=== PATIENT | male | born 1975 | race Caucasian/White ===

== ENCOUNTER 2019-11-14 22:44 | Inpatient (IN) | payer SELFPAY ==
[~2019-11-14] VITALS: Ht 175 cm; Wt 126.6 kg
[2019-11-14] MEDS ORDERED: TICAGRELOR 90 MG TABLET (BRILINTA) PO ONE (22:50)
--- NOTE | 2019-11-14 22:57 | ED Chest Pain ---
General Chief Complaint: Chest Pain Stated Complaint: ARM TINGLING,CHEST/SHOULDER/BACK PAIN Source: patient History of Present Illness Date Seen by Provider: Nov 14, 2019 Time Seen by Provider: 22:44 Initial Comments 44-year-old male presenting with complaints of substernal chest pain going into his left arm. He states that he was just laying down in bed and this came on for him. It started about an hour prior to arrival in the ED and has been constant. He tried some ibuprofen at home but has not taken aspirin or any other medicine. He has been having a cough but no fever or chills. Allergies and Home Medications Allergies Coded Allergies: No Known Drug Allergies (Unverified , 11/14/19) Patient Home Medication List Home Medication List Reviewed: Yes Review of Systems Review of Systems Constitutional: No chills, No fever EENTM: No Symptoms Reported Respiratory: Cough Cardiovascular: See HPI, Chest Pain Gastrointestinal: Nausea; Denies Vomiting Genitourinary: No Symptoms Reported Musculoskeletal: no symptoms reported Skin: no symptoms reported Psychiatric/Neurological: No Symptoms Reported Endocrine: No Symptoms Reported Hematologic/Lymphatic: No Symptoms Reported Past Ojbrgdt-Iykyqo-Todfti Hx Past Med/Social Hx: Reviewed Nursing Past Med/Soc Hx Patient Social History Recent Foreign Travel: No Contact w/Someone Who Travel: No Past Medical History Respiratory: No Cardiac: Yes High Cholesterol, Hypertension Gastrointestinal: Yes Gastroesophageal Reflux Endocrine: Yes Diabetes, Insulin dep Physical Exam Vital Signs Vital Signs - First Documented 11/14/19 22:46 Pulse Ox 94 O2 Delivery Nasal Cannula O2 Flow Rate 2.00 Capillary Refill : Less Than 3 Seconds Height, Weight, BMI Height: '" Weight: lbs. oz. kg; BMI Method: General Appearance: WD/WN, Anxious, Mild Distress, Obese HEENT: PERRL/EOMI, Pharynx Normal Neck: Full Range of Motion, Normal Inspection, Non Tender, Supple Respiratory: Chest Non Tender, Lungs Clear, Normal Breath Sounds Cardiovascular: Regular Rate, Rhythm, Normal Peripheral Pulses Gastrointestinal: Normal Bowel Sounds, No Pulsatile Mass, Non Tender, Soft Extremity: Normal Capillary Refill, Normal Inspection, Normal Range of Motion, Non Tender, No Calf Tenderness, No Pedal Edema Neurologic/Psychiatric: Alert, Oriented x3, No Motor/Sensory Deficits Skin: Normal Color, Warm/Dry Progress/Results/Core Measures Results/Orders Lab Results Laboratory Tests Test 11/14/19 22:55 11/14/19 22:59 11/14/19 23:00 Range/Units White Blood Count 11.7 H 4.3-11.0 10^3/uL Red Blood Count 5.43 4.35-5.85 10^6/uL Hemoglobin 16.5 13.3-17.7 G/DL Hematocrit 49 40-54 % Mean Corpuscular Volume 90 80-99 FL Mean Corpuscular Hemoglobin 30 25-34 PG Mean Corpuscular Hemoglobin Concent 34 32-36 G/DL Red Cell Distribution Width 13.8 10.0-14.5 % Platelet Count 238 130-400 10^3/uL Mean Platelet Volume 9.9 7.4-10.4 FL Neutrophils (%) (Auto) 44 42-75 % Lymphocytes (%) (Auto) 44 12-44 % Monocytes (%) (Auto) 9 0-12 % Eosinophils (%) (Auto) 2 0-10 % Basophils (%) (Auto) 1 0-10 % Neutrophils # (Auto) 5.2 1.8-7.8 X 10^3 Lymphocytes # (Auto) 5.1 H 1.0-4.0 X 10^3 Monocytes # (Auto) 1.1 H 0.0-1.0 X 10^3 Eosinophils # (Auto) 0.2 0.0-0.3 10^3/uL Basophils # (Auto) 0.1 0.0-0.1 10^3/uL Prothrombin Time 12.1 L 12.2-14.7 SEC INR Comment 0.9 0.8-1.4 Activated Partial Thromboplast Time 24 24-35 SEC Sodium Level 141 135-145 MMOL/L Potassium Level 3.9 3.6-5.0 MMOL/L Chloride Level 101 98-107 MMOL/L Carbon Dioxide Level 23 21-32 MMOL/L Anion Gap 17 H 5-14 MMOL/L Blood Urea Nitrogen 14 7-18 MG/DL Creatinine 1.08 0.60-1.30 MG/DL Estimat Glomerular Filtration Rate > 60 BUN/Creatinine Ratio 13 Glucose Level 240 H 70-105 MG/DL Calcium Level 9.4 8.5-10.1 MG/DL Corrected Calcium 9.2 8.5-10.1 MG/DL Magnesium Level 2.0 1.6-2.4 MG/DL Total Bilirubin 0.2 0.1-1.0 MG/DL Aspartate Amino Transf (AST/SGOT) 19 5-34 U/L Alanine Aminotransferase (ALT/SGPT) 23 0-55 U/L Alkaline Phosphatase 91 40-136 U/L Troponin I < 0.30 <0.30 NG/ML Pro-B-Type Natriuretic Peptide 47.8 <75.0 PG/ML Total Protein 7.6 6.4-8.2 GM/DL Albumin 4.2 3.2-4.5 GM/DL Glucometer 234 H 70-110 MG/DL My Orders Orders - GIL SHETH MD Cbc With Automated Diff (11/14/19 22:50) Magnesium (11/14/19 22:50) Chest 1 View Ap/Pa Only (11/14/19 22:50) Ekg Tracing (11/14/19 22:50) Comprehensive Metabolic Panel (11/14/19 22:50) Protime With Inr (11/14/19 22:50) Partial Thromboplastin Time (11/14/19 22:50) O2 (11/14/19 22:50) Monitor-Rhythm Ecg Trace Only (11/14/19 22:50) Aspirin Chewable Tablet (Baby Aspirin Ch (11/14/19 23:00) Ed Iv/Invasive Line Start (11/14/19 22:50) Ticagrelor Tablet (Brilinta Tablet) (11/14/19 22:50) Heparin Injection (Heparin Injection) (11/14/19 23:00) Troponin I Fs (11/14/19 22:50) Probnp Fs (11/14/19 22:50) Morphine Injection (Morphine Injection (11/14/19 23:00) Coronavirus Sars-Cov-2 So 2018 (11/14/19 22:50) Medications Given in ED Current Medications Medications Dose Ordered Sig/Sarmad Route Start Time Stop Time Status Last Admin Dose Admin Aspirin 324 mg ONCE ONCE PO 11/14/19 23:00 11/14/19 23:01 DC 11/14/19 22:57 324 MG Heparin Sodium (Porcine) 5,000 units ONCE ONCE IV 11/14/19 23:00 11/14/19 23:01 DC 11/14/19 22:57 5,000 UNITS Morphine Sulfate 2 mg ONCE ONCE IVP 11/14/19 23:00 11/14/19 23:01 DC 11/14/19 22:57 2 MG Ticagrelor 180 mg 2250 ONCE PO 11/14/19 22:50 11/14/19 22:52 DC 11/14/19 22:57 180 MG Vital Signs/I&O 11/14/19 11/14/19 11/14/19 11/14/19 22:46 22:48 22:48 23:16 Pulse 53 57 Resp 18 14 B/P (MAP) 144/91 (108) 127/71 Pulse Ox 94 95 97 O2 Delivery Nasal Cannula Room Air Room Air Room Air O2 Flow Rate 2.00 Progress Progress Note #1: Progress Note Advised patient that he would be given several medicines and aspirin as well as a blood thinner and getting him transferred to the Director Of Occupational Therapy at [facility]. Covid- 19 swab ordered as well since have had cough. [address] Chávez and will have pt come to [facility] for crime lab analyst. Notified hothouse worker at 2253 for activating the crime lab analyst. 2255 updated [facility] ED about the patient coming for the crime lab analyst. Giving 324 mg of aspirin here with Heparin 5000 units, Brillinta 180 mg, Morphine. Held off on nitroglycerin since he was showing inferior SD changes on his ECG. Progress Note #2: Progress Note On my review of his 1 view cxr he has no definite infiltrate or effusion. Labs show mild elevation of WBC count to 11.7. Chemistry has elevated glucose but initial troponin and bnp are not elevated. Initial ECG Impression Date: Nov 14, 2019 Initial ECG Impression Time: 22:46 Initial ECG Rate: 48 Initial ECG Rhythm: S.Sky Initial ECG Comparisson: No Previous ECG Available Comment Sinus bradycardia with heart rate of 48 beats for minute. Acute inferior infarct with ST elevation in leads 2, 3, aVF with depression in aVL. QT interval 420 ms with a QTc interval 376 ms. MD interval of 165 ms. There is no prior tracing available for comparison. Diagnostic Imaging Diagonstic Imaging: Xray Plain Films/CT/US/NM/MRI: chest Comments On my review of his 1 view CXR he has no definite infiltrate or effusion Reviewed: Reviewed by Me Departure Communication (Admissions) Time/Spoke to Admitting Phy: 22:52 Dr. Chávez updated and will have pt go to the ED and crime lab analyst 2253 Spoke with structural mill supervisor to activate crime lab analyst Impression Primary Impression: ST elevation myocardial infarction (STEMI) of inferior wall, initial episode of care Disposition: 02 XFER SHT-TRM HOSP Condition: Critical Admissions Decision to Admit Reason: Admit from ER (General) (to energy systems laboratory director then inpatient) Decision to Admit/Date: Nov 14, 2019 Time/Decision to Admit Time: 22:52 GIL SHETH MD Nov 14, 2019 22:57
[2019-11-14 23:00] LABS: BASOPHILS % (AUTO) 1 % (0-10); EOSINOPHILS % (AUTO) 2 % (0-10); HEMATOCRIT 49 % (40-54); HEMOGLOBIN 16.5 G/DL (13.3-17.7); LYMPHOCYTES % (AUTO) 44 % (12-44); MEAN CORPUSCULAR HEMOGLOBIN 30 PG (25-34); MEAN CORPUSCULAR HGB CONC 34 G/DL (32-36); MEAN CORPUSCULAR VOLUME 90 FL (80-99); MEAN PLATELET VOLUME 9.9 FL (7.4-10.4); MONOCYTES % (AUTO) 9 % (0-12); NEUTROPHILS % (AUTO) 44 % (42-75); PLATELET COUNT 238 10^3/uL (130-400); RED CELL DISTRIBUTION WIDTH 13.8 % (10.0-14.5); WHITE BLOOD COUNT 11.7 10^3/uL (4.3-11.0)
[2019-11-14] MEDS ORDERED: ASPIRIN 81 MG CHEW (CHILDREN'S ASA) PO ONE (23:00)
[2019-11-14] MEDS ORDERED: morphine INJ 10 MG/ML 1ML (SYR OR VIAL) IVP ONE (23:00)
--- NOTE | 2019-11-14 23:00 | NUR ---
Patient swabbed for COVID. Denies fever, SOA
[2019-11-14 23:01] LABS: BASOPHILS # (AUTO) 0.1 10^3/uL (0.0-0.1); EOSINOPHILS # (AUTO) 0.2 10^3/uL (0.0-0.3); LYMPHOCYTES # (AUTO) 5.1 X 10^3 (1.0-4.0); MONOCYTES # (AUTO) 1.1 X 10^3 (0.0-1.0); NEUTROPHILS # (AUTO) 5.2 X 10^3 (1.8-7.8)
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
--- OUTSIDE RECORDS SUMMARY | 2019-11-14 23:09 | XMS REPORT ---
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 Name Role Phone MIKA JOSE Unavailable PROBLEMS Type Condition ICD9-CM Code [id number] Code Onset Dates Condition S tatus SNOMED Code Problem Diabetes type 2, controlled E11.9 Ac tive 90095209 Problem Neuropathy, diabetic E11.40 Active 031269339 Problem Type 2 diabetes mellitus with diabetic neuropathy, uns pecified E11.40 Active 73738005 Problem Erectile dysfunction, unspecified erectile dysfunction typ e N52.9 Active 047697330 Problem Mood disorder F39 Active 425359 05 Problem Rhinosinusitis J32.9 Active 37357 000 Problem intermediate designer 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.4 Active 651377388 Problem Daytime somnolence R40.0 Active 1 13982394740 Problem Type 2 diabetes mellitus without complications E11 .9 Active 264810482 Problem ASIYA (obstructive sleep apnea) G47.33 Active 23381040 Problem Arthritis M19.90 Active 7015812 Problem Essential hypertension I10 Active 68095150 Problem Uncontrolled type 2 diabetes mellitus with hyperglycemia E11.65 Active 382884736 ALLERGIES No Information ENCOUNTERS Encounter Location Date Diagnosis [facility] [address] [id number] [address] [place] [id number] September, [id number] [address] Aug, Neuropathy, diabetic E11.40 [facility] [address] [id number] [address] [place] [phone] Aug, [facility] [address] [id number] [address] [place] [phone] Jul, [address] [id number] [address] Jul, H. pylori infection A04.8 an d Diabetes type 2, controlled E11.9 [facility] [address] [id number] [address] [place] [phone] Jul, [address] 340 [id number] [address] Jul, Neuropathy, diabetic E11.40 [place] [address] [id number] [address] [place] [id number] Jul, Type 2 diabetes mellitus wit hout complications E11.[address] [id number] [address] Jul, Type 2 diabetes mellitus wit hout complications E11.9 ; Neuropathy, diabetic E11.40 ; intermediate designer 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.4 ; Chronic back pain M54.9 and Daytime somnolence R40.[address] [id number] [address] Jul, BMI 40.0-44.9, adult Z68.41 [place] [address] [id number] [address] [place] [id number] 04 Jul, 2019 Type 2 diabetes mellitus wit hout complications E11.[address] [id number] [address] May, BMI 40.0-44.9, adult Z68.41 [facility] [address] [id number] [address] [place] [phone] May, [facility] [address] [facility] [id number] [address] [place] [id number] May, Dental examination Z01.20 an d Caries K02.9 [facility] [address] [id number] [address] [place] [phone] Apr, [address] 340 [id number] [address] Apr, Type 2 diabetes mellitus wit hout complications E11.9 ; Neuropathy, diabetic E11.40 ; halfway 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.4 ; Essential hypertension I10 ; Tobacco abuse Z72.0 ; Verruca B07.9 ; Folliculitis L73.9 and intermediate designer use of drug Z79.899 [facility] [address] [id number] [address] [place] [id number] 13 Apr, 2019 BMI 40.0-44.9, adult Z68.41 [facility] [address] [id number] [address] [place] [phone] Apr, [facility] [address] [id number] [address] [place] [address] Mar, Type 2 diabetes mellitus wit hout complications E11.9 [place] [address] [id number] [address] [place] [phone] Mar, [facility] [address] [id number] [address] [place] [id number] Mar, BMI 40.0-44.9, adult Z68.41 [facility] [address] [id number] [address] Mar, Rhinosinusitis J32.9 [facility] [address] [id number] [address] [place] [phone] Feb, Type 2 diabetes mellitus wit hout complications E11.9 [facility] [address] [id number] [address] [place] [phone] Feb, [facility] [address] [id number] [address] [place] [id number] Feb, Type 2 diabetes mellitus wit hout complications E11.9 [facility] [address] [id number] [address] [place] [address] Feb, BMI 40.0-44.9, adult Z68.41 [facility] [address] [id number] [address] [place] [phone] Feb, [place] [address] [address] Jan, Type 2 diabetes mellitus wit hout complications E11.9 [place] [address] [address] Jan, [place] [address] [address] Jan, Uncontrolled type 2 diabetes mellitus with hyperglycemia E11.65 [place] [address] [address] Jan, BMI 40.0-44.9, adult Z68.41 [place] [address] [address] Dec, [place] [address] [address] Dec, BMI 40.0-44.9, adult Z68.41 [place] [address] [address] Nov, BMI 40.0-44.9, adult Z68.41 [place] [address] [address] Nov, [place] [address] [address] Nov, BMI 40.0-44.9, adult Z68.41 [place] [address] [address] Oct, Type 2 diabetes mellitus wit hout complications E11.9 ; intermediate designer 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.4 and Foot pain, right M79.671 [place] [address] [place] [id number] [address] [place] [address] Oct, BMI 40.0-44.9, adult Z68.41 [place] [address] [address] September, BMI 40.0-44.9, adult Z68.41 [facility] [address] [place] [id number] [address] [place] [id number] Aug, Type 2 diabetes mellitus wit hout complications E11.9 and Morbid obesity E66.01 [facility] [address] [place] [id number] [address] [place] [id number] Aug, BMI 40.0-44.9, adult Z68.41 [facility] [address] [place] [id number] [address] [place] [address] Jul, [facility] [address] [place] [id number] [place] [address] Jul, [facility] [address] [place] [id number] [place] [address] Jul, BMI 40.0-44.9, adult Z68.41 [place] [address] [address] Jul, BMI 40.0-44.9, adult Z68.41 [facility] [address] [place] [id number] [address] [place] [address] May, [facility] [address] [place] [id number] [place] [address] May, [facility] [address] [place] [id number] [address] [place] [address] Apr, BMI 40.0-44.9, adult Z68.41 ; Type 2 diabetes mellitus without complications E11.9 and Arthritis M19.90 [facility] [address] [place] [id number] [address] [place] [address] Mar, [facility] [address] [place] [id number] [address] [place] [id number] Mar, [facility] [address] [place] [id number] [address] [place] [phone] Mar, Type 2 diabetes mellitus wit hout complications E11.9 [facility] [address] [id number] [address] [place] [id number] Feb, BMI 40.0-44.9, adult Z68.41 and Diabetes type 2, controlled E11.9 [facility] [address] [id number] [address] [place] [address] Feb, [facility] [address] [id number] [address] [place] [id number] Feb, [facility] [address] [id number] [address] [place] [id number] Feb, Diabetes type 2, controlled E11.9 [facility] [address] [id number] [address] [place] [phone] 24 Jan, 2018 [facility] [address] [id number] [address] [place] [address] Jan, [facility] [address] [id number] [address] [place] [id number] 17 Jan, 2018 Allergic reaction to drug, i nitial encounter T78.40XA ; Uncontrolled type 2 diabetes mellitus with hyperglycemia E11.65 and Essential hypertension I10 [facility] [address] [id number] [address] [place] [id number] 07 Jan, 2018 Type 2 diabetes mellitus wit hout complications E11.9 ; Diabetes type 2, controlled E11.9 and Arthritis M19.90 [facility] [address] [id number] [address] [place] [phone] Dec, Diabetes type 2, controlled E11.9 [facility] [address] [id number] [address] [place] [id number] Dec, [facility] [address] [id number] [address] [place] [id number] Dec, Diabetes type 2, controlled E11.9 [facility] [address] [id number] [address] [place] [phone] Oct, Diabetes type 2, controlled E11.9 [facility] [address] [id number] [address] [place] [id number] 14 Oct, 2017 Dental caries K02.9 and Leisenring al examination Z01.20 [facility] [address] [id number] [address] [place] [id number] 16 Sep, 2017 [facility] [address] [id number] [address] [place] [phone] 05 Aug, 2017 Diabetes type 2, controlled E11.9 ; Mood disorder F39 ; Arthritis M19.90 and Family history of rheumatoid arthritis Z82.61 [facility] [address] [id number] [address] [place] [id number] 15 Jul, 2017 Infection of both inner ears H83.03 and Dizziness R42 [facility] [address] [id number] [address] [place] [phone] 14 Jul, 2017 [facility] [address] [id number] [address] [place] [id number] 24 Jul, 2017 Diabetes type 2, controlled E11.9 [facility] [address] [id number] [address] [place] [id number] 09 Jul, 2017 Dental examination Z01.20 [facility] [address] [id number] [address] [place] [phone] May, Diabetes type 2, controlled E11.9 [facility] [address] [id number] [address] [place] [id number] May, [facility] [address] [id number] [address] [place] [id number] May, Dental examination Z01.20 [facility] [address] [id number] [address] [place] [phone] May, [facility] [address] [id number] [address] [place] [phone] May, [facility] [address] [id number] [address] [place] [id number] May, Diabetes type 2, controlled E11.9 [facility] [address] [id number] [address] [place] [phone] Apr, [facility] [address] [id number] [address] [place] [phone] Apr, Mood disorder F39 [facility] [address] [id number] [address] [place] [phone] Mar, [facility] [address] [id number] [address] [place] [phone] Mar, Diabetes type 2, controlled E11.9 and Encounter for immunization Z23 [facility] [address] [id number] [address] [place] [phone] Jan, Mood disorder F39 [facility] [address] [id number] [address] [place] [phone] Jan, Type 2 diabetes mellitus wit hout complications E11.9 [facility] [address] [id number] [address] [place] [phone] Nov, [facility] [address] [id number] [address] [place] [id number] Nov, Type 2 diabetes mellitus wit hout complications E11.9 ; Mood disorder F39 and ASIYA (obstructive sleep apnea) G47.33 [facility] [address] [id number] [address] [place] [phone] September, Diabetes type 2, controlled E11.9 [facility] [address] [id number] [address] [place] [phone] September, [facility] [address] [id number] [address] [place] [phone] Aug, Diabetes type 2, controlled E11.9 [facility] [address] [id number] [address] [place] [phone] Jul, [facility] [address] [id number] [address] [place] [phone] Jul, Type 2 diabetes mellitus wit hout complications E11.9 and intermediate designer 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.4 [facility] [address] [id number] [address] [place] [phone] Jul, Diabetes type 2, controlled E11.9 [facility] [address] [id number] [address] [place] [phone] Jul, [facility] [address] [id number] [address] [place] [phone] May, [facility] [address] [id number] [address] [place] [id number] Apr, Diabetes type 2, controlled E11.9 [place] [address] [id number] [address] [place] [phone] Feb, Erectile dysfunction, unspec ified erectile dysfunction type N52.9 ; Type 2 diabetes mellitus with diabetic neuropathy, unspecified E11.40 and halfway 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.4 [place] [address] [id number] [address] [place] [id number] 08 Jan, 2016 Impacted cerumen of both ear s H61.23 [place] [address] [id number] [address] [place] [phone] Oct, Type 2 diabetes mellitus wit hout complications E11.9 [place] [address] [id number] [address] [place] [id number] Oct, [place] [address] [id number] [address] [place] [phone] September, Type 2 diabetes mellitus wit hout complications E11.9 [facility] [address] [id number] [address] [place] [phone] Jul, Type 2 diabetes mellitus wit hout complications E11.9 ; Lumbar pain M54.5 and Tobacco abuse Z72.0 [facility] [address] [id number] [address] [place] [phone] May, [place] [address] [id number] [address] [place] [phone] May, [facility] [address] [id number] [address] [place] [phone] Apr, [facility] [address] [id number] [address] [place] [phone] Mar, [facility] [address] [id number] [address] [place] [phone] Mar, Type 2 diabetes mellitus wit hout complications E11.9 [facility] [address] [id number] [address] [place] [phone] Mar, [facility] [address] [id number] [place] [phone] Feb, Type 2 diabetes mellitus wit hout complications E11.9 ; Neuropathy, diabetic E11.40 and Sleep apnea G47.30 [facility] [address] [id number] [address] [place] [id number] Feb, [facility] [address] [id number] [address] [place] [id number] Jan, Skin infection, bacterial 68 6.9 [facility] [address] [id number] [address] [place] [phone] Jan, [facility] [address] [id number] [address] [place] [id number] Dec, Diabetes mellitus type 2, un complicated 250.00 [facility] [address] [id number] [address] [place] [id number] Dec, [facility] [address] [id number] [address] [place] [id number] Nov, [facility] [address] [place] [id number] [address] [place] [id number] Nov, Diabetes mellitus type 2, un complicated 250.00 and Obesity 278.00 [facility] [address] [id number] [address] [place] [phone] Oct, [facility] [address] [id number] [address] [place] [address], [place] [address] Oct, [facility] [address] [id number] [address] [place] [address], [place] [address] Aug, [facility] [address] [id number] [address] [place] [address], [place] [address] Aug, [facility] [address] [id number] [address] [place] [address], [place] [address] Jul, [facility] [address] [id number] [address] [place] [address], [place] [address] Jul, [facility] [address] [id number] [address] [place] [address], [place] [address] Jul, [facility] [address] [id number] [address] [place] [address], [place] [address] Jul, [facility] [address] [id number] [address] [place] [address], [place] [address] Jul, [facility] [address] [id number] [address] [place] [address], [place] [address] Jul, [facility] [address] [id number] [address] [place] [address], [place] [address] Feb, [facility] [address] [id number] [address] [place] [address], [place] [address] Feb, [facility] [address] [id number] [address] [place] [address], [place] [address] Dec, [facility] [address] [id number] [address] [place] [address], [place] [address] Nov, [facility] [address] [id number] [address] [place] [address], [place] [address] Nov, [facility] [address] [id number] [address] [place] [address], [place] [address] Nov, [facility] [address] [id number] [address] [place] [address], [place] [address] Nov, [facility] [address] [id number] [address] [place] [address], [place] [address] Nov, [facility] [address] [id number] [address] [place] [address], [place] [address] September, [facility] [address] [id number] [address] [place] [address], [place] [address] September, [facility] [address] [id number] [address] [place] [address], [place] [address] Aug, [facility] [address] [id number] [address] [place] [address], [place] [address] Aug, [facility] [address] [id number] [address] [place] [address], [place] [address] Aug, [facility] [address] [id number] [address] [place] [address], [place] [address] Aug, [facility] [address] [id number] [address] [place] [address], [place] [address] Jul, [facility] [address] [id number] [address] [place] [address], [place] [address] Jul, [facility] [address] [id number] [address] [place] [address], [place] [address] Apr, [facility] [address] [id number] [address] [place] [address], [place] [id number] Apr, [facility] [address] [id number] [address] [place] [address], [place] [id number] Mar, [facility] [address] [id number] [address] [place] [address], [place] [id number] Mar, [facility] [address] [id number] [address] [place] [address], [place] [address] Jan, [facility] [address] [id number] [address] [place] [address], [place] [address] Jan, [facility] [address] [id number] [address] [place] [address], [place] [address] Dec, [facility] [address] [id number] [address] [place] [address], [place] [id number] Nov, [facility] [address] [id number] [address] [place] [address], [place] [address] Nov, [facility] [address] [id number] [address] [place] [address], [place] [address] Nov, [facility] [address] [id number] [address] [place] [address], [place] [address] Oct, [facility] [address] [id number] [address] [place] [address], [place] [address] Oct, [facility] [address] [id number] [address] [place] [address], [place] [address] Oct, [facility] [address] [id number] [address] [place] [address], [place] [address] September, [facility] [address] [id number] [address] [place] [address], [place] [address] September, [facility] [address] [id number] [address] [place] [address], [place] [address] Aug, [facility] [address] [id number] [address] [place] [address], [place] [id number] Aug, [facility] [address] [id number] [address] [place] [address], [place] [address] Aug, [facility] [address] [id number] [address] [place] [address], [place] [address] Aug, [facility] [address] [id number] [address] [place] [address], [place] [address] Jul, [facility] [address] [id number] [address] [place] [address], [place] [address] Jul, [facility] [address] [id number] [address] [place] [address], [place] [id number] Jul, [facility] [address] [id number] [address] [place] [address], [place] [address] Jul, [facility] [address] [id number] [address] [place] [address], [place] [id number] May, [facility] [address] [id number] [address] [place] [address], [place] [address] May, [facility] [address] [id number] [address] [place] [address], [place] [id number] May, [facility] [address] [id number] [address] [place] [address], [place] [address] May, [facility] [address] [id number] [address] [place] [address], [place] [address] May, [facility] [address] [id number] [address] [place] [address], [place] [address] May, [facility] [address] [id number] [address] [place] [address], [place] [address] May, [facility] [address] [id number] [address] [place] [address], [place] [address] May, [facility] [address] [id number] [address] [place] [address], [place] [address] May, [facility] [address] [id number] [address] [place] [address], [place] [address] May, [facility] [address] [id number] [address] [place] [address], [place] [id number] Apr, [facility] [address] [id number] [address] [place] [address], [place] [id number] Apr, [facility] [address] [id number] [address] [place] [address], [place] [address] Apr, [facility] [address] [id number] [address] [place] [address], [place] [address] Apr, [facility] [address] [id number] [address] [place] [address], [place] [address] Mar, [facility] [address] [id number] [address] [place] [address], [place] [address] Mar, [facility] [address] [id number] [address] [place] [address], [place] [address] Feb, [facility] [address] [id number] [address] [place] [address], [place] [address] Feb, [facility] [address] [id number] [address] [place] [address], [place] [address] Feb, [facility] [address] [id number] [address] [place] [address], [place] [address] Feb, [facility] [address] [id number] [address] [place] [address], [place] [address] Jan, [facility] [address] [id number] [address] [place] [address], [place] [address] Dec, [facility] [address] [id number] [address] [place] [address], [place] [address] Oct, [facility] [address] [id number] [address] [place] [address], [place] [address] September, [facility] [address] [id number] [address] [place] [address], [place] [address] September, [facility] [address] [id number] [address] [place] [address], [place] [address] Jul, [facility] [address] [id number] [address] [place] [address], [place] [address] Jul, [facility] [address] [id number] [address] [place] [address], [place] [address] Jul, [facility] [address] [id number] [address] [place] [address], [place] [address] Jul, [facility] [address] [id number] [address] [place] [address] [address] 16 Jul, 2011 [facility] [address] [id number] [address] [place] [address], [place] [address] May, [facility] [address] [id number] [address] [place] [address], [place] [address] 16 Apr, 2011 [facility] [address] [id number] [address] [place] [address], [place] [address] 16 Apr, 2011 [facility] [address] [id number] [address] [place] [address], [place] [address] Apr, [facility] [address] [id number] [address] [place] [address], [place] [address] Apr, [facility] [address] [id number] [address] [place] [address], [place] [address] Mar, [facility] [address] [id number] [address] [place] [address], [place] [address] Mar, [facility] [address] [id number] [address] [place] [address], [place] [address] Mar, [facility] [address] [id number] [address] [place] [address], [place] [address] Mar, [facility] [address] [id number] [address] [place] [address], [place] [address] Feb, [facility] [address] [id number] [address] [place] [id number] Dec, [facility] [address] [id number] [address] [place] [id number] September, [facility] [address] [id number] [address] [place] [address], [place] [address] Aug, [facility] [address] [id number] [address] [place] [address], [place] [id number] 17 May, 2010 [facility] [address] [id number] [address] [place] [address], [place] [address] May, [facility] [address] [id number] [address] [place] [phone] Apr, [facility] [address] [id number] [address] [place] [id number] Apr, [facility] [address] [id number] [address] [place] [id number] Apr, [facility] [address] [id number] [address] [place] [id number] Mar, [facility] [address] [id number] [address] [place] [phone] Mar, [facility] [address] [id number] [address] [place] [id number] Mar, [facility] [address] [id number] [address] [place] [id number] Nov, [facility] [address] [id number] [address] [place] [phone] Oct, [facility] [address] [id number] [address] [place] [phone] September, [facility] [address] [id number] [address] [place] [id number] Dec, [facility] [address] [id number] [address] [place] [id number] Jul, [facility] [address] [id number] [address] [place] [id number] Jul, IMMUNIZATIONS No Known Immunizations SOCIAL HISTORY Never Assessed REASON FOR VISIT PLAN OF CARE VITAL SIGNS Height 70 in 2013-02-22 Weight 311.1 lbs 2013-02-22 Temperature 97.6 degrees Fahrenheit 2013-02-22 Heart Rate 90 bpm 2013-02-22 Respiratory Rate 18 2013-02-22 Blood pressure systolic 115 mmHg 2013-02-22 Blood pressure diastolic 80 mmHg 2013-02-22 MEDICATIONS Unknown Medications RESULTS No Results PROCEDURES Procedure Date Ordered Result Body Site GLYCATED HEMOGLOBIN TEST Feb 22, 2013 INSTRUCTIONS MEDICATIONS ADMINISTERED No Known Medications MEDICAL (GENERAL) HISTORY Type Description Date Medical History acid reflux Medical History Neuropathy, diabetic Medical History Diabetes mellitus type 2, controlled Medical History Erectile dysfunction, unspecified erecti le dysfunction type Medical History Type 2 diabetes mellitus with diabetic n europathy, unspecified Medical History intermediate designer current use of 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
--- OUTSIDE RECORDS SUMMARY | 2019-11-14 23:10 | XMS REPORT ---
Author Author Jerman BRENNAN Organization [facility] Address [address] [place] [address] Care Team Providers Care Lease Operator Name Role Phone MIKA JOSE Unavailable PROBLEMS Type Condition ICD9-CM Code [id number] Code Onset Dates Condition S tatus SNOMED Code Problem Diabetes type 2, controlled E11.9 Ac tive 84474614 Problem Neuropathy, diabetic E11.40 Active 769867321 Problem Type 2 diabetes mellitus with diabetic neuropathy, uns pecified E11.40 Active 19038524 Problem Erectile dysfunction, unspecified erectile dysfunction typ e N52.9 Active 730167965 Problem Mood disorder F39 Active 019602 05 Problem Rhinosinusitis J32.9 Active 05270 000 Problem 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 128783333 Problem Daytime somnolence R40.0 Active 1 08791248381 Problem Type 2 diabetes mellitus without complications E11 .9 Active 923238558 Problem ASIYA (obstructive sleep apnea) G47.33 Active 79497449 Problem Arthritis M19.90 Active 1973296 Problem Essential hypertension I10 Active 01708549 Problem Uncontrolled type 2 diabetes mellitus with hyperglycemia E11.65 Active 807569420 ALLERGIES No Information ENCOUNTERS Encounter Location Date Diagnosis [facility] [address] [facility] [id number] [address] [place] [phone] September, [address] 340[id number] [address] Aug, Neuropathy, diabetic E11.40 [facility] [address] [facility] [id number] [address] [place] [phone] Aug, [facility] [address] [facility] [id number] [address] [place] [address] Jul, [address] [id number], [place] [address] Jul, H. pylori infection A04.8 an d Diabetes type 2, controlled E11.9 [facility] [address] [facility] [place] [id number] [address] [place] [address] Jul, [address] 340 [id number], [place] [address] Jul, Neuropathy, diabetic E11.40 [place] [address] [facility] [id number] [address] [place] [address] Jul, Type 2 diabetes mellitus wit hout complications E11.[address] [id number] [address] Jul, Type 2 diabetes mellitus wit hout complications E11.9 ; Neuropathy, diabetic E11.40 ; 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 ; Chronic back pain M54.9 and Daytime somnolence R40.[address] [id number] [address] Jul, BMI 40.0-44.9, adult Z68.41 [place] [address] [facility] [id number] [address] [place] [address] 04 Jul, 2019 Type 2 diabetes mellitus wit hout complications E11.[address] [id number], [place] [address] May, BMI 40.0-44.9, adult Z68.41 [facility] [address] [facility] [id number] [address] [place] [address] May, [facility] [address] [facility] [id number] [address] [place] [address] [id number] May, Dental examination Z01.20 an d Caries K02.9 [facility] [address] [facility] [id number] [address] [place] [address] Apr, [address] 340 17947892AG[place], [place] [address] Apr, Type 2 diabetes mellitus wit hout complications E11.9 ; Neuropathy, diabetic E11.40 ; assisted 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.4 ; Essential hypertension I10 ; Tobacco abuse Z72.0 ; Verruca B07.9 ; Folliculitis L73.9 and talent acquisition relationship manager use of drug Z79.899 [facility] [address] [facility] [id number] [address] [place] [address] 13 Apr, 2019 BMI 40.0-44.9, adult Z68.41 [facility] [address] [facility] [id number] [address] [place] [address] Apr, [facility] [address] [facility] [id number] [address] [place] [address] Mar, Type 2 diabetes mellitus wit hout complications E11.9 [place] [address] [facility] [id number] [address] [place] [address] Mar, [facility] [address] [facility] [id number] [address] [place] [address] Mar, BMI 40.0-44.9, adult Z68.41 [facility] [address] 340 [id number] [place] [address] Mar, Rhinosinusitis J32.9 [facility] [address] [facility] [id number] [address] [place] [address] Feb, Type 2 diabetes mellitus wit hout complications E11.9 [facility] [address] [facility] [id number] [address] [place] [address] Feb, [facility] [address] [facility] [id number] [address] [place] [address] Feb, Type 2 diabetes mellitus wit hout complications E11.9 [facility] [address] [facility] [id number] [address] [place] [address] Feb, BMI 40.0-44.9, adult Z68.41 [facility] [address] [facility] [id number] [address] [place] [address] Feb, [place] [address] [address] Jan, Type 2 diabetes mellitus wit hout complications E11.9 [place] [address] [address] Jan, [place] [address] [address] Jan, Uncontrolled type 2 diabetes mellitus with hyperglycemia E11.65 [place] [address] [address] Jan, BMI 40.0-44.9, adult Z68.41 [place] [address] [address] Dec, [place] [address] [address] Dec, BMI 40.0-44.9, adult Z68.41 [place] [address] [address] Nov, BMI 40.0-44.9, adult Z68.41 [place] [address] [address] Nov, [place] [address] [address] Nov, BMI 40.0-44.9, adult Z68.41 [place] [address] [address] Oct, Type 2 diabetes mellitus wit hout complications E11.9 ; 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 and Foot pain, right M79.671 [place] [address] [place] [id number] [address] [place] [address] Oct, BMI 40.0-44.9, adult Z68.41 [place] [address] [address] September, BMI 40.0-44.9, adult Z68.41 [facility] [address] [place] [id number] [address] [place] [address] Aug, Type 2 diabetes mellitus wit hout complications E11.9 and Morbid obesity E66.01 [facility] [address] [place] [id number] [address] [place] [address] Aug, BMI 40.0-44.9, adult Z68.41 [facility] [address] [place] [id number] [address] [place] [address] Jul, [facility] [address] [place] [id number] [place] [address] Jul, [facility] [address] [place] [id number] [place] [address] Jul, BMI 40.0-44.9, adult Z68.41 [place] [address] [address] Jul, BMI 40.0-44.9, adult Z68.41 [facility] [address] [place] [id number] [address] [place] [address] May, [facility] [address] [place] [id number] [place] [address] May, [facility] [address] [place] [id number] [address] [place] [address] Apr, BMI 40.0-44.9, adult Z68.41 ; Type 2 diabetes mellitus without complications E11.9 and Arthritis M19.90 [facility] [address] [place] [id number] [address] [place] [address] Mar, [facility] [address] [place] [id number] [address] [place] [address] Mar, [facility] [address] [place] [id number] [address] [place] [address] Mar, Type 2 diabetes mellitus wit hout complications E11.9 [facility] [address] [facility] [id number] [address] [place] [address] Feb, BMI 40.0-44.9, adult Z68.41 and Diabetes type 2, controlled E11.9 [facility] [address] [id number] [address] [place] [address] Feb, [facility] [address] [facility] [id number] [address] [place] [address] Feb, [facility] [address] [facility] [id number] [address] [place] [address] Feb, Diabetes type 2, controlled E11.9 [facility] [address] [facility] [id number] [address] [place] [address] 24 Jan, 2018 [facility] [address] [facility] [id number] [address] [place] [address] Jan, [facility] [address] [facility] [id number] [address] [place] [address] 17 Jan, 2018 Allergic reaction to drug, i nitial encounter T78.40XA ; Uncontrolled type 2 diabetes mellitus with hyperglycemia E11.65 and Essential hypertension I10 [facility] [address] [facility] [id number] [address] [place] [address] 07 Jan, 2018 Type 2 diabetes mellitus wit hout complications E11.9 ; Diabetes type 2, controlled E11.9 and Arthritis M19.90 [facility] [address] [facility] [id number] [address] [place] [address] Dec, Diabetes type 2, controlled E11.9 [facility] [address] [facility] [id number] [address] [place] [address] Dec, [facility] [address] [facility] [id number] [address] [place] [address] Dec, Diabetes type 2, controlled E11.9 [facility] [address] [facility] [id number] [address] [place] [address] Oct, Diabetes type 2, controlled E11.9 [facility] [address] [id number] [address] [place] [id number] 14 Oct, 2017 Dental caries K02.9 and [place] al examination Z01.20 [facility] [address] [id number] [address] [place] [id number] 16 Sep, 2017 [facility] [address] [id number] [address] [place] [id number] 05 Aug, 2017 Diabetes type 2, controlled E11.9 ; Mood disorder F39 ; Arthritis M19.90 and Family history of rheumatoid arthritis Z82.61 [facility] [address] [id number] [address] [place] [phone] 15 Jul, 2017 Infection of both inner ears H83.03 and Dizziness R42 [facility] [address] [id number] [address] [place] [phone] 14 Jul, 2017 [facility] [address] [id number] [address] [place] [id number] 24 Jul, 2017 Diabetes type 2, controlled E11.9 [facility] [address] [id number] [address] [place] [address] [id number] 09 Jul, 2017 Dental examination Z01.20 [facility] [address] [id number] [address] [place] [address] May, Diabetes type 2, controlled E11.9 [facility] [address] [id number] [address] [place] [address] May, [facility] [address] [id number] [address] [place] [address] [id number] May, Dental examination Z01.20 [facility] [address] [id number] [address] [place] [phone] May, [facility] [address] [id number] [address] [place] [phone] May, [facility] [address] [facility] [id number] [address] [place] [address] May, Diabetes type 2, controlled E11.9 [facility] [address] [id number] [address] [place] [address] Apr, [facility] [address] [id number] [address] [place] [phone] Apr, Mood disorder F39 [facility] [address] [facility] [id number] [address] [place] [address] Mar, [facility] [address] [facility] [id number] [address] [place] [phone] Mar, Diabetes type 2, controlled E11.9 and Encounter for immunization Z23 [facility] [address] [facility] [id number] [address] [place] [address] Jan, Mood disorder F39 [facility] [address] [facility] [id number] [address] [place] [phone] Jan, Type 2 diabetes mellitus wit hout complications E11.9 [facility] [address] [id number] [address] [place] [phone] Nov, [facility] [address] [facility] [id number] [address] [place] [address] Nov, Type 2 diabetes mellitus wit hout complications E11.9 ; Mood disorder F39 and ASIYA (obstructive sleep apnea) G47.33 [facility] [address] [facility] [id number] [address] [place] [address] September, Diabetes type 2, controlled E11.9 [facility] [address] [id number] [address] [place] [address] September, [facility] [address] [id number] [address] [place] [phone] Aug, Diabetes type 2, controlled E11.9 [facility] [address] [id number] [address] [place] [address] Jul, [facility] [address] [facility] [id number] [address] [place] [address] Jul, Type 2 diabetes mellitus wit hout complications E11.9 and 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 [facility] [address] [id number] [address] [place] [phone] Jul, Diabetes type 2, controlled E11.9 [facility] [address] [facility] [id number] [address] [place] [phone] Jul, [facility] [address] [facility] [id number] [address] [place] [phone] May, [facility] [address] [facility] [id number] [address] [place] [address] Apr, Diabetes type 2, controlled E11.9 [place] [address] [facility] [id number] [address] [place] [address] Feb, Erectile dysfunction, unspec ified erectile dysfunction type N52.9 ; Type 2 diabetes mellitus with diabetic neuropathy, unspecified E11.40 and assisted 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.4 [place] [address] [facility] [id number] [address] [place] [phone] 08 Jan, 2016 Impacted cerumen of both ear s H61.23 [place] [address] [facility] [id number] [address] [place] [phone] Oct, Type 2 diabetes mellitus wit hout complications E11.9 [place] [address] [facility] [id number] [address] [place] [phone] Oct, [place] [address] [facility] [id number] [address] [place] [address] September, Type 2 diabetes mellitus wit hout complications E11.9 [facility] [address] [facility] [id number] [address] [place] [phone] Jul, Type 2 diabetes mellitus wit hout complications E11.9 ; Lumbar pain M54.5 and Tobacco abuse Z72.0 [facility] [address] [facility] [id number] [address] [place] [phone] May, [place] [address] [facility] [id number] [address] [place] [address] May, [facility] [address] [facility] [id number] [address] [place] [phone] Apr, [facility] [address] [facility] [id number] [address] [place] [address] Mar, [facility] [address] [facility] [id number] [address] [place] [address] Mar, Type 2 diabetes mellitus wit hout complications E11.9 [facility] [address] [facility] [id number] [address] [place] [phone] Mar, [facility] [address] [facility] [id number] [place] [address] Feb, Type 2 diabetes mellitus wit hout complications E11.9 ; Neuropathy, diabetic E11.40 and Sleep apnea G47.30 [facility] [address] [facility] [id number] [address] [place] [phone] Feb, [facility] [address] [facility] [id number] [address] [place] [address] Jan, Skin infection, bacterial 68 6.9 [facility] [address] [facility] [id number] [address] [place] [address] Jan, [facility] [address] [facility] [id number] [address] [place] [address] Dec, Diabetes mellitus type 2, un complicated 250.00 [facility] [address] [facility] [id number] [address] [place] [phone] Dec, [facility] [address] [facility] [id number] [address] [place] [address] Nov, [facility] [address] [place] [id number] [address] [place] [address] Nov, Diabetes mellitus type 2, un complicated 250.00 and Obesity 278.00 [facility] [address] [facility] [id number] [address] [place] [address] Oct, [facility] [address] [id number] [address] [place] [address], [place] [address] Oct, [facility] [address] [id number] [address] [place] [address], [place] [address] Aug, [facility] [address] [id number] [address] [place] [address], [place] [address] Aug, [facility] [address] [id number] [address] [place] [address], [place] [address] Jul, [facility] [address] [id number] [address] [place] [address], [place] [address] Jul, [facility] [address] [id number] [address] [place] [address], [place] [address] Jul, [facility] [address] [id number] [address] [place] [address], [place] [address] Jul, [facility] [address] [id number] [address] [place] [address], [place] [address] Jul, [facility] [address] [id number] [address] [place] [address], [place] [address] Jul, [facility] [address] [id number] [address] [place] [address], [place] [address] Feb, [facility] [address] [id number] [address] [place] [address], [place] [address] Feb, [facility] [address] [id number] [address] [place] [address], [place] [address] Dec, [facility] [address] [id number] [address] [place] [address], [place] [address] Nov, [facility] [address] [id number] [address] [place] [address], [place] [address] Nov, [facility] [address] [id number] [address] [place] [address], [place] [address] Nov, [facility] [address] [id number] [address] [place] [address], [place] [address] Nov, [facility] [address] [id number] [address] [place] [address], [place] [address] Nov, [facility] [address] [id number] [address] [place] [address], [place] [address] September, [facility] [address] [id number] [address] [place] [address], [place] [address] September, [facility] [address] [id number] [address] [place] [address], [place] [address] Aug, [facility] [address] [id number] [address] [place] [address], [place] [address] Aug, [facility] [address] [id number] [address] [place] [address], [place] [address] Aug, [facility] [address] [id number] [address] [place] [address], [place] [address] Aug, [facility] [address] [id number] [address] [place] [address], [place] [address] Jul, [facility] [address] [id number] [address] [place] [address], [place] [address] Jul, [facility] [address] [id number] [address] [place] [address], [place] [address] Apr, [facility] [address] [id number] [address] [place] [address], [place] [address] Apr, [facility] [address] [id number] [address] [place] [address], [place] [address] Mar, [facility] [address] [id number] [address] [place] [address], [place] [address] Mar, [facility] [address] [id number] [address] [place] [address], [place] [address] Jan, [facility] [address] [id number] [address] [place] [address], [place] [address] Jan, [facility] [address] [id number] [address] [place] [address], [place] [address] Dec, [facility] [address] [id number] [address] [place] [address], [place] [address] Nov, [facility] [address] [id number] [address] [place] [address], [place] [address] Nov, [facility] [address] [id number] [address] [place] [address], [place] [address] Nov, [facility] [address] [id number] [address] [place] [address], [place] [address] Oct, [facility] [address] [id number] [address] [place] [address], [place] [address] Oct, [facility] [address] [id number] [address] [place] [address], [place] [address] Oct, [facility] [address] [id number] [address] [place] [address], [place] [address] September, [facility] [address] [id number] [address] [place] [address], [place] [address] September, [facility] [address] [id number] [address] [place] [address], [place] [address] Aug, [facility] [address] [id number] [address] [place] [address], [place] [address] Aug, [facility] [address] [id number] [address] [place] [address], [place] [address] Aug, [facility] [facility] [address] [id number] [address] [place] [address], [place] [address] Aug, [facility] [address] [id number] [address] [place] [address], [place] [address] Jul, [facility] [address] [id number] [address] [place] [address], [place] [address] Jul, [facility] [address] [id number] [address] [place] [address], [place] [address] Jul, [facility] [address] [id number] [address] [place] [address], [place] [address] Jul, [facility] [address] [id number] [address] [place] [address], [place] [address] May, [facility] [address] [id number] [address] [place] [address], [place] [address] May, [facility] [address] [id number] [address] [place] [address], [place] [address] May, [facility] [address] [id number] [address] [place] [address], [place] [address] May, [facility] [address] [id number] [address] [place] [address], [place] [address] May, [facility] [address] [id number] [address] [place] [address], [place] [address] May, [facility] [address] [id number] [address] [place] [address], [place] [address] May, [facility] [address] [id number] [address] [place] [address], [place] [address] May, [facility] [address] [id number] [address] [place] [address], [place] [address] May, [facility] [address] [id number] [address] [place] [address], [place] [address] May, [facility] [address] [id number] [address] [place] [address], [place] [address] Apr, [facility] [address] [id number] [address] [place] [address], [place] [address] Apr, [facility] [address] [id number] [address] [place] [address], [place] [address] Apr, [facility] [address] [id number] [address] [place] [address], [place] [address] Apr, [facility] [address] [id number] [address] [place] [address], [place] [address] Mar, [facility] [address] [id number] [address] [place] [address], [place] [address] Mar, [facility] [address] [id number] [address] [place] [address], [place] [address] Feb, [facility] [address] [id number] [address] [place] [address], [place] [address] Feb, [facility] [address] [id number] [address] [place] [address], [place] [address] Feb, [facility] [address] [id number] [address] [place] [address], [place] [address] Feb, [facility] [address] [id number] [address] [place] [address], [place] [address] Jan, [facility] [address] [id number] [address] [place] [address], [place] [address] Dec, [facility] [address] [id number] [address] [place] [address], [place] [address] Oct, [facility] [address] [id number] [address] [place] [address], [place] [address] September, [facility] [address] [id number] [address] [place] [address], [place] [address] September, [facility] [address] [id number] [address] [place] [address], [place] [address] Jul, [facility] [address] [id number] [address] [place] [address], [place] [address] Jul, [facility] [address] [id number] [address] [place] [address], [place] [address] Jul, [facility] [address] [id number] [address] [place] [address], [place] [address] Jul, [facility] [address] [id number] [address] [place] [address] [address] 16 Jul, 2011 [facility] [address] [id number] [address] [place] [address], [place] [address] May, [facility] [address] [id number] [address] [place] [address], [place] [address] 16 Apr, 2011 [facility] [address] [id number] [address] [place] [address], [place] [address] 16 Apr, 2011 [facility] [address] [id number] [address] [place] [address], [place] [address] Apr, [facility] [address] [id number] [address] [place] [address], [place] [address] Apr, [facility] [address] [id number] [address] [place] [address], [place] [address] Mar, [facility] [address] [id number] [address] [place] [address], [place] [address] Mar, [facility] [address] [id number] [address] [place] [address], [place] [address] Mar, [facility] [address] [id number] [address] [place] [address], [place] [address] Mar, [facility] [address] [id number] [address] [place] [address], [place] [address] Feb, [facility] [address] [id number] [address] [place] [address] Dec, [facility] [address] [id number] [address] [place] [address] September, [facility] [address] [id number] [address] [place] [address], [place] [address] Aug, [facility] [address] [id number] [address] [place] [address], [place] [address] 17 May, 2010 [facility] [address] [id number] [address] [place] [address], [place] [address] May, [facility] [address] [id number] [address] [place] [address] Apr, [facility] [address] [id number] [address] [place] [address] Apr, [facility] [address] [id number] [address] [place] [address] Apr, [facility] [address] [id number] [address] [place] [address] Mar, [facility] [address] [id number] [address] [place] [address] Mar, [facility] [address] [id number] [address] [place] [address] Mar, [facility] [address] [id number] [address] [place] [address] Nov, [facility] [address] [id number] [address] [place] [id number] Oct, [facility] [address] [id number] [address] [place] [address] September, [facility] [address] [id number] [address] [place] [address] Dec, [facility] [address] [id number] [address] [place] [address] Jul, [facility] [address] [id number] [address] [place] [address] Jul, IMMUNIZATIONS No Known Immunizations SOCIAL HISTORY Never Assessed REASON FOR VISIT PLAN OF CARE VITAL SIGNS Height 70 in 2012-12-20 Weight 312.8 lbs 2012-12-20 Temperature 96.6 degrees Fahrenheit 2012-12-20 Heart Rate 100 bpm 2012-12-20 Respiratory Rate 20 2012-12-20 Blood pressure systolic 114 mmHg 2012-12-20 Blood pressure diastolic 64 mmHg 2012-12-20 MEDICATIONS Unknown Medications RESULTS No Results PROCEDURES No Known procedures INSTRUCTIONS MEDICATIONS ADMINISTERED No Known Medications MEDICAL (GENERAL) HISTORY Type Description Date Medical History acid reflux Medical History Neuropathy, diabetic Medical History Diabetes mellitus type 2, controlled Medical History Erectile dysfunction, unspecified erecti le dysfunction type Medical History Type 2 diabetes mellitus with diabetic n europathy, unspecified Medical 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
--- OUTSIDE RECORDS SUMMARY | 2019-11-14 23:10 | XMS REPORT ---
Author Author Jerman BRENNAN Organization [facility] Address [address] [place] [address] Care Team Providers Care Managing Editor Name Role Phone JOSE BRENNAN Unavailable PROBLEMS Type Condition ICD9-CM Code DEV14-AE Code Onset Dates Condition S tatus SNOMED Code Problem Diabetes type 2, controlled E11.9 Ac tive 45802396 Problem Neuropathy, diabetic E11.40 Active 561732969 Problem Type 2 diabetes mellitus with diabetic neuropathy, uns pecified E11.40 Active 62865485 Problem Erectile dysfunction, unspecified erectile dysfunction typ e N52.9 Active 385966504 Problem Mood disorder F39 Active 579590 05 Problem Rhinosinusitis J32.9 Active 50016 000 Problem lobsterman 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.4 Active 767936038 Problem Daytime somnolence R40.0 Active 1 53871843419 Problem Type 2 diabetes mellitus without complications E11 .9 Active 326643052 Problem ASIYA (obstructive sleep apnea) G47.33 Active 73307192 Problem Arthritis M19.90 Active 9159944 Problem Essential hypertension I10 Active 70098278 Problem Uncontrolled type 2 diabetes mellitus with hyperglycemia E11.65 Active 047641774 ALLERGIES No Information ENCOUNTERS Encounter Location Date Diagnosis [address] [id number] [address] Aug, Neuropathy, diabetic E11.40 [facility] [address] [facility] [id number] [address] [place] [address] Aug, [facility] [address] [facility] [id number] [address] [place] [address] Jul, [address] [id number] [address] Jul, H. pylori infection A04.8 an d Diabetes type 2, controlled E11.9 [facility] [address] [place] [id number] [address] [place] [address] Jul, [address] [id number] [address] Jul, Neuropathy, diabetic E11.40 [facility] [address] [facility] [id number] [address] [place] [address] Jul, Type 2 diabetes mellitus wit hout complications E11.[address] [id number] [address] Jul, Type 2 diabetes mellitus wit hout complications E11.9 ; Neuropathy, diabetic E11.40 ; lobsterman 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.4 ; Chronic back pain M54.9 and Daytime somnolence R40.[address] [id number] [address] Jul, BMI 40.0-44.9, adult Z68.41 [place] [address] [facility] [id number] [address] [place] [address] Jul, Type 2 diabetes mellitus wit hout complications E11.[address] [id number] [address] May, BMI 40.0-44.9, adult Z68.41 [place] [address] [facility] [id number] [address] [place] [address] May, [facility] [address] [place] [id number] [address] [place] [address] [id number] May, Dental examination Z01.20 an d Caries K02.9 [facility] [address] [facility] [id number] [address] [place] [address] Apr, [address] [id number] [address] Apr, Type 2 diabetes mellitus wit hout complications E11.9 ; Neuropathy, diabetic E11.40 ; lobsterman 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.4 ; Essential hypertension I10 ; Tobacco abuse Z72.0 ; Verruca B07.9 ; Folliculitis L73.9 and penitentiary use of drug Z79.899 [facility] [address] [facility] [id number] [address] [place] [address] Apr, BMI 40.0-44.9, adult Z68.41 [facility] [address] [facility] [id number] [address] [place] [address] Apr, [facility] [address] [facility] [id number] [address] [place] [address] Mar, Type 2 diabetes mellitus wit hout complications E11.9 [facility] [address] [facility] [id number] [address] [place] [address] Mar, [facility] [address] [facility] [id number] [address] [place] [address] Mar, BMI 40.0-44.9, adult Z68.41 [facility] [address] [id number] [address] Mar, Rhinosinusitis J32.9 [facility] [address] [facility] [id number] [address] [place] [address] Feb, Type 2 diabetes mellitus wit hout complications E11.9 [facility] [address] [facility] [id number] [address] [place] [address] Feb, [facility] [address] [facility] [id number] [address] [place] [address] Feb, Type 2 diabetes mellitus wit hout complications E11.9 [facility] [address] [facility] [id number] [address] [place] [address] Feb, BMI 40.0-44.9, adult Z68.41 [facility] [address] [facility] [id number] [address] [place] [address] Feb, [facility] [address] [facility] [id number] [address] [place] [address] Jan, Type 2 diabetes mellitus wit hout complications E11.9 [place] [address] [facility] [id number] [address] [place] [address] Jan, [place] [address] [facility] [id number] [address] [place] [address] Jan, Uncontrolled type 2 diabetes mellitus with hyperglycemia E11.65 [place] [address] [facility] [id number] [address] [place] [address] Jan, BMI 40.0-44.9, adult Z68.41 [place] [address] [facility] [id number] [address] [place] [address] Dec, [place] [address] [place] [id number] [place] [address] Dec, BMI 40.0-44.9, adult Z68.41 [place] [address] [place] [id number] [address] [place] [address] Nov, BMI 40.0-44.9, adult Z68.41 [place] [address] [place] [id number] [address] [place] [address] Nov, [place] [address] [place] [id number] [address] [place] [address] Nov, BMI 40.0-44.9, adult Z68.41 [place] [address] [place] [id number] [address] [place] [address] Oct, Type 2 diabetes mellitus wit hout complications E11.9 ; lobsterman 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.4 and Foot pain, right M79.671 [place] [address] [facility] [id number] [address] [place] [address] Oct, BMI 40.0-44.9, adult Z68.41 [place] [address] [place] [id number] [address] [place] [address] September, BMI 40.0-44.9, adult Z68.41 [place] [address] [place] [id number] [address] [place] [address] Aug, Type 2 diabetes mellitus wit hout complications E11.9 and Morbid obesity E66.01 [facility] [address] [address] Aug, BMI 40.0-44.9, adult Z68.41 [facility] [address] [address] Jul, [facility] [address] [address] Jul, [facility] [address] [address] Jul, BMI 40.0-44.9, adult Z68.41 [place] [address] [address] Jul, BMI 40.0-44.9, adult Z68.41 [facility] [address] [address] May, [facility] [address] [address] May, [facility] [address] [address] Apr, BMI 40.0-44.9, adult Z68.41 ; Type 2 diabetes mellitus without complications E11.9 and Arthritis M19.90 [facility] [address] [address] Mar, [facility] [address] [address] Mar, [place] [address] [address] Mar, Type 2 diabetes mellitus wit hout complications E11.9 [place] [address] [address] Feb, BMI 40.0-44.9, adult Z68.41 and Diabetes type 2, controlled E11.9 [facility] [address] [facility] [id number] [address] [place] [address] Feb, [facility] [address] [facility] [id number] [address] [place] [address] Feb, [facility] [address] [facility] [id number] [address] [place] [address] Feb, Diabetes type 2, controlled E11.9 [facility] [address] [id number] [address] [place] [address] 24 Jan, 2018 [facility] [address] [facility] [id number] [address] [place] [address] 20 Jan, 2018 [facility] [address] [facility] [id number] [address] [place] [address] 17 Jan, 2018 Allergic reaction to drug, i nitial encounter T78.40XA ; Uncontrolled type 2 diabetes mellitus with hyperglycemia E11.65 and Essential hypertension I10 [facility] [address] [facility] [id number] [address] [place] [address] 07 Jan, 2018 Type 2 diabetes mellitus wit hout complications E11.9 ; Diabetes type 2, controlled E11.9 and Arthritis M19.90 [facility] [address] [facility] [id number] [address] [place] [address] Dec, Diabetes type 2, controlled E11.9 [facility] [address] [facility] [id number] [address] [place] [address] Dec, [facility] [address] [facility] [id number] [address] [place] [address] Dec, Diabetes type 2, controlled E11.9 [facility] [address] [facility] [id number] [address] [place] [address] Oct, Diabetes type 2, controlled E11.9 [facility] [address] [id number] [address] [place] [address] [id number] 14 Germán, 2018 Dental caries K02.9 and Dunlap al examination Z01.20 [facility] [address] [id number] [address] [place] [address] September, [facility] [address] [id number] [address] [place] [address] Aug, Diabetes type 2, controlled E11.9 ; Mood disorder F39 ; Arthritis M19.90 and Family history of rheumatoid arthritis Z82.61 [facility] [address] [id number] [address] [place] [address] 15 Jul, 2017 Infection of both inner ears H83.03 and Dizziness R42 [facility] [address] [id number] [address] [place] [address] Jul, [facility] [address] [id number] [address] [place] [address] Jul, Diabetes type 2, controlled E11.9 [facility] [address] [id number] [address] [place] [id number] Jul, Dental examination Z01.20 [facility] [address] [id number] [address] [place] [address] May, Diabetes type 2, controlled E11.9 [facility] [address] [id number] [address] [place] [address] May, [facility] [address] [id number] [address] [place] [address] [id number] May, Dental examination Z01.20 [facility] [address] [id number] [address] [place] [address] May, [facility] [address] [id number] [address] [place] [address] May, [facility] [address] [id number] [address] [place] [address] May, Diabetes type 2, controlled E11.9 [facility] [address] [id number] [address] [place] [address] Apr, [facility] [address] [facility] [id number] [address] [place] [address] Apr, Mood disorder F39 [facility] [address] [facility] [id number] [address] [place] [address] Mar, [facility] [address] [facility] [id number] [address] [place] [address] Mar, Diabetes type 2, controlled E11.9 and Encounter for immunization Z23 [facility] [address] [facility] [id number] [address] [place] [address] Jan, Mood disorder F39 [facility] [address] [facility] [id number] [address] [place] [address] Jan, Type 2 diabetes mellitus wit hout complications E11.9 [facility] [address] [facility] [id number] [address] [place] [address] Nov, [facility] [address] [facility] [id number] [address] [place] [address] Nov, Type 2 diabetes mellitus wit hout complications E11.9 ; Mood disorder F39 and ASIYA (obstructive sleep apnea) G47.33 [facility] [address] [facility] [id number] [address] [place] [address] September, Diabetes type 2, controlled E11.9 [facility] [address] [facility] [id number] [address] [place] [address] September, [facility] [address] [facility] [id number] [address] [place] [address] Aug, Diabetes type 2, controlled E11.9 [facility] [address] [facility] [id number] [address] [place] [address] Jul, [facility] [address] [facility] [id number] [address] [place] [address] Jul, Type 2 diabetes mellitus wit hout complications E11.9 and penitentiary 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.4 [facility] [address] [facility] [id number] [address] [place] [address] Jul, Diabetes type 2, controlled E11.9 [facility] [address] [facility] [id number] [address] [place] [address] Jul, [facility] [address] [facility] [id number] [address] [place] [address] May, [facility] [address] [facility] [id number] [address] [place] [address] Apr, Diabetes type 2, controlled E11.9 [facility] [address] [facility] [id number] [address] [place] [address] Feb, Erectile dysfunction, unspec ified erectile dysfunction type N52.9 ; Type 2 diabetes mellitus with diabetic neuropathy, unspecified E11.40 and lobsterman 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.4 [place] [address] [facility] [id number] [address] [place] [address] Jan, Impacted cerumen of both ear s H61.23 [facility] [address] [facility] [id number] [address] [place] [address] Oct, Type 2 diabetes mellitus wit hout complications E11.9 [facility] [address] [facility] [id number] [address] [place] [address] Oct, [facility] [address] [facility] [id number] [address] [place] [address] September, Type 2 diabetes mellitus wit hout complications E11.9 [facility] [address] [facility] [id number] [address] [place] [address] Jul, Type 2 diabetes mellitus wit hout complications E11.9 ; Lumbar pain M54.5 and Tobacco abuse Z72.0 [facility] [address] [facility] [id number] [address] [place] [address] May, [facility] [address] [facility] [id number] [address] [place] [address] May, [facility] [address] [facility] [id number] [address] [place] [address] Apr, [facility] [address] [id number] [address] [place] [address] Mar, [facility] [address] [facility] [id number] [address] [place] [address] Mar, Type 2 diabetes mellitus wit hout complications E11.9 [facility] [address] [facility] [id number] [address] [place] [address] Mar, [facility] [address] [facility] [id number] [address] [place] [address] 28 Feb, 2015 Type 2 diabetes mellitus wit hout complications E11.9 ; Neuropathy, diabetic E11.40 and Sleep apnea G47.30 [facility] [address] [facility] [id number] [address] [place] [address] Feb, [facility] [address] [facility] [id number] [address] [place] [address] Jan, Skin infection, bacterial 68 6.9 [facility] [address] [facility] [id number] [address] [place] [address] Jan, [facility] [address] [facility] [id number] [address] [place] [address] Dec, Diabetes mellitus type 2, un complicated 250.00 [facility] [address] [facility] [id number] [address] [place] [address] Dec, [facility] [address] [facility] [id number] [address] [place] [address] Nov, [facility] [address] [facility] [id number] [address] [place] [address] Nov, Diabetes mellitus type 2, un complicated 250.00 and Obesity 278.00 [facility] [address] [facility] [id number] [address] [place] [address] Oct, [facility] [address] [facility] [id number] [address] [place] [address] Oct, [facility] [address] [id number] [address] [place] [address], [place] [address] Aug, [facility] [address] [id number] [address] [place] [address], [place] [address] Aug, [facility] [address] [id number] [address] [place] [address], [place] [address] Jul, [facility] [address] [id number] [address] [place] [address], [place] [address] Jul, [facility] [address] [id number] [address] [place] [address], [place] [address] Jul, [facility] [address] [id number] [address] [place] [address], [place] [address] Jul, [facility] [address] [id number] [address] [place] [address], [place] [address] Jul, [facility] [address] [id number] [address] [place] [address], [place] [address] Jul, [facility] [address] [id number] [address] [place] [address], [place] [address] Feb, [facility] [address] [id number] [address] [place] [address], [place] [address] Feb, [facility] [address] [id number] [address] [place] [address], [place] [address] Dec, [facility] [address] [id number] [address] [place] [address], [place] [address] Nov, [facility] [address] [id number] [address] [place] [address], [place] [address] Nov, [facility] [address] [id number] [address] [place] [address], [place] [address] Nov, [facility] [address] [id number] [address] [place] [address], [place] [address] Nov, [facility] [address] [id number] [address] [place] [address], [place] [address] Nov, [facility] [address] [id number] [address] [place] [address], [place] [address] September, [facility] [address] [id number] [address] [place] [address], [place] [address] September, [facility] [address] [id number] [address] [place] [address], [place] [address] Aug, [facility] [address] [id number] [address] [place] [address], [place] [address] Aug, [facility] [address] [id number] [address] [place] [address], [place] [address] Aug, [facility] [address] [id number] [address] [place] [address], [place] [address] Aug, [facility] [address] [id number] [address] [place] [address], [place] [address] Jul, [facility] [address] [id number] [address] [place] [address], [place] [address] Jul, [facility] [address] [id number] [address] [place] [address], [place] [address] Apr, [facility] [address] [id number] [address] [place] [address], [place] [address] Apr, [facility] [address] [id number] [address] [place] [address], [place] [address] Mar, [facility] [address] [id number] [address] [place] [address], [place] [address] Mar, [facility] [address] [id number] [address] [place] [address], [place] [address] Jan, [facility] [address] [id number] [address] [place] [address], [place] [address] Jan, [facility] [address] [id number] [address] [place] [address], [place] [address] Dec, [facility] [address] [id number] [address] [place] [address], [place] [address] Nov, [facility] [address] [id number] [address] [place] [address], [place] [address] Nov, [facility] [address] [id number] [address] [place] [address], [place] [address] Nov, [facility] [address] [id number] [address] [place] [address], [place] [address] Oct, [facility] [address] [id number] [address] [place] [address], [place] [address] Oct, [facility] [address] [id number] [address] [place] [address], [place] [address] Oct, [facility] [address] [id number] [address] [place] [address], [place] [address] September, [facility] [address] [id number] [address] [place] [address], [place] [address] September, [facility] [address] [id number] [address] [place] [address], [place] [address] Aug, [facility] [address] [id number] [address] [place] [address], [place] [address] Aug, [facility] [address] [id number] [address] [place] [address], [place] [address] Aug, [facility] [address] [id number] [address] [place] [address], [place] [address] Aug, [facility] [address] [id number] [address] [place] [address], [place] [id number] Jul, [facility] [address] [id number] [address] [place] [address], [place] [id number] 28 Jul, 2012 [facility] [address] [id number] [address] [place] [address], [place] [address] Jul, [facility] [address] [id number] [address] [place] [address], [place] [id number] Jul, [facility] [address] [id number] [address] [place] [address], [place] [id number] May, [facility] [address] [id number] [address] [place] [address], [place] [address] May, [facility] [address] [id number] [address] [place] [address], [place] [address] May, [facility] [address] [id number] [address] [place] [address], [place] [address] May, [facility] [address] [id number] [address] [place] [address], [place] [address] May, [facility] [address] [id number] [address] [place] [address], [place] [address] May, [facility] [address] [id number] [address] [place] [address], [place] [address] May, [facility] [address] [id number] [address] [place] [address], [place] [address] May, [facility] [address] [id number] [address] [place] [address], [place] [address] May, [facility] [address] [id number] [address] [place] [address], [place] [address] May, [facility] [address] [id number] [address] [place] [address], [place] [address] Apr, [facility] [address] [id number] [address] [place] [address], [place] [address] Apr, [facility] [address] [id number] [address] [place] [address], [place] [address] Apr, [facility] [address] [id number] [address] [place] [address], [place] [address] Apr, [facility] [address] [id number] [address] [place] [address], [place] [address] Mar, [facility] [address] [id number] [address] [place] [address], [place] [address] Mar, [facility] [address] [id number] [address] [place] [address], [place] [address] Feb, [facility] [address] [id number] [address] [place] [address], [place] [address] Feb, [facility] [address] [id number] [address] [place] [address], [place] [address] Feb, [facility] [address] [id number] [address] [place] [address], [place] [address] Feb, [facility] [address] [id number] [address] [place] [address], [place] [address] Jan, [facility] [address] [id number] [address] [place] [address], [place] [address] Dec, [facility] [address] [id number] [address] [place] [address], [place] [address] Oct, [facility] [address] [id number] [address] [place] [address], [place] [address] September, [facility] [address] [id number] [address] [place] [address], [place] [address] September, [facility] [address] [id number] [address] [place] [address], [place] [address] Jul, [facility] [address] [id number] [address] [place] [address], [place] [address] Jul, [facility] [address] [id number] [address] [place] [address], [place] [address] Jul, [facility] [address] [id number] [address] [place] [address], [place] [address] Jul, [facility] [address] [id number] [address] [place] [address], [place] [address] 16 Jul, 2011 [facility] [address] [id number] [address] [place] [address], [place] [address] May, [facility] [address] [id number] [address] [place] [address], [place] [address] 16 Apr, 2011 [facility] [address] [id number] [address] [place] [address], [place] [address] 16 Apr, 2011 [facility] [address] [id number] [address] [place] [address], [place] [address] Apr, [facility] [address] [id number] [address] [place] [address], [place] [address] 08 Apr, 2011 [facility] [address] [id number] [address] [place] [address], [place] [address] 16 Mar, 2011 [facility] [address] [id number] [address] [place] [address], [place] [address] 16 Mar, 2011 [facility] [address] [id number] [address] [place] [address], [place] [address] 15 Mar, 2011 [facility] [address] [id number] [address] [place] [id number] Mar, [facility] [address] [id number] [address] [place] [address], [place] [address] Feb, [facility] [address] [id number] [address] [place] [id number] Dec, [facility] [address] [id number] [address] [place] [id number] September, [facility] [address] [id number] [address] [place] [id number] Aug, [facility] [address] [id number] [address] [place] [address], [place] [address] May, [facility] [address] [id number] [address] [place] [address] May, [facility] [address] [id number] [address] [place] [address], [place] [address] 24 Apr, 2010 [facility] [address] [id number] [address] [place] [id number] Apr, [facility] [address] [id number] [address] [place] [id number] Apr, [facility] [address] [id number] [address] [place] [id number] Mar, [facility] [address] [id number] [address] [place] [id number] Mar, [facility] [address] [id number] [address] [place] [id number] Mar, [facility] [address] [id number] [address] [place] [id number] Nov, [facility] [address] [id number] [address] [place] [id number] Oct, [facility] [address] [facility] [id number] [address] [place] [id number] September, [facility] [address] [id number] [address] [place] [address] Dec, [facility] [address] [id number] [address] [place] [id number] Jul, [facility] [address] [id number] [address] [place] [id number] Jul, IMMUNIZATIONS No Known Immunizations SOCIAL HISTORY Never Assessed REASON FOR VISIT PLAN OF CARE VITAL SIGNS Height 70 in 2014-07-20 Weight 289 lbs 2014-07-20 Temperature 98 degrees Fahrenheit 2014-07-20 Heart Rate 80 bpm 2014-07-20 Respiratory Rate 20 2014-07-20 Blood pressure systolic 128 mmHg 2014-07-20 Blood pressure diastolic 80 mmHg 2014-07-20 MEDICATIONS Unknown Medications RESULTS No Results PROCEDURES Procedure Date Ordered Result Body Site MICROALBUMIN, SEMIQUANT Jul 20, 2014 INSTRUCTIONS MEDICATIONS ADMINISTERED No Known Medications MEDICAL (GENERAL) HISTORY Type Description Date Medical History acid reflux Medical History Neuropathy, diabetic Medical History Diabetes mellitus type 2, controlled Medical History Erectile dysfunction, unspecified erecti le dysfunction type Medical History Type 2 diabetes mellitus with diabetic n europathy, unspecified Medical History penitentiary current use of 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
--- OUTSIDE RECORDS SUMMARY | 2019-11-14 23:10 | XMS REPORT ---
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 Name Role Phone MIKA JOSE Unavailable PROBLEMS Type Condition ICD9-CM Code ZFT92-SG Code Onset Dates Condition S tatus SNOMED Code Problem Diabetes type 2, controlled E11.9 Ac tive 58166462 Problem Neuropathy, diabetic E11.40 Active 812841040 Problem Type 2 diabetes mellitus with diabetic neuropathy, uns pecified E11.40 Active 24144272 Problem Erectile dysfunction, unspecified erectile dysfunction typ e N52.9 Active 372046533 Problem Mood disorder F39 Active 436231 05 Problem Rhinosinusitis J32.9 Active 58175 000 Problem superintendent terminal 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.4 Active 349675745 Problem Daytime somnolence R40.0 Active 1 95459127926 Problem Type 2 diabetes mellitus without complications E11 .9 Active 837590475 Problem ASIYA (obstructive sleep apnea) G47.33 Active 79338066 Problem Arthritis M19.90 Active 9194706 Problem Essential hypertension I10 Active 61482896 Problem Uncontrolled type 2 diabetes mellitus with hyperglycemia E11.65 Active 954163808 ALLERGIES No Information ENCOUNTERS Encounter Location Date Diagnosis [facility] [address] [facility] [id number] [address] [place] [address] September, [address] [id number], [place] [address] Aug, Neuropathy, diabetic E11.40 [facility] [address] [facility] [id number] [address] [place] [address] Aug, [facility] [address] [facility] [id number] [address] [place] [address] Jul, [address] [id number], [place] [address] Jul, H. pylori infection A04.8 an d Diabetes type 2, controlled E11.9 [facility] [address] [facility] [id number] [address] [place] [address] Jul, [address] 340 [id number] [address] Jul, Neuropathy, diabetic E11.40 [place] [address] [facility] [id number] [address] [place] [address] Jul, Type 2 diabetes mellitus wit hout complications E11.[address] [id number] [address] Jul, Type 2 diabetes mellitus wit hout complications E11.9 ; Neuropathy, diabetic E11.40 ; superintendent terminal 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.4 ; Chronic back pain M54.9 and Daytime somnolence R40.[address] [id number] [address] Jul, BMI 40.0-44.9, adult Z68.41 [place] [address] [facility] [id number] [address] [place] [address] 04 Jul, 2019 Type 2 diabetes mellitus wit hout complications E11.[address] [id number] [address] May, BMI 40.0-44.9, adult Z68.41 [facility] [address] [facility] [id number] [address] [place] [address] May, [facility] [address] [facility] [id number] [address] [place] [id number] May, Dental examination Z01.20 an d Caries K02.9 [facility] [address] [facility] [id number] [address] [place] [address] Apr, [address] 340 [id number], [place] [address] Apr, Type 2 diabetes mellitus wit hout complications E11.9 ; Neuropathy, diabetic E11.40 ; senior care 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.4 ; Essential hypertension I10 ; Tobacco abuse Z72.0 ; Verruca B07.9 ; Folliculitis L73.9 and superintendent terminal use of drug Z79.899 [facility] [address] [facility] [id number] [address] [place] [address] 13 Apr, 2019 BMI 40.0-44.9, adult Z68.41 [facility] [address] [facility] [id number] [address] [place] [address] Apr, [facility] [address] [facility] [id number] [address] [place] [address] Mar, Type 2 diabetes mellitus wit hout complications E11.9 [place] [address] [facility] [id number] [address] [place] [address] Mar, [facility] [address] [facility] [id number] [address] [place] [address] Mar, BMI 40.0-44.9, adult Z68.41 [facility] [address] [id number] [place] [address] Mar, Rhinosinusitis J32.9 [facility] [address] [facility] [id number] [address] [place] [address] Feb, Type 2 diabetes mellitus wit hout complications E11.9 [facility] [address] [facility] [id number] [address] [place] [address] Feb, [facility] [address] [facility] [id number] [address] [place] [address] Feb, Type 2 diabetes mellitus wit hout complications E11.9 [facility] [address] [facility] [id number] [address] [place] [address] Feb, BMI 40.0-44.9, adult Z68.41 [facility] [address] [facility] [id number] [address] [place] [address] Feb, [place] [address] [address] Jan, Type 2 diabetes mellitus wit hout complications E11.9 [place] [address] [address] Jan, [place] [address] [address] Jan, Uncontrolled type 2 diabetes mellitus with hyperglycemia E11.65 [place] [address] [address] Jan, BMI 40.0-44.9, adult Z68.41 [place] [address] [address] Dec, [place] [address] [address] Dec, BMI 40.0-44.9, adult Z68.41 [place] [address] [address] Nov, BMI 40.0-44.9, adult Z68.41 [place] [address] [address] Nov, [place] [address] [address] Nov, BMI 40.0-44.9, adult Z68.41 [place] [address] [address] Oct, Type 2 diabetes mellitus wit hout complications E11.9 ; superintendent terminal 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.4 and Foot pain, right M79.671 [place] [address] [place] [id number] [address] [place] [address] Oct, BMI 40.0-44.9, adult Z68.41 [place] [address] [address] September, BMI 40.0-44.9, adult Z68.41 [facility] [address] [place] [id number] [address] [place] [address] Aug, Type 2 diabetes mellitus wit hout complications E11.9 and Morbid obesity E66.01 [facility] [address] [place] [id number] [address] [place] [address] Aug, BMI 40.0-44.9, adult Z68.41 [facility] [address] [place] [id number] [address] [place] [address] Jul, [facility] [address] [place] [id number] [place] [address] Jul, [facility] [address] [place] [id number] [place] [address] Jul, BMI 40.0-44.9, adult Z68.41 [place] [address] [address] Jul, BMI 40.0-44.9, adult Z68.41 [facility] [address] [place] [id number] [address] [place] [address] May, [facility] [address] [place] [id number] [place] [address] May, [facility] [address] [place] [id number] [address] [place] [address] Apr, BMI 40.0-44.9, adult Z68.41 ; Type 2 diabetes mellitus without complications E11.9 and Arthritis M19.90 [facility] [address] [place] [id number] [address] [place] [address] Mar, [facility] [address] [place] [id number] [address] [place] [address] Mar, [facility] [address] [place] [id number] [address] [place] [address] Mar, Type 2 diabetes mellitus wit hout complications E11.9 [facility] [address] [facility] [id number] [address] [place] [address] Feb, BMI 40.0-44.9, adult Z68.41 and Diabetes type 2, controlled E11.9 [facility] [address] [id number] [address] [place] [address] Feb, [facility] [address] [facility] [id number] [address] [place] [address] Feb, [facility] [address] [facility] [id number] [address] [place] [address] Feb, Diabetes type 2, controlled E11.9 [facility] [address] [facility] [id number] [address] [place] [address] 24 Jan, 2018 [facility] [address] [facility] [id number] [address] [place] [address] Jan, [facility] [address] [facility] [id number] [address] [place] [address] 17 Jan, 2018 Allergic reaction to drug, i nitial encounter T78.40XA ; Uncontrolled type 2 diabetes mellitus with hyperglycemia E11.65 and Essential hypertension I10 [facility] [address] [facility] [id number] [address] [place] [address] 07 Jan, 2018 Type 2 diabetes mellitus wit hout complications E11.9 ; Diabetes type 2, controlled E11.9 and Arthritis M19.90 [facility] [address] [facility] [id number] [address] [place] [address] Dec, Diabetes type 2, controlled E11.9 [facility] [address] [facility] [id number] [address] [place] [address] Dec, [facility] [address] [facility] [id number] [address] [place] [address] Dec, Diabetes type 2, controlled E11.9 [facility] [address] [facility] [id number] [address] [place] [address] Oct, Diabetes type 2, controlled E11.9 [facility] [address] [id number] [address] [place] [id number] 14 Oct, 2017 Dental caries K02.9 and [place] al examination Z01.20 [facility] [address] [id number] [address] [place] [address] 16 Sep, 2017 [facility] [address] [id number] [address] [place] [phone] 05 Aug, 2017 Diabetes type 2, controlled E11.9 ; Mood disorder F39 ; Arthritis M19.90 and Family history of rheumatoid arthritis Z82.61 [facility] [address] [id number] [address] [place] [address] 15 Jul, 2017 Infection of both inner ears H83.03 and Dizziness R42 [facility] [address] [id number] [address] [place] [phone] 14 Jul, 2017 [facility] [address] [id number] [address] [place] [address] 24 Jul, 2017 Diabetes type 2, controlled E11.9 [facility] [address] [id number] [address] [place] [address] [id number] 09 Jul, 2017 Dental examination Z01.20 [facility] [address] [id number] [address] [place] [address] May, Diabetes type 2, controlled E11.9 [facility] [address] [id number] [address] [place] [address] May, [facility] [address] [id number] [address] [place] [address] [id number] May, Dental examination Z01.20 [facility] [address] [id number] [address] [place] [address] May, [facility] [address] [id number] [address] [place] [address] May, [facility] [address] [facility] [id number] [address] [place] [phone] May, Diabetes type 2, controlled E11.9 [facility] [address] [id number] [address] [place] [address] Apr, [facility] [address] [id number] [address] [place] [address] Apr, Mood disorder F39 [facility] [address] [facility] [id number] [address] [place] [address] Mar, [facility] [address] [facility] [id number] [address] [place] [address] Mar, Diabetes type 2, controlled E11.9 and Encounter for immunization Z23 [facility] [address] [facility] [id number] [address] [place] [address] Jan, Mood disorder F39 [facility] [address] [facility] [id number] [address] [place] [address] Jan, Type 2 diabetes mellitus wit hout complications E11.9 [facility] [address] [id number] [address] [place] [address] Nov, [facility] [address] [facility] [id number] [address] [place] [address] Nov, Type 2 diabetes mellitus wit hout complications E11.9 ; Mood disorder F39 and ASIYA (obstructive sleep apnea) G47.33 [facility] [address] [facility] [id number] [address] [place] [phone] September, Diabetes type 2, controlled E11.9 [facility] [address] [id number] [address] [place] [phone] September, [facility] [address] [id number] [address] [place] [phone] Aug, Diabetes type 2, controlled E11.9 [facility] [address] [id number] [address] [place] [phone] Jul, [facility] [address] [facility] [id number] [address] [place] [address] Jul, Type 2 diabetes mellitus wit hout complications E11.9 and superintendent terminal 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.4 [facility] [address] [id number] [address] [place] [phone] Jul, Diabetes type 2, controlled E11.9 [facility] [address] [facility] [id number] [address] [place] [phone] Jul, [facility] [address] [facility] [id number] [address] [place] [phone] May, [facility] [address] [facility] [id number] [address] [place] [address] Apr, Diabetes type 2, controlled E11.9 [place] [address] [facility] [id number] [address] [place] [address] Feb, Erectile dysfunction, unspec ified erectile dysfunction type N52.9 ; Type 2 diabetes mellitus with diabetic neuropathy, unspecified E11.40 and senior care 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.4 [place] [address] [facility] [id number] [address] [place] [phone] 08 Jan, 2016 Impacted cerumen of both ear s H61.23 [place] [address] [facility] [id number] [address] [place] [address] Oct, Type 2 diabetes mellitus wit hout complications E11.9 [place] [address] [facility] [id number] [address] [place] [address] Oct, [place] [address] [facility] [id number] [address] [place] [address] September, Type 2 diabetes mellitus wit hout complications E11.9 [facility] [address] [facility] [id number] [address] [place] [address] Jul, Type 2 diabetes mellitus wit hout complications E11.9 ; Lumbar pain M54.5 and Tobacco abuse Z72.0 [facility] [address] [facility] [id number] [address] [place] [address] May, [place] [address] [facility] [id number] [address] [place] [phone] May, [facility] [address] [facility] [id number] [address] [place] [address] Apr, [facility] [address] [facility] [id number] [address] [place] [address] Mar, [facility] [address] [facility] [id number] [address] [place] [address] Mar, Type 2 diabetes mellitus wit hout complications E11.9 [facility] [address] [facility] [id number] [address] [place] [address] Mar, [facility] [address] [facility] [id number] [place] [phone] Feb, Type 2 diabetes mellitus wit hout complications E11.9 ; Neuropathy, diabetic E11.40 and Sleep apnea G47.30 [facility] [address] [facility] [id number] [address] [place] [address] Feb, [facility] [address] [facility] [id number] [address] [place] [address] Jan, Skin infection, bacterial 68 6.9 [facility] [address] [facility] [id number] [address] [place] [address] Jan, [facility] [address] [facility] [id number] [address] [place] [address] Dec, Diabetes mellitus type 2, un complicated 250.00 [facility] [address] [facility] [id number] [address] [place] [phone] Dec, [facility] [address] [facility] [id number] [address] [place] [address] Nov, [facility] [address] [place] [id number] [address] [place] [address] Nov, Diabetes mellitus type 2, un complicated 250.00 and Obesity 278.00 [facility] [address] [facility] [id number] [address] [place] [phone] Oct, [facility] [address] [id number] [address] [place] [address], [place] [address] Oct, [facility] [address] [id number] [address] [place] [address], [place] [address] Aug, [facility] [address] [id number] [address] [place] [address], [place] [address] Aug, [facility] [address] [id number] [address] [place] [address], [place] [address] Jul, [facility] [address] [id number] [address] [place] [address], [place] [address] Jul, [facility] [address] [id number] [address] [place] [address], [place] [address] Jul, [facility] [address] [id number] [address] [place] [address], [place] [address] Jul, [facility] [address] [id number] [address] [place] [address], [place] [address] Jul, [facility] [address] [id number] [address] [place] [address], [place] [address] Jul, [facility] [address] [id number] [address] [place] [address], [place] [address] Feb, [facility] [address] [id number] [address] [place] [address], [place] [address] Feb, [facility] [address] [id number] [address] [place] [address], [place] [address] Dec, [facility] [address] [id number] [address] [place] [address], [place] [address] Nov, [facility] [address] [id number] [address] [place] [address], [place] [id number] Nov, [facility] [address] [id number] [address] [place] [address], [place] [address] Nov, [facility] [address] [id number] [address] [place] [address], [place] [address] Nov, [facility] [address] [id number] [address] [place] [address], [place] [address] Nov, [facility] [address] [id number] [address] [place] [address], [place] [id number] September, [facility] [address] [id number] [address] [place] [address], [place] [id number] September, [facility] [address] [id number] [address] [place] [address], [place] [id number] Aug, [facility] [address] [id number] [address] [place] [address], [place] [id number] Aug, [facility] [address] [id number] [address] [place] [address], [place] [id number] Aug, [facility] [place] [address] [id number] [address] [place] [address], [place] [address] Aug, [facility] [place] [address] [id number] [address] [place] [address], [place] [id number] Jul, [facility] [address] [id number] [address] [place] [address], [place] [id number] Jul, [facility] [place] [address] [id number] [address] [place] [address], [place] [id number] Apr, [facility] [address] [id number] [address] [place] [address], [place] [address] Apr, [facility] [address] [id number] [address] [place] [address], [place] [id number] Mar, [facility] [address] [id number] [address] [place] [address], [place] [id number] Mar, [facility] [address] [id number] [address] [place] [address], [place] [id number] Jan, [facility] [address] [id number] [address] [place] [address], [place] [address] Jan, [facility] [address] [id number] [address] [place] [address], [place] [id number] Dec, [facility] [address] [id number] [address] [place] [address], [place] [id number] Nov, [facility] [address] [id number] [address] [place] [address], [place] [address] Nov, [facility] [address] [id number] [address] [place] [address], [place] [id number] Nov, [facility] [address] [address] [id number] [address] [place] [address], [place] [address] Oct, [facility] [address] [id number] [address] [place] [address], [place] [address] Oct, [facility] [address] [id number] [address] [place] [address], [place] [address] Oct, [facility] [place] [address] [id number] [address] [place] [address], [place] [address] September, [facility] [place] [address] [id number] [address] [place] [address], [place] [address] September, [facility] [place] [address] [id number] [address] [place] [address], [place] [address] Aug, [facility] [address] [id number] [address] [place] [address], [place] [address] Aug, [facility] [address] [id number] [address] [place] [address], [place] [address] Aug, [facility] [address] [id number] [address] [place] [address], [place] [address] Aug, [facility] [address] [id number] [address] [place] [address], [place] [address] Jul, [facility] [address] [id number] [address] [place] [address], [place] [address] Jul, [facility] [address] [id number] [address] [place] [address], [place] [address] Jul, [facility] [address] [id number] [address] [place] [address], [place] [address] Jul, [facility] [address] [id number] [address] [place] [address], [place] [address] May, [facility] [address] [id number] [address] [place] [address], [place] [address] May, [facility] [address] [id number] [address] [place] [address], [place] [address] May, [facility] [address] [id number] [address] [place] [address], [place] [address] May, [facility] [address] [id number] [address] [place] [address], [place] [address] May, [facility] [place] [address] [id number] [address] [place] [address], [place] [address] May, [facility] [address] [id number] [address] [place] [address], [place] [address] May, [facility] [place] [address] [id number] [address] [place] [address], [place] [address] May, [facility] [place] [address] [id number] [address] [place] [address], [place] [address] May, [facility] [place] [address] [id number] [address] [place] [address], [place] [address] May, [facility] [address] [id number] [address] [place] [address], [place] [address] Apr, [facility] [address] [id number] [address] [place] [address], [place] [address] Apr, [facility] [address] [id number] [address] [place] [address], [place] [address] Apr, [facility] [address] [id number] [address] [place] [address], [place] [address] Apr, [facility] [address] [id number] [address] [place] [address], [place] [address] Mar, [facility] [address] [id number] [address] [place] [address], [place] [address] Mar, [facility] [address] [id number] [address] [place] [address], [place] [address] Feb, [facility] [address] [id number] [address] [place] [address], [place] [address] Feb, [facility] [address] [id number] [address] [place] [address], [place] [address] Feb, [facility] [address] [id number] [address] [place] [address], [place] [address] Feb, [facility] [address] [id number] [address] [place] [address], [place] [address] Jan, [facility] [address] [id number] [address] [place] [address], [place] [address] Dec, [facility] [address] [id number] [address] [place] [address], [place] [address] Oct, [facility] [address] [id number] [address] [place] [address], [place] [address] September, [facility] [address] [id number] [address] [place] [address], [place] [address] September, [facility] [address] [id number] [address] [place] [address], [place] [address] Jul, [facility] [address] [id number] [address] [place] [address], [place] [address] Jul, [facility] [address] [id number] [address] [place] [address], [place] [address] Jul, [facility] [address] [id number] [address] [place] [address], [place] [address] Jul, [facility] [address] [id number] [address] [place] [address] [address] 16 Jul, 2011 [facility] [address] [id number] [address] [place] [address], [place] [address] May, [facility] [address] [id number] [address] [place] [address], [place] [address] 16 Apr, 2011 [facility] [address] [id number] [address] [place] [address], [place] [address] 16 Apr, 2011 [facility] [address] [id number] [address] [place] [address], [place] [address] Apr, [facility] [address] [id number] [address] [place] [address], [place] [address] Apr, [facility] [address] [id number] [address] [place] [address], [place] [address] Mar, [facility] [address] [id number] [address] [place] [address], [place] [address] Mar, [facility] [address] [id number] [address] [place] [address], [place] [address] Mar, [facility] [address] [id number] [address] [place] [address], [place] [address] Mar, [facility] [address] [id number] [address] [place] [address], [place] [address] Feb, [facility] [address] [id number] [address] [place] [id number] Dec, [facility] [address] [id number] [address] [place] [id number] September, [facility] [address] [id number] [address] [place] [address], [place] [address] Aug, [facility] [address] [id number] [address] [place] [address], [place] [address] 17 May, 2010 [facility] [address] [id number] [address] [place] [address], [place] [address] May, [facility] [address] [id number] [address] [place] [id number] Apr, [facility] [address] [id number] [address] [place] [id number] Apr, [facility] [address] [id number] [address] [place] [address] Apr, [facility] [address] [id number] [address] [place] [phone] Mar, [facility] [address] [id number] [address] [place] [address] Mar, [facility] [address] [id number] [address] [place] [phone] Mar, [facility] [address] [id number] [address] [place] [phone] Nov, [facility] [address] [id number] [address] [place] [phone] Oct, [facility] [address] [id number] [address] [place] [phone] September, [facility] [address] [id number] [address] [place] [id number] Dec, [facility] [address] [id number] [address] [place] [phone] Jul, [facility] [address] [facility] [id number] [address] [place] [phone] Jul, IMMUNIZATIONS No Known Immunizations SOCIAL HISTORY Never Assessed REASON FOR VISIT PLAN OF CARE VITAL SIGNS Height 70 in 2011-11-10 Weight 303 lbs 2011-11-10 Temperature 97.5 degrees Fahrenheit 2011-11-10 Heart Rate 92 bpm 2011-11-10 Respiratory Rate 18 2011-11-10 Blood pressure systolic 124 mmHg 2011-11-10 Blood pressure diastolic 74 mmHg 2011-11-10 MEDICATIONS Unknown Medications RESULTS No Results PROCEDURES Procedure Date Ordered Result Body Site GLYCATED HEMOGLOBIN TEST November 10, 2011 INSTRUCTIONS MEDICATIONS ADMINISTERED No Known Medications MEDICAL [...]
--- OUTSIDE RECORDS SUMMARY | 2019-11-14 23:10 | XMS REPORT ---
Author Author Jerman BRENNAN Organization [facility] Address [address] [place] [address] Care Team Providers Care Medical Coding Manager Name Role Phone JOSE BRENNAN Unavailable PROBLEMS Type Condition ICD9-CM Code MXB38-NV Code Onset Dates Condition S tatus SNOMED Code Problem Diabetes type 2, controlled E11.9 Ac tive 85315151 Problem Neuropathy, diabetic E11.40 Active 879182544 Problem Type 2 diabetes mellitus with diabetic neuropathy, uns pecified E11.40 Active 95670337 Problem Erectile dysfunction, unspecified erectile dysfunction typ e N52.9 Active 593719196 Problem Mood disorder F39 Active 324391 05 Problem Rhinosinusitis J32.9 Active 85083 000 Problem 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 311910877 Problem Daytime somnolence R40.0 Active 1 [id number] Problem Type 2 diabetes mellitus without complications E11 .9 Active 709038719 Problem ASIYA (obstructive sleep apnea) G47.33 Active 65172364 Problem Arthritis M19.90 Active 3566435 Problem Essential hypertension I10 Active 70004369 Problem Uncontrolled type 2 diabetes mellitus with hyperglycemia E11.65 Active [id number] ALLERGIES No Information ENCOUNTERS Encounter Location Date Diagnosis [facility] [address] [facility] [id number] [address] [place] [address] Jul, [address] [id number] [address] Jul, H. 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 ; Chronic back pain M54.9 and Daytime somnolence R40.[address] [id number] [address] Jul, BMI 40.0-44.9, adult Z68.41 [place] [address] [place] [id number] [address] [place] [address] Jul, Type 2 diabetes mellitus wit hout complications E11.[address] [id number] [address] May, BMI 40.0-44.9, adult Z68.41 [facility] [address] [place] [id number] [address] [place] [address] May, [facility] [address] [place] [address] [id number] [address] [place] [id number] May, Dental examination Z01.20 an d Caries K02.9 [facility] [address] [facility] [id number] [address] [place] [address] Apr, [address] [id number] [address] Apr, Type 2 diabetes mellitus wit hout complications E11.9 ; Neuropathy, diabetic E11.40 ; [facility] 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.4 ; Essential hypertension I10 ; Tobacco abuse Z72.0 ; Verruca B07.9 ; Folliculitis L73.9 and 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 helper use of drug Z79.899 [facility] [address] [facility] [id number] [address] [place] [address] Apr, BMI 40.0-44.9, adult Z68.41 [facility] [address] [id number] [address] [place] [address] 05 Apr, 2019 [facility] [address] [facility] [id number] [address] [place] [address] Mar, Type 2 diabetes mellitus wit hout complications E11.9 [facility] [address] [facility] [id number] [address] [place] [address] 15 Mar, 2019 [facility] [address] [facility] [id number] [address] [place] [address] 13 Mar, 2019 BMI 40.0-44.9, adult Z68.41 [facility] [address] [id number] [address] 02 Mar, 2019 Rhinosinusitis J32.9 [facility] [address] [facility] [id number] [address] [place] [address] Feb, Type 2 diabetes mellitus wit hout complications E11.9 [facility] [address] [facility] [id number] [address] [place] [address] Feb, [facility] [address] [facility] [id number] [address] [place] [address] Feb, Type 2 diabetes mellitus wit hout complications E11.9 [facility] [address] [facility] [id number] [address] [place] [address] 14 Feb, 2019 BMI 40.0-44.9, adult Z68.41 [facility] [address] [facility] [id number] [address] [place] [address] Feb, [facility] [address] [facility] [id number] [address] [place] [address] Jan, Type 2 diabetes mellitus wit hout complications E11.9 [facility] [address] [facility] [id number] [address] [place] [address] Jan, [facility] [address] [facility] [id number] [address] [place] [address] 18 Jan, 2019 Uncontrolled type 2 diabetes mellitus with hyperglycemia E11.65 [place] [address] [facility] [id number] [address] [place] [address] Jan, BMI 40.0-44.9, adult Z68.41 [place] [address] [facility] [id number] [address] [place] [address] Dec, [place] [address] [place] [id number] [address] [place] [address] Dec, BMI 40.0-44.9, adult Z68.41 [place] [address] [facility] [id number] [address] [place] [address] Nov, BMI 40.0-44.9, adult Z68.41 [place] [address] [facility] [id number] [address] [place] [address] Nov, [place] [address] [place] [id number] [address] [place] [address] Nov, BMI 40.0-44.9, adult Z68.41 [place] [address] [facility] [id number] [address] [place] [address] Oct, Type 2 diabetes mellitus wit hout complications E11.9 ; 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 and Foot pain, right M79.671 [place] [address] [facility] [id number] [address] [place] [address] Oct, BMI 40.0-44.9, adult Z68.41 [place] [address] [facility] [id number] [address] [place] [address] September, BMI 40.0-44.9, adult Z68.41 [place] [address] [place] [id number] [address] [place] [address] Aug, Type 2 diabetes mellitus wit hout complications E11.9 and Morbid obesity E66.01 [place] [address] [facility] [id number] [address] [place] [address] Aug, BMI 40.0-44.9, adult Z68.41 [facility] [address] [facility] [id number] [address] [place] [address] Jul, [facility] [address] [facility] [id number] [address] [place] [address] Jul, [facility] [address] [facility] [id number] [address] [place] [address] Jul, BMI 40.0-44.9, adult Z68.41 [facility] [address] [facility] [id number] [address] [place] [address] Jul, BMI 40.0-44.9, adult Z68.41 [facility] [address] [place] [id number] [address] [place] [address] May, [facility] [address] [place] [id number] [address] [place] [address] May, [facility] [address] [place] [id number] [place] [address] Apr, BMI 40.0-44.9, adult Z68.41 ; Type 2 diabetes mellitus without complications E11.9 and Arthritis M19.90 [facility] [address] [place] [id number] [address] [place] [address] Mar, [facility] [address] [place] [id number] [address] [place] [address] Mar, [facility] [address] [place] [id number] [address] [place] [address] Mar, Type 2 diabetes mellitus wit hout complications E11.9 [facility] [address] [facility] [id number] [address] [place] [address] Feb, BMI 40.0-44.9, adult Z68.41 and Diabetes type 2, controlled E11.9 [facility] [address] [facility] [id number] [address] [place] [address] Feb, [facility] [address] [place] [id number] [address] [place] [address] Feb, [facility] [address] [facility] [id number] [address] [place] [address] Feb, Diabetes type 2, controlled E11.9 [facility] [address] [facility] [id number] [address] [place] [address] 24 Jan, 2018 [facility] [address] [facility] [id number] [address] [place] [address] Jan, [facility] [address] [facility] [id number] [address] [place] [address] 17 Jan, 2018 Allergic reaction to drug, i nitial encounter T78.40XA ; Uncontrolled type 2 diabetes mellitus with hyperglycemia E11.65 and Essential hypertension I10 [facility] [address] [facility] [id number] [address] [place] [address] 07 Jan, 2018 Type 2 diabetes mellitus wit hout complications E11.9 ; Diabetes type 2, controlled E11.9 and Arthritis M19.90 [facility] [address] [facility] [id number] [address] [place] [address] Dec, Diabetes type 2, controlled E11.9 [facility] [address] [facility] [id number] [address] [place] [address] Dec, [facility] [address] [facility] [id number] [address] [place] [address] Dec, Diabetes type 2, controlled E11.9 [facility] [address] [facility] [id number] [address] [place] [address] Oct, Diabetes type 2, controlled E11.9 [facility] [address] [id number] [address] [place] [id number] 14 Oct, 2017 Dental caries K02.9 and [place]ston al examination Z01.20 [facility] [address] [facility] [id number] [address] [place] [address] September, [facility] [address] [facility] [id number] [address] [place] [address] Aug, Diabetes type 2, controlled E11.9 ; Mood disorder F39 ; Arthritis M19.90 and Family history of rheumatoid arthritis Z82.61 [facility] [address] [id number] [address] [place] [address] 15 Jul, 2017 Infection of both inner ears H83.03 and Dizziness R42 [facility] [address] [id number] [address] [place] [address] 14 Jul, 2017 [facility] [address] [facility] [id number] [address] [place] [address] Jul, Diabetes type 2, controlled E11.9 [facility] [address] [id number] [place] [address] [id number] 09 Jul, 2017 Dental examination Z01.20 [facility] [address] [id number] [address] [place] [address] May, Diabetes type 2, controlled E11.9 [facility] [address] [facility] [id number] [address] [place] [address] May, [facility] [address] [id number] [place] [address] [id number] May, Dental examination Z01.20 [facility] [address] [facility] [id number] [address] [place] [address] May, [facility] [address] [id number] [address] [place] [address] May, [facility] [address] [facility] [id number] [address] [place] [address] May, Diabetes type 2, controlled E11.9 [facility] [address] [facility] [id number] [address] [place] [address] Apr, [facility] [address] [facility] [id number] [address] [place] [address] Apr, Mood disorder F39 [facility] [address] [facility] [id number] [address] [place] [address] Mar, [facility] [address] [facility] [id number] [address] [place] [address] Mar, Diabetes type 2, controlled E11.9 and Encounter for immunization Z23 [facility] [address] [facility] [id number] [address] [place] [address] Jan, Mood disorder F39 [facility] [address] [facility] [id number] [address] [place] [address] Jan, Type 2 diabetes mellitus wit hout complications E11.9 [facility] [address] [facility] [id number] [address] [place] [address] Nov, [facility] [address] [facility] [id number] [address] [place] [address] Nov, Type 2 diabetes mellitus wit hout complications E11.9 ; Mood disorder F39 and ASIYA (obstructive sleep apnea) G47.33 [facility] [address] [facility] [id number] [address] [place] [address] September, Diabetes type 2, controlled E11.9 [facility] [address] [facility] [id number] [address] [place] [address] September, [facility] [address] [facility] [id number] [address] [place] [address] Aug, Diabetes type 2, controlled E11.9 [facility] [address] [facility] [id number] [address] [place] [address] Jul, [facility] [address] [facility] [id number] [address] [place] [address] Jul, Type 2 diabetes mellitus wit hout complications E11.9 and 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 [facility] [address] [facility] [id number] [address] [place] [address] Jul, Diabetes type 2, controlled E11.9 [facility] [address] [facility] [id number] [address] [place] [address] 14 Jul, 2016 [facility] [address] [facility] [id number] [address] [place] [address] May, [facility] [address] [facility] [id number] [address] [place] [address] Apr, Diabetes type 2, controlled E11.9 [facility] [address] [facility] [id number] [address] [place] [address] Feb, Erectile dysfunction, unspec ified erectile dysfunction type N52.9 ; Type 2 diabetes mellitus with diabetic neuropathy, unspecified E11.40 and 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 [facility] [address] [facility] [id number] [address] [place] [address] 08 Jan, 2016 Impacted cerumen of both ear s H61.23 [facility] [address] [facility] [id number] [address] [place] [address] Oct, Type 2 diabetes mellitus wit hout complications E11.9 [facility] [address] [place] [id number] [address] [place] [address] Oct, [facility] [address] [place] [id number] [address] [place] [address] September, Type 2 diabetes mellitus wit hout complications E11.9 [facility] [address] [facility] [id number] [address] [place] [address] Jul, Type 2 diabetes mellitus wit hout complications E11.9 ; Lumbar pain M54.5 and Tobacco abuse Z72.0 [place] [address] [facility] [id number] [address] [place] [address] May, [facility] [address] [facility] [id number] [address] [place] [address] May, [facility] [address] [facility] [id number] [address] [place] [address] Apr, [facility] [address] [facility] [id number] [address] [place] [address] Mar, [facility] [address] [place] [id number] [address] [place] [address] Mar, Type 2 diabetes mellitus wit hout complications E11.9 [facility] [address] [id number] [address] [place] [address] 05 Mar, 2015 [facility] [address] [id number] [address] [place] [address] 28 Feb, 2015 Type 2 diabetes mellitus wit hout complications E11.9 ; Neuropathy, diabetic E11.40 and Sleep apnea G47.30 [facility] [address] [id number] [address] [place] [address] Feb, [facility] [address] [id number] [address] [place] [address] Jan, Skin infection, bacterial 68 6.9 [facility] [address] [facility] [id number] [address] [place] [address] 15 Jan, 2015 [facility] [address] [facility] [id number] [address] [place] [address] Dec, Diabetes mellitus type 2, un complicated 250.00 [facility] [address] [id number] [address] [place] [address] Dec, [facility] [address] [id number] [address] [place] [address] Nov, [facility] [address] [id number] [address] [place] [address] Nov, Diabetes mellitus type 2, un complicated 250.00 and Obesity 278.00 [facility] [address] [id number] [address] [place] [address] Oct, [facility] [address] [id number] [address] [place] [address] Oct, [facility] [address] [facility] [id number] [address] [place] [address] 14 Aug, 2014 [facility] [address] [facility] [id number] [address] [place] [address] 13 Aug, 2014 [facility] [address] [id number] [address] [place] [address], [place] [address] Jul, [facility] [address] [id number] [address] [place] [address], [place] [address] Jul, [facility] [address] [id number] [address] [place] [address], [place] [address] Jul, [facility] [address] [id number] [address] [place] [address], [place] [address] Jul, [facility] [address] [id number] [address] [place] [address], [place] [address] Jul, [facility] [address] [id number] [address] [place] [address], [place] [address] Jul, [facility] [address] [id number] [address] [place] [address], [place] [address] Feb, [facility] [address] [id number] [address] [place] [address], [place] [address] Feb, [facility] [address] [id number] [address] [place] [address], [place] [address] Dec, [facility] [address] [id number] [address] [place] [address], [place] [address] Nov, [facility] [address] [id number] [address] [place] [address], [place] [address] Nov, [facility] [address] [id number] [address] [place] [address], [place] [address] Nov, [facility] [address] [id number] [address] [place] [address], [place] [address] Nov, [facility] [address] [id number] [address] [place] [address], [place] [address] Nov, [facility] [address] [id number] [address] [place] [address], [place] [address] September, [facility] [address] [id number] [address] [place] [address], [place] [address] September, [facility] [address] [id number] [address] [place] [address], [place] [address] Aug, [facility] [address] [id number] [address] [place] [address], [place] [address] Aug, [facility] [address] [id number] [address] [place] [address], [place] [address] Aug, [facility] [address] [id number] [address] [place] [address], [place] [address] Aug, [facility] [address] [id number] [address] [place] [address], [place] [address] Jul, [facility] [address] [id number] [address] [place] [address], [place] [address] Jul, [facility] [address] [id number] [address] [place] [address], [place] [address] Apr, [facility] [address] [id number] [address] [place] [address], [place] [address] Apr, [facility] [address] [id number] [address] [place] [address], [place] [address] Mar, [facility] [address] [id number] [address] [place] [address], [place] [address] Mar, [facility] [address] [id number] [address] [place] [address], [place] [address] Jan, [facility] [address] [id number] [address] [place] [address], [place] [address] Jan, [facility] [address] [id number] [address] [place] [address], [place] [address] Dec, [facility] [address] [id number] [address] [place] [address], [place] [address] Nov, [facility] [address] [id number] [address] [place] [address], [place] [address] Nov, [facility] [address] [id number] [address] [place] [address], [place] [address] Nov, [facility] [address] [id number] [address] [place] [address], [place] [address] Oct, [facility] [address] [id number] [address] [place] [address], [place] [address] Oct, [facility] [address] [id number] [address] [place] [address], [place] [address] Oct, [facility] [address] [id number] [address] [place] [address], [place] [address] September, [facility] [address] [id number] [address] [place] [address], [place] [address] September, [facility] [address] [id number] [address] [place] [address], [place] [address] Aug, [facility] [address] [id number] [address] [place] [address], [place] [address] Aug, [facility] [address] [id number] [address] [place] [address], [place] [address] Aug, [facility] [address] [id number] [address] [place] [address], [place] [address] Aug, [facility] [address] [id number] [address] [place] [address], [place] [address] Jul, [facility] [address] [id number] [address] [place] [address], [place] [address] Jul, [facility] [address] [id number] [address] [place] [address], [place] [address] Jul, [facility] [address] [id number] [address] [place] [address], [place] [address] Jul, [facility] [address] [id number] [address] [place] [address], [place] [address] May, [facility] [address] [id number] [address] [place] [address], [place] [address] May, [facility] [address] [id number] [address] [place] [address], [place] [address] May, [facility] [address] [id number] [address] [place] [address], [place] [address] 18 May, 2012 [facility] [address] [id number] [address] [place] [address], [place] [address] 14 May, 2012 [facility] [address] [id number] [address] [place] [address], [place] [address] May, [facility] [address] [id number] [address] [place] [address], [place] [address] May, [facility] [address] [id number] [address] [place] [address], [place] [address] May, [facility] [address] [id number] [address] [place] [address], [place] [address] May, [facility] [address] [id number] [address] [place] [address], [place] [address] May, [facility] [address] [id number] [address] [place] [address], [place] [address] Apr, [facility] [address] [id number] [address] [place] [address], [place] [address] Apr, [facility] [address] [id number] [address] [place] [address], [place] [address] Apr, [facility] [address] [id number] [address] [place] [address], [place] [address] Apr, [facility] [address] [id number] [address] [place] [address], [place] [address] Mar, [facility] [address] [id number] [address] [place] [address], [place] [address] Mar, [facility] [address] [id number] [address] [place] [address], [place] [address] 30 Feb, 2012 [facility] [address] [id number] [address] [place] [address], [place] [address] Feb, [facility] [address] [id number] [address] [place] [address], [place] [address] Feb, [facility] [address] [id number] [address] [place] [address], [place] [address] Feb, [facility] [address] [id number] [address] [place] [address], [place] [address] Jan, [facility] [address] [id number] [address] [place] [address], [place] [address] Dec, [facility] [address] [id number] [address] [place] [address], [place] [address] Oct, [facility] [address] [id number] [address] [place] [address], [place] [address] September, [facility] [address] [id number] [address] [place] [address], [place] [address] September, [facility] [address] [id number] [address] [place] [address], [place] [address] Jul, [facility] [address] [id number] [address] [place] [address], [place] [address] Jul, [facility] [address] [id number] [address] [place] [address], [place] [address] Jul, [facility] [address] [id number] [address] [place] [address], [place] [address] Jul, [facility] [address] [id number] [address] [place] [address], [place] [address] Jul, [facility] [address] [id number] [address] [place] [address], [place] [address] May, [facility] [address] [id number] [address] [place] [address], [place] [address] Apr, [facility] [address] [id number] [address] [place] [address], [place] [address] Apr, [facility] [address] [id number] [address] [place] [address], [place] [address] 12 Apr, 2011 [facility] [address] [id number] [address] [place] [address], [place] [address] 08 Apr, 2011 [facility] [address] [id number] [address] [place] [address], [place] [address] 16 Mar, 2011 [facility] [address] [id number] [address] [place] [address], [place] [address] 16 Mar, 2011 [facility] [address] [id number] [address] [place] [address], [place] [address] 15 Mar, 2011 [facility] [address] [id number] [address] [place] [address], [place] [address] Mar, [facility] [address] [id number] [address] [place] [address], [place] [address] Feb, [facility] [address] [id number] [address] [place] [address], [place] [address] Dec, [facility] [address] [id number] [address] [place] [address], [place] [address] September, [facility] [address] [id number] [address] [place] [address] Aug, [facility] [address] [id number] [address] [place] [address], [place] [address] May, [facility] [address] [id number] [address] [place] [address] May, [facility] [address] [id number] [address] [place] [address], [place] [address] 24 Apr, 2010 [facility] [address] [id number] [address] [place] [address], [place] [address] Apr, [facility] [address] [id number] [address] [place] [address] 10 Apr, 2010 [facility] [address] [id number] [address] [place] [address] Mar, [facility] [address] [facility] [id number] [address] [place] [address] Mar, [facility] [address] [facility] [id number] [address] [place] [address] Mar, [facility] [address] [facility] [id number] [address] [place] [address] Nov, [facility] [address] [facility] [id number] [address] [place] [address] Oct, [facility] [address] [facility] [id number] [address] [place] [address] September, [facility] [address] [facility] [id number] [address] [place] [address] Dec, [facility] [address] [facility] [id number] [address] [place] [address] Jul, [facility] [address] [facility] [id number] [address] [place] [address] Jul, IMMUNIZATIONS No Known Immunizations SOCIAL HISTORY Never Assessed REASON FOR VISIT PLAN OF CARE VITAL SIGNS Height 70 in 2012-08-17 Weight 307.31 lbs 2012-08-17 Temperature 97.1 degrees Fahrenheit 2012-08-17 Heart Rate 80 bpm 2012-08-17 Respiratory Rate 20 2012-08-17 Blood pressure systolic 110 mmHg 2012-08-17 Blood pressure diastolic 80 mmHg 2012-08-17 MEDICATIONS Unknown Medications RESULTS No Results PROCEDURES Procedure Date Ordered Result Body Site GLYCATED HEMOGLOBIN TEST August 17, 2012 GASTRIC EMPTYING STUDY August 17, 2012 INSTRUCTIONS MEDICATIONS ADMINISTERED No Known Medications MEDICAL (GENERAL) HISTORY Type Description Date Medical History acid reflux Medical History Neuropathy, diabetic Medical History Diabetes mellitus type 2, controlled Medical History Erectile dysfunction, unspecified erecti le dysfunction type Medical History Type 2 diabetes mellitus with diabetic n europathy, unspecified Medical History [facility] current use of 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
--- OUTSIDE RECORDS SUMMARY | 2019-11-14 23:11 | XMS REPORT ---
Author Author Jerman BRENNAN Organization [facility] Address [address] [place] [address] Care Team Providers Care Knuckler Name Role Phone JOSE BRENNAN Unavailable PROBLEMS Type Condition ICD9-CM Code [id number] Code Onset Dates Condition S tatus SNOMED Code Problem Diabetes type 2, controlled E11.9 Ac tive 62685145 Problem Neuropathy, diabetic E11.40 Active 421896243 Problem Type 2 diabetes mellitus with diabetic neuropathy, uns pecified E11.40 Active 66985173 Problem Erectile dysfunction, unspecified erectile dysfunction typ e N52.9 Active 666967458 Problem Mood disorder F39 Active 020550 05 Problem Rhinosinusitis J32.9 Active 27573 000 Problem 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 693313267 Problem Daytime somnolence R40.0 Active 1 16064925748 Problem Type 2 diabetes mellitus without complications E11 .9 Active 117934529 Problem ASIYA (obstructive sleep apnea) G47.33 Active 00811883 Problem Arthritis M19.90 Active 0508395 Problem Essential hypertension I10 Active 80259090 Problem Uncontrolled type 2 diabetes mellitus with hyperglycemia E11.65 Active [id number] ALLERGIES No Information ENCOUNTERS Encounter Location Date Diagnosis [address] [address] Jul, Type 2 diabetes mellitus wit hout complications E11.9 ; Neuropathy, diabetic E11.40 ; 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 [address] [place] [address] May, BMI 40.0-44.9, adult Z68.41 [facility] [address] [id number] [place] [address] May, [facility] [address] [facility] [place] [id number] May, Dental examination Z01.20 and Caries K02 .9 [facility] [id number] [place] [address] Apr, [facility] [address] [facility] [place] [address] Apr, Type 2 diabetes mellitus wit hout complications E11.9 ; Neuropathy, diabetic E11.40 ; 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 ; Essential hypertension I10 ; Tobacco abuse Z72.0 ; Verruca B07.9 ; Folliculitis L73.9 and ferry terminal supervisor use of drug Z79.899 [facility] [id number] [place] [address] Apr, BMI 40.0-44.9, adult Z68.41 [facility] [id number] [place] [address] Apr, [id number] [place] [address] Mar, Type 2 diabetes mellitus without complic ations E11.9 [facility] [id number] [place] [address] Mar, [address] [address] Mar, BMI 40.0-44.9, adult Z68.41 [facility] [address] [place] [address] Mar, Rhinosinusitis J32.9 [id number] [place] [address] Feb, Type 2 diabetes mellitus without complic ations E11.9 [facility] [id number] [place] [address] Feb, [facility] [address] [address] Feb, Type 2 diabetes mellitus without complic ations E11.9 [facility] [address] [address] Feb, BMI 40.0-44.9, adult Z68.41 [facility] [address] [address] Feb, [facility] [address] [address] Jan, Type 2 diabetes mellitus without complic ations E11.9 [facility] [address] [address] Jan, [facility] [address] [address] Jan, Uncontrolled type 2 diabetes mellitus wi th hyperglycemia E11.65 [facility] [address] [address] Jan, BMI 40.0-44.9, adult Z68.41 [facility] [address] [address] Dec, [facility] [address] [address] Dec, BMI 40.0-44.9, adult Z68.41 [facility] [address] [address] Nov, BMI 40.0-44.9, adult Z68.41 [facility] [address] [address] Nov, [facility] [address] [address] Nov, BMI 40.0-44.9, adult Z68.41 [address] [address] Oct, Type 2 diabetes mellitus without complic ations E11.9 ; senior living 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.4 and Foot pain, right M79.671 [address] [address] Oct, BMI 40.0-44.9, adult Z68.41 [address] [address] September, BMI 40.0-44.9, adult Z68.41 [address] [address] Aug, Type 2 diabetes mellitus without complic ations E11.9 and Morbid obesity E66.01 [address] [address] Aug, BMI 40.0-44.9, adult Z68.41 [address] [address] Jul, [address] [address] Jul, [address] [address] Jul, BMI 40.0-44.9, adult Z68.41 [address] [address] Jul, BMI 40.0-44.9, adult Z68.41 [address] [address] May, [address] [address] May, [address] [address] Apr, BMI 40.0-44.9, adult Z68.41 ; Type 2 chevy betes mellitus without complications E11.9 and Arthritis M19.90 [address] [address] Mar, [address] [address] Mar, [address] [address] Mar, Type 2 diabetes mellitus without complic ations E11.9 [address] [address] Feb, BMI 40.0-44.9, adult Z68.41 and Diabetes type 2, controlled E11.9 [address] [address] Feb, [address] [address] Feb, [address] [address] Feb, Diabetes type 2, controlled E11.9 [address] [address] Jan, [address] [address] Jan, [address] [address] Jan, Allergic reaction to drug, initial encou nter T78.40XA ; Uncontrolled type 2 diabetes mellitus with hyperglycemia E11.65 and Essential hypertension I10 [address] [address] Jan, Type 2 diabetes mellitus without complic ations E11.9 ; Diabetes type 2, controlled E11.9 and Arthritis M19.90 [address] [address] Dec, Diabetes type 2, controlled E11.9 [facility] [id number] [place] [address] Dec, [facility] [address] [place] [address] Dec, Diabetes type 2, controlled E11.9 [facility] [id number] [place] [address] Oct, Diabetes type 2, controlled E11.9 [facility] [address] [id number] Oct, 2017 Dental caries K02.9 and Dental examinati on Z01.20 [facility] [address] [place] [address] September, [facility] [address] [address] 05 Aug, 2017 Diabetes type 2, controlled E11.9 ; Mood disorder F39 ; Arthritis M19.90 and Family history of rheumatoid arthritis Z82.61 [facility] [address] [facility] [id number] [place] [address] 15 Jul, 2017 Infection of both inner ears H83.03 and Dizziness R42 [facility] [id number] [place] [address] Jul, [facility] [id number] [place] [address] 24 Jul, 2017 Diabetes type 2, controlled E11.9 [facility] [address] [id number] 09 Jul, 2017 Dental examination Z01.20 [facility] [id number] [place] [address] May, Diabetes type 2, controlled E11.9 [facility] [id number] [place] [address] May, [facility] [address] [id number] May, Dental examination Z01.20 [facility] [address] [place] [address] May, [facility] [address] [address] May, [facility] [address] [address] May, Diabetes type 2, controlled E11.9 [facility] [address] [address] Apr, [facility] [address] [address] Apr, Mood disorder F39 [facility] [address] [address] Mar, [facility] [address] [address] Mar, Diabetes type 2, controlled E11.9 and En counter for immunization Z23 [facility] [address] [address] Jan, Mood disorder F39 [facility] [address] [address] Jan, Type 2 diabetes mellitus without complic ations E11.9 [facility] [address] [address] Nov, [facility] [address] [address] Nov, Type 2 diabetes mellitus without complic ations E11.9 ; Mood disorder F39 and ASIYA (obstructive sleep apnea) G47.33 [facility] [address] [address] September, Diabetes type 2, controlled E11.9 [facility] [address] [address] September, [facility] [address] [address] Aug, Diabetes type 2, controlled E11.9 [address] [address] Jul, [address] [address] Jul, Type 2 diabetes mellitus without complic ations E11.9 and senior living 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.4 [address] [address] Jul, Diabetes type 2, controlled E11.9 [address] [address] Jul, [address] [address] May, [address] [address] Apr, Diabetes type 2, controlled E11.9 [address] [address] Feb, Erectile dysfunction, unspecified erecti le dysfunction type N52.9 ; Type 2 diabetes mellitus with diabetic neuropathy, unspecified E11.40 and 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 [address] [address] 08 Jan, 2016 Impacted cerumen of both ears H61.23 [address] [address] [address] Oct, Type 2 diabetes mellitus without complic ations E11.9 [address] [address] [address] Oct, [address] [address] September, Type 2 diabetes mellitus without complic ations E11.9 [place] [address] [address] 29 Jul, 2015 Type 2 diabetes mellitus without complic ations E11.9 ; Lumbar pain M54.5 and Tobacco abuse Z72.0 [facility] [id number] [place] [address] May, [facility] [id number] [place] [address] May, [facility] [id number] [place] [address] Apr, [facility] [id number] [place] [address] Mar, [facility] [id number] [place] [address] Mar, Type 2 diabetes mellitus without complic ations E11.9 [facility] [id number] [place] [address] Mar, [facility] [id number] [place] [address] Feb, Type 2 diabetes mellitus without complic ations E11.9 ; Neuropathy, diabetic E11.40 and Sleep apnea G47.30 [facility] [id number] [place] [address] Feb, [facility] [id number] [place] [address] Jan, Skin infection, bacterial 686.9 [facility] [id number] [place] [address] Jan, [facility] [id number] [place] [address] Dec, Diabetes mellitus type 2, uncomplicated 250.00 [facility] [id number] [place] [address] Dec, [facility] [id number] [place] [address] Nov, [facility] [id number] [place] [address] Nov, Diabetes mellitus type 2, uncomplicated 250.00 and Obesity 278.00 [facility] [address] [address] [place] [address] Oct, 2014 [facility] [address] [facility] [id number] [place] [address] Oct, [facility] [address] [id number] [place] [address] Aug, [facility] [address] [id number] [place] [address] Aug, [facility] [address] [id number] [place] [address] Jul, [facility] [address] [id number] [place] [address] Jul, [facility] [address] [id number] [place] [address] Jul, [facility] [address] [id number] [place] [address] Jul, [facility] [address] [id number] [place] [address] Jul, [facility] [address] [id number] [place] [address] Jul, [facility] [address] [id number] [place] [address] Feb, [facility] [address] [id number] [place] [address] Feb, [facility] [address] [id number] [place] [address] Dec, [facility] [address] [id number] [place] [address] Nov, [facility] [address] [id number] [place] [address] Nov, [facility] [address] [id number] [place] [address] Nov, [facility] [address] [id number] [place] [address] Nov, [facility] [address] [id number] [place] [address] Nov, [facility] [address] [id number] [place] [address] September, [facility] [address] [id number] [place] [address] September, [facility] [address] [id number] [place] [address] Aug, [facility] [address] [id number] [place] [address] Aug, [facility] [address] [id number] [place] [address] Aug, [facility] [address] [id number] [place] [address] Aug, [facility] [address] [id number] [place] [address] Jul, [facility] [address] [id number] [place] [address] Jul, [facility] [address] [id number] [place] [address] Apr, [facility] [address] [id number] [place] [address] Apr, [facility] [address] [id number] [place] [address] Mar, [facility] [address] [id number] [place] [address] Mar, [facility] [address] [id number] [place] [address] Jan, [facility] [address] [id number] [place] [address] Jan, [facility] [address] [id number] [place] [address] Dec, [facility] [address] [id number] [place] [address] Nov, [facility] [address] [id number] [place] [address] Nov, [facility] [address] [id number] [place] [address] Nov, [facility] [address] [id number] [place] [address] Oct, [facility] [address] [id number] [place] [address] Oct, [facility] [address] [id number] [place] [address] Oct, [facility] [address] [id number] [place] [address] September, [facility] [address] [id number] [place] [address] September, [facility] [address] [id number] [place] [address] Aug, [facility] [address] [id number] [place] [address] Aug, [facility] [address] [id number] [place] [address] Aug, [facility] [address] [id number] [place] [address] Aug, [facility] [address] [id number] [place] [address] Jul, [facility] [address] [id number] [place] [address] Jul, [facility] [address] [id number] [place] [address] Jul, [facility] [address] [id number] [place] [address] Jul, [facility] [address] [id number] [place] [address] May, [facility] [address] [id number] [place] [address] 22 May, 2012 [facility] [address] [id number] [place] [address] May, [facility] [address] [id number] [place] [address] 18 May, 2012 [facility] [address] [id number] [place] [address] 14 May, 2012 [facility] [address] [id number] [place] [address] 11 May, 2012 [facility] [address] [id number] [place] [address] 10 May, 2012 [facility] [address] [id number] [place] [address] May, [facility] [address] [id number] [place] [address] May, [facility] [address] [id number] [place] [address] May, [facility] [address] [id number] [place] [address] Apr, [facility] [address] [id number] [place] [address] Apr, [facility] [address] [id number] [place] [address] Apr, [facility] [address] [id number] [place] [address] Apr, [facility] [address] [id number] [place] [address] Mar, [facility] [address] [id number] [place] [address] Mar, [facility] [address] [id number] [place] [address] Feb, [facility] [address] [id number] [place] [address] Feb, [facility] [address] [id number] [place] [address] Feb, [facility] [address] [id number] [place] [address] Feb, [facility] [address] [id number] [place] [address] Jan, [facility] [address] [id number] [place] [address] Dec, [facility] [address] [id number] [place] [address] Oct, [facility] [address] [id number] [place] [address] September, [facility] [address] [id number] [place] [address] September, [facility] [address] [id number] [place] [address] Jul, [facility] [address] [id number] [place] [address] Jul, [facility] [address] [id number] [place] [address] Jul, [facility] [address] [id number] [place] [address] Jul, [facility] [address] [id number] [place] [address] Jul, [facility] [address] [id number] [place] [address] May, [facility] [address] [id number] [place] [address] Apr, [facility] [address] [id number] [place] [address] Apr, [facility] [address] [id number] [place] [address] Apr, [facility] [address] [id number] [place] [address] 08 Apr, 2011 [facility] [address] [id number] [place] [address] 16 Mar, 2011 [facility] [address] [id number] [place] [address] 16 Mar, 2011 [facility] [address] [id number] [place] [address] 15 Mar, 2011 [facility] [address] [id number] [place] [address] Mar, [facility] [address] [id number] [place] [address] Feb, [facility] [address] [id number] [place] [address] Dec, [facility] [address] [id number] [place] [address] September, [facility] [address] [id number] [place] [address] Aug, [facility] [address] [id number] [place] [address] May, [facility] [address] [id number] [place] [address] May, [facility] [address] [id number] [place] [address] 24 Apr, 2010 [facility] [address] [id number] [place] [address] 10 Apr, 2010 [facility] [address] [id number] [place] [address] Apr, [facility] [address] [id number] [place] [address] 24 Mar, 2010 [facility] [address] [id number] [place] [address] 10 Mar, 2010 [facility] [address] [id number] [place] [address] Mar, [facility] [address] [id number] [place] [address] Nov, [facility] [address] [id number] [place] [address] Oct[facility] [address] [id number] [place] [address] September, [facility] [address] [id number] [place] [address] Dec, [facility] [address] [id number] [place] [address] Jul, [facility] [address] [id number] [place] [address] Jul, IMMUNIZATIONS No Known Immunizations SOCIAL HISTORY Never Assessed REASON FOR VISIT PLAN OF CARE VITAL SIGNS MEDICATIONS No Known Medications RESULTS No Results PROCEDURES No Known procedures INSTRUCTIONS MEDICATIONS ADMINISTERED No Known Medications MEDICAL (GENERAL) HISTORY Type Description Date Medical History acid reflux Medical History Neuropathy, diabetic Medical History Diabetes mellitus type 2, controlled Medical History Erectile dysfunction, unspecified erecti le dysfunction type Medical History Type 2 diabetes mellitus with diabetic n europathy, unspecified Medical History senior living current use of 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
--- OUTSIDE RECORDS SUMMARY | 2019-11-14 23:11 | XMS REPORT ---
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 202507378 Problem Type 2 diabetes mellitus with diabetic neuropathy, uns pecified E11.40 Active 25603692 Problem Erectile dysfunction, unspecified erectile dysfunction typ e N52.9 Active 238277480 Problem Neuropathy, diabetic E11.40 Active 261441145 Problem Uncontrolled type 2 diabetes mellitus with hyperglycemia E11.65 Active 533318602 Problem Type 2 diabetes mellitus without complications E11 .9 Active 938240232 Problem Rhinosinusitis J32.9 Active 12880 000 Problem Diabetes type 2, controlled E11.9 Ac tive 93492085 Problem Mood disorder F39 Active 552594 05 Problem ASIYA (obstructive sleep apnea) G47.33 Active 32495628 Problem Arthritis M19.90 Active 1779257 Problem Essential hypertension I10 Active 56001790 ALLERGIES No Information ENCOUNTERS Encounter Location Date Diagnosis [address] [place] [address] May, BMI 40.0-44.9, adult Z68.41 [facility] [address] [id number] [place] [address] May, [facility] [place] [facility] [address] [id number] [place] [id number] May, Dental examination Z01.20 and Caries K02 .9 [facility] [address] [id number] [place] [address] Apr, [address] [place] [address] 20 Dec, 2019 Type 2 diabetes mellitus wit hout complications E11.9 ; Neuropathy, diabetic E11.40 ; [facility]CC 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.4 ; Essential hypertension I10 ; Tobacco abuse Z72.0 ; Verruca B07.9 ; Folliculitis L73.9 and marine oil terminal superintendent use of drug Z79.899 [id number] [place] [address] 13 Apr, 2019 BMI 40.0-44.9, adult Z68.41 [id number] [place] [address] Apr, [address] [address] Mar, Type 2 diabetes mellitus without complic ations E11.9 [address] [address] Mar, [address] [address] Mar, BMI 40.0-44.9, adult Z68.41 [facility] [address] [facility] [address] [place] [address] Mar, Rhinosinusitis J32.9 [id number] [place] [address] Feb, Type 2 diabetes mellitus without complic ations E11.9 [id number] [place] [address] Feb, [address] [address] Feb, Type 2 diabetes mellitus without complic ations E11.9 [address] [address] Feb, BMI 40.0-44.9, adult Z68.41 [id number] [place] [address] Feb, [address] [address] Jan, Type 2 diabetes mellitus without complic ations E11.9 [address] [address] Jan, [address] [address] Jan, Uncontrolled type 2 diabetes mellitus wi th hyperglycemia E11.65 [address] [address] Jan, BMI 40.0-44.9, adult Z68.41 [address] [address] Dec, [address] [address] Dec, BMI 40.0-44.9, adult Z68.41 [address] [address] Nov, BMI 40.0-44.9, adult Z68.41 [address] [address] Nov, [address] [address] Nov, BMI 40.0-44.9, adult Z68.41 [address] [address] Oct, Type 2 diabetes mellitus without complic ations E11.9 ; MCC 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.4 and Foot pain, right M79.671 [address] [address] Oct, BMI 40.0-44.9, adult Z68.41 [address] [address] September, BMI 40.0-44.9, adult Z68.41 [address] [address] Aug, Type 2 diabetes mellitus without complic ations E11.9 and Morbid obesity E66.01 [address] [address] [address] Aug, BMI 40.0-44.9, adult Z68.41 [address] [address] Jul, [address] [address] Jul, [address] [address] Jul, BMI 40.0-44.9, adult Z68.41 [address] [address] Jul, BMI 40.0-44.9, adult Z68.41 [address] [address] May, [address] [address] May, [address] [address] Apr, BMI 40.0-44.9, adult Z68.41 ; Type 2 chevy betes mellitus without complications E11.9 and Arthritis M19.90 [address] [address] [address] Mar, [address] [address] [address] Mar, [address] [address] Mar, Type 2 diabetes mellitus without complic ations E11.9 [address] [address] [address] Feb, BMI 40.0-44.9, adult Z68.41 and Diabetes type 2, controlled E11.9 [facility] [id number] [place] [address] Feb, [facility] [address] [address] Feb, [facility] [address] [address] Feb, Diabetes type 2, controlled E11.9 [facility] [address] [address] Jan, [facility] [address] [address] Jan, [address] [address] 17 Jan, 2018 Allergic reaction to drug, initial encou nter T78.40XA ; Uncontrolled type 2 diabetes mellitus with hyperglycemia E11.65 and Essential hypertension I10 [facility] [address] [address] 07 Jan, 2018 Type 2 diabetes mellitus without complic ations E11.9 ; Diabetes type 2, controlled E11.9 and Arthritis M19.90 [facility] [address] [address] Dec, Diabetes type 2, controlled E11.9 [facility] [id number] [place] [address] Dec, [facility] [address] [address] Dec, Diabetes type 2, controlled E11.9 [facility] [id number] [place] [address] Oct, Diabetes type 2, controlled E11.9 [facility] [facility] [address] [id number] [place] [id number] Oct, Dental caries K02.9 and Dental examinati on Z01.20 [facility] [id number] [place] [address] September, [id number] [place] [address] Aug, Diabetes type 2, controlled E11.9 ; Mood disorder F39 ; Arthritis M19.90 and Family history of rheumatoid arthritis Z82.61 [facility] [address] [facility] [id number] [place] [address] 15 Jul, 2017 Infection of both inner ears H83.03 and Dizziness R42 [facility] [address] [address] Jul, [facility] [address] [address] Jul, Diabetes type 2, controlled E11.9 [facility] [facility] [address] [id number] Jul, Dental examination Z01.20 [facility] [address] [address] May, Diabetes type 2, controlled E11.9 [facility] [address] [address] May, [facility] [place] [facility] [address] [id number] May, Dental examination Z01.20 [facility] [address] [address] May, [facility] [address] [address] May, [facility] [address] [address] May, Diabetes type 2, controlled E11.9 [facility] [address] [address] Apr, [facility] [address] [address] Apr, Mood disorder F39 [facility] [address] [address] Mar, [id number] [place] [address] Mar, Diabetes type 2, controlled E11.9 and En counter for immunization Z23 [facility] [address] [address] Jan, Mood disorder F39 [facility] [address] [address] Jan, Type 2 diabetes mellitus without complic ations E11.9 [facility] [address] [address] Nov, [address] [address] Nov, Type 2 diabetes mellitus without complic ations E11.9 ; Mood disorder F39 and ASIYA (obstructive sleep apnea) G47.33 [place] [address] September, Diabetes type 2, controlled E11.9 [place] [address] September, [address] [address] Aug, Diabetes type 2, controlled E11.9 [address] [address] Jul, [facility] [address] [address] Jul, Type 2 diabetes mellitus without complic ations E11.9 and MCC 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.4 [place] [address] [address] Jul, Diabetes type 2, controlled E11.9 [facility] [address] [address] Jul, [address] [address] May, [place] [address] [address] Apr, Diabetes type 2, controlled E11.9 [place] [address] [address] [address] 31 Feb, 2016 Erectile dysfunction, unspecified erecti le dysfunction type N52.9 ; Type 2 diabetes mellitus with diabetic neuropathy, unspecified E11.40 and MCC 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.4 [place] [address] [address] 08 Jan, 2016 Impacted cerumen of both ears H61.23 [place] [address] [address] Oct, Type 2 diabetes mellitus without complic ations E11.9 [address] [address] [address] Oct, [place] [address] September, Type 2 diabetes mellitus without complic ations E11.9 [place] [address] [address] [address] Jul, Type 2 diabetes mellitus without complic ations E11.9 ; Lumbar pain M54.5 and Tobacco abuse Z72.0 [place] [address] [address] [address] May, [address] [address] May, [address] [address] Apr, [address] [address] Mar, [address] [address] Mar, Type 2 diabetes mellitus without complic ations E11.9 [place] [address] [address] [address] Mar, [facility] [address] [address] Feb, Type 2 diabetes mellitus without complic ations E11.9 ; Neuropathy, diabetic E11.40 and Sleep apnea G47.30 [facility] [address] [address] Feb, [facility] [address] [address] Jan, Skin infection, bacterial 686.9 [facility] [address] [address] Jan, [facility] [address] [address] Dec, Diabetes mellitus type 2, uncomplicated 250.00 [facility] [address] [address] Dec, [facility] [address] [address] Nov, [facility] [address] [address] Nov, Diabetes mellitus type 2, uncomplicated 250.00 and Obesity 278.00 [facility] [address] [address] Oct, [facility] [address] [address] Oct, [facility] [address] [address] Aug, [facility] [address] [address] Aug, [facility] [address] [address] Jul, [facility] [address] [address] Jul, [facility] [address] [address] Jul, [facility] [place] [facility] [address] [facility] [id number] [place] [address] Jul, [facility] [place] [facility] [address] [id number] [place] [address] Jul, [facility] [place] [facility] [address] [id number] [place] [address] Jul, [facility] [place] [facility] [address] [id number] [place] [address] Feb, [facility] [place] [facility] [address] [id number] [place] [address] Feb, [facility] [place] [facility] [address] [id number] [place] [address] Dec, [facility] [place] [facility] [address] [id number] [place] [address] Nov, [facility] [place] [facility] [address] [id number] [place] [address] Nov, 2013 [facility] [place] [facility] [address] [id number] [place] [address] Nov, [facility] [place] [facility] [address] [id number] [place] [address] Nov, [facility] [place] [facility] [address] [id number] [place] [address] Nov, [facility] [place] [facility] [address] [id number] [place] [address] September, [facility] [place] [facility] [address] [id number] [place] [address] September, [facility] [place] [facility] [address] [id number] [place] [address] Aug, [facility] [place] [facility] [address] [id number] [place] [address] Aug, [facility] [place] [facility] [address] [id number] [place] [address] Aug, [facility] [place] [facility] [address] [id number] [place] [address] Aug, [facility] [place] [facility] [address] [id number] [place] [address] Jul, [facility] [place] [facility] [address] [id number] [place] [address] Jul, [facility] [place] [facility] [address] [id number] [place] [address] Apr, [facility] [place] [facility] [address] [id number] [place] [address] Apr, [facility] [place] [facility] [address] [id number] [place] [address] Mar, [facility] [place] [facility] [address] [id number] [place] [address] Mar, [facility] [place] [facility] [address] [id number] [place] [address] Jan, [facility] [place] [facility] [address] [id number] [place] [address] Jan, [facility] [place] [facility] [address] [id number] [place] [address] Dec, [facility] [place] [facility] [address] [id number] [place] [address] Nov, [facility] [place] [facility] [address] [id number] [place] [address] Nov, [facility] [place] [facility] [address] [id number] [place] [address] Nov, [facility] [place] [facility] [address] [id number] [place] [address] Oct, [facility] [place] [facility] [address] [id number] [place] [address] Oct, [facility] [place] [facility] [address] [id number] [place] [address] Oct, [facility] [place] [facility] [address] [id number] [place] [address] September, [facility] [address] [facility] [id number] [place] [address] September, [facility] [place] [facility] [address] [facility] [id number] [facility] [place] [address] Aug, [facility] [place] [facility] [address] [id number] [place] [address] Aug, [facility] [place] [facility] [address] [id number] [facility] [place] [address] Aug, [facility] [place] [facility] [address] [facility] [id number] [place] [address] Aug, [facility] [place] [facility] [address] [id number] [place] [address] Jul, [facility] [place] [facility] [address] [id number] [place] [address] Jul, [facility] [place] [facility] [address] [id number] [place] [address] Jul, [facility] [place] [facility] [address] [id number] [place] [address] Jul, [facility] [place] [facility] [address] [id number] [place] [address] May, [facility] [place] [facility] [address] [id number] [place] [address] May, [facility] [place] [facility] [address] [id number] [place] [address] May, [facility] [place] [facility] [address] [id number] [place] [address] May, [facility] [place] [facility] [address] [id number] [place] [address] 14 May, 2012 [facility] [place] [facility] [address] [id number] [place] [address] May, [facility] [place] [facility] [address] [id number] [place] [address] May, [facility] [place] [facility] [address] [id number] [place] [address] May, [facility] [place] [facility] [address] [id number] [place] [address] May, [facility] [place] [facility] [address] [id number] [place] [address] May, [facility] [place] [facility] [address] [id number] [place] [address] Apr, [facility] [place] [facility] [address] [id number] [place] [address] Apr, [facility] [place] [facility] [address] [id number] [place] [address] Apr, [facility] [place] [facility] [address] [id number] [place] [address] Apr, [facility] [place] [facility] [id number] [place] [address] Mar, [facility] [place] [facility] [id number] [place] [address] Mar, [facility] [place] [facility] [address] [id number] [place] [address] Feb, [facility] [place] [facility] [id number] [place] [address] Feb, [facility] [place] [facility] [address] [id number] [place] [address] Feb, [facility] [place] [facility] [address] [id number] [place] [address] Feb, [facility] [place] [facility] [address] [id number] [place] [address] Jan, [facility] [place] [facility] [id number] [place] [address] Dec, [facility] [place] [facility] [address] [id number] [place] [address] Oct, [facility] [place] [facility] [address] [id number] [place] [address] September, [facility] [place] [facility] [address] [id number] [place] [address] September, [facility] [place] [facility] [address] [id number] [place] [address] Jul, [facility] [place] [facility] [address] [id number] [place] [address] Jul, [facility] [place] [facility] [address] [id number] [place] [address] Jul, [facility] [place] [facility] [address] [id number] [place] [address] Jul, [facility] [place] [facility] [address] [id number] [place] [address] 16 Jul, 2011 [facility] [place] [facility] [address] [id number] [place] [address] May, [facility] [place] [facility] [id number] [place] [address] 16 Apr, 2011 [facility] [place] [facility] [address] [id number] [place] [address] 16 Apr, 2011 [facility] [place] [facility] [address] [id number] [place] [address] Apr, [facility] [place] [facility] [address] [id number] [place] [address] 08 Apr, 2011 [facility] [place] [facility] [address] [id number] [place] [address] 16 Mar, 2011 [facility] [place] [facility] [address] [id number] [place] [address] 16 Mar, 2011 [facility] [place] [facility] [address] [id number] [place] [address] 15 Mar, 2011 [facility] [place] [facility] [address] [id number] [place] [address] Mar, [facility] [place] [facility] [address] [id number] [place] [address] Feb, [facility] [place] [facility] [address] [id number] [place] [address] Dec, [facility] [address] [id number] [place] [address] September, [facility] [address] [id number] [place] [address] Aug, [facility] [address] [id number] [place] [address] May, [facility] [address] [id number] [place] [address] May, [facility] [address] [id number] [place] [address] Apr, [facility] [address] [id number] [place] [address] Apr, [facility] [address] [id number] [place] [address] Apr, [facility] [address] [id number] [place] [address] Mar, [facility] [address] [id number] [place] [address] Mar, [facility] [address] [id number] [place] [address] Mar, [facility] [address] [id number] [place] [address] Nov, [facility] [id number] [place] [address] Oct, [facility] [id number] [place] [address] September, [facility] [id number] [place] [address] Dec, [facility] [id number] [place] [address] Jul, [facility] [id number] [place] [address] Jul, IMMUNIZATIONS No Known Immunizations SOCIAL HISTORY Never Assessed REASON FOR VISIT PLAN OF CARE VITAL SIGNS Height 70 in 2013-08-30 Weight 313.1 lbs 2013-08-30 Temperature 97.6 degrees Fahrenheit 2013-08-30 Heart Rate 80 bpm 2013-08-30 Respiratory Rate 18 2013-08-30 Blood pressure systolic 122 mmHg 2013-08-30 Blood pressure diastolic 66 mmHg 2013-08-30 MEDICATIONS Unknown Medications RESULTS No Results PROCEDURES Procedure Date Ordered Result Body Site GLYCATED HEMOGLOBIN TEST August 30, 2013 INSTRUCTIONS MEDICATIONS ADMINISTERED No Known Medications MEDICAL (GENERAL) HISTORY Type Description Date Medical History acid reflux Medical History Neuropathy, diabetic Medical History Diabetes mellitus type 2, controlled Medical History Erectile dysfunction, unspecified erecti le dysfunction type Medical History Type 2 diabetes mellitus with diabetic n europathy, unspecified Medical History MCC current use of 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
--- OUTSIDE RECORDS SUMMARY | 2019-11-14 23:11 | XMS REPORT ---
Author Author Jerman BRENNAN Organization [facility] Address [address] [place] [address] Care Team Providers Care Aerobics Instructor Name Role Phone MIKA JOSE Unavailable PROBLEMS Type Condition ICD9-CM Code JCO43-DW Code Onset Dates Condition S tatus SNOMED Code Problem meterman 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.4 Active 782744444 Problem Type 2 diabetes mellitus with diabetic neuropathy, uns pecified E11.40 Active 72640143 Problem Erectile dysfunction, unspecified erectile dysfunction typ e N52.9 Active 684883183 Problem Neuropathy, diabetic E11.40 Active 032915880 Problem Uncontrolled type 2 diabetes mellitus with hyperglycemia E11.65 Active 170887824 Problem Type 2 diabetes mellitus without complications E11 .9 Active 419537210 Problem Rhinosinusitis J32.9 Active 49049 000 Problem Diabetes type 2, controlled E11.9 Ac tive 83131638 Problem Mood disorder F39 Active 179705 05 Problem ASIYA (obstructive sleep apnea) G47.33 Active 95090950 Problem Arthritis M19.90 Active 5181066 Problem Essential hypertension I10 Active 43347271 ALLERGIES No Information ENCOUNTERS Encounter Location Date Diagnosis [facility] [id number] [place] [address] 04 Jul, 2019 Type 2 diabetes mellitus without complic ations E11.[address] [place] [address] May, BMI 40.0-44.9, adult Z68.41 [facility] [id number] [place] [address] May, [facility] [address] [facility] [place] [id number] May, Dental examination Z01.20 and Caries K02 .9 [facility] [id number] [place] [address] Apr, [facility] [address] [place] [address] Apr, Type 2 diabetes mellitus wit hout complications E11.9 ; Neuropathy, diabetic E11.40 ; meterman 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.4 ; Essential hypertension I10 ; Tobacco abuse Z72.0 ; Verruca B07.9 ; Folliculitis L73.9 and group home use of drug Z79.[id number] [place] [address] Apr, BMI 40.0-44.9, adult Z68.41 [place] [id number] [place] [address] Apr, [address] [id number] [place] [address] Mar, Type 2 diabetes mellitus without complic ations E11.9 [address] [id number] [place] [address] Mar, [address] [id number] [place] [address] Mar, BMI 40.0-44.9, adult Z68.41 [facility] [place] [facility] [address] [facility] [address] [place] [address] Mar, Rhinosinusitis J32.9 [address] [place] [id number] [place] [address] Feb, Type 2 diabetes mellitus without complic ations E11.9 [address] [id number] [place] [address] Feb, [place] [address] [place] [address] Feb, Type 2 diabetes mellitus without complic ations E11.9 [place] [id number] [place] [address] Feb, BMI 40.0-44.9, adult Z68.41 [address] [id number] [place] [address] Feb, [place] [address] [address] Jan, Type 2 diabetes mellitus without complic ations E11.9 [place] [id number] [place] [address] Jan, [place] [address] [address] Jan, Uncontrolled type 2 diabetes mellitus wi th hyperglycemia E11.65 [place] [address] [address] Jan, BMI 40.0-44.9, adult Z68.41 [address] [address] [address] Dec, [place] [address] [address] Dec, BMI 40.0-44.9, adult Z68.41 [place] [address] [address] Nov, BMI 40.0-44.9, adult Z68.41 [address] [address] [address] Nov, [place] [address] [address] Nov, BMI 40.0-44.9, adult Z68.41 [address] [id number] [place] [address] Oct, Type 2 diabetes mellitus without complic ations E11.9 ; group home 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.4 and Foot pain, right M79.671 [address] [address] [place] [address] Oct, BMI 40.0-44.9, adult Z68.41 [address] [address] [address] September, BMI 40.0-44.9, adult Z68.41 [address] [address] [address] Aug, Type 2 diabetes mellitus without complic ations E11.9 and Morbid obesity E66.01 [address] [address] [address] Aug, BMI 40.0-44.9, adult Z68.41 [address] [place] [address] [address] Jul, [place] [address] [address] Jul, [place] [address] [address] Jul, BMI 40.0-44.9, adult Z68.41 [address] [address] [address] Jul, BMI 40.0-44.9, adult Z68.41 [address] [address] [address] May, [place] [address] [address] May, [place] [address] [address] Apr, BMI 40.0-44.9, adult Z68.41 ; Type 2 chevy betes mellitus without complications E11.9 and Arthritis M19.90 [facility] [address] [place] [address] Mar, [address] [address] [address] Mar, [place] [address] [address] Mar, Type 2 diabetes mellitus without complic ations E11.9 [address] [address] [place] [address] Feb, BMI 40.0-44.9, adult Z68.41 and Diabetes type 2, controlled E11.9 [facility] [id number] [place] [address] Feb, [facility] [address] [address] Feb, [address] [address] [address] Feb, Diabetes type 2, controlled E11.9 [address] [address] [address] Jan, [address] [address] [address] Jan, [address] [address] [address] 17 Jan, 2018 Allergic reaction to drug, initial encou nter T78.40XA ; Uncontrolled type 2 diabetes mellitus with hyperglycemia E11.65 and Essential hypertension I10 [address] [address] [address] 07 Jan, 2018 Type 2 diabetes mellitus without complic ations E11.9 ; Diabetes type 2, controlled E11.9 and Arthritis M19.90 [place] [address] [address] Dec, Diabetes type 2, controlled E11.9 [facility] [id number] [place] [address] Dec, [facility] [address] [address] Dec, Diabetes type 2, controlled E11.9 [facility] [id number] [place] [address] Oct, Diabetes type 2, controlled E11.9 [facility] [address] [facility] [place] [address] 14 Oct, 2017 Dental caries K02.9 and Dental examinati on Z01.20 [facility] [id number] [place] [address] September, [facility] [address] [address] 05 Aug, 2017 Diabetes type 2, controlled E11.9 ; Mood disorder F39 ; Arthritis M19.90 and Family history of rheumatoid arthritis Z82.61 [facility] [address] [facility] [id number] [place] [address] 15 Jul, 2017 Infection of both inner ears H83.03 and Dizziness R42 [facility] [address] [address] 14 Jul, 2017 [facility] [address] [address] 24 Jul, 2017 Diabetes type 2, controlled E11.9 [facility] [address] [id number] 09 Jul, 2017 Dental examination Z01.20 [facility] [address] [address] May, Diabetes type 2, controlled E11.9 [facility] [address] [address] May, [facility] [address] [id number] May, Dental examination Z01.20 [facility] [address] [address] May, [facility] [address] [address] May, [facility] [address] [address] May, Diabetes type 2, controlled E11.9 [facility] [address] [address] Apr, [facility] [address] [address] Apr, Mood disorder F39 [address] [place] [address] Mar, [place] [address] [address] Mar, Diabetes type 2, controlled E11.9 and En counter for immunization Z23 [place] [address] [address] Jan, Mood disorder F39 [place] [address] [address] Jan, Type 2 diabetes mellitus without complic ations E11.9 [place] [address] [address] Nov, [place] [address] [address] Nov, Type 2 diabetes mellitus without complic ations E11.9 ; Mood disorder F39 and ASIYA (obstructive sleep apnea) G47.33 [place] [address] [address] September, Diabetes type 2, controlled E11.9 [address] [address] [address] September, [place] [address] [address] Aug, Diabetes type 2, controlled E11.9 [address] [address] [address] Jul, [place] [address] [address] Jul, Type 2 diabetes mellitus without complic ations E11.9 and meterman 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.4 [address] [place] [address] [address] Jul, Diabetes type 2, controlled E11.9 [address] [address] [address] 14 Jul, 2016 [place] [address] [address] May, [place] [address] [address] Apr, Diabetes type 2, controlled E11.9 [address] [place] [address] [address] Feb, Erectile dysfunction, unspecified erecti le dysfunction type N52.9 ; Type 2 diabetes mellitus with diabetic neuropathy, unspecified E11.40 and meterman 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.4 [address] [address] [address] 08 Jan, 2016 Impacted cerumen of both ears H61.23 [address] [place] [address] [address] 23 Oct, 2015 Type 2 diabetes mellitus without complic ations E11.9 [address] [place] [address] [address] Oct, [place] [address] [address] September, Type 2 diabetes mellitus without complic ations E11.9 [address] [place] [address] [address] 29 Jul, 2015 Type 2 diabetes mellitus without complic ations E11.9 ; Lumbar pain M54.5 and Tobacco abuse Z72.0 [address] [place] [address] [address] May, [address] [address] [address] May, [address] [address] [address] Apr, [place] [address] [address] Mar, [address] [address] [address] Mar, Type 2 diabetes mellitus without complic ations E11.9 [facility] [address] [address] Mar, [facility] [address] [address] Feb, Type 2 diabetes mellitus without complic ations E11.9 ; Neuropathy, diabetic E11.40 and Sleep apnea G47.30 [facility] [id number] [place] [address] Feb, [facility] [address] [address] Jan, Skin infection, bacterial 686.9 [facility] [address] [address] Jan, [facility] [address] [address] Dec, Diabetes mellitus type 2, uncomplicated 250.00 [facility] [address] [address] Dec, [facility] [address] [address] Nov, [facility] [address] [address] Nov, Diabetes mellitus type 2, uncomplicated 250.00 and Obesity 278.00 [facility] [id number] [place] [address] Oct, [facility] [address] [address] Oct, [facility] [address] [address] 14 Aug, 2014 [facility] [address] [address] Aug, [facility] [address] [address] Jul, [facility] [address] [id number] [place] [address] Jul, 2014 [facility] [address] [id number] [place] [address] Jul, 2014 [facility] [address] [id number] [place] [address] Jul, [facility] [address] [id number] [place] [address] Jul, [facility] [address] [id number] [place] [address] Jul, [facility] [address] [id number] [place] [address] Feb, [facility] [address] [id number] [place] [address] Feb, [facility] [address] [id number] [place] [address] Dec, [facility] [address] [id number] [place] [address] Nov, [facility] [address] [id number] [place] [address] Nov, [facility] [address] [id number] [place] [address] Nov, [facility] [address] [id number] [place] [address] Nov, [facility] [address] [id number] [place] [address] Nov, [facility] [address] [id number] [place] [address] September, [facility] [address] [id number] [place] [address] September, [facility] [address] [id number] [place] [address] Aug, [facility] [address] [id number] [place] [address] Aug, [facility] [address] [id number] [place] [address] Aug, [facility] [address] [id number] [place] [address] Aug, [facility] [address] [id number] [place] [address] Jul, [facility] [address] [id number] [place] [address] Jul, [facility] [address] [id number] [place] [address] Apr, [facility] [address] [id number] [place] [address] Apr, [facility] [address] [id number] [place] [address] Mar, [facility] [address] [id number] [place] [address] Mar, [facility] [address] [id number] [place] [address] Jan, [facility] [address] [id number] [place] [address] Jan, [facility] [address] [id number] [place] [address] Dec, [facility] [address] [id number] [place] [address] Nov, [facility] [address] [id number] [place] [address] Nov, [facility] [address] [id number] [place] [address] Nov, [facility] [address] [id number] [place] [address] Oct, [facility] [address] [id number] [place] [address] Oct, [facility] [address] [id number] [place] [address] Oct, [facility] [id number] [place] [address] September, [facility] [address] [id number] [place] [address] September, [facility] [address] [id number] [place] [address] Aug, [facility] [address] [id number] [place] [address] Aug, [facility] [address] [id number] [place] [address] Aug, [facility] [address] [id number] [place] [address] Aug, [facility] [address] [id number] [place] [address] Jul, [facility] [address] [id number] [place] [address] Jul, [facility] [address] [id number] [place] [address] Jul, [facility] [address] [id number] [place] [address] Jul, [facility] [address] [id number] [place] [address] May, [facility] [address] [id number] [place] [address] May, [facility] [address] [id number] [place] [address] May, [facility] [address] [id number] [place] [address] May, [facility] [address] [id number] [place] [address] May, [facility] [address] [id number] [place] [address] May, [facility] [address] [id number] [place] [address] May, [facility] [address] [id number] [place] [address] May, [facility] [address] [id number] [place] [address] May, [facility] [address] [id number] [place] [address] May, [facility] [address] [id number] [place] [address] Apr, [facility] [address] [id number] [place] [address] Apr, [facility] [address] [id number] [place] [address] Apr, [facility] [id number] [place] [address] Apr, [facility] [address] [id number] [place] [address] Mar, [facility] [id number] [place] [address] Mar, [facility] [address] [id number] [place] [address] Feb, [facility] [address] [id number] [place] [address] Feb, [facility] [address] [id number] [place] [address] Feb, [facility] [address] [id number] [place] [address] Feb, [facility] [address] [id number] [place] [address] Jan, [facility] [address] [id number] [place] [address] Dec, [facility] [address] [id number] [place] [address] Oct, [facility] [address] [id number] [place] [address] September, [facility] [address] [id number] [place] [address] September, [facility] [address] [id number] [place] [address] Jul, [facility] [address] [id number] [place] [address] Jul, [facility] [address] [id number] [place] [address] Jul, [facility] [address] [id number] [place] [address] Jul, [facility] [address] [id number] [place] [address] Jul, [facility] [address] [id number] [place] [address] May, [facility] [address] [id number] [place] [address] Apr, [facility] [address] [id number] [place] [address] Apr, [facility] [address] [id number] [place] [address] Apr, [facility] [address] [id number] [place] [address] 08 Apr, 2011 [facility] [address] [id number] [place] [address] 16 Mar, 2011 [facility] [id number] [place] [address] 16 Mar, 2011 [facility] [address] [id number] [place] [address] 15 Mar, 2011 [facility] [address] [id number] [place] [address] Mar, [facility] [address] [id number] [place] [address] Feb, [facility] [address] [id number] [place] [address] Dec, [facility] [address] [id number] [place] [address] September, [facility] [address] [id number] [place] [address] Aug, [facility] [address] [id number] [place] [address] May, [facility] [address] [id number] [place] [address] May, [facility] [address] [id number] [place] [address] Apr, [facility] [address] [id number] [place] [address] Apr, [facility] [address] [id number] [place] [address] Apr, [facility] [address] [id number] [place] [address] Mar, [facility] [address] [id number] [place] [address] Mar, [facility] [address] [id number] [place] [address] Mar, [facility] [address] [id number] [place] [address] Nov, [facility] [address] [id number] [place] [address] 15 Oct, 2009 [facility] [address] [id number] [place] [address] September, [facility] [address] [id number] [place] [address] 14 Dec, 2008 [facility] [address] [id number] [place] [address] Jul, [facility] [address] [facility] [id number] [place] [address] Jul, IMMUNIZATIONS No Known Immunizations SOCIAL HISTORY Never Assessed REASON FOR VISIT PLAN OF CARE VITAL SIGNS MEDICATIONS Unknown Medications RESULTS No Results PROCEDURES Procedure Date Ordered Result Body Site COMPLETE CBC W/AUTO DIFF WBC September 04, 2013 LIPID PANEL September 04, 2013 COMPREHEN METABOLIC PANEL September 04, 2013 VENIPUNCT, ROUTINE* September 04, 2013 INSTRUCTIONS MEDICATIONS ADMINISTERED No Known Medications MEDICAL (GENERAL) HISTORY Type Description Date Medical History acid reflux Medical History Neuropathy, diabetic Medical History Diabetes mellitus type 2, controlled Medical History Erectile dysfunction, unspecified erecti le dysfunction type Medical History Type 2 diabetes mellitus with diabetic n europathy, unspecified Medical History group home current use of 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
--- OUTSIDE RECORDS SUMMARY | 2019-11-14 23:11 | XMS REPORT ---
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 018786414 Problem Type 2 diabetes mellitus with diabetic neuropathy, uns pecified E11.40 Active 26408784 Problem Erectile dysfunction, unspecified erectile dysfunction typ e N52.9 Active 691406386 Problem Neuropathy, diabetic E11.40 Active 128047483 Problem Uncontrolled type 2 diabetes mellitus with hyperglycemia E11.65 Active 352436201 Problem Type 2 diabetes mellitus without complications E11 .9 Active 519848765 Problem Rhinosinusitis J32.9 Active 97368 000 Problem Diabetes type 2, controlled E11.9 Ac tive 01968678 Problem Mood disorder F39 Active 082055 05 Problem ASIYA (obstructive sleep apnea) G47.33 Active 29832714 Problem Arthritis M19.90 Active 8609392 Problem Essential hypertension I10 Active 50156118 ALLERGIES No Information ENCOUNTERS Encounter Location Date Diagnosis [facility] [id number] [place] [address] 04 Jul, 2019 Type 2 diabetes mellitus without complic ations E11.[address] [place] [address] May, BMI 40.0-44.9, adult Z68.41 [facility] [address] [id number] [place] [address] May, [facility] [address] [facility] [place] [id number] May, Dental examination Z01.20 and Caries K02 .9 [facility] [id number] [place] [address] Apr, [facility] [address] [place] [address] Apr, Type 2 diabetes mellitus wit hout complications E11.9 ; Neuropathy, diabetic E11.40 ; 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 ; Essential hypertension I10 ; Tobacco abuse Z72.0 ; Verruca B07.9 ; Folliculitis L73.9 and [facility] use of drug Z79.899 [id number] [place] [address] Apr, BMI 40.0-44.9, adult Z68.41 [address] [id number] [place] [address] Apr, [place] [id number] [place] [address] Mar, Type 2 diabetes mellitus without complic ations E11.9 [place] [id number] [place] [address] Mar, [address] [id number] [place] [address] Mar, BMI 40.0-44.9, adult Z68.41 [facility] [place] [facility] [address] [place] [address] Mar, Rhinosinusitis J32.9 [place] [id number] [place] [address] Feb, Type 2 diabetes mellitus without complic ations E11.9 [place] [id number] [place] [address] Feb, [place] [id number] [place] [address] Feb, Type 2 diabetes mellitus without complic ations E11.9 [place] [id number] [place] [address] Feb, BMI 40.0-44.9, adult Z68.41 [place] [id number] [place] [address] Feb, [address] [address] [address] Jan, Type 2 diabetes mellitus without complic ations E11.9 [place] [id number] [place] [address] Jan, [place] [address] [address] Jan, Uncontrolled type 2 diabetes mellitus wi th hyperglycemia E11.65 [address] [address] [address] Jan, BMI 40.0-44.9, adult Z68.41 [address] [address] [address] Dec, [address] [address] [address] Dec, BMI 40.0-44.9, adult Z68.41 [address] [address] [address] Nov, BMI 40.0-44.9, adult Z68.41 [address] [address] [address] Nov, [place] [address] [address] Nov, BMI 40.0-44.9, adult Z68.41 [place] [id number] [place] [address] Oct, Type 2 diabetes mellitus without complic ations E11.9 ; FCI 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.4 and Foot pain, right M79.671 [address] [id number] [place] [address] Oct, BMI 40.0-44.9, adult Z68.41 [address] [address] [address] September, BMI 40.0-44.9, adult Z68.41 [address] [address] [address] [address] Aug, Type 2 diabetes mellitus without complic ations E11.9 and Morbid obesity E66.01 [address] [address] [address] [address] Aug, BMI 40.0-44.9, adult Z68.41 [address] [address] [address] Jul, [place] [address] [address] Jul, [place] [address] [address] Jul, BMI 40.0-44.9, adult Z68.41 [address] [address] [address] Jul, BMI 40.0-44.9, adult Z68.41 [address] [address] [address] May, [place] [address] [address] May, [place] [address] [address] Apr, BMI 40.0-44.9, adult Z68.41 ; Type 2 chevy betes mellitus without complications E11.9 and Arthritis M19.90 [facility] [id number] [place] [address] Mar, [place] [address] [address] Mar, [place] [address] [address] Mar, Type 2 diabetes mellitus without complic ations E11.9 [place] [id number] [place] [address] Feb, BMI 40.0-44.9, adult Z68.41 and Diabetes type 2, controlled E11.9 [facility] [id number] [place] [address] Feb, [facility] [address] [address] Feb, [place] [address] [address] Feb, Diabetes type 2, controlled E11.9 [address] [address] [address] Jan, [address] [address] [address] Jan, [place] [address] [address] 17 Jan, 2018 Allergic reaction to drug, initial encou nter T78.40XA ; Uncontrolled type 2 diabetes mellitus with hyperglycemia E11.65 and Essential hypertension I10 [address] [address] [address] 07 Jan, 2018 Type 2 diabetes mellitus without complic ations E11.9 ; Diabetes type 2, controlled E11.9 and Arthritis M19.90 [place] [address] [address] Dec, Diabetes type 2, controlled E11.9 [facility] [id number] [place] [address] Dec, [facility] [address] [address] Dec, Diabetes type 2, controlled E11.9 [facility] [id number] [place] [address] Oct, Diabetes type 2, controlled E11.9 [facility] [address] [id number] [place] [address] 14 Oct, 2017 Dental caries K02.9 and Dental examinati on Z01.20 [facility] [id number] [place] [address] September, [facility] [address] [address] 05 Aug, 2017 Diabetes type 2, controlled E11.9 ; Mood disorder F39 ; Arthritis M19.90 and Family history of rheumatoid arthritis Z82.[address] [facility] [address] [facility] [id number] [place] [address] 15 Jul, 2017 Infection of both inner ears H83.03 and Dizziness R42 [facility] [address] [address] 14 Jul, 2017 [facility] [address] [address] 24 Jul, 2017 Diabetes type 2, controlled E11.9 [facility] [address] [id number] 09 Jul, 2017 Dental examination Z01.20 [facility] [address] [address] May, Diabetes type 2, controlled E11.9 [facility] [address] [address] May, [facility] [address] [id number] May, Dental examination Z01.20 [facility] [address] [address] May, [facility] [address] [address] May, [facility] [address] [address] May, Diabetes type 2, controlled E11.9 [facility] [address] [address] Apr, [facility] [address] [address] Apr, Mood disorder F[id number] [address] Mar, [place] [address] [address] Mar, Diabetes type 2, controlled E11.9 and En counter for immunization Z23 [place] [address] [address] Jan, Mood disorder F39 [address] [address] [address] Jan, Type 2 diabetes mellitus without complic ations E11.9 [address] [address] [address] Nov, [place] [address] [address] Nov, Type 2 diabetes mellitus without complic ations E11.9 ; Mood disorder F39 and ASIYA (obstructive sleep apnea) G47.33 [place] [address] [address] September, Diabetes type 2, controlled E11.9 [address] [address] [address] September, [place] [address] [address] Aug, Diabetes type 2, controlled E11.9 [address] [address] [address] Jul, [place] [address] [address] Jul, Type 2 diabetes mellitus without complic ations E11.9 and 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 [address] [address] [address] Jul, Diabetes type 2, controlled E11.9 [address] [address] [address] 14 Jul, 2016 [place] [address] [address] May, [place] [address] [address] Apr, Diabetes type 2, controlled E11.9 [address] [address] [address] Feb, Erectile dysfunction, unspecified erecti le dysfunction type N52.9 ; Type 2 diabetes mellitus with diabetic neuropathy, unspecified E11.40 and 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 [place] [address] [address] 08 Jan, 2016 Impacted cerumen of both ears H61.23 [place] [address] [address] 23 Oct, 2015 Type 2 diabetes mellitus without complic ations E11.9 [address] [address] [address] Oct, [place] [address] [address] September, Type 2 diabetes mellitus without complic ations E11.9 [place] [address] [address] 29 Jul, 2015 Type 2 diabetes mellitus without complic ations E11.9 ; Lumbar pain M54.5 and Tobacco abuse Z72.0 [address] [address] [address] May, [address] [address] [address] May, [place] [address] [address] Apr, [address] [address] [address] Mar, [address] [address] [address] Mar, Type 2 diabetes mellitus without complic ations E11.9 [facility] [address] [address] Mar, [facility] [address] [address] Feb, Type 2 diabetes mellitus without complic ations E11.9 ; Neuropathy, diabetic E11.40 and Sleep apnea G47.30 [facility] [id number] [place] [address] Feb, [facility] [address] [address] Jan, Skin infection, bacterial 686.9 [facility] [address] [address] Jan, [facility] [address] [address] Dec, Diabetes mellitus type 2, uncomplicated 250.00 [facility] [address] [address] Dec, [facility] [address] [address] Nov, [facility] [address] [address] Nov, Diabetes mellitus type 2, uncomplicated 250.00 and Obesity 278.00 [facility] [id number] [place] [address] Oct, [facility] [address] [address] Oct, [facility] [address] [address] 14 Aug, 2014 [facility] [address] [address] Aug, [facility] [address] [address] Jul, [facility] [address] [id number] [place] [address] Jul, 2014 [facility] [address] [id number] [place] [address] Jul, 2014 [facility] [address] [id number] [place] [address] Jul, [facility] [address] [id number] [place] [address] Jul, [facility] [address] [id number] [place] [address] Jul, [facility] [address] [id number] [place] [address] Feb, [facility] [address] [id number] [place] [address] Feb, [facility] [address] [id number] [place] [address] Dec, [facility] [address] [id number] [place] [address] Nov, [facility] [address] [id number] [place] [address] Nov, [facility] [address] [id number] [place] [address] Nov, [facility] [address] [id number] [place] [address] Nov, [facility] [address] [id number] [place] [address] Nov, [facility] [address] [id number] [place] [address] September, [facility] [address] [id number] [place] [address] September, [facility] [address] [id number] [place] [address] Aug, [facility] [address] [id number] [place] [address] Aug, [facility] [address] [id number] [place] [address] Aug, [facility] [address] [id number] [place] [address] Aug, [facility] [address] [id number] [place] [address] Jul, [facility] [address] [id number] [place] [address] Jul, [facility] [address] [id number] [place] [address] Apr, [facility] [address] [id number] [place] [address] Apr, [facility] [address] [id number] [place] [address] Mar, [facility] [address] [id number] [place] [address] Mar, [facility] [address] [id number] [place] [address] Jan, [facility] [address] [id number] [place] [address] Jan, [facility] [address] [id number] [place] [address] Dec, [facility] [address] [id number] [place] [address] Nov, [facility] [address] [id number] [place] [address] Nov, [facility] [address] [id number] [place] [address] Nov, [facility] [address] [id number] [place] [address] Oct, [facility] [address] [id number] [place] [address] Oct, [facility] [address] [id number] [place] [address] Oct, [facility] [id number] [place] [address] September, [facility] [address] [id number] [place] [address] September, [facility] [address] [id number] [place] [address] Aug, [facility] [address] [id number] [place] [address] Aug, [facility] [address] [id number] [place] [address] Aug, [facility] [address] [id number] [place] [address] Aug, [facility] [address] [id number] [place] [address] Jul, [facility] [address] [id number] [place] [address] Jul, [facility] [address] [id number] [place] [address] Jul, [facility] [address] [id number] [place] [address] Jul, [facility] [address] [id number] [place] [address] May, [facility] [address] [id number] [place] [address] May, [facility] [address] [id number] [place] [address] May, [facility] [address] [id number] [place] [address] May, [facility] [address] [id number] [place] [address] May, [facility] [address] [id number] [place] [address] May, [facility] [address] [id number] [place] [address] May, [facility] [address] [id number] [place] [address] May, [facility] [address] [id number] [place] [address] May, [facility] [address] [id number] [place] [address] May, [facility] [address] [id number] [place] [address] Apr, [facility] [address] [id number] [place] [address] Apr, [facility] [address] [id number] [place] [address] Apr, [facility] [id number] [place] [address] Apr, [facility] [address] [id number] [place] [address] Mar, [facility] [id number] [place] [address] Mar, [facility] [address] [id number] [place] [address] Feb, [facility] [address] [id number] [place] [address] Feb, [facility] [address] [id number] [place] [address] Feb, [facility] [address] [id number] [place] [address] Feb, [facility] [address] [id number] [place] [address] Jan, [facility] [address] [id number] [place] [address] Dec, [facility] [address] [id number] [place] [address] Oct, [facility] [address] [id number] [place] [address] September, [facility] [address] [id number] [place] [address] September, [facility] [address] [id number] [place] [address] Jul, [facility] [address] [id number] [place] [address] Jul, [facility] [address] [id number] [place] [address] Jul, [facility] [address] [id number] [place] [address] Jul, [facility] [address] [id number] [place] [address] Jul, [facility] [address] [id number] [place] [address] May, [facility] [address] [id number] [place] [address] Apr, [facility] [address] [id number] [place] [address] Apr, [facility] [address] [id number] [place] [address] Apr, [facility] [address] [id number] [place] [address] 08 Apr, 2011 [facility] [address] [id number] [place] [address] 16 Mar, 2011 [facility] [id number] [place] [address] 16 Mar, 2011 [facility] [address] [id number] [place] [address] 15 Mar, 2011 [facility] [address] [id number] [place] [address] Mar, [facility] [address] [id number] [place] [address] Feb, [facility] [address] [id number] [place] [address] Dec, [facility] [address] [id number] [place] [address] September, [facility] [address] [id number] [place] [address] Aug, [facility] [address] [id number] [place] [address] May, [facility] [address] [id number] [place] [address] May, [facility] [address] [id number] [place] [address] Apr, [facility] [address] [id number] [place] [address] Apr, [facility] [address] [id number] [place] [address] Apr, [facility] [address] [id number] [place] [address] Mar, [facility] [address] [id number] [place] [address] Mar, [facility] [address] [id number] [place] [address] Mar, [facility] [address] [id number] [place] [address] Nov, [facility] [address] [id number] [place] [address] 15 Oct, 2009 [facility] [address] [id number] [place] [address] September, [facility] [address] [id number] [place] [address] 14 Dec, 2008 [facility] [address] [id number] [place] [address] Jul, [facility] [address] [facility] [id number] [place] [address] Jul, IMMUNIZATIONS No Known Immunizations SOCIAL HISTORY Never Assessed REASON FOR VISIT [facility] PLAN OF CARE VITAL SIGNS MEDICATIONS Unknown [...]
--- OUTSIDE RECORDS SUMMARY | 2019-11-14 23:11 | XMS REPORT ---
Author Author Jerman BRENNAN Organization [facility] Address [address] [place] [address] Care Team Providers Care Certified Travel Counselor Name Role Phone JOSE BRENNAN Unavailable PROBLEMS Type Condition ICD9-CM Code [id number] Code Onset Dates Condition S tatus SNOMED Code Problem Diabetes type 2, controlled E11.9 Ac tive 99345178 Problem Neuropathy, diabetic E11.40 Active 325687665 Problem Type 2 diabetes mellitus with diabetic neuropathy, uns pecified E11.40 Active 94072716 Problem Erectile dysfunction, unspecified erectile dysfunction typ e N52.9 Active 698049145 Problem Mood disorder F39 Active 662867 05 Problem Rhinosinusitis J32.9 Active 96854 000 Problem long term 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.4 Active 128375640 Problem Daytime somnolence R40.0 Active 1 [id number] Problem Type 2 diabetes mellitus without complications E11 .9 Active 254366551 Problem ASIYA (obstructive sleep apnea) G47.33 Active 95486235 Problem Arthritis M19.90 Active 5837185 Problem Essential hypertension I10 Active 47656944 Problem Uncontrolled type 2 diabetes mellitus with hyperglycemia E11.65 Active 584593632 ALLERGIES No Information ENCOUNTERS Encounter Location Date Diagnosis [address] [address] Jul, Type 2 diabetes mellitus wit hout complications E11.9 ; Neuropathy, diabetic E11.40 ; long term 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.4 ; Chronic back pain M54.9 and Daytime somnolence R40.0 [address] [address] Jul, BMI 40.0-44.9, adult Z68.41 [facility] [address] [facility] [place] [address] Jul, Type 2 diabetes mellitus without complic ations E11.9 [facility] [address] [facility] [address] [place] [address] May, BMI 40.0-44.9, adult Z68.41 [facility] [address] [facility] [place] [address] May, [facility] [address] [facility] [place] [id number] May, Dental examination Z01.20 and Caries K02 .9 [facility] [id number] [place] [address] Apr, [facility] [address] [id number] [place] [address] Apr, Type 2 diabetes mellitus wit hout complications E11.9 ; Neuropathy, diabetic E11.40 ; long term 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.4 ; Essential hypertension I10 ; Tobacco abuse Z72.0 ; Verruca B07.9 ; Folliculitis L73.9 and long term use of drug Z79.899 [facility] [id number] [place] [address] Apr, BMI 40.0-44.9, adult Z68.41 [facility] [id number] [place] [address] Apr, [id number] [place] [address] Mar, Type 2 diabetes mellitus without complic ations E11.9 [facility] [id number] [place] [address] Mar, [address] [address] Mar, BMI 40.0-44.9, adult Z68.41 [facility] [address] [place] [address] Mar, Rhinosinusitis J32.9 [id number] [place] [address] Feb, Type 2 diabetes mellitus without complic ations E11.9 [facility] [id number] [place] [address] Feb, [facility] [address] [address] Feb, Type 2 diabetes mellitus without complic ations E11.9 [facility] [address] [address] Feb, BMI 40.0-44.9, adult Z68.41 [facility] [address] [address] Feb, [facility] [address] [address] Jan, Type 2 diabetes mellitus without complic ations E11.9 [facility] [address] [address] Jan, [facility] [address] [address] Jan, Uncontrolled type 2 diabetes mellitus wi th hyperglycemia E11.65 [facility] [address] [address] Jan, BMI 40.0-44.9, adult Z68.41 [facility] [address] [address] Dec, [facility] [address] [address] Dec, BMI 40.0-44.9, adult Z68.41 [facility] [address] [address] Nov, BMI 40.0-44.9, adult Z68.41 [facility] [address] [address] Nov, [facility] [address] [address] Nov, BMI 40.0-44.9, adult Z68.41 [address] [address] Oct, Type 2 diabetes mellitus without complic ations E11.9 ; nursing home 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.4 and Foot pain, right M79.671 [address] [address] Oct, BMI 40.0-44.9, adult Z68.41 [address] [address] September, BMI 40.0-44.9, adult Z68.41 [address] [address] Aug, Type 2 diabetes mellitus without complic ations E11.9 and Morbid obesity E66.01 [address] [address] Aug, BMI 40.0-44.9, adult Z68.41 [address] [address] Jul, [address] [address] Jul, [address] [address] Jul, BMI 40.0-44.9, adult Z68.41 [address] [address] Jul, BMI 40.0-44.9, adult Z68.41 [address] [address] May, [address] [address] May, [address] [address] Apr, BMI 40.0-44.9, adult Z68.41 ; Type 2 chevy betes mellitus without complications E11.9 and Arthritis M19.90 [address] [address] Mar, [address] [address] Mar, [address] [address] Mar, Type 2 diabetes mellitus without complic ations E11.9 [address] [address] Feb, BMI 40.0-44.9, adult Z68.41 and Diabetes type 2, controlled E11.9 [address] [address] Feb, [address] [address] Feb, [address] [address] Feb, Diabetes type 2, controlled E11.9 [address] [address] Jan, [address] [address] Jan, [address] [address] Jan, Allergic reaction to drug, initial encou nter T78.40XA ; Uncontrolled type 2 diabetes mellitus with hyperglycemia E11.65 and Essential hypertension I10 [address] [address] Jan, Type 2 diabetes mellitus without complic ations E11.9 ; Diabetes type 2, controlled E11.9 and Arthritis M19.90 [address] [address] Dec, Diabetes type 2, controlled E11.9 [facility] [id number] [place] [address] Dec, [facility] [id number] [place] [address] Dec, Diabetes type 2, controlled E11.9 [facility] [id number] [place] [address] Oct, Diabetes type 2, controlled E11.9 [facility] [address] [id number] 14 Oct, 2017 Dental caries K02.9 and Dental examinati on Z01.20 [facility] [id number] [place] [address] September, [facility] [address] [address] 05 Aug, 2017 Diabetes type 2, controlled E11.9 ; Mood disorder F39 ; Arthritis M19.90 and Family history of rheumatoid arthritis Z82.61 [facility] [address] [facility] [id number] [place] [address] 15 Jul, 2017 Infection of both inner ears H83.03 and Dizziness R42 [facility] [id number] [place] [address] Jul, [facility] [id number] [place] [address] 24 Jul, 2017 Diabetes type 2, controlled E11.9 [facility] [address] [id number] 09 Jul, 2017 Dental examination Z01.20 [facility] [id number] [place] [address] May, Diabetes type 2, controlled E11.9 [facility] [id number] [place] [address] May, [facility] [address] [id number] May, Dental examination Z01.20 [facility] [id number] [place] [address] May, [facility] [address] [address] May, [facility] [address] [address] May, Diabetes type 2, controlled E11.9 [facility] [address] [address] Apr, [facility] [address] [address] Apr, Mood disorder F39 [facility] [address] [address] Mar, [facility] [address] [address] Mar, Diabetes type 2, controlled E11.9 and En counter for immunization Z23 [facility] [address] [address] Jan, Mood disorder F39 [facility] [address] [address] Jan, Type 2 diabetes mellitus without complic ations E11.9 [facility] [address] [address] Nov, [facility] [address] [address] Nov, Type 2 diabetes mellitus without complic ations E11.9 ; Mood disorder F39 and ASIYA (obstructive sleep apnea) G47.33 [facility] [address] [address] September, Diabetes type 2, controlled E11.9 [facility] [address] [address] September, [facility] [address] [address] Aug, Diabetes type 2, controlled E11.9 [address] [address] Jul, [address] [address] Jul, Type 2 diabetes mellitus without complic ations E11.9 and nursing home 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.4 [address] [address] Jul, Diabetes type 2, controlled E11.9 [address] [address] Jul, [address] [address] May, [address] [address] Apr, Diabetes type 2, controlled E11.9 [address] [address] Feb, Erectile dysfunction, unspecified erecti le dysfunction type N52.9 ; Type 2 diabetes mellitus with diabetic neuropathy, unspecified E11.40 and long term 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.4 [address] [address] 08 Jan, 2016 Impacted cerumen of both ears H61.23 [place] [address] [address] [address] Oct, Type 2 diabetes mellitus without complic ations E11.9 [address] [address] Oct, [address] [address] September, Type 2 diabetes mellitus without complic ations E11.9 [place] [address] 29 Jul, 2015 Type 2 diabetes mellitus without complic ations E11.9 ; Lumbar pain M54.5 and Tobacco abuse Z72.0 [facility] [id number] [place] [address] May, [facility] [id number] [place] [address] May, [facility] [id number] [place] [address] Apr, [facility] [id number] [place] [address] Mar, [facility] [id number] [place] [address] Mar, Type 2 diabetes mellitus without complic ations E11.9 [facility] [id number] [place] [address] Mar, [facility] [id number] [place] [address] Feb, Type 2 diabetes mellitus without complic ations E11.9 ; Neuropathy, diabetic E11.40 and Sleep apnea G47.30 [facility] [id number] [place] [address] Feb, [facility] [id number] [place] [address] Jan, Skin infection, bacterial 686.9 [facility] [id number] [place] [address] Jan, [facility] [id number] [place] [address] Dec, Diabetes mellitus type 2, uncomplicated 250.00 [facility] [id number] [place] [address] Dec, [facility] [id number] [place] [address] Nov, [facility] [id number] [place] [address] Nov, Diabetes mellitus type 2, uncomplicated 250.00 and Obesity 278.00 [facility] [address] [place] [address] Oct, 2014 [facility] [address] [facility] [id number] [place] [address] Oct, [facility] [address] [id number] [place] [address] Aug, [facility] [address] [id number] [place] [address] Aug, [facility] [address] [id number] [place] [address] Jul, [facility] [address] [id number] [place] [address] Jul, [facility] [address] [id number] [place] [address] Jul, [facility] [address] [id number] [place] [address] Jul, [facility] [address] [id number] [place] [address] Jul, [facility] [address] [id number] [place] [address] Jul, [facility] [address] [id number] [place] [address] Feb, [facility] [address] [id number] [place] [address] Feb, [facility] [address] [id number] [place] [address] Dec, [facility] [address] [id number] [place] [address] Nov, [facility] [address] [id number] [place] [address] Nov, [facility] [address] [id number] [place] [address] Nov, [facility] [address] [id number] [place] [address] Nov, [facility] [address] [id number] [place] [address] Nov, [facility] [address] [id number] [place] [address] September, [facility] [address] [id number] [place] [address] September, [facility] [address] [id number] [place] [address] Aug, [facility] [address] [id number] [place] [address] Aug, [facility] [address] [id number] [place] [address] Aug, [facility] [address] [id number] [place] [address] Aug, [facility] [address] [id number] [place] [address] Jul, [facility] [address] [id number] [place] [address] Jul, [facility] [address] [id number] [place] [address] Apr, [facility] [address] [id number] [place] [address] Apr, [facility] [address] [id number] [place] [address] Mar, [facility] [address] [id number] [place] [address] Mar, [facility] [address] [id number] [place] [address] Jan, [facility] [address] [id number] [place] [address] Jan, [facility] [address] [id number] [place] [address] Dec, [facility] [address] [id number] [place] [address] Nov, [facility] [address] [id number] [facility] [place] [address] Nov, [facility] [address] [id number] [facility] [place] [address] Nov, [facility] [address] [id number] [place] [address] Oct, [facility] [address] [id number] [facility] [place] [address] Oct, [facility] [address] [id number] [facility] [place] [address] Oct, [facility] [address] [id number] [place] [address] September, [facility] [address] [id number] [place] [address] September, [facility] [address] [id number] [place] [address] Aug, [facility] [address] [id number] [place] [address] Aug, [facility] [address] [id number] [place] [address] Aug, [facility] [address] [id number] [place] [address] Aug, [facility] [address] [id number] [place] [address] Jul, [facility] [address] [id number] [place] [address] Jul, [facility] [address] [id number] [place] [address] Jul, [facility] [address] [id number] [place] [address] Jul, [facility] [address] [id number] [place] [address] May, [facility] [address] [id number] [place] [address] 22 May, 2012 [facility] [address] [id number] [place] [address] May, [facility] [address] [id number] [place] [address] 18 May, 2012 [facility] [address] [id number] [place] [address] 14 May, 2012 [facility] [address] [id number] [place] [address] 11 May, 2012 [facility] [address] [id number] [place] [address] 10 May, 2012 [facility] [address] [id number] [place] [address] May, [facility] [address] [id number] [place] [address] May, [facility] [address] [id number] [place] [address] May, [facility] [address] [id number] [place] [address] Apr, [facility] [address] [id number] [place] [address] Apr, [facility] [address] [id number] [place] [address] Apr, [facility] [address] [id number] [place] [address] Apr, [facility] [address] [id number] [place] [address] Mar, [facility] [address] [id number] [place] [address] Mar, [facility] [address] [id number] [place] [address] Feb, [facility] [address] [id number] [place] [address] Feb, [facility] [address] [id number] [place] [address] Feb, [facility] [address] [id number] [place] [address] Feb, [facility] [address] [id number] [place] [address] Jan, [facility] [address] [id number] [place] [address] Dec, [facility] [address] [id number] [place] [address] Oct, [facility] [address] [id number] [place] [address] September, [facility] [address] [id number] [place] [address] September, [facility] [address] [id number] [place] [address] Jul, [facility] [address] [id number] [place] [address] Jul, [facility] [address] [id number] [place] [address] Jul, [facility] [address] [id number] [place] [address] Jul, [facility] [address] [id number] [place] [address] Jul, [facility] [address] [id number] [place] [address] May, [facility] [address] [id number] [place] [address] Apr, [facility] [address] [id number] [place] [address] Apr, [facility] [address] [id number] [place] [address] Apr, [facility] [address] [id number] [place] [address] 08 Apr, 2011 [facility] [address] [id number] [place] [address] 16 Mar, 2011 [facility] [address] [id number] [place] [address] 16 Mar, 2011 [facility] [address] [id number] [place] [address] 15 Mar, 2011 [facility] [address] [id number] [place] [address] Mar, [facility] [address] [id number] [place] [address] Feb, [facility] [address] [id number] [place] [address] Dec, [facility] [address] [id number] [place] [address] September, [facility] [address] [id number] [place] [address] Aug, [facility] [address] [id number] [place] [address] May, [facility] [address] [id number] [place] [address] May, [facility] [address] [id number] [place] [address] 24 Apr, 2010 [facility] [address] [id number] [place] [address] 10 Apr, 2010 [facility] [address] [id number] [place] [address] Apr, [facility] [address] [id number] [place] [address] 24 Mar, 2010 [facility] [address] [id number] [place] [address] 10 Mar, 2010 [facility] [address] [id number] [place] [address] Mar, [facility] [address] [id number] [place] [address] Nov, [facility] [address] [id number] [place] [address] Oct, [facility] [address] [id number] [place] [address] September, [facility] [address] [id number] [place] [address] Dec, [facility] [address] [id number] [place] [address] Jul, [facility] [address] [id number] [place] [address] Jul, IMMUNIZATIONS No Known Immunizations SOCIAL HISTORY [...] with diabetic n europathy, unspecified Medical History nursing home current use of insulin Medical History [...]
--- NOTE | 2019-11-14 23:12 | NUR ---
[facility] arrival to ER. Patient to be transported emergently to [facility].
--- OUTSIDE RECORDS SUMMARY | 2019-11-14 23:12 | XMS REPORT ---
Author Author Jerman BRENNAN Organization [facility] Address [address] [place] [address] Care Team Providers Care Tire Manager Name Role Phone MIKA JOSE Unavailable PROBLEMS Type Condition ICD9-CM Code YEB66-EM Code Onset Dates Condition S tatus SNOMED Code Problem rn long term care 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.4 Active 075835865 Problem Type 2 diabetes mellitus with diabetic neuropathy, uns pecified E11.40 Active 64420671 Problem Erectile dysfunction, unspecified erectile dysfunction typ e N52.9 Active 638105837 Problem Neuropathy, diabetic E11.40 Active 981147695 Problem Uncontrolled type 2 diabetes mellitus with hyperglycemia E11.65 Active 657030810 Problem Type 2 diabetes mellitus without complications E11 .9 Active 887570479 Problem Rhinosinusitis J32.9 Active 81613 000 Problem Diabetes type 2, controlled E11.9 Ac tive 12508038 Problem Mood disorder F39 Active 840343 05 Problem ASIYA (obstructive sleep apnea) G47.33 Active 40007944 Problem Arthritis M19.90 Active 2726904 Problem Essential hypertension I10 Active 34013047 ALLERGIES No Information ENCOUNTERS Encounter Location Date Diagnosis [facility] [address] [id number] [place] [id number] May, Dental examination Z01.20 and Caries K02 .9 [facility] [address] [id number] [place] [address] Apr, [address] [place] [address] Apr, Type 2 diabetes mellitus wit hout complications E11.9 ; Neuropathy, diabetic E11.40 ; rn long term care 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.4 ; Essential hypertension I10 ; Tobacco abuse Z72.0 ; Verruca B07.9 ; Folliculitis L73.9 and rn long term care use of drug Z79.899 [facility] [id number] [place] [address] Apr, BMI 40.0-44.9, adult Z68.41 [facility] [id number] [place] [address] Apr, [facility] [id number] [place] [address] Mar, Type 2 diabetes mellitus without complic ations E11.9 [facility] [id number] [place] [address] Mar, [facility] [id number] [place] [address] Mar, BMI 40.0-44.9, adult Z68.41 [facility] [address] [place] [address] Mar, Rhinosinusitis J32.9 [facility] [id number] [place] [address] Feb, Type 2 diabetes mellitus without complic ations E11.9 [facility] [id number] [place] [address] Feb, [facility] [id number] [place] [address] Feb, Type 2 diabetes mellitus without complic ations E11.9 [facility] [id number] [place] [address] Feb, BMI 40.0-44.9, adult Z68.41 [facility] [id number] [place] [address] Feb, [facility] [id number] [place] [address] Jan, Type 2 diabetes mellitus without complic ations E11.9 [facility] [id number] [place] [address] Jan, [facility] [id number] [place] [address] Jan, Uncontrolled type 2 diabetes mellitus wi th hyperglycemia E11.65 [address] [address] [address] Jan, BMI 40.0-44.9, adult Z68.41 [place] [address] [address] Dec, [place] [address] [address] Dec, BMI 40.0-44.9, adult Z68.41 [address] [address] [address] Nov, BMI 40.0-44.9, adult Z68.41 [place] [address] [address] Nov, [place] [address] [address] Nov, BMI 40.0-44.9, adult Z68.41 [place] [address] [address] Oct, Type 2 diabetes mellitus without complic ations E11.9 ; rn long term care 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.4 and Foot pain, right M79.671 [place] [address] [address] Oct, BMI 40.0-44.9, adult Z68.41 [place] [address] [address] September, BMI 40.0-44.9, adult Z68.41 [place] [address] [address] Aug, Type 2 diabetes mellitus without complic ations E11.9 and Morbid obesity E66.01 [place] [address] [address] Aug, BMI 40.0-44.9, adult Z68.41 [facility] [id number] [place] [address] Jul, [facility] [address] [address] Jul, [facility] [address] [address] Jul, BMI 40.0-44.9, adult Z68.41 [facility] [address] [address] Jul, BMI 40.0-44.9, adult Z68.41 [facility] [address] [address] May, [facility] [address] [address] May, [place] [address] [address] Apr, BMI 40.0-44.9, adult Z68.41 ; Type 2 chevy betes mellitus without complications E11.9 and Arthritis M19.90 [place] [address] [address] Mar, [facility] [address] [address] Mar, [facility] [address] [address] Mar, Type 2 diabetes mellitus without complic ations E11.9 [facility] [address] [address] Feb, BMI 40.0-44.9, adult Z68.41 and Diabetes type 2, controlled E11.9 [facility] [address] [address] Feb, [facility] [address] [address] Feb, [facility] [address] [place] [address] Feb, Diabetes type 2, controlled E11.9 [facility] [address] [address] Jan, [facility] [address] [address] Jan, [facility] [address] [address] Jan, Allergic reaction to drug, initial encou nter T78.40XA ; Uncontrolled type 2 diabetes mellitus with hyperglycemia E11.65 and Essential hypertension I10 [facility] [address] [address] 07 Jan, 2018 Type 2 diabetes mellitus without complic ations E11.9 ; Diabetes type 2, controlled E11.9 and Arthritis M19.90 [facility] [address] [address] Dec, Diabetes type 2, controlled E11.9 [facility] [address] [address] Dec, [facility] [address] [address] Dec, Diabetes type 2, controlled E11.9 [facility] [id number] [place] [address] Oct, Diabetes type 2, controlled E11.9 [facility] [address] [id number] [place] [id number] 14 Oct, 2017 Dental caries K02.9 and Dental examinati on Z01.20 [facility] [id number] [place] [address] September, [place] [address] [address] 05 Aug, 2017 Diabetes type 2, controlled E11.9 ; Mood disorder F39 ; Arthritis M19.90 and Family history of rheumatoid arthritis Z82.61 [facility] [address] [facility] [id number] [address] 15 Jul, 2017 Infection of both inner ears H83.03 and Dizziness R42 [facility] [address] [address] 14 Jul, 2017 [facility] [address] [address] 24 Jul, 2017 Diabetes type 2, controlled E11.9 [facility] [address] [id number] 09 Jul, 2017 Dental examination Z01.20 [facility] [address] [address] May, Diabetes type 2, controlled E11.9 [facility] [address] [address] May, [facility] [address] [id number] May, Dental examination Z01.20 [facility] [address] [address] May, [facility] [address] [address] May, [facility] [address] [address] May, Diabetes type 2, controlled E11.9 [facility] [address] [address] Apr, [facility] [address] [address] Apr, Mood disorder F39 [facility] [address] [address] Mar, [place] [address] [address] Mar, Diabetes type 2, controlled E11.9 and En counter for immunization Z23 [facility] [address] [address] Jan, Mood disorder F39 [facility] [address] [address] Jan, Type 2 diabetes mellitus without complic ations E11.9 [facility] [id number] [place] [address] Nov, [facility] [address] [address] Nov, Type 2 diabetes mellitus without complic ations E11.9 ; Mood disorder F39 and ASIYA (obstructive sleep apnea) G47.33 [place] [address] [address] September, Diabetes type 2, controlled E11.9 [place] [address] [address] September, [place] [address] [address] Aug, Diabetes type 2, controlled E11.9 [place] [address] [address] Jul, [place] [address] [address] Jul, Type 2 diabetes mellitus without complic ations E11.9 and rn long term care 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.4 [place] [address] [place] [address] Jul, Diabetes type 2, controlled E11.9 [place] [address] [place] [address] Jul, [facility] [address] [address] May, [place] [address] [address] 16 Apr, 2016 Diabetes type 2, controlled E11.9 [facility] [id number] [place] [address] 31 Feb, 2016 Erectile dysfunction, unspecified erecti le dysfunction type N52.9 ; Type 2 diabetes mellitus with diabetic neuropathy, unspecified E11.40 and rn long term care 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.4 [place] [address] [address] 08 Jan, 2016 Impacted cerumen of both ears H61.23 [place] [address] [address] 23 Oct, 2015 Type 2 diabetes mellitus without complic ations E11.9 [place] [address] [address] Oct, [place] [address] [address] September, Type 2 diabetes mellitus without complic ations E11.9 [place] [address] [address] Jul, Type 2 diabetes mellitus without complic ations E11.9 ; Lumbar pain M54.5 and Tobacco abuse Z72.0 [place] [address] [address] May, [place] [address] [address] May, [place] [address] [address] Apr, [place] [address] [address] Mar, [place] [address] [address] Mar, Type 2 diabetes mellitus without complic ations E11.9 [place] [address] [address] Mar, [place] [address] [address] Feb, Type 2 diabetes mellitus without complic ations E11.9 ; Neuropathy, diabetic E11.40 and Sleep apnea G47.30 [place] [address] [place] [address] Feb, [facility] [id number] [place] [address] Jan, Skin infection, bacterial 686.9 [facility] [id number] [place] [address] Jan, [facility] [address] [address] Dec, Diabetes mellitus type 2, uncomplicated 250.00 [facility] [id number] [place] [address] Dec, [facility] [address] [address] Nov, [facility] [id number] [place] [address] Nov, Diabetes mellitus type 2, uncomplicated 250.00 and Obesity 278.00 [facility] [id number] [place] [address] Oct, [facility] [id number] [place] [address] Oct, [facility] [id number] [place] [address] Aug, [facility] [id number] [place] [address] Aug, [facility] [id number] [place] [address] Jul, [facility] [id number] [place] [address] Jul, [facility] [id number] [place] [address] Jul, [facility] [id number] [place] [address] Jul, [facility] [id number] [place] [address] Jul, [facility] [address] [id number] [place] [address] Jul, [facility] [address] [id number] [place] [address] Feb, [facility] [address] [id number] [place] [address] Feb, [facility] [address] [id number] [place] [address] Dec, [facility] [address] [facility] [id number] [place] [address] Nov, [facility] [address] [id number] [place] [address] Nov, [facility] [address] [id number] [place] [address] Nov, [facility] [address] [id number] [place] [address] Nov, [facility] [address] [id number] [place] [address] Nov, [facility] [address] [id number] [place] [address] September, [facility] [address] [id number] [place] [address] September, [facility] [address] [id number] [place] [address] Aug, [facility] [address] [id number] [place] [address] Aug, [facility] [address] [id number] [place] [address] Aug, [facility] [address] [id number] [place] [address] Aug, [facility] [address] [id number] [place] [address] Jul, [facility] [address] [id number] [place] [address] Jul, [facility] [address] [id number] [place] [address] Apr, [facility] [address] [id number] [place] [address] Apr, [facility] [address] [id number] [place] [address] Mar, [facility] [address] [id number] [place] [address] Mar, [facility] [address] [id number] [place] [address] Jan, [facility] [address] [id number] [place] [address] Jan, [facility] [address] [id number] [place] [address] Dec, [facility] [address] [id number] [place] [address] Nov, [facility] [address] [id number] [place] [address] Nov, [facility] [address] [id number] [place] [address] Nov, [facility] [address] [id number] [place] [address] Oct, [facility] [address] [id number] [place] [address] Oct, [facility] [address] [id number] [place] [address] Oct, [facility] [address] [id number] [place] [address] September, [facility] [address] [id number] [place] [address] September, [facility] [address] [id number] [place] [address] Aug, [facility] [address] [id number] [place] [address] Aug, [facility] [id number] [place] [address] Aug, [facility] [address] [id number] [place] [address] Aug, [facility] [address] [id number] [place] [address] Jul, [facility] [address] [id number] [place] [address] Jul, [facility] [address] [id number] [place] [address] Jul, [facility] [address] [id number] [place] [address] Jul, [facility] [address] [id number] [place] [address] May, [facility] [address] [id number] [place] [address] May, [facility] [address] [id number] [place] [address] May, [facility] [address] [id number] [place] [address] May, [facility] [address] [id number] [place] [address] May, [facility] [address] [id number] [place] [address] May, [facility] [address] [id number] [place] [address] May, [facility] [address] [id number] [place] [address] May, [facility] [address] [id number] [place] [address] May, [facility] [address] [id number] [place] [address] May, [facility] [address] [id number] [place] [address] Apr, [facility] [address] [id number] [place] [address] Apr, [facility] [address] [id number] [place] [address] Apr, [facility] [id number] [place] [address] Apr, [facility] [address] [id number] [place] [address] Mar, [facility] [id number] [place] [address] Mar, [facility] [address] [id number] [place] [address] Feb, [facility] [id number] [place] [address] Feb, [facility] [address] [id number] [place] [address] Feb, [facility] [id number] [place] [address] Feb, [facility] [address] [id number] [place] [address] Jan, [facility] [id number] [place] [address] Dec, [facility] [address] [id number] [place] [address] Oct, [facility] [address] [id number] [place] [address] September, [facility] [id number] [place] [address] September, [facility] [address] [id number] [place] [address] Jul, [facility] [address] [id number] [place] [address] Jul, [facility] [address] [id number] [place] [address] Jul, [facility] [address] [id number] [place] [address] Jul, [facility] [address] [id number] [place] [address] 16 Jul, 2011 [facility] [address] [id number] [place] [address] May, [facility] [address] [id number] [place] [address] Apr, [facility] [address] [id number] [place] [address] Apr, [facility] [address] [id number] [place] [address] Apr, [facility] [id number] [place] [address] Apr, [facility] [address] [id number] [place] [address] Mar, [facility] [id number] [place] [address] Mar, [facility] [address] [id number] [place] [address] 15 Mar, 2011 [facility] [address] [id number] [place] [address] Mar, [facility] [address] [id number] [place] [address] Feb, [facility] [id number] [place] [address] Dec, [facility] [address] [id number] [place] [address] September, [facility] [address] [id number] [place] [address] Aug, [facility] [address] [id number] [place] [address] May, [facility] [id number] [place] [address] May, [facility] [address] [id number] [place] [address] Apr, [facility] [id number] [place] [address] Apr, [facility] [id number] [place] [address] Apr, [facility] [id number] [place] [address] Mar, [facility] [id number] [place] [address] Mar, [facility] [id number] [place] [address] Mar, [facility] [id number] [place] [address] Nov, [facility] [id number] [place] [address] Oct, [facility] [id number] [place] [address] September, [facility] [id number] [place] [address] Dec, [facility] [id number] [place] [address] Jul, [facility] [id number] [place] [address] Jul, IMMUNIZATIONS No Known Immunizations SOCIAL HISTORY [...] with diabetic n europathy, unspecified Medical History rn long term care current use of insulin Medical History [...]
--- OUTSIDE RECORDS SUMMARY | 2019-11-14 23:12 | XMS REPORT ---
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 766951031 Problem Type 2 diabetes mellitus with diabetic neuropathy, uns pecified E11.40 Active 23967748 Problem Erectile dysfunction, unspecified erectile dysfunction typ e N52.9 Active 993523192 Problem Neuropathy, diabetic E11.40 Active 719255837 Problem Uncontrolled type 2 diabetes mellitus with hyperglycemia E11.65 Active 990824661 Problem Type 2 diabetes mellitus without complications E11 .9 Active 997868013 Problem Rhinosinusitis J32.9 Active 74397 000 Problem Diabetes type 2, controlled E11.9 Ac tive 49419940 Problem Mood disorder F39 Active 454278 05 Problem ASIYA (obstructive sleep apnea) G47.33 Active 56579022 Problem Arthritis M19.90 Active 7190642 Problem Essential hypertension I10 Active 34001075 ALLERGIES No Information ENCOUNTERS Encounter Location Date Diagnosis [id number] [place] [address] Apr, [address] [address] [place] [address] Apr, Type 2 diabetes mellitus wit hout complications E11.9 ; Neuropathy, diabetic E11.40 ; 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 ; Essential hypertension I10 ; Tobacco abuse Z72.0 ; Verruca B07.9 ; Folliculitis L73.9 and 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 use of drug Z79.899 [facility] [address] [place] [id number] [place] [address] Apr, BMI 40.0-44.9, adult Z68.[id number] [place] [address] Apr, [facility] [address] [id number] [place] [address] Mar, Type 2 diabetes mellitus without complic ations E11.9 [facility] [address] [id number] [place] [address] Mar, [facility] [id number] [place] [address] Mar, BMI 40.0-44.9, adult Z68.41 [facility] [address] [place] [address] Mar, Rhinosinusitis J32.9 [facility] [address] [id number] [place] [address] Feb, Type 2 diabetes mellitus without complic ations E11.9 [facility] [id number] [place] [address] Feb, [facility] [id number] [place] [address] Feb, Type 2 diabetes mellitus without complic ations E11.9 [facility] [id number] [place] [address] Feb, BMI 40.0-44.9, adult Z68.41 [facility] [id number] [place] [address] Feb, [facility] [id number] [place] [address] Jan, Type 2 diabetes mellitus without complic ations E11.9 [facility] [id number] [place] [address] Jan, [facility] [id number] [place] [address] Jan, Uncontrolled type 2 diabetes mellitus wi th hyperglycemia E11.65 [facility] [id number] [place] [address] Jan, BMI 40.0-44.9, adult Z68.41 [address] [address] [address] Dec, [place] [address] [address] Dec, BMI 40.0-44.9, adult Z68.41 [place] [address] [address] Nov, BMI 40.0-44.9, adult Z68.41 [place] [address] [address] Nov, [place] [address] [address] Nov, BMI 40.0-44.9, adult Z68.41 [place] [address] [address] Oct, Type 2 diabetes mellitus without complic ations E11.9 ; group home 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.4 and Foot pain, right M79.671 [place] [address] [address] Oct, BMI 40.0-44.9, adult Z68.41 [place] [address] [address] September, BMI 40.0-44.9, adult Z68.41 [place] [address] [address] Aug, Type 2 diabetes mellitus without complic ations E11.9 and Morbid obesity E66.01 [place] [address] [address] Aug, BMI 40.0-44.9, adult Z68.41 [place] [address] [address] Jul, [place] [id number] [place] [address] Jul, [facility] [address] [address] Jul, BMI 40.0-44.9, adult Z68.41 [facility] [address] [address] Jul, BMI 40.0-44.9, adult Z68.41 [facility] [address] [address] May, [place] [address] [address] May, [place] [address] [address] Apr, BMI 40.0-44.9, adult Z68.41 ; Type 2 chevy betes mellitus without complications E11.9 and Arthritis M19.90 [place] [address] [address] Mar, [facility] [address] [address] Mar, [place] [address] [address] Mar, Type 2 diabetes mellitus without complic ations E11.9 [place] [address] [address] Feb, BMI 40.0-44.9, adult Z68.41 and Diabetes type 2, controlled E11.9 [facility] [address] [address] Feb, [place] [address] [address] Feb, [facility] [address] [address] Feb, Diabetes type 2, controlled E11.9 [place] [address] [address] 24 Jan, 2018 [facility] [address] [address] Jan, [place] [address] [address] 17 Jan, 2018 Allergic reaction to drug, initial encou nter T78.40XA ; Uncontrolled type 2 diabetes mellitus with hyperglycemia E11.65 and Essential hypertension I10 [facility] [address] [address] 07 Jan, 2018 Type 2 diabetes mellitus without complic ations E11.9 ; Diabetes type 2, controlled E11.9 and Arthritis M19.90 [place] [address] [address] Dec, Diabetes type 2, controlled E11.9 [place] [address] [address] Dec, [facility] [address] [address] Dec, Diabetes type 2, controlled E11.9 [facility] [address] [address] Oct, Diabetes type 2, controlled E11.9 [facility] [address] [facility] [place] [id number] 14 Oct, 2017 Dental caries K02.9 and Dental examinati on Z01.20 [facility] [id number] [place] [address] September, [place] [address] [address] 05 Aug, 2017 Diabetes type 2, controlled E11.9 ; Mood disorder F39 ; Arthritis M19.90 and Family history of rheumatoid arthritis Z82.61 [facility] [address] [facility] [id number] [place] [address] 15 Jul, 2017 Infection of both inner ears H83.03 and Dizziness R42 [facility] [address] [place] [address] Jul, [facility] [address] [address] Jul, Diabetes type 2, controlled E11.9 [facility] [address] [facility] [place] [id number] Jul, Dental examination Z01.20 [facility] [address] [address] May, Diabetes type 2, controlled E11.9 [facility] [address] [address] May, [facility] [address] [id number] May, Dental examination Z01.20 [facility] [address] [address] May, [facility] [address] [address] May, [facility] [address] [address] May, Diabetes type 2, controlled E11.9 [facility] [address] [address] Apr, [facility] [address] [address] Apr, Mood disorder F39 [facility] [address] [address] Mar, [facility] [address] [address] Mar, Diabetes type 2, controlled E11.9 and En counter for immunization Z23 [facility] [address] [address] Jan, Mood disorder F39 [facility] [address] [address] Jan, Type 2 diabetes mellitus without complic ations E11.9 [facility] [id number] [place] [address] Nov, [facility] [address] [address] Nov, Type 2 diabetes mellitus without complic ations E11.9 ; Mood disorder F39 and ASIYA (obstructive sleep apnea) G47.33 [place] [id number] [place] [address] September, Diabetes type 2, controlled E11.9 [facility] [address] [address] September, [facility] [address] [address] Aug, Diabetes type 2, controlled E11.9 [facility] [address] [address] Jul, [facility] [address] [address] Jul, Type 2 diabetes mellitus without complic ations E11.9 and group home 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.4 [place] [id number] [place] [address] Jul, Diabetes type 2, controlled E11.9 [facility] [id number] [place] [address] Jul, [place] [address] [address] May, [facility] [id number] [place] [address] Apr, Diabetes type 2, controlled E11.9 [facility] [id number] [place] [address] Feb, Erectile dysfunction, unspecified erecti le dysfunction type N52.9 ; Type 2 diabetes mellitus with diabetic neuropathy, unspecified E11.40 and group home 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.4 [place] [address] [address] 08 Jan, 2016 Impacted cerumen of both ears H61.23 [facility] [address] [address] Oct, Type 2 diabetes mellitus without complic ations E11.9 [facility] [address] [address] Oct, [facility] [address] [address] September, Type 2 diabetes mellitus without complic ations E11.9 [facility] [address] [address] Jul, Type 2 diabetes mellitus without complic ations E11.9 ; Lumbar pain M54.5 and Tobacco abuse Z72.0 [place] [address] [address] May, [facility] [address] [address] May, [facility] [address] [address] Apr, [place] [address] [address] Mar, [facility] [address] [address] Mar, Type 2 diabetes mellitus without complic ations E11.9 [facility] [address] [address] Mar, [facility] [address] [address] Feb, Type 2 diabetes mellitus without complic ations E11.9 ; Neuropathy, diabetic E11.40 and Sleep apnea G47.30 [facility] [address] [address] Feb, [facility] [address] [address] Jan, Skin infection, bacterial 686.9 [facility] [id number] [place] [address] Jan, [facility] [id number] [place] [address] Dec, Diabetes mellitus type 2, uncomplicated 250.00 [facility] [id number] [place] [address] Dec, [facility] [id number] [place] [address] Nov, [facility] [id number] [place] [address] Nov, Diabetes mellitus type 2, uncomplicated 250.00 and Obesity 278.00 [facility] [id number] [place] [address] Oct, [facility] [id number] [place] [address] Oct, [facility] [id number] [place] [address] Aug, [facility] [id number] [place] [address] Aug, [facility] [id number] [place] [address] Jul, [facility] [id number] [place] [address] Jul, [facility] [id number] [place] [address] Jul, [facility] [id number] [place] [address] Jul, [facility] [id number] [place] [address] Jul, [facility] [id number] [place] [address] Jul, [facility] [address] [id number] [place] [address] Feb, [facility] [address] [facility] [id number] [place] [address] Feb, [facility] [address] [id number] [place] [address] Dec, [facility] [address] [id number] [place] [address] Nov, [facility] [address] [id number] [place] [address] Nov, [facility] [address] [id number] [place] [address] Nov, [facility] [address] [id number] [place] [address] Nov, [facility] [address] [id number] [place] [address] Nov, [facility] [address] [id number] [place] [address] September, [facility] [address] [id number] [place] [address] September, [facility] [address] [id number] [place] [address] Aug, [facility] [address] [id number] [place] [address] Aug, [facility] [address] [id number] [place] [address] Aug, [facility] [address] [id number] [place] [address] Aug, [facility] [address] [id number] [place] [address] Jul, [facility] [address] [id number] [place] [address] Jul, [facility] [address] [id number] [place] [address] Apr, [facility] [address] [id number] [place] [address] Apr, [facility] [address] [id number] [place] [address] Mar, [facility] [address] [id number] [place] [address] Mar, [facility] [address] [id number] [place] [address] Jan, [facility] [address] [id number] [place] [address] Jan, [facility] [address] [id number] [place] [address] Dec, [facility] [address] [id number] [place] [address] Nov, [facility] [address] [id number] [place] [address] Nov, [facility] [address] [id number] [place] [address] Nov, [facility] [address] [id number] [place] [address] Oct, [facility] [address] [id number] [place] [address] Oct, [facility] [address] [id number] [place] [address] Oct, [facility] [address] [id number] [place] [address] September, [facility] [address] [id number] [place] [address] September, [facility] [address] [id number] [place] [address] Aug, [facility] [address] [id number] [place] [address] Aug, [facility] [address] [id number] [place] [address] Aug, [facility] [address] [id number] [facility] [address] Aug, [facility] [address] [id number] [place] [address] Jul, [facility] [address] [id number] [place] [address] Jul, [facility] [address] [id number] [place] [address] Jul, [facility] [address] [id number] [place] [address] Jul, [facility] [address] [id number] [place] [address] May, [facility] [address] [id number] [place] [address] May, [facility] [address] [id number] [place] [address] May, [facility] [address] [id number] [place] [address] May, [facility] [address] [id number] [place] [address] May, [facility] [address] [id number] [place] [address] May, [facility] [address] [id number] [place] [address] May, [facility] [address] [id number] [place] [address] May, [facility] [address] [id number] [place] [address] May, [facility] [address] [id number] [place] [address] May, [facility] [address] [id number] [place] [address] Apr, [facility] [address] [id number] [place] [address] Apr, [facility] [address] [id number] [place] [address] Apr, [facility] [address] [id number] [place] [address] Apr, [facility] [address] [id number] [place] [address] Mar, [facility] [address] [id number] [place] [address] Mar, [facility] [address] [id number] [place] [address] Feb, [facility] [address] [id number] [place] [address] Feb, [facility] [id number] [place] [address] Feb, [facility] [id number] [place] [address] Feb, [facility] [address] [id number] [place] [address] Jan, [facility] [address] [id number] [place] [address] Dec, [facility] [address] [id number] [place] [address] Oct, [facility] [id number] [place] [address] September, [facility] [address] [id number] [place] [address] September, [facility] [id number] [place] [address] Jul, [facility] [address] [id number] [place] [address] Jul, [facility] [id number] [place] [address] Jul, [facility] [address] [id number] [place] [address] Jul, [facility] [address] [id number] [place] [address] Jul, [facility] [address] [id number] [place] [address] May, [facility] [address] [id number] [place] [address] Apr, [facility] [address] [id number] [place] [address] Apr, [facility] [address] [id number] [place] [address] Apr, [facility] [address] [id number] [place] [address] Apr, [facility] [address] [id number] [place] [address] Mar, [facility] [address] [id number] [place] [address] Mar, [facility] [address] [id number] [place] [address] Mar, [facility] [address] [id number] [place] [address] Mar, [facility] [address] [id number] [place] [address] Feb, [facility] [address] [id number] [place] [address] Dec, [facility] [address] [id number] [place] [address] September, [facility] [address] [id number] [place] [address] Aug, [facility] [address] [id number] [place] [address] May, [facility] [id number] [place] [address] May, [facility] [id number] [place] [address] Apr, [facility] [id number] [place] [address] Apr, [facility] [id number] [place] [address] Apr, [facility] [id number] [place] [address] Mar, [facility] [address] [address] Mar, [facility] [address] [address] Mar, [facility] [address] [address] Nov, [facility] [address] [address] Oct, [facility] [id number] [place] [address] September, [facility] [address] [address] Dec, [facility] [address] [address] Jul, [facility] [address] [address] Jul, IMMUNIZATIONS No Known Immunizations SOCIAL HISTORY Never Assessed REASON FOR VISIT PLAN OF CARE VITAL SIGNS Height 70 in 2013-12-06 Weight 309.4 lbs 2013-12-06 Temperature 97.8 degrees Fahrenheit 2013-12-06 Heart Rate 84 bpm 2013-12-06 Respiratory Rate 18 2013-12-06 Blood pressure systolic 120 mmHg 2013-12-06 Blood pressure diastolic 82 mmHg 2013-12-06 MEDICATIONS Unknown Medications RESULTS No Results PROCEDURES Procedure Date Ordered Result Body Site GLYCATED HEMOGLOBIN TEST December 06, 2013 INSTRUCTIONS MEDICATIONS ADMINISTERED No Known Medications MEDICAL (GENERAL) HISTORY Type Description Date Medical History acid reflux Medical History Neuropathy, diabetic Medical History Diabetes mellitus type 2, controlled Medical History Erectile dysfunction, unspecified erecti le dysfunction type Medical History Type 2 diabetes mellitus with diabetic n europathy, unspecified 

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
--- OUTSIDE RECORDS SUMMARY | 2019-11-14 23:12 | XMS REPORT ---
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 Active 923877580 Problem Arthritis M19.90 Active 8557630 Problem Neuropathy, diabetic E11.40 Active 108248874 Problem Essential hypertension I10 Active 17653848 Problem Type 2 diabetes mellitus with diabetic neuropathy, uns pecified E11.40 Active 48722702 Problem Erectile dysfunction, unspecified erectile dysfunction typ e N52.9 Active 111762688 Problem Mood disorder F39 Active 093762 05 Problem ASIYA (obstructive sleep apnea) G47.33 Active 01691638 ALLERGIES No Information ENCOUNTERS Encounter Location Date Diagnosis [place] [address] [address] [facility] [id number] [address] [place] [address] Nov, BMI 40.0-44.9, adult Z68.41 [place] [address] [address] [facility] [id number] [address] [place] [address] Nov, [facility] [address] [facility] [id number] [address] [place] [id number] Nov, BMI 40.0-44.9, adult Z68.41 [place] [address] [address] [place] [id number] [address] [place] [address] Oct, Type 2 diabetes mellitus wit hout complications E11.9 ; residential 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.4 and Foot pain, right M79.671 [facility] [address] [facility] [id number] [address] [place] [address] Oct, BMI 40.0-44.9, adult Z68.41 [place] [address] [address] September, BMI 40.0-44.9, adult Z68.41 [facility] [address] [address] Aug, Type 2 diabetes mellitus wit hout complications E11.9 and Morbid obesity E66.01 [facility] [address] [place] [id number] [place] [address] Aug, BMI 40.0-44.9, adult Z68.41 [place] [address] [address] Jul, [place] [address] [address] Jul, [place] [address] [address] Jul, BMI 40.0-44.9, adult Z68.41 [place] [address] [address] Jul, BMI 40.0-44.9, adult Z68.41 [place] [address] [address] [place] [id number] [address] [place] [address] May, [place] [address] [address] May, [facility] [address] [place] [id number] [address] [place] [address] Apr, BMI 40.0-44.9, adult Z68.41 ; Type 2 diabetes mellitus without complications E11.9 and Arthritis M19.90 [facility] [address] [place] [id number] [address] [place] [address] Mar, [facility] [address] [address] Mar, [facility] [address] [facility] [id number] [address] [place] [address] Mar, Type 2 diabetes mellitus wit hout complications E11.9 [facility] [address] [facility] [id number] [address] [place] [address] Feb, BMI 40.0-44.9, adult Z68.41 and Diabetes type 2, controlled E11.9 [facility] [address] [facility] [id number] [address] [place] [address] Feb, [facility] [address] [facility] [id number] [address] [place] [address] Feb, [facility] [address] [facility] [id number] [address] [place] [address] Feb, Diabetes type 2, controlled E11.9 [facility] [address] [facility] [id number] [address] [place] [address] Jan, [facility] [address] [facility] [id number] [address] [place] [address] Jan, [facility] [address] [facility] [id number] [address] [place] [id number] 17 Jan, 2018 Allergic reaction to drug, i nitial encounter T78.40XA ; Uncontrolled type 2 diabetes mellitus with hyperglycemia E11.65 and Essential hypertension I10 [facility] [address] [facility] [id number] [address] [place] [address] Jan, Type 2 diabetes mellitus wit hout complications E11.9 ; Diabetes type 2, controlled E11.9 and Arthritis M19.90 [facility] [address] [facility] [id number] [address] [place] [address] Dec, Diabetes type 2, controlled E11.9 [facility] [address] [facility] [id number] [address] [place] [address] Dec, [facility] [address] [facility] [id number] [address] [place] [address] Dec, Diabetes type 2, controlled E11.9 [facility] [address] [id number] [address] [place] [phone] 27 Oct, 2017 Diabetes type 2, controlled E11.9 [facility] [address] [id number] [address] [place] [id number] 14 Oct, 2017 Dental caries K02.9 and Walthall al examination Z01.20 [facility] [address] [id number] [address] [place] [address] 16 Sep, 2017 [facility] [address] [id number] [address] [place] [phone] 05 Aug, 2017 Diabetes type 2, controlled E11.9 ; Mood disorder F39 ; Arthritis M19.90 and Family history of rheumatoid arthritis Z82.61 [facility] [address] [id number] [address] [place] [address] 15 Jul, 2017 Infection of both inner ears H83.03 and Dizziness R42 [facility] [address] [id number] [address] [place] [phone] 14 Jul, 2017 [facility] [address] [id number] [address] [place] [id number] 24 Jul, 2017 Diabetes type 2, controlled E11.9 [facility] [address] [id number] [address] [place] [address] [id number] 09 Jul, 2017 Dental examination Z01.20 [facility] [address] [id number] [address] [place] [address] 28 May, 2017 Diabetes type 2, controlled E11.9 [facility] [address] [id number] [address] [place] [address] May, [facility] [address] [id number] [address] [place] [id number] May, Dental examination Z01.20 [facility] [address] [id number] [address] [place] [id number] 09 May, 2017 [facility] [address] [id number] [address] [place] [address] May, [facility] [address] [id number] [address] [place] [address] May, Diabetes type 2, controlled E11.9 [facility] [address] [id number] [address] [place] [address] Apr, [facility] [address] [facility] [id number] [address] [place] [address] Apr, Mood disorder F39 [facility] [address] [id number] [address] [place] [address] Mar, [facility] [address] [facility] [id number] [address] [place] [address] Mar, Diabetes type 2, controlled E11.9 and Encounter for immunization Z23 [facility] [address] [id number] [address] [place] [address] Jan, Mood disorder F39 [facility] [address] [id number] [address] [place] [address] Jan, Type 2 diabetes mellitus wit hout complications E11.9 [facility] [address] [facility] [id number] [address] [place] [address] Nov, [facility] [address] [facility] [id number] [address] [place] [address] Nov, Type 2 diabetes mellitus wit hout complications E11.9 ; Mood disorder F39 and ASIYA (obstructive sleep apnea) G47.33 [facility] [address] [id number] [address] [place] [address] September, Diabetes type 2, controlled E11.9 [facility] [address] [id number] [address] [place] [address] September, [facility] [address] [facility] [id number] [address] [place] [address] Aug, Diabetes type 2, controlled E11.9 [facility] [address] [facility] [id number] [address] [place] [phone] Jul, [facility] [address] [facility] [id number] [address] [place] [address] Jul, Type 2 diabetes mellitus wit hout complications E11.9 and 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 [facility] [address] [facility] [id number] [address] [place] [address] Jul, Diabetes type 2, controlled E11.9 [facility] [address] [facility] [id number] [address] [place] [address] Jul, [place] [address] [address] [facility] [id number] [address] [place] [address] May, [facility] [address] [facility] [id number] [address] [place] [address] Apr, Diabetes type 2, controlled E11.9 [place] [address] [address] [facility] [id number] [address] [place] [address] Feb, Erectile dysfunction, unspec ified erectile dysfunction type N52.9 ; Type 2 diabetes mellitus with diabetic neuropathy, unspecified E11.40 and 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 [place] [address] [address] [facility] [id number] [address] [place] [id number] 08 Jan, 2016 Impacted cerumen of both ear s H61.23 [place] [address] [address] [facility] [id number] [address] [place] [address] Oct, Type 2 diabetes mellitus wit hout complications E11.9 [place] [address] [address] [facility] [id number] [address] [place] [address] Oct, [place] [address] [address] [place] [id number] [address] [place] [id number] September, Type 2 diabetes mellitus wit hout complications E11.9 [facility] [address] [facility] [id number] [address] [place] [id number] 29 Jul, 2015 Type 2 diabetes mellitus wit hout complications E11.9 ; Lumbar pain M54.5 and Tobacco abuse Z72.0 [facility] [address] [id number] [address] [place] [address] May, [facility] [address] [id number] [address] [place] [phone] May, [facility] [address] [facility] [id number] [address] [place] [phone] Apr, [facility] [address] [id number] [address] [place] [phone] Mar, [facility] [address] [id number] [address] [place] [address] Mar, Type 2 diabetes mellitus wit hout complications E11.9 [facility] [address] [facility] [id number] [address] [place] [phone] Mar, [facility] [address] [facility] [id number] [address] [place] [phone] Feb, Type 2 diabetes mellitus wit hout complications E11.9 ; Neuropathy, diabetic E11.40 and Sleep apnea G47.30 [facility] [address] [facility] [id number] [address] [place] [address] Feb, [facility] [address] [facility] [id number] [address] [place] [address] Jan, Skin infection, bacterial 68 6.9 [facility] [address] [facility] [id number] [address] [place] [address] Jan, [facility] [address] [facility] [id number] [address] [place] [address] Dec, Diabetes mellitus type 2, un complicated 250.00 [facility] [address] [id number] [address] [place] [address] Dec, [facility] [address] [facility] [id number] [address] [place] [id number] Nov, [facility] [address] [facility] [id number] [address] [place] [address] Nov, Diabetes mellitus type 2, un complicated 250.00 and Obesity 278.00 [facility] [address] [id number] [address] [place] [phone] Oct, [facility] [address] [id number] [address] [place] [id number] Oct, [facility] [address] [id number] [address] [place] [phone] Aug, [facility] [address] [id number] [address] [place] [id number] Aug, [facility] [address] [id number] [address] [place] [id number] Jul, [facility] [address] [id number] [address] [place] [id number] Jul, [facility] [address] [id number] [address] [place] [phone] Jul, [facility] [address] [id number] [address] [place] [id number] Jul, [facility] [address] [id number] [address] [place] [phone] Jul, [facility] [address] [id number] [address] [place] [address] Jul, [facility] [address] [id number] [address] [place] [phone] Feb, [facility] [address] [id number] [address] [place] [phone] Feb, [facility] [address] [id number] [address] [place] [id number] Dec, [facility] [address] [id number] [address] [place] [phone] Nov, [facility] [address] [id number] [address] [place] [phone] Nov, [facility] [address] [id number] [address] [place] [address], [place] [address] Nov, [facility] [address] [id number] [address] [place] [address], [place] [address] Nov, [facility] [address] [id number] [address] [place] [address], [place] [address] Nov, [facility] [address] [id number] [address] [place] [address], [place] [address] September, [facility] [address] [id number] [address] [place] [address], [place] [address] September, [facility] [address] [id number] [address] [place] [address], [place] [address] Aug, [facility] [address] [id number] [address] [place] [address], [place] [address] Aug, [facility] [address] [id number] [address] [place] [address], [place] [address] Aug, [facility] [address] [id number] [address] [place] [address], [place] [address] Aug, [facility] [address] [id number] [address] [place] [address], [place] [address] Jul, [facility] [address] [id number] [address] [place] [address], [place] [address] Jul, [facility] [address] [id number] [address] [place] [address], [place] [address] Apr, [facility] [address] [id number] [address] [place] [address], [place] [address] Apr, [facility] [address] [id number] [address] [place] [address], [place] [address] Mar, [facility] [address] [id number] [address] [place] [address], [place] [address] Mar, [facility] [address] [id number] [address] [place] [address], [place] [address] Jan, [facility] [address] [id number] [address] [place] [address], [place] [address] Jan, [facility] [address] [id number] [address] [place] [address], [place] [address] Dec, [facility] [address] [id number] [address] [place] [address], [place] [address] Nov, [facility] [address] [id number] [address] [place] [address], [place] [address] Nov, [facility] [address] [id number] [address] [place] [address], [place] [address] Nov, [facility] [address] [id number] [address] [place] [address], [place] [address] Oct, [facility] [address] [id number] [address] [place] [address], [place] [address] Oct, [facility] [address] [id number] [address] [place] [address], [place] [address] Oct, [facility] [address] [id number] [address] [place] [address], [place] [address] September, [facility] [address] [id number] [address] [place] [address], [place] [address] September, [facility] [address] [id number] [address] [place] [address], [place] [address] Aug, [facility] [address] [id number] [address] [place] [address], [place] [address] Aug, [facility] [address] [id number] [address] [place] [address], [place] [address] Aug, [facility] [address] [id number] [address] [place] [address], [place] [address] Aug, [facility] [address] [id number] [address] [place] [address], [place] [address] Jul, [facility] [address] [id number] [address] [place] [address], [place] [address] 28 Jul, 2012 [facility] [address] [id number] [address] [place] [address], [place] [address] 20 Jul, 2012 [facility] [address] [id number] [address] [place] [address], [place] [address] Jul, [facility] [address] [id number] [address] [place] [address], [place] [address] May, [facility] [address] [id number] [address] [place] [address], [place] [address] May, [facility] [address] [id number] [address] [place] [address], [place] [address] May, [facility] [address] [id number] [address] [place] [address], [place] [address] May, [facility] [address] [id number] [address] [place] [address], [place] [address] 14 May, 2012 [facility] [address] [id number] [address] [place] [address], [place] [address] May, [facility] [address] [id number] [address] [place] [address], [place] [address] May, [facility] [address] [id number] [address] [place] [address], [place] [address] May, [facility] [address] [id number] [address] [place] [address], [place] [address] May, [facility] [address] [id number] [address] [place] [address], [place] [address] May, [facility] [address] [id number] [address] [place] [address], [place] [address] Apr, [facility] [address] [id number] [address] [place] [address], [place] [address] Apr, [facility] [address] [id number] [address] [place] [id number] Apr, [facility] [address] [id number] [address] [place] [address], [place] [address] Apr, [facility] [address] [id number] [address] [place] [address], [place] [address] Mar, [facility] [address] [id number] [address] [place] [address], [place] [address] Mar, [facility] [address] [id number] [address] [place] [address], [place] [address] Feb, [facility] [address] [id number] [address] [place] [address], [place] [address] Feb, [facility] [address] [id number] [address] [place] [address], [place] [address] Feb, [facility] [address] [id number] [address] [place] [address], [place] [address] Feb, [facility] [address] [id number] [address] [place] [address], [place] [address] Jan, [facility] [address] [id number] [address] [place] [address], [place] [address] Dec, [facility] [address] [id number] [address] [place] [address], [place] [address] Oct, [facility] [address] [id number] [address] [place] [address], [place] [address] September, [facility] [address] [id number] [address] [place] [id number] September, [facility] [address] [id number] [address] [place] [address], [place] [address] Jul, [facility] [address] [id number] [address] [place] [address], [place] [address] Jul, [facility] [address] [id number] [address] [place] [id number] Jul, [facility] [address] [id number] [address] [place] [address], [place] [address] Jul, [facility] [address] [id number] [address] [place] [address], [place] [address] Jul, [facility] [address] [id number] [address] [place] [address], [place] [address] May, [facility] [address] [id number] [address] [place] [address], [place] [address] Apr, [facility] [address] [id number] [address] [place] [address], [place] [address] Apr, [facility] [address] [id number] [address] [place] [address], [place] [address] Apr, [facility] [address] [id number] [address] [place] [address], [place] [address] Apr, [facility] [address] [id number] [address] [place] [address], [place] [address] Mar, [facility] [address] [id number] [address] [place] [address], [place] [address] Mar, [facility] [address] [id number] [address] [place] [address], [place] [address] 15 Mar, 2011 [facility] [address] [id number] [address] [place] [address], [place] [address] Mar, [facility] [address] [id number] [address] [place] [address], [place] [address] Feb, [facility] [address] [id number] [address] [place] [address], [place] [address] Dec, [facility] [address] [id number] [address] [place] [address], [place] [address] September, [facility] [address] [id number] [address] [place] [address], [place] [address] Aug, [facility] [address] [id number] [address] [place] [id number] May, [facility] [address] [address] [id number] [address] [place] [id number] May, [facility] [address] [id number] [address] [place] [id number] Apr, [facility] [address] [id number] [address] [place] [id number] Apr, [facility] [address] [id number] [address] [place] [id number] Apr, [facility] [address] [id number] [address] [place] [id number] Mar, [facility] [address] [id number] [address] [place] [phone] Mar, [facility] [address] [id number] [address] [place] [id number] Mar, [facility] [address] [id number] [address] [place] [id number] Nov, [facility] [address] [id number] [address] [place] [id number] Oct, [facility] [address] [id number] [address] [place] [id number] September, [facility] [address] [id number] [address] [place] [id number] Dec, [facility] [address] [id number] [address] [place] [id number] Jul, [facility] [address] [id number] [address] [place] [id number] Jul, IMMUNIZATIONS No Known Immunizations SOCIAL HISTORY [...] b een removed Hospitalization History h. pylori 2006
[2019-11-14 23:13] LABS: INR 0.9 (0.8-1.4); PROTHROMBIN TIME PATIENT 12.1 SEC (12.2-14.7)
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
--- OUTSIDE RECORDS SUMMARY | 2019-11-14 23:13 | XMS REPORT ---
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 [address] [facility] [id number] [address] [place] [address] Aug, [facility] [address] [facility] [id number] [address] [place] [address] Aug, BMI 40.0-44.9, adult Z68.41 [facility] [address] [facility] [id number] [address] [place] [address] Jul, [facility] [address] [facility] [id number] [address] [place] [address] Jul, [facility] [address] [place] [id number] [address] [place] [address] Jul, BMI 40.0-44.9, adult Z68.41 [facility] [address] [facility] [id number] [address] [place] [address] Jul, BMI 40.0-44.9, adult Z68.41 [facility] [address] [id number] [address] [place] [address] May, [facility] [address] [id number] [place] [address] May, [facility] [address] [facility] [id number] [address] [place] [address] Apr, BMI 40.0-44.9, adult Z68.41 ; Type 2 diabetes mellitus without complications E11.[address] [facility] [address] [id number] [address] [place] [address] Mar, [facility] [address] [id number] [place] [address] Mar, [facility] [address] [facility] [id number] [address] [place] [address] Mar, Type 2 diabetes mellitus wit hout complications E11.9 [facility] [address] [id number] [address] [place] [address] Feb, BMI 40.0-44.9, adult Z68.41 and Diabetes type 2, controlled E11.9 [facility] [address] [facility] [id number] [address] [place] [address] Feb, [facility] [address] [facility] [id number] [address] [place] [address] Feb, [facility] [address] [facility] [id number] [address] [place] [address] Feb, Diabetes type 2, controlled E11.9 [facility] [address] [id number] [address] [place] [address] Jan, [facility] [address] [facility] [id number] [address] [place] [address] Jan, [facility] [address] [facility] [id number] [address] [place] [address] Jan, Allergic reaction to drug, i nitial encounter T78.40XA ; Uncontrolled type 2 diabetes mellitus with hyperglycemia E11.65 and Essential hypertension I10 [facility] [address] [facility] [id number] [address] [place] [phone] 07 Jan, 2018 Type 2 diabetes mellitus wit hout complications E11.9 ; Diabetes type 2, controlled E11.[address] [facility] [address] [facility] [id number] [address] [place] [address] Dec, Diabetes type 2, controlled E11.9 [facility] [address] [facility] [id number] [address] [place] [address] Dec, [facility] [address] [facility] [id number] [address] [place] [address] Dec, Diabetes type 2, controlled E11.9 [facility] [address] [facility] [id number] [address] [place] [address] Oct, Diabetes type 2, controlled E11.9 [facility] [id number] [place] [phone] Oct, Dental caries K02.9 and [place] al examination Z01.20 [facility] [address] [facility] [id number] [address] [place] [address] September, [facility] [address] [facility] [id number] [address] [place] [address] Aug, Diabetes type 2, controlled E11.9 ; Mood disorder F39 ; Arthritis M19.90 and Family history of rheumatoid arthritis Z82.61 [facility] [address] [facility] [id number] [address] [place] [address] 15 Jul, 2017 Infection of both inner ears H83.[address] [facility] [address] [facility] [id number] [address] [place] [address] Jul, [facility] [address] [facility] [id number] [address] [place] [address] Jul, Diabetes type 2, controlled E11.9 [facility] [address] [place] [id number] [address] [place] [id number] Jul, [address] [facility] [address] [id number] [address] [place] [address] May, Diabetes type 2, controlled E11.9 [facility] [address] [id number] [address] [place] [address] May, [facility] [address] [id number] [address] [place] [id number] May, Dental examination Z01.20 [facility] [address] [id number] [address] [place] [address] May, [facility] [address] [id number] [address] [place] [address] May, [facility] [address] [id number] [address] [place] [address] May, Diabetes type 2, controlled E11.9 [facility] [address] [id number] [address] [place] [address] Apr, [facility] [address] [id number] [address] [place] [address] Apr, Mood disorder F39 [facility] [address] [id number] [address] [place] [address] Mar, [facility] [address] [id number] [address] [place] [address] Mar, Diabetes type 2, controlled E11.9 and Encounter for immunization Z23 [facility] [address] [id number] [address] [place] [address] Jan, Mood disorder F39 [facility] [address] [id number] [address] [place] [address] Jan, Type 2 diabetes mellitus wit hout complications E11.9 [facility] [address] [id number] [address] [place] [address] Nov, [facility] [address] [id number] [address] [place] [address] Nov, Type 2 diabetes mellitus wit hout complications E11.9 ; Mood disorder F39 and ASIYA (obstructive sleep apnea) G47.33 [facility] [address] [facility] [id number] [address] [place] [address] September, Diabetes type 2, controlled E11.9 [facility] [address] [facility] [id number] [address] [place] [address] September, [facility] [address] [id number] [address] [place] [address] Aug, Diabetes type 2, controlled E11.9 [facility] [address] [facility] [id number] [address] [place] [address] Jul, [facility] [address] [facility] [id number] [address] [place] [address] Jul, Type 2 diabetes mellitus wit hout complications E11.9 and skilled nursing 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.4 [facility] [address] [facility] [id number] [address] [place] [address] Jul, Diabetes type 2, controlled E11.9 [facility] [address] [facility] [id number] [address] [place] [address] Jul, [facility] [address] [facility] [id number] [address] [place] [address] May, [facility] [address] [facility] [id number] [address] [place] [address] Apr, Diabetes type 2, controlled E11.9 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 [address] [facility] [id number] [address] [place] [address] Jan, Impacted cerumen of both ear s H61.23 [facility] [address] [id number] [address] [place] [address] Oct, Type 2 diabetes mellitus wit hout complications E11.9 [facility] [address] [id number] [address] [place] [address] Oct, [facility] [address] [facility] [id number] [address] [place] [address] September, Type 2 diabetes mellitus wit hout complications E11.9 [facility] [address] [id number] [address] [place] [address] Jul, Type 2 diabetes mellitus wit hout complications E11.9 ; Lumbar pain M54.5 and Tobacco abuse Z72.0 [facility] [address] [facility] [id number] [address] [place] [address] May, [facility] [address] [id number] [address] [place] [address] May, [facility] [address] [facility] [id number] [address] [place] [address] Apr, [facility] [address] [facility] [id number] [address] [place] [phone] Mar, [facility] [address] [facility] [id number] [address] [place] [address] Mar, Type 2 diabetes mellitus wit hout complications E11.9 [facility] [address] [id number] [address] [place] [address] Mar, [facility] [address] [facility] [id number] [address] [place] [address] Feb, Type 2 diabetes mellitus wit hout complications E11.9 ; Neuropathy, diabetic E11.40 [address] G47.30 [facility] [address] [id number] [address] [place] [address] Feb, [facility] [address] [facility] [id number] [address] [place] [address] Jan, Skin infection, bacterial [address] [facility] [address] [id number] [address] [place] [address] Jan, [facility] [address] [id number] [address] [place] [address] Dec, Diabetes mellitus type 2, un complicated 250.00 [facility] [address] [id number] [address] [place] [address] Dec, [facility] [address] [id number] [address] [place] [address] Nov, [facility] [address] [id number] [address] [place] [address] Nov, Diabetes mellitus type 2, un complicated 250.[address] [facility] [address] [id number] [address] [place] [address] Oct, [facility] [address] [id number] [address] [place] [address] Oct, [facility] [address] [id number] [address] [place] [address] Aug, [facility] [address] [id number] [address] [place] [address] Aug, [facility] [address] [id number] [address] [place] [address] Jul, [facility] [address] [id number] [address] [place] [address] Jul, [facility] [address] [id number] [address] [place] [address] Jul, [facility] [address] [id number] [address] [place] [address] Jul, [facility] [address] [id number] [address] [place] [address] Jul, [facility] [address] [id number] [address] [place] [address], [place] [address] Jul, [facility] [address] [id number] [address] [place] [address], [place] [address] Feb, [facility] [address] [id number] [address] [place] [address], [place] [address] Feb, [facility] [address] [id number] [address] [place] [address], [place] [address] Dec, [facility] [address] [id number] [address] [place] [address], [place] [address] Nov, [facility] [address] [id number] [address] [place] [address], [place] [address] Nov, [facility] [address] [id number] [address] [place] [address], [place] [address] Nov, [facility] [address] [id number] [address] [place] [address], [place] [address] Nov, [facility] [address] [id number] [address] [place] [address], [place] [address] Nov, [facility] [address] [id number] [address] [place] [address], [place] [address] September, [facility] [address] [id number] [address] [place] [address], [place] [address] September, [facility] [address] [id number] [address] [place] [address], [place] [address] Aug, [facility] [address] [id number] [address] [place] [address], [place] [address] Aug, [facility] [address] [id number] [address] [place] [address], [place] [address] Aug, [facility] [address] [id number] [address] [place] [address], [place] [address] Aug, [facility] [address] [id number] [address] [place] [address], [place] [address] Jul, [facility] [address] [id number] [address] [place] [address], [place] [address] Jul, [facility] [address] [id number] [address] [place] [address], [place] [address] Apr, [facility] [address] [id number] [address] [place] [address], [place] [address] Apr, [facility] [address] [id number] [address] [place] [address], [place] [address] Mar, [facility] [address] [id number] [address] [place] [address], [place] [address] Mar, [facility] [address] [id number] [address] [place] [address], [place] [address] Jan, [facility] [address] [id number] [address] [place] [address], [place] [address] Jan, [facility] [address] [id number] [address] [place] [address], [place] [address] Dec, [facility] [address] [id number] [address] [place] [address], [place] [address] Nov, [facility] [address] [id number] [address] [place] [address], [place] [address] Nov, [facility] [address] [id number] [address] [place] [address], [place] [address] Nov, [facility] [address] [id number] [address] [place] [address], [place] [address] Oct, [facility] [address] [id number] [address] [place] [address], [place] [address] Oct, [facility] [address] [id number] [address] [place] [address], [place] [address] Oct, [facility] [address] [id number] [address] [place] [address], [place] [address] September, [facility] [address] [id number] [address] [place] [address], [place] [address] September, [facility] [address] [id number] [address] [place] [address], [place] [address] Aug, [facility] [address] [id number] [address] [place] [address], [place] [address] Aug, [facility] [address] [id number] [address] [place] [address], [place] [address] Aug, [facility] [address] [id number] [address] [place] [address], [place] [address] Aug, [facility] [address] [id number] [address] [place] [address], [place] [address] Jul, [facility] [address] [id number] [address] [place] [address], [place] [address] Jul, [facility] [address] [id number] [address] [place] [address], [place] [address] Jul, [facility] [address] [id number] [address] [place] [address], [place] [address] Jul, [facility] [address] [id number] [address] [place] [address], [place] [address] May, [facility] [address] [id number] [address] [place] [address], [place] [address] May, [facility] [address] [id number] [address] [place] [address], [place] [address] May, [facility] [address] [id number] [address] [place] [address], [place] [address] May, [facility] [address] [id number] [address] [place] [address], [place] [id number] 14 May, 2012 [facility] [address] [id number] [address] [place] [address], [place] [address] 11 May, 2012 [facility] [address] [id number] [address] [place] [address], [place] [address] May, [facility] [address] [id number] [address] [place] [address], [place] [address] May, [facility] [address] [id number] [address] [place] [address], [place] [address] May, [facility] [address] [id number] [address] [place] [address], [place] [address] May, [facility] [address] [id number] [address] [place] [address], [place] [address] Apr, [facility] [address] [id number] [address] [place] [address], [place] [address] Apr, [facility] [address] [id number] [address] [place] [address], [place] [address] Apr, [facility] [address] [id number] [address] [place] [address], [place] [address] Apr, [facility] [address] [id number] [address] [place] [address], [place] [address] Mar, [facility] [address] [id number] [address] [place] [address], [place] [address] Mar, [facility] [address] [id number] [address] [place] [phone] Feb, [facility] [address] [id number] [address] [place] [address] Feb, [facility] [address] [id number] [address] [place] [phone] Feb, [facility] [address] [id number] [address] [place] [address], [place] [address] Feb, [facility] [address] [id number] [address] [place] [address], [place] [address] Jan, [facility] [address] [id number] [address] [place] [id number] Dec, [facility] [address] [id number] [address] [place] [id number] Oct, [facility] [address] [id number] [address] [place] [address], [place] [id number] September, [facility] [address] [id number] [address] [place] [address], [place] [id number] September, [facility] [address] [id number] [address] [place] [address], [place] [id number] Jul, [facility] [address] [id number] [address] [place] [address], [place] [id number] Jul, [facility] [address] [id number] [address] [place] [address], [place] [id number] Jul, [facility] [address] [id number] [address] [place] [address], [place] [id number] Jul, [facility] [address] [id number] [address] [place] [address], [place] [id number] 16 Jul, 2011 [facility] [address] [id number] [address] [place] [address], [place] [id number] May, [facility] [address] [id number] [address] [place] [address], [place] [id number] Apr, [facility] [address] [id number] [address] [place] [address], [place] [id number] Apr, [facility] [address] [id number] [address] [place] [address], [place] [id number] Apr, [facility] [address] [id number] [address] [place] [address], [place] [id number] 08 Apr, 2011 [facility] [address] [id number] [address] [place] [address], [place] [id number] Mar, [facility] [address] [id number] [address] [place] [address], [place] [id number] 16 Mar, 2011 [facility] [address] [id number] [address] [place] [address], [place] [id number] 15 Mar, 2011 [facility] [address] [id number] [address] [place] [address], [place] [id number] Mar, [facility] [address] [id number] [address] [place] [address], [place] [id number] Feb, [facility] [address] [id number] [address] [place] [address], [place] [id number] Dec, [facility] [address] [id number] [address] [place] [address], [place] [id number] September, [facility] [address] [id number] [address] [place] [address], [place] [id number] Aug, [facility] [address] [id number] [address] [place] [address], [place] [id number] May, [facility] [address] [id number] [address] [place] [address], [place] [id number] May, [facility] [address] [id number] [address] [place] [address], [place] [id number] Apr, [facility] [address] [id number] [address] [place] [address], [place] [id number] Apr, [facility] [address] [id number] [address] [place] [address], [place] [id number] Apr, [facility] [address] [id number] [address] [place] [address], [place] [id number] 24 Mar, 2010 [facility] [address] [id number] [address] [place] [address], [place] [id number] Mar, [facility] [address] [id number] [address] [place] [address], [place] [id number] Mar, [facility] [address] [id number] [place] [address], [place] [id number] Nov, [facility] [address] [id number] [address] [place] [address], [place] [id number] 15 Oct, 2009 [facility] [address] [id number] [address] [place] [id number] September, [facility] [address] [facility] [id number] [address] [place] [id number] Dec, [facility] [address] [facility] [id number] [address] [place] [id number] Jul, [facility] [address] [facility] [id number] [address] [place] [id number] Jul, IMMUNIZATIONS No Known Immunizations SOCIAL HISTORY Never Assessed REASON FOR VISIT [facility] [place] VITAL SIGNS MEDICATIONS Unknown [...]
--- OUTSIDE RECORDS SUMMARY | 2019-11-14 23:13 | XMS REPORT ---
Author Author Jerman Tarango Doctor Organization [facility] Address Unknown Phone Unavailable Care Team Providers Care Ladies Suit Operator Name Role Phone Migration, Doctor Unavailable Unavailable PROBLEMS Type Condition ICD9-CM Code RFC76-DZ Code Onset Dates Condition S tatus SNOMED Code Problem Diabetes type 2, controlled E11.9 Ac tive 91465477 Problem Type 2 diabetes mellitus without complications E11 .9 Active 414519223 Problem senior living 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.4 Active 327800468 Problem Arthritis M19.90 Active 6863074 Problem Neuropathy, diabetic E11.40 Active 397953932 Problem Essential hypertension I10 Active 10253910 Problem Type 2 diabetes mellitus with diabetic neuropathy, uns pecified E11.40 Active 89806892 Problem Erectile dysfunction, unspecified erectile dysfunction typ e N52.9 Active 945992500 Problem Mood disorder F39 Active 403104 05 Problem ASIYA (obstructive sleep apnea) G47.33 Active 93564364 ALLERGIES No Information ENCOUNTERS Encounter Location Date Diagnosis [place] [address] [place] [address] [id number] [place] [phone] Oct, [place] [address] [place] [id number] [address] [place] [id number] September, BMI 40.0-44.9, adult Z68.41 [facility] [address] [place] [id number] [address] [place] [id number] Aug, Type 2 diabetes mellitus wit hout complications E11.9 and Morbid obesity E66.01 [place] [address] [place] [id number] [address] [place] [id number] Aug, BMI 40.0-44.9, adult Z68.41 [facility] [address] [place] [id number] [address] [place] [id number] Jul, [facility] [address] [place] [id number] [address] [place] [id number] Jul, [facility] [address] [facility] [id number] [address] [place] [id number] Jul, BMI 40.0-44.9, adult Z68.41 [facility] [address] [facility] [id number] [address] [place] [id number] Jul, BMI 40.0-44.9, adult Z68.41 [facility] [address] [facility] [id number] [address] [place] [id number] May, [facility] [address] [facility] [id number] [address] [place] [id number] May, [facility] [address] [facility] [id number] [address] [place] [id number] Apr, BMI 40.0-44.9, adult Z68.41 ; Type 2 diabetes mellitus without complications E11.9 and Arthritis M19.90 [facility] [address] [facility] [id number] [address] [place] [id number] Mar, [facility] [address] [facility] [id number] [address] [place] [phone] Mar, [facility] [address] [facility] [id number] [address] [place] [id number] Mar, Type 2 diabetes mellitus wit hout complications E11.9 [facility] [address] [facility] [id number] [address] [place] [id number] Feb, BMI 40.0-44.9, adult Z68.41 and Diabetes type 2, controlled E11.9 [facility] [address] [facility] [id number] [address] [place] [id number] Feb, [facility] [address] [facility] [id number] [address] [place] [id number] Feb, [facility] [address] [facility] [id number] [address] [place] [id number] Feb, Diabetes type 2, controlled E11.9 [facility] [address] [facility] [id number] [address] [place] [id number] 24 Jan, 2018 [facility] [address] [facility] [id number] [address] [place] [id number] Jan, [facility] [address] [facility] [id number] [address] [place] [id number] 17 Jan, 2018 Allergic reaction to drug, i nitial encounter T78.40XA ; Uncontrolled type 2 diabetes mellitus with hyperglycemia E11.65 and Essential hypertension I10 [facility] [address] [facility] [id number] [address] [place] [id number] 07 Jan, 2018 Type 2 diabetes mellitus wit hout complications E11.9 ; Diabetes type 2, controlled E11.9 and Arthritis M19.90 [place] [address] [place] [id number] [address] [place] [phone] Dec, Diabetes type 2, controlled E11.9 [place] [address] [place] [id number] [address] [place] [phone] Dec, [facility] [address] [facility] [id number] [address] [place] [id number] Dec, Diabetes type 2, controlled E11.9 [facility] [address] [place] [id number] [address] [place] [id number] Oct, Diabetes type 2, controlled E11.9 [facility] [address] [facility] [id number] [address] [place] [address] [id number] 14 Oct, 2017 Dental caries K02.9 and [place] al examination Z01.20 [facility] [address] [facility] [id number] [address] [place] [id number] September, [facility] [address] [place] [id number] [address] [place] [id number] 05 Aug, 2017 Diabetes type 2, controlled E11.9 ; Mood disorder F39 ; Arthritis M19.90 and Family history of rheumatoid arthritis Z82.61 [facility] [address] [facility] [id number] [address] [place] [id number] 15 Jul, 2017 Infection of both inner ears H83.03 and Dizziness R42 [facility] [address] [id number] [address] [place] [id number] 14 Jul, 2017 [facility] [address] [id number] [address] [place] [id number] Jul, Diabetes type 2, controlled E11.9 [facility] [address] [id number] [address] [place] [id number] Jul, Dental examination Z01.20 [facility] [address] [id number] [address] [place] [id number] May, Diabetes type 2, controlled E11.9 [facility] [address] [id number] [address] [place] [id number] May, [facility] [address] [id number] [address] [place] [address] [id number] May, Dental examination Z01.20 [facility] [address] [id number] [address] [place] [phone] May, [facility] [address] [id number] [address] [place] [id number] May, [facility] [address] [id number] [address] [place] [phone] May, Diabetes type 2, controlled E11.9 [facility] [address] [id number] [address] [place] [phone] Apr, [facility] [address] [id number] [address] [place] [phone] Apr, Mood disorder F39 [facility] [address] [id number] [address] [place] [id number] Mar, [facility] [address] [facility] [id number] [address] [place] [phone] Mar, Diabetes type 2, controlled E11.9 and Encounter for immunization Z23 [facility] [address] [id number] [address] [place] [phone] Jan, Mood disorder F39 [facility] [address] [id number] [address] [place] [phone] Jan, Type 2 diabetes mellitus wit hout complications E11.9 [facility] [address] [id number] [address] [place] [id number] Nov, [facility] [address] [facility] [id number] [address] [place] [phone] Nov, Type 2 diabetes mellitus wit hout complications E11.9 ; Mood disorder F39 and ASIYA (obstructive sleep apnea) G47.33 [facility] [address] [id number] [address] [place] [id number] September, Diabetes type 2, controlled E11.9 [facility] [address] [facility] [id number] [address] [place] [id number] September, [facility] [address] [facility] [id number] [address] [place] [id number] Aug, Diabetes type 2, controlled E11.9 [facility] [address] [id number] [address] [place] [id number] Jul, [facility] [address] [facility] [id number] [address] [place] [phone] Jul, Type 2 diabetes mellitus wit hout complications E11.9 and 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 [facility] [address] [id number] [address] [place] [id number] Jul, Diabetes type 2, controlled E11.9 [facility] [address] [id number] [address] [place] [phone] Jul, [facility] [address] [facility] [id number] [address] [place] [id number] May, [facility] [address] [facility] [id number] [address] [place] [id number] Apr, Diabetes type 2, controlled E11.9 [facility] [address] [facility] [id number] [address] [place] [id number] 31 Feb, 2016 Erectile dysfunction, unspec ified erectile dysfunction type N52.9 ; Type 2 diabetes mellitus with diabetic neuropathy, unspecified E11.40 and 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 [facility] [address] [facility] [id number] [address] [place] [id number] 08 Jan, 2016 Impacted cerumen of both ear s H61.23 [facility] [address] [facility] [id number] [address] [place] [id number] 23 Oct, 2015 Type 2 diabetes mellitus wit hout complications E11.9 [facility] [address] [place] [id number] [address] [place] [id number] Oct, [facility] [address] [place] [id number] [address] [place] [id number] September, Type 2 diabetes mellitus wit hout complications E11.9 [facility] [address] [place] [id number] [address] [place] [id number] Jul, Type 2 diabetes mellitus wit hout complications E11.9 ; Lumbar pain M54.5 and Tobacco abuse Z72.0 [place] [address] [place] [id number] [address] [place] [id number] May, [facility] [address] [place] [id number] [address] [place] [phone] May, [facility] [address] [facility] [id number] [address] [place] [phone] Apr, [facility] [address] [facility] [id number] [address] [place] [phone] Mar, [facility] [address] [place] [id number] [address] [place] [id number] Mar, Type 2 diabetes mellitus wit hout complications E11.9 [facility] [address] [place] [id number] [address] [place] [id number] Mar, [facility] [address] [place] [id number] [place] [id number] 28 Feb, 2015 Type 2 diabetes mellitus wit hout complications E11.9 ; Neuropathy, diabetic E11.40 and Sleep apnea G47.30 [facility] [address] [id number] [address] [place] [id number] 19 Feb, 2015 [facility] [address] [facility] [id number] [address] [place] [id number] Jan, Skin infection, bacterial 68 6.9 [facility] [address] [id number] [address] [place] [id number] Jan, [facility] [address] [id number] [address] [place] [id number] Dec, Diabetes mellitus type 2, un complicated 250.00 [facility] [address] [facility] [id number] [address] [place] [id number] Dec, [facility] [address] [id number] [address] [place] [id number] Nov, [facility] [address] [id number] [address] [place] [id number] Nov, Diabetes mellitus type 2, un complicated 250.00 and Obesity 278.00 [facility] [address] [facility] [id number] [address] [place] [id number] Oct, [facility] [address] [facility] [id number] [address] [place] [phone] Oct, [facility] [address] [id number] [address] [place] [phone] Aug, [facility] [address] [id number] [address] [place] [id number] Aug, [facility] [address] [facility] [id number] [address] [place] [id number] Jul, [facility] [address] [facility] [id number] [address] [place] [phone] Jul, [facility] [address] [id number] [address] [place] [address], [place] [id number] Jul, 2014 [facility] [address] [id number] [address] [place] [address], [place] [address] Jul, [facility] [address] [id number] [address] [place] [address], [place] [id number] Jul, 2014 [facility] [address] [id number] [address] [place] [address], [place] [address] Jul, [facility] [address] [id number] [address] [place] [address], [place] [address] Feb, [facility] [address] [id number] [address] [place] [address], [place] [address] Feb, [facility] [address] [id number] [address] [place] [address], [place] [id number] Dec, [facility] [address] [id number] [address] [place] [address], [place] [address] Nov, [facility] [address] [id number] [address] [place] [address], [place] [address] Nov, [facility] [address] [id number] [address] [place] [address], [place] [address] Nov, [facility] [address] [id number] [address] [place] [address], [place] [address] Nov, [facility] [address] [id number] [address] [place] [address], [place] [address] Nov, [facility] [address] [id number] [address] [place] [address], [place] [address] September, [facility] [address] [id number] [address] [place] [address], [place] [address] September, [facility] [address] [id number] [address] [place] [address], [place] [address] Aug, [facility] [address] [id number] [address] [place] [address], [place] [address] Aug, [facility] [address] [id number] [address] [place] [address], [place] [address] Aug, [facility] [address] [id number] [address] [place] [address], [place] [address] Aug, [facility] [address] [id number] [address] [place] [address], [place] [address] Jul, [facility] [address] [id number] [address] [place] [address], [place] [address] Jul, [facility] [address] [id number] [address] [place] [address], [place] [address] Apr, [facility] [address] [id number] [address] [place] [address], [place] [address] Apr, [facility] [address] [id number] [address] [place] [address], [place] [address] Mar, [facility] [address] [id number] [address] [place] [address], [place] [address] Mar, [facility] [address] [id number] [address] [place] [address], [place] [address] Jan, [facility] [address] [id number] [address] [place] [address], [place] [address] Jan, [facility] [address] [id number] [address] [place] [address], [place] [address] Dec, [facility] [address] [id number] [address] [place] [address], [place] [address] Nov, [facility] [address] [id number] [address] [place] [address], [place] [address] Nov, [facility] [address] [id number] [address] [place] [address], [place] [address] Nov, [facility] [address] [id number] [address] [place] [address], [place] [address] Oct, [facility] [address] [id number] [address] [place] [address], [place] [id number] 10 Oct, 2012 [facility] [address] [id number] [address] [place] [address], [place] [address] Oct, [facility] [address] [id number] [address] [place] [address], [place] [address] September, [facility] [address] [id number] [address] [place] [address], [place] [address] September, [facility] [address] [id number] [address] [place] [address], [place] [address] Aug, [facility] [address] [id number] [address] [place] [address], [place] [address] Aug, [facility] [address] [id number] [address] [place] [address], [place] [address] Aug, [facility] [address] [id number] [address] [place] [address], [place] [address] Aug, [facility] [address] [id number] [address] [place] [address], [place] [address] Jul, [facility] [address] [id number] [address] [place] [address], [place] [address] Jul, [facility] [address] [id number] [address] [place] [address], [place] [address] Jul, [facility] [address] [id number] [address] [place] [address], [place] [address] Jul, [facility] [address] [id number] [address] [place] [address], [place] [address] May, [facility] [address] [id number] [address] [place] [address], [place] [address] May, [facility] [address] [id number] [address] [place] [address], [place] [address] May, [facility] [address] [id number] [address] [place] [address], [place] [address] May, [facility] [address] [id number] [address] [place] [address], [place] [address] 14 May, 2012 [facility] [address] [id number] [address] [place] [address], [place] [address] 11 May, 2012 [facility] [address] [id number] [address] [place] [address], [place] [address] 10 May, 2012 [facility] [address] [id number] [address] [place] [address], [place] [address] May, [facility] [address] [id number] [address] [place] [address], [place] [address] May, [facility] [address] [id number] [address] [place] [address], [place] [address] May, [facility] [address] [id number] [address] [place] [address], [place] [address] Apr, [facility] [address] [id number] [address] [place] [address], [place] [address] Apr, [facility] [address] [id number] [address] [place] [address], [place] [address] Apr, [facility] [address] [id number] [address] [place] [address], [place] [address] Apr, [facility] [address] [id number] [address] [place] [address], [place] [address] Mar, [facility] [address] [id number] [address] [place] [id number] Mar, [facility] [address] [id number] [address] [place] [address], [place] [address] Feb, [facility] [address] [id number] [address] [place] [address], [place] [address] Feb, [facility] [address] [id number] [address] [place] [address], [place] [address] Feb, [facility] [address] [id number] [address] [place] [address], [place] [address] Feb, [facility] [address] [id number] [address] [place] [address], [place] [address] Jan, [facility] [address] [id number] [address] [place] [address], [place] [address] Dec, [facility] [address] [id number] [address] [place] [address], [place] [address] Oct, [facility] [address] [id number] [address] [place] [address], [place] [address] September, [facility] [address] [id number] [address] [place] [address], [place] [address] September, [facility] [address] [id number] [address] [place] [address], [place] [address] Jul, [facility] [address] [id number] [address] [place] [address], [place] [id number] Jul, [facility] [address] [id number] [address] [place] [address], [place] [address] Jul, [facility] [address] [id number] [address] [place] [address], [place] [address] Jul, [facility] [address] [id number] [address] [place] [address], [place] [address] Jul, [facility] [address] [id number] [address] [place] [address], [place] [address] May, [facility] [address] [id number] [address] [place] [address], [place] [address] Apr, [facility] [address] [id number] [address] [place] [address], [place] [address] Apr, [facility] [address] [id number] [address] [place] [address], [place] [address] Apr, [facility] [address] [id number] [address] [place] [address], [place] [address] Apr, [facility] [address] [id number] [address] [place] [address], [place] [id number] 16 Mar, 2011 [facility] [address] [id number] [address] [place] [address], [place] [id number] 16 Mar, 2011 [facility] [address] [id number] [address] [place] [address], [place] [id number] 15 Mar, 2011 [facility] [address] [id number] [address] [place] [address], [place] [address] Mar, [facility] [address] [id number] [address] [place] [address], [place] [address] Feb, [facility] [address] [id number] [address] [place] [address], [place] [address] Dec, [facility] [address] [id number] [address] [place] [address], [place] [address] September, [facility] [address] [id number] [address] [place] [address], [place] [address] Aug, [facility] [address] [id number] [address] [place] [address], [place] [address] May, [facility] [address] [id number] [address] [place] [address], [place] [address] May, [facility] [address] [id number] [address] [place] [address], [place] [address] Apr, [facility] [facility] [address] [id number] [address] [place] [address], [place] [id number] Apr, [facility] [address] [id number] [address] [place] [address], [place] [id number] Apr, [facility] [address] [id number] [address] [place] [address], [place] [id number] 24 Mar, 2010 [facility] [address] [id number] [address] [place] [address], [place] [id number] 10 Mar, 2010 [facility] [address] [id number] [address] [place] [id number] 10 Mar, 2010 [facility] [address] [facility] [id number] [address] [place] [phone] Nov, [facility] [address] [facility] [id number] [address] [place] [id number] Oct, [facility] [address] [facility] [id number] [address] [place] [id number] September, [facility] [address] [facility] [id number] [address] [place] [id number] Dec, [facility] [address] [facility] [id number] [address] [place] [id number] Jul, [facility] [address] [facility] [id number] [address] [place] [id number] Jul, IMMUNIZATIONS No Known Immunizations SOCIAL HISTORY Never Assessed [place]ASON FOR [place] [place] VITAL SIGNS MEDICATIONS Unknown [...]
--- OUTSIDE RECORDS SUMMARY | 2019-11-14 23:13 | XMS REPORT ---
Author Author Jerman Tarango Doctor Organization [facility] Address Unknown Phone Unavailable Care Team Providers Care Picu Nurse Name Role Phone Migration, Doctor Unavailable Unavailable PROBLEMS Type Condition ICD9-CM Code TFE39-FE Code Onset Dates Condition S tatus SNOMED Code Problem Diabetes type 2, controlled E11.9 Ac tive 73778939 Problem Type 2 diabetes mellitus without complications E11 .9 Active 405253308 Problem [facility] 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.4 Active 800473631 Problem Arthritis M19.90 Active 9823986 Problem Neuropathy, diabetic E11.40 Active 740799795 Problem Essential hypertension I10 Active 50829144 Problem Type 2 diabetes mellitus with diabetic neuropathy, uns pecified E11.40 Active 02668383 Problem Erectile dysfunction, unspecified erectile dysfunction typ e N52.9 Active 038897130 Problem Mood disorder F39 Active 937525 05 Problem ASIYA (obstructive sleep apnea) G47.33 Active 37785481 ALLERGIES No Information ENCOUNTERS Encounter Location Date Diagnosis [place] [address] [facility]NOTE 3] [id number] [address] [place] [id number] Oct, [facility] [place] [address] [place] [id number] [address] [place] [id number] Aug, Type 2 diabetes mellitus wit hout complications E11.9 and Morbid obesity E66.01 [facility] [place] [address] [facility]NOTE 3] [id number] [address] [place] [id number] Aug, BMI 40.0-44.9, adult Z68.41 [facility] [place] [address] [facility]NOTE 3] [id number] [address] [place] [id number] Jul, [facility] [place] [address] [place] [id number] [address] [place] [phone] Jul, [facility] [place] [address] [facility]NOTE 3] [id number] [address] [place] [id number] Jul, BMI 40.0-44.9, adult Z68.41 [facility] [place] [address] [facility]NOTE 3] [id number] [address] [place] [id number] Jul, BMI 40.0-44.9, adult Z68.41 [facility] [place] [address] [id number] [address] [place] [id number] May, [facility] [place] [address] [facility]NOTE 3] [id number] [address] [place] [id number] May, [facility] [place] [address] [facility]NOTE 3] [id number] [address] [place] [id number] Apr, BMI 40.0-44.9, adult Z68.41 ; Type 2 diabetes mellitus without complications E11.9 and Arthritis M19.90 [facility] [place] [address] [facility]NOTE 3] [id number] [address] [place] [id number] Mar, [facility] [place] [address] [place] [id number] [address] [place] [address] Mar, [facility] [place] [address] [facility]NOTE 3] [id number] [address] [place] [id number] Mar, Type 2 diabetes mellitus wit hout complications E11.9 [facility] [place] [address] [facility]NOTE 3] [id number] [address] [place] [id number] Feb, BMI 40.0-44.9, adult Z68.41 and Diabetes type 2, controlled E11.9 [facility] [place] [address] [facility]NOTE 3] [id number] [address] [place] [id number] Feb, [facility] [place] [address] [facility]NOTE 3] [id number] [address] [place] [id number] Feb, [facility] [place] [address] [place] [id number] [address] [place] [id number] Feb, Diabetes type 2, controlled E11.9 [facility] [place] [address] [facility]NOTE 3] [id number] [address] [place] [id number] Jan, [facility] [place] [address] [place] [id number] [address] [place] [id number] Jan, [facility] [place] [address] [place] [id number] [address] [place] [id number] 17 Jan, 2018 Allergic reaction to drug, i nitial encounter T78.40XA ; Uncontrolled type 2 diabetes mellitus with hyperglycemia E11.65 and Essential hypertension I10 [facility] [place] [address] [place] [id number] [address] [place] [id number] 07 Jan, 2018 Type 2 diabetes mellitus wit hout complications E11.9 ; Diabetes type 2, controlled E11.9 and Arthritis M19.90 [facility] [place] [address] [facility]NOTE 3] [id number] [address] [place] [id number] Dec, Diabetes type 2, controlled E11.9 [facility] [place] [address] [place] [id number] [place] [phone] Dec, [facility] [place] [address] [place] [id number] [address] [place] [id number] Dec, Diabetes type 2, controlled E11.9 [facility] [place] [address] [place] [id number] [address] [place] [id number] Oct, Diabetes type 2, controlled E11.9 [facility] [address] [place] [id number] [address] [place] [id number] Oct, 2017 Dental caries K02.9 and Hall al examination Z01.20 [facility] [place] [address] [place] [id number] [address] [place] [id number] September, [facility] [place] [address] [place] [id number] [address] [place] [id number] Aug, Diabetes type 2, controlled E11.9 ; Mood disorder F39 ; Arthritis M19.90 and Family history of rheumatoid arthritis Z82.61 [facility] [address] [place] [id number] [address] [place] [id number] 15 Jul, 2017 Infection of both inner ears H83.03 and Dizziness R42 [facility] [place] [address] [place] [id number] [address] [place] [id number] 14 Jul, 2017 [facility] [place] [address] [id number] [address] [place] [id number] Jul, Diabetes type 2, controlled E11.9 [facility] [address] [id number] [address] [place] [address] [id number] Jul, Dental examination Z01.20 [facility] [place] [address] [id number] [address] [place] [phone] May, Diabetes type 2, controlled E11.9 [facility] [place] [address] [id number] [address] [place] [id number] May, [facility] [address] [id number] [address] [place] [address] [id number] May, Dental examination Z01.20 [facility] [place] [address] [id number] [address] [place] [id number] May, [facility] [place] [address] [id number] [address] [place] [id number] May, [facility] [place] [address] [id number] [address] [place] [id number] May, Diabetes type 2, controlled E11.9 [facility] [place] [address] [id number] [address] [place] [id number] Apr, [facility] [place] [address] [id number] [address] [place] [phone] Apr, Mood disorder F39 [facility] [place] [address] [id number] [address] [place] [id number] Mar, [facility] [place] [address] [id number] [address] [place] [id number] Mar, Diabetes type 2, controlled E11.9 and Encounter for immunization Z23 [facility] [place] [address] [id number] [address] [place] [id number] Jan, Mood disorder F39 [facility] [place] [address] [id number] [address] [place] [id number] Jan, Type 2 diabetes mellitus wit hout complications E11.9 [facility] [place] [address] [facility]NOTE 3] [id number] [address] [place] [id number] Nov, [facility] [place] [address] [facility]NOTE 3] [id number] [address] [place] [id number] Nov, Type 2 diabetes mellitus wit hout complications E11.9 ; Mood disorder F39 and ASIYA (obstructive sleep apnea) G47.33 [facility] [place] [address] [facility]NOTE 3] [id number] [address] [place] [id number] September, Diabetes type 2, controlled E11.9 [facility] [place] [address] [facility]NOTE 3] [id number] [address] [place] [id number] September, [facility] [place] [address] [facility]NOTE 3] [id number] [address] [place] [id number] Aug, Diabetes type 2, controlled E11.9 [facility] [place] [address] [facility]NOTE 3] [id number] [address] [place] [id number] Jul, [facility] [place] [address] [facility] 3] [id number] [address] [place] [id number] Jul, Type 2 diabetes mellitus wit hout complications E11.9 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 [facility] [place] [address] [facility]NOTE 3] [id number] [address] [place] [id number] Jul, Diabetes type 2, controlled E11.9 [facility] [place] [address] [facility]NOTE 3] [id number] [address] [place] [id number] Jul, [facility] [place] [address] [facility]NOTE 3] [id number] [address] [place] [id number] May, [facility] [place] [address] [facility] 3] [id number] [address] [place] [id number] Apr, Diabetes type 2, controlled E11.9 [facility] [place] [address] [facility] 3] [id number] [address] [place] [id number] 31 Feb, 2016 Erectile dysfunction, unspec ified erectile dysfunction type N52.9 ; Type 2 diabetes mellitus with diabetic neuropathy, unspecified E11.40 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 [facility] [place] [address] [facility] 3] [id number] [address] [place] [id number] 08 Jan, 2016 Impacted cerumen of both ear s H61.23 [facility] [place] [address] [facility] 3] [id number] [address] [place] [id number] 23 Oct, 2015 Type 2 diabetes mellitus wit hout complications E11.9 [place] [address] [facility] 3] [id number] [address] [place] [id number] Oct, [place] [address] [facility] [place]] [id number] [address] [place] [id number] September, Type 2 diabetes mellitus wit hout complications E11.9 [place] [address] [place] [id number] [address] [place] [id number] Jul, Type 2 diabetes mellitus wit hout complications E11.9 ; Lumbar pain M54.5 and Tobacco abuse Z72.0 [place] [address] [facility] [place]] [id number] [address] [place] [id number] May, [place] [address] [place] [id number] [address] [place] [id number] May, [place] [address] [place] [id number] [address] [place] [id number] Apr, [place] [address] [place] [id number] [address] [place] [id number] Mar, [facility] [place] [address] [facility] [place] 3] [id number] [address] [place] [id number] Mar, Type 2 diabetes mellitus wit hout complications E11.9 [place] [address] [facility] [place] 3] [id number] [address] [place] [id number] 05 Mar, 2015 [facility] [place] [address] [facility] [place]] [id number] [address] [place] [id number] 28 Feb, 2015 Type 2 diabetes mellitus wit hout complications E11.9 ; Neuropathy, diabetic E11.40 and Sleep apnea G47.30 [facility] [place] [address] [id number] [address] [place] [id number] Feb, [facility] [place] [address] [id number] [address] [place] [id number] Jan, Skin infection, bacterial 68 6.9 [facility] [place] [address] [id number] [address] [place] [id number] Jan, [facility] [place] [address] [id number] [address] [place] [id number] Dec, Diabetes mellitus type 2, un complicated 250.00 [facility] [place] [address] [id number] [address] [place] [id number] Dec, [facility] [place] [address] [id number] [address] [place] [id number] Nov, [facility] [place] [address] [id number] [address] [place] [id number] Nov, Diabetes mellitus type 2, un complicated 250.00 and Obesity 278.00 [facility] [place] [address] [id number] [address] [place] [id number] Oct, [facility] [place] [address] [id number] [address] [place] [id number] Oct, [facility] [place] [address] [id number] [address] [place] [id number] 14 Aug, 2014 [facility] [place] [address] [id number] [address] [place] [id number] Aug, [facility] [place] [address] [id number] [address] [place] [id number] Jul, [facility] [place] [address] [id number] [address] [place] [id number] Jul, [facility] [place] [address] [id number] [address] [place] [id number] Jul, [facility] [place] [address] [id number] [address] [place] [id number] Jul, [facility] [address] [id number] [address] [place] [address], [place] [address] Jul, [facility] [address] [id number] [address] [place] [address], [place] [address] Jul, [facility] [address] [id number] [address] [place] [address], [place] [address] Feb, [facility] [address] [id number] [address] [place] [address], [place] [address] Feb, [facility] [address] [id number] [address] [place] [address], [place] [address] Dec, [facility] [address] [id number] [address] [place] [address], [place] [address] Nov, [facility] [address] [id number] [address] [place] [address], [place] [address] Nov, [facility] [address] [id number] [address] [place] [address], [place] [address] Nov, [facility] [address] [id number] [address] [place] [address], [place] [address] Nov, [facility] [address] [id number] [address] [place] [address], [place] [address] Nov, [facility] [address] [id number] [address] [place] [address], [place] [address] September, [facility] [address] [id number] [address] [place] [address], [place] [address] September, [facility] [address] [id number] [address] [place] [address], [place] [address] Aug, [facility] [address] [id number] [address] [place] [address], [place] [address] Aug, [facility] [address] [id number] [address] [place] [address], [place] [address] Aug, [facility] [address] [id number] [address] [place] [address], [place] [address] Aug, [facility] [address] [id number] [address] [place] [address], [place] [address] Jul, [facility] [address] [id number] [address] [place] [address], [place] [address] Jul, [facility] [address] [id number] [address] [place] [address], [place] [address] Apr, [facility] [address] [id number] [address] [place] [address], [place] [address] Apr, [facility] [address] [id number] [address] [place] [address], [place] [address] Mar, [facility] [address] [id number] [address] [place] [address], [place] [address] Mar, [facility] [address] [id number] [address] [place] [address], [place] [address] Jan, [facility] [address] [id number] [address] [place] [address], [place] [address] Jan, [facility] [address] [id number] [address] [place] [address], [place] [address] Dec, [facility] [address] [id number] [address] [place] [address], [place] [address] Nov, [facility] [address] [id number] [address] [place] [address], [place] [address] Nov, [facility] [address] [id number] [address] [place] [address], [place] [address] Nov, [facility] [address] [id number] [address] [place] [address], [place] [address] Oct, [facility] [address] [id number] [address] [place] [address], [place] [address] Oct, [facility] [address] [id number] [address] [place] [address] [address] Oct, [facility] [address] [id number] [address] [place] [address], [place] [address] September, [facility] [address] [id number] [address] [place] [address], [place] [address] September, [facility] [address] [id number] [address] [place] [address], [place] [address] Aug, [facility] [address] [id number] [address] [place] [address], [place] [address] Aug, [facility] [address] [id number] [address] [place] [address], [place] [address] Aug, [facility] [address] [id number] [address] [place] [address], [place] [address] Aug, [facility] [address] [id number] [address] [place] [address], [place] [address] Jul, [facility] [address] [id number] [address] [place] [address], [place] [address] Jul, [facility] [address] [id number] [address] [place] [address], [place] [address] Jul, [facility] [address] [id number] [address] [place] [address], [place] [address] Jul, [facility] [address] [id number] [address] [place] [address], [place] [address] May, [facility] [address] [id number] [address] [place] [address], [place] [address] May, [facility] [address] [id number] [address] [place] [address], [place] [address] May, [facility] [address] [id number] [address] [place] [address], [place] [address] May, [facility] [address] [id number] [address] [place] [address], [place] [address] May, [facility] [address] [id number] [address] [place] [address], [place] [address] May, [facility] [address] [id number] [address] [place] [address], [place] [address] May, [facility] [address] [id number] [address] [place] [address], [place] [address] May, [facility] [address] [id number] [address] [place] [address], [place] [address] May, [facility] [address] [id number] [address] [place] [address], [place] [address] May, [facility] [address] [id number] [address] [place] [address], [place] [address] Apr, [facility] [address] [id number] [address] [place] [address], [place] [address] Apr, [facility] [address] [id number] [address] [place] [address], [place] [address] Apr, [facility] [address] [id number] [address] [place] [address], [place] [address] Apr, [facility] [address] [id number] [address] [place] [address], [place] [address] Mar, [facility] [address] [id number] [address] [place] [address], [place] [id number] Mar, [facility] [address] [id number] [address] [place] [address], [place] [id number] Feb, [facility] [address] [id number] [address] [place] [address], [place] [address] Feb, [facility] [address] [id number] [address] [place] [address], [place] [address] Feb, [facility] [address] [id number] [address] [place] [address], [place] [address] Feb, [facility] [address] [id number] [address] [place] [address], [place] [address] Jan, [facility] [address] [id number] [address] [place] [address], [place] [address] Dec, [facility] [address] [id number] [address] [place] [address], [place] [address] Oct, [facility] [address] [id number] [address] [place] [address], [place] [id number] September, [facility] [address] [id number] [address] [place] [address], [place] [address] September, [facility] [address] [id number] [address] [place] [address], [place] [address] Jul, [facility] [address] [id number] [address] [place] [address], [place] [address] Jul, [facility] [address] [id number] [address] [place] [address], [place] [address] Jul, [facility] [address] [id number] [address] [place] [address], [place] [address] Jul, [facility] [address] [id number] [address] [place] [address], [place] [address] Jul, [facility] [address] [id number] [address] [place] [address], [place] [address] May, [facility] [address] [id number] [address] [place] [address], [place] [address] Apr, [facility] [address] [id number] [address] [place] [address], [place] [address] Apr, [facility] [address] [id number] [address] [place] [address], [place] [address] Apr, [facility] [address] [id number] [address] [place] [address], [place] [address] Apr, [facility] [address] [id number] [address] [place] [address], [place] [address] Mar, [facility] [address] [id number] [address] [place] [address], [place] [address] 16 Mar, 2011 [facility] [address] [id number] [address] [place] [address], [place] [address] 15 Mar, 2011 [facility] [address] [id number] [address] [place] [address], [place] [address] 11 Mar, 2011 [facility] [address] [id number] [address] [place] [address], [place] [address] 19 Feb, 2011 [facility] [address] [id number] [address] [place] [address], [place] [address] Dec, [facility] [address] [id number] [address] [place] [address], [place] [address] September, [facility] [address] [id number] [address] [place] [address], [place] [address] Aug, [facility] [address] [id number] [address] [place] [address], [place] [address] 17 May, 2010 [facility] [address] [id number] [address] [place] [address], [place] [address] 10 May, 2010 [facility] [address] [id number] [address] [place] [address], [place] [address] 24 Apr, 2010 [facility] [address] [id number] [address] [place] [address], [place] [address] Apr, [facility] [address] [id number] [address] [place] [address], [place] [address] 10 Apr, 2010 [facility] [address] [id number] [address] [place] [address], [place] [address] 24 Mar, 2010 [facility] [address] [id number] [address] [place] [address], [place] [address] 10 Mar, 2010 [facility] [address] [id number] [address] [place] [address], [place] [address] 10 Mar, 2010 [facility] [address] [id number] [address] [place] [address], [place] [address] 12 Nov, 2009 [facility] [place] [address] [facility]NOTE 3] [id number] [address] [place] [id number] Oct, [facility] [place] [address] [facility]NOTE 3] [id number] [address] [place] [id number] September, [facility] [place] [address] [facility]NOTE 3] [id number] [address] [place] [id number] Dec, [facility] [place] [address] [facility]NOTE 3] [id number] [address] [place] [id number] Jul, [facility] [place] [address] [facility]NOTE 3] [id number] [address] [place] [id number] Jul, IMMUNIZATIONS No Known Immunizations SOCIAL HISTORY Never Assessed REASON FOR VISIT EMR-[facility] [place] PLAN OF CARE VITAL SIGNS MEDICATIONS [...]
--- OUTSIDE RECORDS SUMMARY | 2019-11-14 23:13 | XMS REPORT ---
Author Author Jerman Tarango Doctor Organization [facility] Address Unknown Phone Unavailable Care Team Providers Care Reporting Analyst Name Role Phone Migration, Doctor Unavailable Unavailable PROBLEMS Type Condition ICD9-CM Code AVJ06-VD Code Onset Dates Condition S tatus SNOMED Code Problem Diabetes type 2, controlled E11.9 Ac tive 45585364 Problem Type 2 diabetes mellitus without complications E11 .9 Active 470271389 Problem [facility] 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.4 Active 307368786 Problem Arthritis M19.90 Active 7377701 Problem Neuropathy, diabetic E11.40 Active 602355402 Problem Essential hypertension I10 Active 56440139 Problem Type 2 diabetes mellitus with diabetic neuropathy, uns pecified E11.40 Active 55519986 Problem Erectile dysfunction, unspecified erectile dysfunction typ e N52.9 Active 927778477 Problem Mood disorder F39 Active 801490 05 Problem ASIYA (obstructive sleep apnea) G47.33 Active 45511571 ALLERGIES No Information ENCOUNTERS Encounter Location Date Diagnosis [place] [id number] [place] [address] Oct, [place] [address] [place] [id number] [address] [place] [address] September, BMI 40.0-44.9, adult Z68.41 [facility] [address] [place] [id number] [address] [place] [address] Aug, Type 2 diabetes mellitus wit hout complications E11.9 and Morbid obesity E66.01 [place] [address] [place] [id number] [address] [place] [address] Aug, BMI 40.0-44.9, adult Z68.41 [facility] [address] [place] [id number] [address] [place] [address] Jul, [facility] [address] [place] [id number] [address] [place] [address] Jul, [facility] [address] [facility] [id number] [address] [place] [address] Jul, BMI 40.0-44.9, adult Z68.41 [facility] [address] [facility] [id number] [address] [place] [address] Jul, BMI 40.0-44.9, adult Z68.41 [facility] [address] [facility] [id number] [address] [place] [address] May, [facility] [address] [facility] [id number] [address] [place] [address] May, [facility] [address] [facility] [id number] [address] [place] [address] Apr, BMI 40.0-44.9, adult Z68.41 ; Type 2 diabetes mellitus without complications E11.9 and Arthritis M19.90 [facility] [address] [facility] [id number] [address] [place] [address] Mar, [facility] [address] [facility] [id number] [address] [place] [address] Mar, [facility] [address] [facility] [id number] [address] [place] [address] Mar, Type 2 diabetes mellitus wit hout complications E11.9 [facility] [address] [facility] [id number] [address] [place] [address] Feb, BMI 40.0-44.9, adult Z68.41 and Diabetes type 2, controlled E11.9 [facility] [address] [facility] [id number] [address] [place] [address] Feb, [facility] [address] [facility] [id number] [address] [place] [address] Feb, [facility] [address] [facility] [id number] [address] [place] [address] Feb, Diabetes type 2, controlled E11.9 [facility] [address] [facility] [id number] [address] [place] [address] 24 Jan, 2018 [facility] [address] [facility] [id number] [address] [place] [address] Jan, [facility] [address] [facility] [id number] [address] [place] [address] 17 Jan, 2018 Allergic reaction to drug, i nitial encounter T78.40XA ; Uncontrolled type 2 diabetes mellitus with hyperglycemia E11.65 and Essential hypertension I10 [facility] [address] [facility] [id number] [address] [place] [phone] 07 Jan, 2018 Type 2 diabetes mellitus wit hout complications E11.9 ; Diabetes type 2, controlled E11.9 and Arthritis M19.90 [place] [address] [place] [id number] [address] [place] [address] Dec, Diabetes type 2, controlled E11.9 [place] [address] [place] [id number] [address] [place] [address] Dec, [facility] [address] [facility] [id number] [address] [place] [address] Dec, Diabetes type 2, controlled E11.9 [facility] [address] [place] [id number] [address] [place] [address] Oct, Diabetes type 2, controlled E11.9 [facility] [address] [facility] [id number] [address] [place] [id number] 14 Oct, 2017 Dental caries K02.9 and Olivet al examination Z01.20 [facility] [address] [facility] [id number] [address] [place] [address] September, [facility] [address] [place] [id number] [address] [place] [phone] 05 Aug, 2017 Diabetes type 2, controlled E11.9 ; Mood disorder F39 ; Arthritis M19.90 and Family history of rheumatoid arthritis Z82.61 [facility] [address] [facility] [id number] [address] [place] [address] 15 Jul, 2017 Infection of both inner ears H83.03 and Dizziness R42 [facility] [address] [id number] [address] [place] [address] 14 Jul, 2017 [facility] [address] [id number] [address] [place] [address] Jul, Diabetes type 2, controlled E11.9 [facility] [address] [id number] [address] [place] [address] [id number] Jul, Dental examination Z01.20 [facility] [address] [id number] [address] [place] [address] May, Diabetes type 2, controlled E11.9 [facility] [address] [id number] [address] [place] [address] May, [facility] [address] [id number] [address] [place] [address] [id number] May, Dental examination Z01.20 [facility] [address] [id number] [address] [place] [address] May, [facility] [address] [id number] [address] [place] [address] May, [facility] [address] [id number] [address] [place] [address] May, Diabetes type 2, controlled E11.9 [facility] [address] [id number] [address] [place] [address] Apr, [facility] [address] [id number] [address] [place] [address] Apr, Mood disorder F39 [facility] [address] [id number] [address] [place] [address] Mar, [facility] [address] [facility] [id number] [address] [place] [address] Mar, Diabetes type 2, controlled E11.9 and Encounter for immunization Z23 [facility] [address] [id number] [address] [place] [address] Jan, Mood disorder F39 [facility] [address] [id number] [address] [place] [address] Jan, Type 2 diabetes mellitus wit hout complications E11.9 [facility] [address] [id number] [address] [place] [address] Nov, [facility] [address] [facility] [id number] [address] [place] [address] Nov, Type 2 diabetes mellitus wit hout complications E11.9 ; Mood disorder F39 and ASIYA (obstructive sleep apnea) G47.33 [facility] [address] [id number] [address] [place] [address] September, Diabetes type 2, controlled E11.9 [facility] [address] [facility] [id number] [address] [place] [address] September, [facility] [address] [facility] [id number] [address] [place] [address] Aug, Diabetes type 2, controlled E11.9 [facility] [address] [id number] [address] [place] [address] Jul, [facility] [address] [facility] [id number] [address] [place] [address] Jul, Type 2 diabetes mellitus wit hout complications E11.9 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 [facility] [address] [id number] [address] [place] [address] Jul, Diabetes type 2, controlled E11.9 [facility] [address] [id number] [address] [place] [phone] Jul, [facility] [address] [facility] [id number] [address] [place] [phone] May, [facility] [address] [facility] [id number] [address] [place] [address] Apr, Diabetes type 2, controlled E11.9 [facility] [address] [facility] [id number] [address] [place] [phone] 31 Feb, 2016 Erectile dysfunction, unspec ified erectile dysfunction type N52.9 ; Type 2 diabetes mellitus with diabetic neuropathy, unspecified E11.40 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 [facility] [address] [facility] [id number] [address] [place] [phone] 08 Jan, 2016 Impacted cerumen of both ear s H61.23 [facility] [address] [facility] [id number] [address] [place] [phone] 23 Oct, 2015 Type 2 diabetes mellitus wit hout complications E11.9 [facility] [address] [place] [id number] [address] [place] [phone] Oct, [facility] [address] [place] [id number] [address] [place] [address] September, Type 2 diabetes mellitus wit hout complications E11.9 [facility] [address] [place] [id number] [place] [phone] Jul, Type 2 diabetes mellitus wit hout complications E11.9 ; Lumbar pain M54.5 and Tobacco abuse Z72.0 [place] [address] [place] [id number] [address] [place] [address] May, [facility] [address] [place] [id number] [address] [place] [address] May, [facility] [address] [facility] [id number] [address] [place] [phone] Apr, [facility] [address] [facility] [id number] [address] [place] [address] Mar, [facility] [address] [place] [id number] [address] [place] [address] Mar, Type 2 diabetes mellitus wit hout complications E11.9 [facility] [address] [place] [id number] [address] [place] [address] Mar, [facility] [address] [place] [id number] [place] [address] 28 Feb, 2015 Type 2 diabetes mellitus wit hout complications E11.9 ; Neuropathy, diabetic E11.40 and Sleep apnea G47.30 [facility] [address] [id number] [address] [place] [phone] 19 Feb, 2015 [facility] [address] [facility] [id number] [address] [place] [address] Jan, Skin infection, bacterial 68 6.9 [facility] [address] [id number] [address] [place] [phone] Jan, [facility] [address] [id number] [address] [place] [address] Dec, Diabetes mellitus type 2, un complicated 250.00 [facility] [address] [facility] [id number] [address] [place] [address] Dec, [facility] [address] [id number] [address] [place] [address] Nov, [facility] [address] [id number] [address] [place] [address] Nov, Diabetes mellitus type 2, un complicated 250.00 and Obesity 278.00 [facility] [address] [facility] [id number] [address] [place] [address] Oct, [facility] [address] [facility] [id number] [address] [place] [address] Oct, [facility] [address] [id number] [address] [place] [phone] Aug, [facility] [address] [id number] [address] [place] [address] Aug, [facility] [address] [facility] [id number] [address] [place] [phone] Jul, [facility] [address] [facility] [id number] [address] [place] [phone] Jul, [facility] [address] [id number] [address] [place] [address], [place] [address] Jul, 2014 [facility] [address] [id number] [address] [place] [address], [place] [address] Jul, [facility] [address] [id number] [address] [place] [address], [place] [address] Jul, 2014 [facility] [address] [id number] [address] [place] [address], [place] [address] Jul, [facility] [address] [id number] [address] [place] [address], [place] [address] Feb, [facility] [address] [id number] [address] [place] [address], [place] [address] Feb, [facility] [address] [id number] [address] [place] [address], [place] [address] Dec, [facility] [address] [id number] [address] [place] [address], [place] [address] Nov, [facility] [address] [id number] [address] [place] [address], [place] [address] Nov, [facility] [address] [id number] [address] [place] [address], [place] [address] Nov, [facility] [address] [id number] [address] [place] [address], [place] [address] Nov, [facility] [address] [id number] [address] [place] [address], [place] [address] Nov, [facility] [address] [id number] [address] [place] [address], [place] [address] September, [facility] [address] [id number] [address] [place] [address], [place] [address] September, [facility] [address] [id number] [address] [place] [address], [place] [address] Aug, [facility] [address] [id number] [address] [place] [address], [place] [address] Aug, [facility] [address] [id number] [address] [place] [address], [place] [address] Aug, [facility] [address] [id number] [address] [place] [address], [place] [address] Aug, [facility] [address] [id number] [address] [place] [address], [place] [address] Jul, [facility] [address] [id number] [address] [place] [address], [place] [address] Jul, [facility] [address] [id number] [address] [place] [address], [place] [address] Apr, [facility] [address] [id number] [address] [place] [address], [place] [address] Apr, [facility] [address] [id number] [address] [place] [address], [place] [address] Mar, [facility] [address] [id number] [address] [place] [address], [place] [address] Mar, [facility] [address] [id number] [address] [place] [address], [place] [address] Jan, [facility] [address] [id number] [address] [place] [address], [place] [address] Jan, [facility] [address] [id number] [address] [place] [address], [place] [address] Dec, [facility] [address] [id number] [address] [place] [address], [place] [address] Nov, [facility] [address] [id number] [address] [place] [address], [place] [address] Nov, [facility] [address] [id number] [address] [place] [address], [place] [address] Nov, [facility] [address] [id number] [address] [place] [address], [place] [address] Oct, [facility] [address] [id number] [address] [place] [address], [place] [address] 10 Oct, 2012 [facility] [address] [id number] [address] [place] [address], [place] [address] Oct, [facility] [address] [id number] [address] [place] [address], [place] [address] September, [facility] [address] [id number] [address] [place] [address], [place] [address] September, [facility] [address] [id number] [address] [place] [address], [place] [address] Aug, [facility] [address] [id number] [address] [place] [address], [place] [address] Aug, [facility] [address] [id number] [address] [place] [address], [place] [address] Aug, [facility] [address] [id number] [address] [place] [address], [place] [address] Aug, [facility] [address] [id number] [address] [place] [address], [place] [address] Jul, [facility] [address] [id number] [address] [place] [address], [place] [address] Jul, [facility] [address] [id number] [address] [place] [address], [place] [address] Jul, [facility] [address] [id number] [address] [place] [address], [place] [address] Jul, [facility] [address] [id number] [address] [place] [address], [place] [address] May, [facility] [address] [id number] [address] [place] [address], [place] [address] May, [facility] [address] [id number] [address] [place] [address], [place] [address] May, [facility] [address] [id number] [address] [place] [address], [place] [address] May, [facility] [address] [id number] [address] [place] [address], [place] [address] 14 May, 2012 [facility] [address] [id number] [address] [place] [address], [place] [address] 11 May, 2012 [facility] [address] [id number] [address] [place] [address], [place] [address] 10 May, 2012 [facility] [address] [id number] [address] [place] [address], [place] [address] May, [facility] [address] [id number] [address] [place] [address], [place] [address] May, [facility] [address] [id number] [address] [place] [address], [place] [address] May, [facility] [address] [id number] [address] [place] [address], [place] [address] Apr, [facility] [address] [id number] [address] [place] [address], [place] [address] Apr, [facility] [address] [id number] [address] [place] [address], [place] [address] Apr, [facility] [address] [id number] [address] [place] [address], [place] [address] Apr, [facility] [address] [id number] [address] [place] [address], [place] [address] Mar, [facility] [address] [id number] [address] [place] [address] Mar, [facility] [address] [id number] [address] [place] [address], [place] [address] Feb, [facility] [address] [id number] [address] [place] [address], [place] [address] Feb, [facility] [address] [id number] [address] [place] [address], [place] [address] Feb, [facility] [address] [id number] [address] [place] [address], [place] [address] Feb, [facility] [address] [id number] [address] [place] [address], [place] [address] Jan, [facility] [address] [id number] [address] [place] [address], [place] [address] Dec, [facility] [address] [id number] [address] [place] [address], [place] [address] Oct, [facility] [address] [id number] [address] [place] [address], [place] [address] September, [facility] [address] [id number] [address] [place] [address], [place] [address] September, [facility] [address] [id number] [address] [place] [address], [place] [address] Jul, [facility] [address] [id number] [address] [place] [address], [place] [address] Jul, [facility] [address] [id number] [address] [place] [address], [place] [address] Jul, [facility] [address] [id number] [address] [place] [address], [place] [address] Jul, [facility] [address] [id number] [address] [place] [address], [place] [address] Jul, [facility] [address] [id number] [address] [place] [address], [place] [address] May, [facility] [address] [id number] [address] [place] [address], [place] [address] Apr, [facility] [address] [id number] [address] [place] [address], [place] [address] Apr, [facility] [address] [id number] [address] [place] [address], [place] [address] Apr, [facility] [address] [id number] [address] [place] [address], [place] [address] Apr, [facility] [address] [id number] [address] [place] [address], [place] [address] 16 Mar, 2011 [facility] [address] [id number] [address] [place] [address], [place] [address] 16 Mar, 2011 [facility] [address] [id number] [address] [place] [address], [place] [address] 15 Mar, 2011 [facility] [address] [id number] [address] [place] [address], [place] [address] Mar, [facility] [address] [id number] [address] [place] [address], [place] [address] Feb, [facility] [address] [id number] [address] [place] [address], [place] [address] Dec, [facility] [address] [id number] [address] [place] [address], [place] [address] September, [facility] [address] [address] [id number] [address] [place] [address], [place] [address] Aug, [facility] [address] [id number] [address] [place] [address], [place] [address] May, [facility] [address] [id number] [address] [place] [address], [place] [address] May, [facility] [address] [id number] [address] [place] [address], [place] [address] Apr, [facility] [address] [id number] [address] [place] [address], [place] [address] Apr, [facility] [address] [id number] [address] [place] [address], [place] [address] Apr, [facility] [address] [id number] [address] [place] [address], [place] [address] 24 Mar, 2010 [facility] [address] [id number] [address] [place] [address], [place] [address] 10 Mar, 2010 [facility] [address] [id number] [address] [place] [phone] 10 Mar, 2010 [facility] [address] [facility] [id number] [address] [place] [phone] Nov, [facility] [address] [facility] [id number] [address] [place] [phone] Oct, [facility] [address] [facility] [id number] [address] [place] [phone] September, [facility] [address] [facility] [id number] [address] [place] [phone] Dec, [facility] [address] [facility] [id number] [address] [place] [phone] Jul, [facility] [address] [facility] [id number] [address] [place] [phone] Jul, IMMUNIZATIONS No Known Immunizations SOCIAL HISTORY Never Assessed REASON FOR VISIT EMR-[facility] PLAN OF CARE VITAL SIGNS MEDICATIONS Unknown [...]
--- OUTSIDE RECORDS SUMMARY | 2019-11-14 23:14 | XMS REPORT ---
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 Name Role Phone Migration, Doctor Unavailable Unavailable PROBLEMS Type Condition ICD9-CM Code [id number] Code Onset Dates Condition S tatus SNOMED Code Problem Diabetes type 2, controlled E11.9 Ac tive 61889040 Problem Type 2 diabetes mellitus without complications E11 .9 Active 724045043 Problem [facility] 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.4 Active 585680020 Problem Arthritis M19.90 Active 9456028 Problem Neuropathy, diabetic E11.40 Active 806295610 Problem Essential hypertension I10 Active 59286427 Problem Type 2 diabetes mellitus with diabetic neuropathy, uns pecified E11.40 Active 27998349 Problem Erectile dysfunction, unspecified erectile dysfunction typ e N52.9 Active 106533805 Problem Mood disorder F39 Active 699281 05 Problem ASIYA (obstructive sleep apnea) G47.33 Active 02297435 ALLERGIES No Information ENCOUNTERS Encounter Location Date Diagnosis [facility], [place] [address] [facility] [id number] [address] [place] [address] Aug, [facility], [place] [address] [facility] [id number] [address] [place] [address] Aug, BMI 40.0-44.9, adult Z68.41 [facility], [place] [address] [facility] [id number] [address] [place] [address] Jul, [facility], [place] [address] [facility] [id number] [address] [place] [address] Jul, [facility], [place] [address] [place] [id number] [address] [place] [address] Jul, BMI 40.0-44.9, adult Z68.41 [facility], [place] [address] [facility] [id number] [address] [place] [address] Jul, BMI 40.0-44.9, adult Z68.41 [facility], [place] [address] [id number] [address] [place] [address] May, [facility], [place] [address] [id number] [address] [place] [address] May, [facility], [place] [address] [facility] [id number] [address] [place] [address] Apr, BMI 40.0-44.9, adult Z68.41 ; Type 2 diabetes mellitus without complications E11.9 and Arthritis M19.90 [facility], [place] [address] [id number] [address] [place] [address] Mar, [facility], [place] [address] [id number] [address] [place] [address] Mar, [facility], [place] [address] [facility] [id number] [address] [place] [address] Mar, Type 2 diabetes mellitus wit hout complications E11.9 [facility], [place] [address] [id number] [address] [place] [address] Feb, BMI 40.0-44.9, adult Z68.41 and Diabetes type 2, controlled E11.9 [facility], [place] [address] [facility] [id number] [address] [place] [address] Feb, [facility], [place] [address] [facility] [id number] [address] [place] [address] Feb, [facility], [place] [address] [facility] [id number] [address] [place] [id number] Feb, Diabetes type 2, controlled E11.9 [facility], [place] [address] [id number] [address] [place] [id number] Jan, [facility], [place] [address] [facility] [id number] [address] [place] [phone] Jan, [facility], [place] [address] [facility] [id number] [address] [place] [address] Jan, Allergic reaction to drug, i nitial encounter T78.40XA ; Uncontrolled type 2 diabetes mellitus with hyperglycemia E11.65 and Essential hypertension I10 [facility], [place] [address] [facility] [id number] [address] [place] [id number] 07 Jan, 2018 Type 2 diabetes mellitus wit hout complications E11.9 ; Diabetes type 2, controlled E11.9 and Arthritis M19.90 [facility], [place] [address] [facility] [id number] [address] [place] [address] Dec, Diabetes type 2, controlled E11.9 [facility], [place] [address] [facility] [id number] [address] [place] [address] Dec, [facility], [place] [address] [facility] [id number] [address] [place] [address] Dec, Diabetes type 2, controlled E11.9 [facility], [place] [address] [facility] [id number] [address] [place] [phone] Oct, Diabetes type 2, controlled E11.9 [facility] [id number] [place] [id number] Oct, Dental caries K02.9 and Saline al examination Z01.20 [facility], [place] [address] [facility] [id number] [address] [place] [address] September, [facility], [place] [address] [facility] [id number] [address] [place] [address] Aug, Diabetes type 2, controlled E11.9 ; Mood disorder F39 ; Arthritis M19.90 and Family history of rheumatoid arthritis Z82.61 [facility] [address] [facility] [id number] [address] [place] [id number] 15 Jul, 2017 Infection of both inner ears H83.03 and Dizziness R42 [facility], [place] [address] [facility] [id number] [address] [place] [id number] Jul, [facility], [place] [address] [facility] [id number] [address] [place] [address] Jul, Diabetes type 2, controlled E11.9 [facility] [address] [place] [id number] [address] [place] [id number] Jul, 2017 Dental examination Z01.20 [facility], [place] [address] [id number] [address] [place] [phone] May, Diabetes type 2, controlled E11.9 [facility], [place] [address] [id number] [address] [place] [phone] May, [facility] [address] [id number] [address] [place] [id number] May, Dental examination Z01.20 [facility], [place] [address] [id number] [address] [place] [phone] May, [facility], [place] [address] [id number] [address] [place] [id number] May, [facility], [place] [address] [id number] [address] [place] [address] May, Diabetes type 2, controlled E11.9 [facility], [place] [address] [id number] [address] [place] [id number] Apr, [facility], [place] [address] [id number] [address] [place] [phone] Apr, Mood disorder F39 [facility], [place] [address] [id number] [address] [place] [id number] Mar, [facility], [place] [address] [id number] [address] [place] [address] Mar, Diabetes type 2, controlled E11.9 and Encounter for immunization Z23 [facility], [place] [address] [id number] [address] [place] [id number] Jan, Mood disorder F39 [facility], [place] [address] [id number] [address] [place] [id number] Jan, Type 2 diabetes mellitus wit hout complications E11.9 [facility], [place] [address] [id number] [address] [place] [address] Nov, [facility], [place] [address] [id number] [address] [place] [id number] Nov, Type 2 diabetes mellitus wit hout complications E11.9 ; Mood disorder F39 and ASIYA (obstructive sleep apnea) G47.33 [facility], [place] [address] [facility] [id number] [address] [place] [id number] September, Diabetes type 2, controlled E11.9 [facility], [place] [address] [facility] [id number] [address] [place] [phone] September, [facility], [place] [address] [id number] [address] [place] [phone] Aug, Diabetes type 2, controlled E11.9 [facility], [place] [address] [facility] [id number] [address] [place] [phone] Jul, [facility], [place] [address] [facility] [id number] [address] [place] [phone] Jul, Type 2 diabetes mellitus wit hout complications E11.9 and [facility] 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.4 [facility], [place] [address] [facility] [id number] [address] [place] [id number] Jul, Diabetes type 2, controlled E11.9 [facility], [place] [address] [facility] [id number] [address] [place] [id number] Jul, [facility], [place] [address] [facility] [id number] [address] [place] [address] May, [facility], [place] [address] [facility] [id number] [address] [place] [phone] Apr, Diabetes type 2, controlled E11.9 [facility], [place] [address] [facility] [id number] [address] [place] [phone] Feb, 2016 Erectile dysfunction, unspec ified erectile dysfunction type N52.9 ; Type 2 diabetes mellitus with diabetic neuropathy, unspecified E11.40 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 [facility], [place] [address] [facility] [id number] [address] [place] [id number] Jan, Impacted cerumen of both ear s H61.23 [facility], [place] [address] [id number] [address] [place] [id number] Oct, Type 2 diabetes mellitus wit hout complications E11.9 [facility], [place] [address] [id number] [address] [place] [id number] Oct, [facility], [place] [address] [facility] [id number] [address] [place] [id number] September, Type 2 diabetes mellitus wit hout complications E11.9 [facility], [place] [address] [id number] [address] [place] [id number] Jul, Type 2 diabetes mellitus wit hout complications E11.9 ; Lumbar pain M54.5 and Tobacco abuse Z72.0 [facility], [place] [address] [facility] [id number] [address] [place] [phone] May, [facility], [place] [address] [id number] [address] [place] [phone] May, [facility], [place] [address] [facility] [id number] [address] [place] [id number] Apr, [facility], [place] [address] [facility] [id number] [address] [place] [phone] Mar, [facility], [place] [address] [facility] [id number] [address] [place] [id number] Mar, Type 2 diabetes mellitus wit hout complications E11.9 [facility], [place] [address] [id number] [address] [place] [address] Mar, [facility], [place] [address] [facility] [id number] [address] [place] [id number] Feb, Type 2 diabetes mellitus wit hout complications E11.9 ; Neuropathy, diabetic E11.40 and Sleep apnea G47.30 [facility], [place] [address] [id number] [address] [place] [id number] Feb, [facility], [place] [address] [facility] [id number] [address] [place] [id number] Jan, Skin infection, bacterial 68 6.9 [facility], [place] [address] [id number] [address] [place] [phone] Jan, [facility], [place] [address] [id number] [address] [place] [id number] Dec, Diabetes mellitus type 2, un complicated 250.00 [facility], [place] [address] [id number] [address] [place] [phone] Dec, [facility], [place] [address] [id number] [address] [place] [phone] Nov, [facility], [place] [address] [id number] [address] [place] [id number] Nov, Diabetes mellitus type 2, un complicated 250.00 and Obesity 278.00 [facility], [place] [address] [id number] [address] [place] [phone] Oct, [facility], [place] [address] [id number] [address] [place] [address] Oct, [facility], [place] [address] [id number] [address] [place] [phone] Aug, [facility], [place] [address] [id number] [address] [place] [phone] Aug, [facility], [place] [address] [id number] [address] [place] [phone] Jul, [facility], [place] [address] [id number] [address] [place] [id number] Jul, [facility], [place] [address] [id number] [address] [place] [id number] Jul, [facility], [place] [address] [id number] [address] [place] [id number] Jul, [facility], [place] [address] [id number] [address] [place] [id number] Jul, [facility] [address] [id number] [address] [place] [address], [place] [address] Jul, [facility] [address] [id number] [address] [place] [address], [place] [address] Feb, [facility] [address] [id number] [address] [place] [address], [place] [address] Feb, [facility] [address] [id number] [address] [place] [address], [place] [address] Dec, [facility] [address] [id number] [address] [place] [address], [place] [address] Nov, [facility] [address] [id number] [address] [place] [address], [place] [address] Nov, [facility] [address] [id number] [address] [place] [address], [place] [address] Nov, [facility] [address] [id number] [address] [place] [address], [place] [address] Nov, [facility] [address] [id number] [address] [place] [address], [place] [address] Nov, [facility] [address] [id number] [address] [place] [address], [place] [address] September, [facility] [address] [id number] [address] [place] [address], [place] [address] September, [facility] [address] [id number] [address] [place] [address], [place] [address] Aug, [facility] [address] [id number] [address] [place] [address], [place] [address] Aug, [facility] [address] [id number] [address] [place] [address], [place] [address] Aug, [facility] [address] [id number] [address] [place] [address], [place] [address] Aug, [facility] [address] [id number] [address] [place] [address], [place] [address] Jul, [facility] [address] [id number] [address] [place] [address], [place] [address] Jul, [facility] [address] [id number] [address] [place] [address], [place] [address] Apr, [facility] [address] [id number] [address] [place] [address], [place] [address] Apr, [facility] [address] [id number] [address] [place] [address], [place] [address] Mar, [facility] [address] [id number] [address] [place] [address], [place] [address] Mar, [facility] [address] [id number] [address] [place] [address], [place] [address] Jan, [facility] [address] [id number] [address] [place] [address], [place] [address] Jan, [facility] [address] [id number] [address] [place] [address], [place] [address] Dec, [facility] [address] [id number] [address] [place] [address], [place] [address] Nov, [facility] [address] [id number] [address] [place] [address], [place] [address] Nov, [facility] [address] [id number] [address] [place] [address], [place] [address] Nov, [facility] [address] [id number] [address] [place] [address], [place] [address] Oct, [facility] [address] [id number] [address] [place] [address], [place] [address] Oct, [facility] [address] [id number] [address] [place] [address], [place] [address] Oct, [facility] [address] [id number] [address] [place] [address], [place] [address] September, [facility] [address] [id number] [address] [place] [address], [place] [address] September, [facility] [address] [id number] [address] [place] [address], [place] [address] Aug, [facility] [address] [id number] [address] [place] [address], [place] [address] Aug, [facility] [address] [id number] [address] [place] [address], [place] [address] Aug, [facility] [address] [id number] [address] [place] [address], [place] [address] Aug, [facility] [address] [id number] [address] [place] [address], [place] [address] Jul, [facility] [address] [id number] [address] [place] [address], [place] [address] Jul, [facility] [address] [id number] [address] [place] [address], [place] [address] Jul, [facility] [address] [id number] [address] [place] [address], [place] [address] Jul, [facility] [address] [id number] [address] [place] [address], [place] [address] May, [facility] [address] [id number] [address] [place] [address], [place] [address] May, [facility] [address] [id number] [address] [place] [address], [place] [address] May, [facility] [address] [id number] [address] [place] [address], [place] [address] May, [facility] [address] [id number] [address] [place] [address], [place] [address] 14 May, 2012 [facility] [address] [id number] [address] [place] [address], [place] [address] 11 May, 2012 [facility] [address] [id number] [address] [place] [address], [place] [address] May, [facility] [address] [id number] [address] [place] [address], [place] [address] May, [facility] [address] [id number] [address] [place] [address], [place] [address] May, [facility] [address] [id number] [address] [place] [address], [place] [address] May, [facility] [address] [id number] [address] [place] [address], [place] [address] Apr, [facility] [address] [id number] [address] [place] [address], [place] [address] Apr, [facility] [address] [id number] [address] [place] [address], [place] [address] Apr, [facility] [address] [id number] [address] [place] [address], [place] [address] Apr, [facility] [address] [id number] [address] [place] [address], [place] [address] Mar, [facility] [address] [id number] [address] [place] [address], [place] [address] Mar, [facility] [address] [id number] [address] [place] [id number] Feb, [facility] [address] [id number] [address] [place] [id number] Feb, [facility] [address] [id number] [address] [place] [id number] Feb, [facility] [address] [id number] [address] [place] [address], [place] [address] Feb, [facility] [address] [id number] [address] [place] [address], [place] [address] Jan, [facility] [address] [id number] [address] [place] [id number] Dec, [facility] [address] [id number] [address] [place] [id number] Oct, [facility] [address] [id number] [address] [place] [address], [place] [address] September, [facility] [address] [id number] [address] [place] [address], [place] [address] September, [facility] [address] [id number] [address] [place] [address], [place] [address] Jul, [facility] [address] [id number] [address] [place] [address], [place] [address] Jul, [facility] [address] [id number] [address] [place] [address], [place] [address] Jul, [facility] [address] [id number] [address] [place] [address], [place] [address] Jul, [facility] [address] [id number] [address] [place] [address], [place] [address] 16 Jul, 2011 [facility] [address] [id number] [address] [place] [address], [place] [address] May, [facility] [address] [id number] [address] [place] [address], [place] [address] Apr, [facility] [address] [id number] [address] [place] [address], [place] [address] Apr, [facility] [address] [id number] [address] [place] [address], [place] [address] Apr, [facility] [address] [id number] [address] [place] [address], [place] [address] 08 Apr, 2011 [facility] [address] [id number] [address] [place] [address], [place] [address] Mar, [facility] [address] [id number] [address] [place] [address], [place] [address] 16 Mar, 2011 [facility] [address] [id number] [address] [place] [address], [place] [address] 15 Mar, 2011 [facility] [address] [id number] 07 [place] [address], [place] [address] Mar, [facility] [address] [id number] [address] [place] [address], [place] [address] Feb, [facility] [address] [id number] [address] [place] [address], [place] [address] Dec, [facility] [address] [id number] [address] [place] [address], [place] [address] September, [facility] [address] [id number] [address] [place] [address], [place] [address] Aug, [facility] [address] [id number] [address] [place] [address], [place] [address] May, [facility] [address] [id number] [address] [place] [address], [place] [address] May, [facility] [address] [id number] [address] [place] [address], [place] [address] Apr, [facility] [address] [id number] [address] [place] [address], [place] [address] Apr, [facility] [address] [id number] [address] [place] [address], [place] [address] Apr, [facility] [address] [id number] [address] [place] [address], [place] [id number] 24 Mar, 2010 [facility] [address] [id number] [address] [place] [address], [place] [address] Mar, [facility] [address] [id number] [address] [place] [address], [place] [address] Mar, [facility] [address] [id number] [address] [place] [address], [place] [address] Nov, [facility] [address] [id number] [address] [place] [address], [place] [address] 15 Oct, 2009 [facility] [address] [id number] [address] [place] [id number] September, [facility] [place] [address] [facility] [id number] [address] [place] [id number] Dec, [facility] [place] [address] [facility] [id number] [address] [place] [id number] Jul, [facility] [place] [address] [facility] [id number] [address] [place] [id number] Jul, IMMUNIZATIONS No Known Immunizations SOCIAL HISTORY Never Assessed REASON FOR VISIT [facility] PLAN OF CARE VITAL SIGNS MEDICATIONS Unknown [...]
--- OUTSIDE RECORDS SUMMARY | 2019-11-14 23:14 | XMS REPORT ---
Author Author Jerman Tarango Doctor Organization [facility] Address Unknown Phone Unavailable Care Team Providers Care Control Room Tender Name Role Phone Migration, Doctor Unavailable Unavailable PROBLEMS Type Condition ICD9-CM Code STH65-ML Code Onset Dates Condition S tatus SNOMED Code Problem Diabetes type 2, controlled E11.9 Ac tive 19207301 Problem Type 2 diabetes mellitus without complications E11 .9 Active 342848069 Problem [facility] 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.4 Active 349422336 Problem Arthritis M19.90 Active 7296406 Problem Neuropathy, diabetic E11.40 Active 688394640 Problem Essential hypertension I10 Active 77587313 Problem Type 2 diabetes mellitus with diabetic neuropathy, uns pecified E11.40 Active 64018741 Problem Erectile dysfunction, unspecified erectile dysfunction typ e N52.9 Active 542191447 Problem Mood disorder F39 Active 623606 05 Problem ASIYA (obstructive sleep apnea) G47.33 Active 06203987 ALLERGIES No Information ENCOUNTERS Encounter Location Date Diagnosis [facility] [address] [facility] [id number] [address] [place] [phone] Aug, [facility] [address] [facility] [id number] [address] [place] [address] Aug, BMI 40.0-44.9, adult Z68.41 [facility] [address] [facility] [id number] [address] [place] [phone] Jul, [facility] [address] [facility] [id number] [address] [place] [address] Jul, [facility] [address] [place] [place] [id number] [address] [place] [address] Jul, BMI 40.0-44.9, adult Z68.41 [facility] [address] [id number] [address] [place] [address] Jul, BMI 40.0-44.9, adult Z68.41 [facility] [address] [id number] [address] [place] [address] May, [facility] [address] [id number] [address] [place] [phone] May, [facility] [address] [facility] [id number] [address] [place] [address] Apr, BMI 40.0-44.9, adult Z68.41 ; Type 2 diabetes mellitus without complications E11.9 and Arthritis M19.90 [facility] [address] [id number] [address] [place] [phone] Mar, [facility] [address] [id number] [address] [place] [address] Mar, [facility] [address] [facility] [id number] [address] [place] [address] Mar, Type 2 diabetes mellitus wit hout complications E11.9 [facility] [address] [id number] [address] [place] [address] Feb, BMI 40.0-44.9, adult Z68.41 and Diabetes type 2, controlled E11.9 [facility] [address] [facility] [id number] [address] [place] [address] Feb, [facility] [address] [facility] [id number] [address] [place] [phone] Feb, [facility] [address] [facility] [id number] [address] [place] [phone] Feb, Diabetes type 2, controlled E11.9 [facility] [address] [id number] [address] [place] [address] Jan, [facility] [address] [facility] [id number] [address] [place] [phone] Jan, [facility] [address] [facility] [id number] [address] [place] [address] Jan, Allergic reaction to drug, i nitial encounter T78.40XA ; Uncontrolled type 2 diabetes mellitus with hyperglycemia E11.65 and Essential hypertension I10 [facility] [address] [facility] [id number] [address] [place] [phone] 07 Jan, 2018 Type 2 diabetes mellitus wit hout complications E11.9 ; Diabetes type 2, controlled E11.9 and Arthritis M19.90 [facility] [address] [facility] [id number] [address] [place] [address] Dec, Diabetes type 2, controlled E11.9 [facility] [address] [facility] [id number] [address] [place] [phone] Dec, [facility] [address] [facility] [id number] [address] [place] [address] Dec, Diabetes type 2, controlled E11.9 [facility] [address] [facility] [id number] [address] [place] [address] Oct, Diabetes type 2, controlled E11.9 [facility] [id number] [place] [phone] Oct, Dental caries K02.9 and [place] al examination Z01.20 [facility] [address] [facility] [id number] [address] [place] [address] September, [facility] [address] [facility] [id number] [address] [place] [address] Aug, Diabetes type 2, controlled E11.9 ; Mood disorder F39 ; Arthritis M19.90 and Family history of rheumatoid arthritis Z82.61 [facility] [address] [facility] [id number] [address] [place] [id number] 15 Jul, 2017 Infection of both inner ears H83.03 and Dizziness R42 [facility] [address] [facility] [id number] [address] [place] [address] Jul, [facility] [address] [facility] [id number] [address] [place] [phone] Jul, Diabetes type 2, controlled E11.9 [facility] [address] [id number] [address] [place] [address] [id number] Jul, 2017 Dental examination Z01.20 [facility] [address] [id number] [address] [place] [address] May, Diabetes type 2, controlled E11.9 [facility] [address] [id number] [address] [place] [phone] May, [facility] [address] [id number] [address] [place] [address] [id number] May, Dental examination Z01.20 [facility] [address] [id number] [address] [place] [phone] May, [facility] [address] [id number] [address] [place] [phone] May, [facility] [address] [id number] [address] [place] [phone] May, Diabetes type 2, controlled E11.9 [facility] [address] [id number] [address] [place] [phone] Apr, [facility] [address] [id number] [address] [place] [phone] Apr, Mood disorder F39 [facility] [address] [id number] [address] [place] [id number] Mar, [facility] [address] [id number] [address] [place] [address] Mar, Diabetes type 2, controlled E11.9 and Encounter for immunization Z23 [facility] [address] [id number] [address] [place] [address] Jan, Mood disorder F39 [facility] [address] [id number] [address] [place] [phone] Jan, Type 2 diabetes mellitus wit hout complications E11.9 [facility] [address] [id number] [address] [place] [phone] Nov, [facility] [address] [id number] [address] [place] [address] Nov, Type 2 diabetes mellitus wit hout complications E11.9 ; Mood disorder F39 and ASIYA (obstructive sleep apnea) G47.33 [facility] [address] [facility] [id number] [address] [place] [phone] September, Diabetes type 2, controlled E11.9 [facility] [address] [facility] [id number] [address] [place] [phone] September, [facility] [address] [id number] [address] [place] [phone] Aug, Diabetes type 2, controlled E11.9 [facility] [address] [facility] [id number] [address] [place] [phone] Jul, [facility] [address] [facility] [id number] [address] [place] [address] Jul, Type 2 diabetes mellitus wit hout complications E11.9 and [facility] 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.4 [facility] [address] [facility] [id number] [address] [place] [phone] Jul, Diabetes type 2, controlled E11.9 [facility] [address] [facility] [id number] [address] [place] [phone] Jul, [facility] [address] [facility] [id number] [address] [place] [phone] May, [facility] [address] [facility] [id number] [address] [place] [phone] Apr, Diabetes type 2, controlled E11.9 [facility] [address] 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 [id number] [address] [place] [phone] Jan, Impacted cerumen of both ear s H61.23 [facility] [address] [id number] [address] [place] [phone] Oct, Type 2 diabetes mellitus wit hout complications E11.9 [facility] [address] [id number] [address] [place] [phone] Oct, [facility] [address] [facility] [id number] [address] [place] [address] September, Type 2 diabetes mellitus wit hout complications E11.9 [facility] [address] [id number] [address] [place] [phone] Jul, Type 2 diabetes mellitus wit hout complications E11.9 ; Lumbar pain M54.5 and Tobacco abuse Z72.0 [facility] [address] [facility] [id number] [address] [place] [phone] May, [facility] [address] [id number] [address] [place] [phone] May, [facility] [address] [facility] [id number] [address] [place] [phone] Apr, [facility] [address] [facility] [id number] [address] [place] [phone] Mar, [facility] [address] [facility] [id number] [address] [place] [address] Mar, Type 2 diabetes mellitus wit hout complications E11.9 [facility] [address] [id number] [address] [place] [phone] Mar, [facility] [address] [facility] [id number] [address] [place] [phone] Feb, Type 2 diabetes mellitus wit hout complications E11.9 ; Neuropathy, diabetic E11.40 and Sleep apnea G47.30 [facility] [address] [id number] [address] [place] [phone] Feb, [facility] [address] [facility] [id number] [address] [place] [phone] Jan, Skin infection, bacterial 68 6.9 [facility] [address] [id number] [address] [place] [phone] Jan, [facility] [address] [id number] [address] [place] [address] Dec, Diabetes mellitus type 2, un complicated 250.00 [facility] [address] [id number] [address] [place] [phone] Dec, [facility] [address] [id number] [address] [place] [address] Nov, [facility] [address] [id number] [address] [place] [address] Nov, Diabetes mellitus type 2, un complicated 250.00 and Obesity 278.00 [facility] [address] [id number] [address] [place] [phone] Oct, [facility] [address] [id number] [address] [place] [phone] Oct, [facility] [address] [id number] [address] [place] [phone] Aug, [facility] [address] [id number] [address] [place] [phone] Aug, [facility] [address] [id number] [address] [place] [phone] Jul, [facility] [address] [id number] [address] [place] [id number] Jul, [facility] [address] [id number] [address] [place] [phone] Jul, [facility] [address] [id number] [address] [place] [phone] Jul, [facility] [address] [id number] [address] [place] [id number] Jul, [facility] [address] [id number] [address] [place] [address], [place] [address] Jul, [facility] [address] [id number] [address] [place] [address], [place] [address] Feb, [facility] [address] [id number] [address] [place] [address], [place] [address] Feb, [facility] [address] [id number] [address] [place] [address], [place] [address] Dec, [facility] [address] [id number] [address] [place] [address], [place] [address] Nov, [facility] [address] [id number] [address] [place] [address], [place] [address] Nov, [facility] [address] [id number] [address] [place] [address], [place] [address] Nov, [facility] [address] [id number] [address] [place] [address], [place] [address] Nov, [facility] [address] [id number] [address] [place] [address], [place] [address] Nov, [facility] [address] [id number] [address] [place] [address], [place] [address] September, [facility] [address] [id number] [address] [place] [address], [place] [address] September, [facility] [address] [id number] [address] [place] [address], [place] [address] Aug, [facility] [address] [id number] [address] [place] [address], [place] [address] Aug, [facility] [address] [id number] [address] [place] [address], [place] [address] Aug, [facility] [address] [id number] [address] [place] [address], [place] [address] Aug, [facility] [address] [id number] [address] [place] [address], [place] [address] Jul, [facility] [address] [id number] [address] [place] [address], [place] [address] Jul, [facility] [address] [id number] [address] [place] [address], [place] [address] Apr, [facility] [address] [id number] [address] [place] [address], [place] [address] Apr, [facility] [address] [id number] [address] [place] [address], [place] [address] Mar, [facility] [address] [id number] [address] [place] [address], [place] [address] Mar, [facility] [address] [id number] [address] [place] [address], [place] [address] Jan, [facility] [address] [id number] [address] [place] [address], [place] [address] Jan, [facility] [address] [id number] [address] [place] [address], [place] [address] Dec, [facility] [address] [id number] [address] [place] [address], [place] [address] Nov, [facility] [address] [id number] [address] [place] [address], [place] [address] Nov, [facility] [address] [id number] [address] [place] [address], [place] [address] Nov, [facility] [address] [id number] [address] [place] [address], [place] [address] Oct, [facility] [address] [id number] [address] [place] [address], [place] [address] Oct, [facility] [address] [id number] [address] [place] [address], [place] [address] Oct, [facility] [address] [id number] [address] [place] [address], [place] [address] September, [facility] [address] [id number] [address] [place] [address], [place] [address] September, [facility] [address] [id number] [address] [place] [address], [place] [address] Aug, [facility] [address] [id number] [address] [place] [address], [place] [address] Aug, [facility] [address] [id number] [address] [place] [address], [place] [address] Aug, [facility] [address] [id number] [address] [place] [address], [place] [address] Aug, [facility] [address] [id number] [address] [place] [address], [place] [address] Jul, [facility] [address] [id number] [address] [place] [address], [place] [address] Jul, [facility] [address] [id number] [address] [place] [address], [place] [address] Jul, [facility] [address] [id number] [address] [place] [address], [place] [address] Jul, [facility] [address] [id number] [address] [place] [address], [place] [address] May, [facility] [address] [id number] [address] [place] [address], [place] [address] May, [facility] [address] [id number] [address] [place] [address], [place] [address] May, [facility] [address] [id number] [address] [place] [address], [place] [address] May, [facility] [address] [id number] [address] [place] [address], [place] [address] 14 May, 2012 [facility] [address] [id number] [address] [place] [address], [place] [address] 11 May, 2012 [facility] [address] [id number] [address] [place] [address], [place] [address] May, [facility] [address] [id number] [address] [place] [address], [place] [address] May, [facility] [address] [id number] [address] [place] [address], [place] [address] May, [facility] [address] [id number] [address] [place] [address], [place] [address] May, [facility] [address] [id number] [address] [place] [address], [place] [address] Apr, [facility] [address] [id number] [address] [place] [address], [place] [address] Apr, [facility] [address] [id number] [address] [place] [address], [place] [address] Apr, [facility] [address] [id number] [address] [place] [address], [place] [address] Apr, [facility] [address] [id number] [address] [place] [address], [place] [address] Mar, [facility] [address] [id number] [address] [place] [address], [place] [address] Mar, [facility] [address] [id number] [address] [place] [address] Feb, [facility] [address] [id number] [address] [place] [address] Feb, [facility] [address] [id number] [address] [place] [address] Feb, [facility] [address] [id number] [address] [place] [address], [place] [address] Feb, [facility] [address] [id number] [address] [place] [address], [place] [address] Jan, [facility] [address] [id number] [address] [place] [address] Dec, [facility] [address] [id number] [address] [place] [address] Oct, [facility] [address] [id number] [address] [place] [address], [place] [address] September, [facility] [address] [id number] [address] [place] [address], [place] [address] September, [facility] [address] [id number] [address] [place] [address], [place] [address] Jul, [facility] [address] [id number] [address] [place] [address], [place] [address] Jul, [facility] [address] [id number] [address] [place] [address], [place] [address] Jul, [facility] [address] [id number] [address] [place] [address], [place] [address] Jul, [facility] [address] [id number] [address] [place] [address], [place] [address] 16 Jul, 2011 [facility] [address] [id number] [address] [place] [address], [place] [address] May, [facility] [address] [id number] [address] [place] [address], [place] [address] Apr, [facility] [address] [id number] [address] [place] [address], [place] [address] Apr, [facility] [address] [id number] [address] [place] [address], [place] [address] Apr, [facility] [address] [id number] [address] [place] [address], [place] [address] 08 Apr, 2011 [facility] [address] [id number] [address] [place] [address], [place] [address] Mar, [facility] [address] [id number] [address] [place] [address], [place] [address] 16 Mar, 2011 [facility] [address] [id number] [address] [place] [address], [place] [address] 15 Mar, 2011 [facility] [address] [id number] [address] [place] [address], [place] [address] Mar, [facility] [address] [id number] [address] [place] [address], [place] [address] Feb, [facility] [address] [id number] [address] [place] [address], [place] [address] Dec, [facility] [address] [id number] [address] [place] [address], [place] [address] September, [facility] [address] [id number] [address] [place] [address], [place] [address] Aug, [facility] [address] [id number] [address] [place] [address], [place] [address] May, [facility] [address] [id number] [address] [place] [address], [place] [address] May, [facility] [address] [id number] [address] [place] [address], [place] [address] Apr, [facility] [address] [id number] [address] [place] [address], [place] [address] Apr, [facility] [address] [id number] [address] [place] [address], [place] [address] Apr, [facility] [address] [id number] [address] [place] [address], [place] [address] 24 Mar, 2010 [facility] [address] [id number] [address] [place] [address], [place] [address] Mar, [facility] [address] [id number] [address] [place] [address], [place] [address] Mar, [facility] [address] [id number] [address] [place] [address], [place] [address] Nov, [facility] [address] [id number] [address] [place] [address], [place] [address] 15 Oct, 2009 [facility] [address] [id number] [address] [place] [address] September, [facility] [address] [facility] [id number] [address] [place] [address] Dec, [facility] [address] [facility] [id number] [address] [place] [address] Jul, [facility] [address] [facility] [id number] [address] [place] [address] Jul, IMMUNIZATIONS No Known Immunizations SOCIAL HISTORY Never Assessed REASON FOR VISIT [facility] [place] VITAL SIGNS MEDICATIONS Unknown [...]
--- OUTSIDE RECORDS SUMMARY | 2019-11-14 23:14 | XMS REPORT ---
Author Author Jerman Tarango Doctor Organization [facility] Address Unknown Phone Unavailable Care Team Providers Care Lump Inspector Name Role Phone Migration, Doctor Unavailable Unavailable PROBLEMS Type Condition ICD9-CM Code SQY63-TA Code Onset Dates Condition S tatus SNOMED Code Problem Diabetes type 2, controlled E11.9 Ac tive 31715132 Problem Type 2 diabetes mellitus without complications E11 .9 Active 564236593 Problem custodial 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.4 Active 360179307 Problem Arthritis M19.90 Active 9796017 Problem Neuropathy, diabetic E11.40 Active 939378714 Problem Essential hypertension I10 Active 83542641 Problem Type 2 diabetes mellitus with diabetic neuropathy, uns pecified E11.40 Active 79584469 Problem Erectile dysfunction, unspecified erectile dysfunction typ e N52.9 Active 841017208 Problem Mood disorder F39 Active 500084 05 Problem ASIYA (obstructive sleep apnea) G47.33 Active 06842866 ALLERGIES No Information ENCOUNTERS Encounter Location Date Diagnosis [facility] [address] [facility] [id number] [address] [place] [id number] Aug, [facility] [address] [facility]] [id number] [address] [place] [phone] Aug, BMI 40.0-44.9, adult Z68.41 [facility] [address] [facility]] [id number] [address] [place] [id number] Jul, [facility] [address] [facility]] [id number] [address] [place] [address] Jul, [facility] [address] [id number] [address] [place] [id number] Jul, BMI 40.0-44.9, adult Z68.41 [facility] [address] [id number] [address] [place] [address] Jul, BMI 40.0-44.9, adult Z68.41 [facility] [address] [id number] [address] [place] [address] May, [facility] [address] [id number] [address] [place] [id number] May, [facility] [address] [facility]] [id number] [address] [place] [address] Apr, BMI 40.0-44.9, adult Z68.41 ; Type 2 diabetes mellitus without complications E11.9 and Arthritis M19.90 [facility] [address] [id number] [address] [place] [phone] Mar, [facility] [address] [id number] [address] [place] [phone] Mar, [facility] [address] [facility]] [id number] [address] [place] [phone] Mar, Type 2 diabetes mellitus wit hout complications E11.9 [facility] [address] [id number] [address] [place] [id number] Feb, BMI 40.0-44.9, adult Z68.41 and Diabetes type 2, controlled E11.9 [facility] [address] [facility]] [id number] [address] [place] [phone] Feb, [facility] [address] [facility]] [id number] [address] [place] [id number] Feb, [facility] [address] [facility]] [id number] [address] [place] [id number] Feb, Diabetes type 2, controlled E11.9 [facility] [address] [id number] [address] [place] [phone] Jan, [facility] [address] [facility]] [id number] [address] [place] [id number] Jan, [facility] [address] [facility]] [id number] [address] [place] [id number] Jan, Allergic reaction to drug, i nitial encounter T78.40XA ; Uncontrolled type 2 diabetes mellitus with hyperglycemia E11.65 and Essential hypertension I10 [facility] [address] [facility]] [id number] [address] [place] [phone] 07 Jan, 2018 Type 2 diabetes mellitus wit hout complications E11.9 ; Diabetes type 2, controlled E11.9 and Arthritis M19.90 [facility] [address] [facility]] [id number] [address] [place] [phone] Dec, Diabetes type 2, controlled E11.9 [facility] [address] [facility]] [id number] [address] [place] [id number] Dec, [facility] [address] [facility]] [id number] [address] [place] [phone] Dec, Diabetes type 2, controlled E11.9 [facility] [address] [facility]] [id number] [address] [place] [phone] Oct, Diabetes type 2, controlled E11.9 [facility] [id number] [place] [id number] Oct, Dental caries K02.9 and Yazoo al examination Z01.20 [facility] [address] [facility]] [id number] [address] [place] [phone] September, [facility] [address] [facility] 3] [id number] [address] [place] [address] Aug, Diabetes type 2, controlled E11.9 ; Mood disorder F39 ; Arthritis M19.90 and Family history of rheumatoid arthritis Z82.61 [facility] [address] [facility]] [id number] [address] [place] [phone] 15 Jul, 2017 Infection of both inner ears H83.03 and Dizziness R42 [facility] [address] [facility]] [id number] [address] [place] [phone] Jul, [facility] [address] [facility]] [id number] [address] [place] [address] Jul, Diabetes type 2, controlled E11.9 [facility] [address] [id number] [address] [place] [address] [id number] Jul, 2017 Dental examination Z01.20 [facility] [address] [id number] [address] [place] [phone] May, Diabetes type 2, controlled E11.9 [facility] [address] [id number] [address] [place] [address] May, [facility] [address] [id number] [address] [place] [phone] May, Dental examination Z01.20 [facility] [address] [id number] [address] [place] [phone] May, [facility] [address] [id number] [address] [place] [phone] May, [facility] [address] [id number] [address] [place] [phone] May, Diabetes type 2, controlled E11.9 [facility] [address] [id number] [address] [place] [id number] Apr, [facility] [address] [id number] [address] [place] [phone] Apr, Mood disorder F39 [facility] [address] [id number] [address] [place] [phone] Mar, [facility] [address] [id number] [address] [place] [phone] Mar, Diabetes type 2, controlled E11.9 and Encounter for immunization Z23 [facility] [address] [id number] [address] [place] [phone] Jan, Mood disorder F39 [facility] [address] [id number] [address] [place] [phone] Jan, Type 2 diabetes mellitus wit hout complications E11.9 [facility] [address] [id number] [address] [place] [id number] Nov, [facility] [address] [id number] [address] [place] [phone] Nov, Type 2 diabetes mellitus wit hout complications E11.9 ; Mood disorder F39 and ASIYA (obstructive sleep apnea) G47.33 [facility] [address] [facility] 3] [id number] [address] [place] [phone] September, Diabetes type 2, controlled E11.9 [facility] [address] [facility] 3] [id number] [address] [place] [phone] September, [facility] [address] [id number] [address] [place] [phone] Aug, Diabetes type 2, controlled E11.9 [facility] [address] [facility] 3] [id number] [address] [place] [phone] Jul, [facility] [address] [facility]] [id number] [address] [place] [phone] Jul, Type 2 diabetes mellitus wit hout complications E11.9 and custodial 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.4 [facility] [address] [facility] 3] [id number] [address] [place] [phone] Jul, Diabetes type 2, controlled E11.9 [facility] [address] [facility]] [id number] [address] [place] [phone] Jul, [facility] [address] [facility]] [id number] [address] [place] [phone] May, [facility] [address] [facility]] [id number] [address] [place] [phone] Apr, Diabetes type 2, controlled E11.9 [facility] [address] [facility]] [id number] [address] [place] [phone] Feb, 2016 Erectile dysfunction, unspec ified erectile dysfunction type N52.9 ; Type 2 diabetes mellitus with diabetic neuropathy, unspecified E11.40 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 [facility] [address] [facility]] [id number] [address] [place] [phone] Jan, Impacted cerumen of both ear s H61.23 [facility] [address] [id number] [address] [place] [phone] Oct, Type 2 diabetes mellitus wit hout complications E11.9 [facility] [address] [id number] [address] [place] [phone] Oct, [facility] [address] [facility]] [id number] [address] [place] [phone] September, Type 2 diabetes mellitus wit hout complications E11.9 [facility] [address] [id number] [address] [place] [id number] Jul, Type 2 diabetes mellitus wit hout complications E11.9 ; Lumbar pain M54.5 and Tobacco abuse Z72.0 [facility] [address] [facility]] [id number] [address] [place] [phone] May, [facility] [address] [id number] [address] [place] [id number] May, [facility] [address] [facility]] [id number] [address] [place] [phone] Apr, [facility] [address] [facility]] [id number] [address] [place] [phone] Mar, [facility] [address] [facility]] [id number] [address] [place] [id number] Mar, Type 2 diabetes mellitus wit hout complications E11.9 [facility] [address] [id number] [address] [place] [id number] Mar, [facility] [address] [facility]] [id number] [address] [place] [phone] Feb, Type 2 diabetes mellitus wit hout complications E11.9 ; Neuropathy, diabetic E11.40 and Sleep apnea G47.30 [facility] [address] [id number] [address] [place] [phone] Feb, [facility] [address] [facility]] [id number] [address] [place] [address] Jan, Skin infection, bacterial 68 6.9 [facility] [address] [id number] [address] [place] [address] Jan, [facility] [address] [id number] [address] [place] [phone] Dec, Diabetes mellitus type 2, un complicated 250.00 [facility] [address] [id number] [address] [place] [phone] Dec, [facility] [address] [id number] [address] [place] [id number] Nov, [facility] [address] [id number] [address] [place] [address] Nov, Diabetes mellitus type 2, un complicated 250.00 and Obesity 278.00 [facility] [address] [id number] [address] [place] [id number] Oct, [facility] [address] [id number] [address] [place] [phone] Oct, [facility] [address] [id number] [address] [place] [phone] Aug, [facility] [address] [id number] [address] [place] [id number] Aug, [facility] [address] [id number] [address] [place] [phone] Jul, [facility] [address] [id number] [address] [place] [phone] Jul, [facility] [address] [id number] [address] [place] [phone] Jul, [facility] [address] [id number] [address] [place] [id number] Jul, [facility] [address] [id number] [address] [place] [phone] Jul, [facility] [address] [id number] [address] [place] [address], [place] [id number] Jul, [facility] [address] [id number] [address] [place] [address], [place] [address] Feb, [facility] [address] [id number] [address] [place] [address], [place] [address] Feb, [facility] [address] [id number] [address] [place] [address], [place] [address] Dec, [facility] [address] [id number] [address] [place] [address], [place] [address] Nov, [facility] [address] [id number] [address] [place] [address], [place] [address] Nov, [facility] [address] [id number] [address] [place] [address], [place] [address] Nov, [facility] [address] [id number] [address] [place] [address], [place] [address] Nov, [facility] [address] [id number] [address] [place] [address], [place] [address] Nov, [facility] [address] [id number] [address] [place] [address], [place] [address] September, [facility] [address] [id number] [address] [place] [address], [place] [address] September, [facility] [address] [id number] [address] [place] [address], [place] [address] Aug, [facility] [address] [id number] [address] [place] [address], [place] [address] Aug, [facility] [address] [id number] [address] [place] [address], [place] [address] Aug, [facility] [address] [id number] [address] [place] [address], [place] [address] Aug, [facility] [address] [id number] [address] [place] [address], [place] [address] Jul, [facility] [address] [id number] [address] [place] [address], [place] [address] Jul, [facility] [address] [id number] [address] [place] [address], [place] [address] Apr, [facility] [address] [id number] [address] [place] [address], [place] [address] Apr, [facility] [address] [id number] [address] [place] [address], [place] [address] Mar, [facility] [address] [id number] [address] [place] [address], [place] [address] Mar, [facility] [address] [id number] [address] [place] [address], [place] [address] Jan, [facility] [address] [id number] [address] [place] [address], [place] [address] Jan, [facility] [address] [id number] [address] [place] [address], [place] [address] Dec, [facility] [address] [id number] [address] [place] [address], [place] [address] Nov, [facility] [address] [id number] [address] [place] [address], [place] [address] Nov, [facility] [address] [id number] [address] [place] [address], [place] [address] Nov, [facility] [address] [id number] [address] [place] [address], [place] [address] Oct, [facility] [address] [id number] [address] [place] [address], [place] [address] Oct, [facility] [address] [id number] [address] [place] [address], [place] [address] Oct, [facility] [address] [id number] [address] [place] [address], [place] [address] September, [facility] [address] [id number] [address] [place] [address], [place] [address] September, [facility] [address] [id number] [address] [place] [address], [place] [address] Aug, [facility] [address] [id number] [address] [place] [address], [place] [address] Aug, [facility] [address] [id number] [address] [place] [address], [place] [address] Aug, [facility] [address] [id number] [address] [place] [address], [place] [address] Aug, [facility] [address] [id number] [address] [place] [address], [place] [address] Jul, [facility] [address] [id number] [address] [place] [address], [place] [address] Jul, [facility] [address] [id number] [address] [place] [address], [place] [address] Jul, [facility] [address] [id number] [address] [place] [address], [place] [address] Jul, [facility] [address] [id number] [address] [place] [address], [place] [address] May, [facility] [address] [id number] [address] [place] [address], [place] [address] May, [facility] [address] [id number] [address] [place] [address], [place] [address] May, [facility] [address] [id number] [address] [place] [address], [place] [address] May, [facility] [address] [id number] [address] [place] [address], [place] [address] 14 May, 2012 [facility] [address] [id number] [address] [place] [address], [place] [address] 11 May, 2012 [facility] [address] [id number] [address] [place] [address], [place] [address] May, [facility] [address] [id number] [address] [place] [address], [place] [address] May, [facility] [address] [id number] [address] [place] [address], [place] [address] May, [facility] [address] [id number] [address] [place] [address], [place] [address] May, [facility] [address] [id number] [address] [place] [address], [place] [address] Apr, [facility] [address] [id number] [address] [place] [address], [place] [address] Apr, [facility] [address] [id number] [address] [place] [address], [place] [address] Apr, [facility] [address] [id number] [address] [place] [address], [place] [id number] Apr, [facility] [address] [id number] [address] [place] [address], [place] [id number] Mar, [facility] [address] [id number] [address] [place] [address], [place] [address] Mar, [facility] [address] [id number] [address] [place] [id number] Feb, [facility] [address] [id number] [address] [place] [id number] Feb, [facility] [address] [id number] [address] [place] [id number] Feb, [facility] [address] [id number] [address] [place] [address], [place] [id number] Feb, [facility] [address] [id number] [address] [place] [address], [place] [id number] Jan, [facility] [address] [id number] [address] [place] [id number] Dec, [facility] [address] [id number] [address] [place] [id number] Oct, [facility] [address] [id number] [address] [place] [address], [place] [id number] September, [facility] [address] [id number] [address] [place] [address], [place] [id number] September, [facility] [address] [id number] [address] [place] [address], [place] [id number] Jul, [facility] [address] [id number] [address] [place] [address], [place] [id number] Jul, [facility] [address] [id number] [address] [place] [address], [place] [id number] Jul, [facility] [address] [id number] [address] [place] [address], [place] [id number] Jul, [facility] [address] [id number] [address] [place] [address], [place] [id number] 16 Jul, 2011 [facility] [address] [id number] [address] [place] [address], [place] [id number] May, [facility] [address] [id number] [address] [place] [address], [place] [id number] Apr, [facility] [address] [id number] [address] [place] [address], [place] [address] Apr, [facility] [address] [id number] [address] [place] [address], [place] [id number] Apr, [facility] [address] [id number] [address] [place] [address], [place] [id number] 08 Apr, 2011 [facility] [address] [id number] [address] [place] [address], [place] [id number] Mar, [facility] [address] [id number] [address] [place] [address], [place] [id number] 16 Mar, 2011 [facility] [address] [id number] [address] [place] [address], [place] [id number] 15 Mar, 2011 [facility] [address] [id number] [address] [place] [address], [place] [address] Mar, [facility] [address] [id number] [address] [place] [address], [place] [address] Feb, [facility] [address] [id number] [address] [place] [address], [place] [id number] Dec, [facility] [address] [id number] [address] [place] [address], [place] [id number] September, [facility] [address] [id number] [address] [place] [address], [place] [id number] Aug, [facility] [address] [id number] [address] [place] [address], [place] [id number] May, [facility] [address] [id number] [address] [place] [address], [place] [id number] May, [facility] [address] [id number] [address] [place] [address], [place] [id number] Apr, [facility] [address] [id number] [address] [place] [address], [place] [id number] Apr, [facility] [address] [id number] [address] [place] [address], [place] [id number] Apr, [facility] [address] [id number] [address] [place] [address], [place] [id number] 24 Mar, 2010 [facility] [address] [id number] [address] [place] [address], [place] [id number] Mar, [facility] [address] [id number] [address] [place] [address], [place] [id number] Mar, [facility] [address] [id number] [address] [place] [address], [place] [id number] Nov, [facility] [address] [id number] [address] [place] [address], [place] [id number] 15 Oct, 2009 [facility] [address] [id number] [address] [place] [id number] September, [facility] [address] [facility]NOTE [facility]] [id number] [address] [place] [id number] Dec, [facility] [address] [facility]] [id number] [address] [place] [id number] Jul, [facility] [address] [facility]NOTE [facility]] [id number] [address] [place] [id number] Jul, IMMUNIZATIONS No Known Immunizations SOCIAL HISTORY Never Assessed REASON FOR VISIT [facility] [place] [...]
--- OUTSIDE RECORDS SUMMARY | 2019-11-14 23:14 | XMS REPORT ---
Author Author Jerman Tarango Doctor Organization [facility] Address Unknown Phone Unavailable Care Team Providers Care Wireless Team Member Name Role Phone Migration, Doctor Unavailable Unavailable PROBLEMS Type Condition ICD9-CM Code [id number] Code Onset Dates Condition S tatus SNOMED Code Problem Diabetes type 2, controlled E11.9 Ac tive 73382882 Problem Type 2 diabetes mellitus without complications E11 .9 Active 973020236 Problem care home 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.4 Active 256074914 Problem Arthritis M19.90 Active 8151546 Problem Neuropathy, diabetic E11.40 Active 322813991 Problem Essential hypertension I10 Active 21277451 Problem Type 2 diabetes mellitus with diabetic neuropathy, uns pecified E11.40 Active 79507129 Problem Erectile dysfunction, unspecified erectile dysfunction typ e N52.9 Active 906663656 Problem Mood disorder F39 Active 057025 05 Problem ASIYA (obstructive sleep apnea) G47.33 Active 95761287 ALLERGIES No Information ENCOUNTERS Encounter Location Date Diagnosis [facility] [address] [facility] [id number] [address] [place] [phone] Aug, [facility] [address] [facility] [id number] [address] [place] [address] Aug, BMI 40.0-44.9, adult Z68.41 [facility] [address] [facility] [id number] [address] [place] [phone] Jul, [facility] [address] [facility] [id number] [address] [place] [phone] Jul, [facility] [address] [place] [id number] [address] [place] [id number] Jul, BMI 40.0-44.9, adult Z68.41 [facility] [address] [facility] [id number] [address] [place] [phone] Jul, BMI 40.0-44.9, adult Z68.41 [facility] [address] [id number] [address] [place] [id number] May, [facility] [address] [id number] [address] [place] [phone] May, [facility] [address] [facility] [id number] [address] [place] [id number] Apr, BMI 40.0-44.9, adult Z68.41 ; Type 2 diabetes mellitus without complications E11.9 and Arthritis M19.90 [facility] [address] [id number] [address] [place] [id number] Mar, [facility] [address] [id number] [address] [place] [phone] Mar, [facility] [address] [facility] [id number] [address] [place] [phone] Mar, Type 2 diabetes mellitus wit hout complications E11.9 [facility] [address] [id number] [address] [place] [phone] Feb, BMI 40.0-44.9, adult Z68.41 and Diabetes type 2, controlled E11.9 [facility] [address] [facility] [id number] [address] [place] [phone] Feb, [facility] [address] [facility] [id number] [address] [place] [id number] Feb, [facility] [address] [facility] [id number] [address] [place] [phone] Feb, Diabetes type 2, controlled E11.9 [facility] [address] [id number] [address] [place] [phone] Jan, [facility] [address] [facility] [id number] [address] [place] [phone] Jan, [facility] [address] [facility] [id number] [address] [place] [address] Jan, Allergic reaction to drug, i nitial encounter T78.40XA ; Uncontrolled type 2 diabetes mellitus with hyperglycemia E11.65 and Essential hypertension I10 [facility] [address] [facility] [id number] [address] [place] [id number] 07 Jan, 2018 Type 2 diabetes mellitus wit hout complications E11.9 ; Diabetes type 2, controlled E11.9 and Arthritis M19.90 [facility] [address] [facility] [id number] [address] [place] [phone] Dec, Diabetes type 2, controlled E11.9 [facility] [address] [facility] [id number] [address] [place] [phone] Dec, [facility] [address] [facility] [id number] [address] [place] [phone] Dec, Diabetes type 2, controlled E11.9 [facility] [address] [facility] [id number] [address] [place] [phone] Oct, Diabetes type 2, controlled E11.9 [facility] [id number] [place] [id number] Oct, Dental caries K02.9 and [place] al examination Z01.20 [facility] [address] [facility] [id number] [address] [place] [phone] September, [facility] [address] [facility] [id number] [address] [place] [phone] Aug, Diabetes type 2, controlled E11.9 ; Mood disorder F39 ; Arthritis M19.90 and Family history of rheumatoid arthritis Z82.61 [facility] [address] [facility] [id number] [address] [place] [id number] 15 Jul, 2017 Infection of both inner ears H83.03 and Dizziness R42 [facility] [address] [facility] [id number] [address] [place] [phone] Jul, [facility] [address] [facility] [id number] [address] [place] [id number] Jul, Diabetes type 2, controlled E11.9 [facility] [address] [place] [id number] [address] [place] [address] [id number] Jul, 2017 Dental examination Z01.20 [facility] [address] [id number] [address] [place] [id number] May, Diabetes type 2, controlled E11.9 [facility] [address] [id number] [address] [place] [id number] May, [facility] [address] [id number] [address] [place] [address] [id number] May, Dental examination Z01.20 [facility] [address] [id number] [address] [place] [phone] May, [facility] [address] [id number] [address] [place] [phone] May, [facility] [address] [id number] [address] [place] [id number] May, Diabetes type 2, controlled E11.9 [facility] [address] [id number] [address] [place] [phone] Apr, [facility] [address] [id number] [address] [place] [id number] Apr, Mood disorder F39 [facility] [address] [id number] [address] [place] [id number] Mar, [facility] [address] [id number] [address] [place] [id number] Mar, Diabetes type 2, controlled E11.9 and Encounter for immunization Z23 [facility] [address] [id number] [address] [place] [id number] Jan, Mood disorder F39 [facility] [address] [id number] [address] [place] [phone] Jan, Type 2 diabetes mellitus wit hout complications E11.9 [facility] [address] [id number] [address] [place] [phone] Nov, [facility] [address] [id number] [address] [place] [phone] Nov, Type 2 diabetes mellitus wit hout complications E11.9 ; Mood disorder F39 and ASIYA (obstructive sleep apnea) G47.33 [facility] [address] [facility] [id number] [address] [place] [id number] September, Diabetes type 2, controlled E11.9 [facility] [address] [facility] [id number] [address] [place] [phone] September, [facility] [address] [id number] [address] [place] [id number] Aug, Diabetes type 2, controlled E11.9 [facility] [address] [facility] [id number] [address] [place] [id number] Jul, [facility] [address] [facility] [id number] [address] [place] [id number] Jul, Type 2 diabetes mellitus wit hout complications E11.9 and care home 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.4 [facility] [address] [facility] [id number] [address] [place] [id number] Jul, Diabetes type 2, controlled E11.9 [facility] [address] [facility] [id number] [address] [place] [id number] Jul, [facility] [address] [facility] [id number] [address] [place] [phone] May, [facility] [address] [facility] [id number] [address] [place] [id number] Apr, Diabetes type 2, controlled E11.9 [facility] [address] [facility] [id number] [address] [place] [id number] Feb, 2016 Erectile dysfunction, unspec ified erectile dysfunction type N52.9 ; Type 2 diabetes mellitus with diabetic neuropathy, unspecified E11.40 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 [facility] [address] [facility] [id number] [address] [place] [phone] Jan, Impacted cerumen of both ear s H61.23 [facility] [address] [id number] [address] [place] [id number] Oct, Type 2 diabetes mellitus wit hout complications E11.9 [facility] [address] [id number] [address] [place] [id number] Oct, [facility] [address] [facility] [id number] [address] [place] [id number] September, Type 2 diabetes mellitus wit hout complications E11.9 [facility] [address] [id number] [address] [place] [phone] Jul, Type 2 diabetes mellitus wit hout complications E11.9 ; Lumbar pain M54.5 and Tobacco abuse Z72.0 [facility] [address] [facility] [id number] [address] [place] [phone] May, [facility] [address] [id number] [address] [place] [id number] May, [facility] [address] [facility] [id number] [address] [place] [phone] Apr, [facility] [address] [facility] [id number] [address] [place] [id number] Mar, [facility] [address] [facility] [id number] [address] [place] [id number] Mar, Type 2 diabetes mellitus wit hout complications E11.9 [facility] [address] [id number] [address] [place] [phone] Mar, [facility] [address] [facility] [id number] [address] [place] [id number] Feb, Type 2 diabetes mellitus wit hout complications E11.9 ; Neuropathy, diabetic E11.40 and Sleep apnea G47.30 [facility] [address] [id number] [address] [place] [id number] Feb, [facility] [address] [facility] [id number] [address] [place] [id number] Jan, Skin infection, bacterial 68 6.9 [facility] [address] [id number] [address] [place] [id number] Jan, [facility] [address] [id number] [address] [place] [id number] Dec, Diabetes mellitus type 2, un complicated 250.00 [facility] [address] [id number] [address] [place] [id number] Dec, [facility] [address] [id number] [address] [place] [id number] Nov, [facility] [address] [id number] [address] [place] [id number] Nov, Diabetes mellitus type 2, un complicated 250.00 and Obesity 278.00 [facility] [address] [id number] [address] [place] [id number] Oct, [facility] [address] [id number] [address] [place] [phone] Oct, [facility] [address] [id number] [address] [place] [phone] Aug, [facility] [address] [id number] [address] [place] [phone] Aug, [facility] [address] [id number] [address] [place] [id number] Jul, [facility] [address] [id number] [address] [place] [phone] Jul, [facility] [address] [id number] [address] [place] [phone] Jul, [facility] [address] [id number] [address] [place] [phone] Jul, [facility] [address] [id number] [address] [place] [phone] Jul, [facility] [address] [id number] [address] [place] [address], [place] [address] Jul, [facility] [address] [id number] [address] [place] [address], [place] [address] Feb, [facility] [address] [id number] [address] [place] [address], [place] [address] Feb, [facility] [address] [id number] [address] [place] [address], [place] [address] Dec, [facility] [address] [id number] [address] [place] [address], [place] [address] Nov, [facility] [address] [id number] [address] [place] [address], [place] [address] Nov, [facility] [address] [id number] [address] [place] [address], [place] [address] Nov, [facility] [address] [id number] [address] [place] [address], [place] [address] Nov, [facility] [address] [id number] [address] [place] [address], [place] [address] Nov, [facility] [address] [id number] [address] [place] [address], [place] [address] September, [facility] [address] [id number] [address] [place] [address], [place] [address] September, [facility] [address] [id number] [address] [place] [address], [place] [address] Aug, [facility] [address] [id number] [address] [place] [address], [place] [address] Aug, [facility] [address] [id number] [address] [place] [address], [place] [address] Aug, [facility] [address] [id number] [address] [place] [address], [place] [address] Aug, [facility] [address] [id number] [address] [place] [address], [place] [address] Jul, [facility] [address] [id number] [address] [place] [address], [place] [address] Jul, [facility] [address] [id number] [address] [place] [address], [place] [address] Apr, [facility] [address] [id number] [address] [place] [address], [place] [address] Apr, [facility] [address] [id number] [address] [place] [address], [place] [address] Mar, [facility] [address] [id number] [address] [place] [address], [place] [address] Mar, [facility] [address] [id number] [address] [place] [address], [place] [address] Jan, [facility] [address] [id number] [address] [place] [address], [place] [address] Jan, [facility] [address] [id number] [address] [place] [address], [place] [address] Dec, [facility] [address] [id number] [address] [place] [address], [place] [address] Nov, [facility] [address] [id number] [address] [place] [address], [place] [address] Nov, [facility] [address] [id number] [address] [place] [address], [place] [address] Nov, [facility] [address] [id number] [address] [place] [address], [place] [address] Oct, [facility] [address] [id number] [address] [place] [address], [place] [address] Oct, [facility] [address] [id number] [address] [place] [address], [place] [address] Oct, [facility] [address] [id number] [address] [place] [address], [place] [address] September, [facility] [address] [id number] [address] [place] [address], [place] [address] September, [facility] [address] [id number] [address] [place] [address], [place] [address] Aug, [facility] [address] [id number] [address] [place] [address], [place] [address] Aug, [facility] [address] [id number] [address] [place] [address], [place] [address] Aug, [facility] [address] [id number] [address] [place] [address], [place] [address] Aug, [facility] [address] [id number] [address] [place] [address], [place] [address] Jul, [facility] [address] [id number] [address] [place] [address], [place] [address] Jul, [facility] [address] [id number] [address] [place] [address], [place] [address] Jul, [facility] [address] [id number] [address] [place] [address], [place] [address] Jul, [facility] [address] [id number] [address] [place] [address], [place] [address] May, [facility] [address] [id number] [address] [place] [address], [place] [address] May, [facility] [address] [id number] [address] [place] [address], [place] [address] May, [facility] [address] [id number] [address] [place] [address], [place] [address] May, [facility] [address] [id number] [address] [place] [address], [place] [address] 14 May, 2012 [facility] [address] [id number] [address] [place] [address], [place] [address] 11 May, 2012 [facility] [address] [id number] [address] [place] [address], [place] [address] May, [facility] [address] [id number] [address] [place] [address], [place] [address] May, [facility] [address] [id number] [address] [place] [address], [place] [address] May, [facility] [address] [id number] [address] [place] [address], [place] [address] May, [facility] [address] [id number] [address] [place] [address], [place] [address] Apr, [facility] [address] [id number] [address] [place] [address], [place] [address] Apr, [facility] [address] [id number] [address] [place] [address], [place] [address] Apr, [facility] [address] [id number] [address] [place] [address], [place] [address] Apr, [facility] [address] [id number] [address] [place] [address], [place] [address] Mar, [facility] [address] [id number] [address] [place] [address], [place] [address] Mar, [facility] [address] [id number] [address] [place] [address] Feb, [facility] [address] [id number] [address] [place] [id number] Feb, [facility] [address] [id number] [address] [place] [id number] Feb, [facility] [address] [id number] [address] [place] [address], [place] [address] Feb, [facility] [address] [id number] [address] [place] [address], [place] [address] Jan, [facility] [address] [id number] [address] [place] [id number] Dec, [facility] [address] [id number] [address] [place] [id number] Oct, [facility] [address] [id number] [address] [place] [address], [place] [address] September, [facility] [address] [id number] [address] [place] [address], [place] [address] September, [facility] [address] [id number] [address] [place] [address], [place] [address] Jul, [facility] [address] [id number] [address] [place] [address], [place] [address] Jul, [facility] [address] [id number] [address] [place] [address], [place] [address] Jul, [facility] [address] [id number] [address] [place] [address], [place] [address] Jul, [facility] [address] [id number] [address] [place] [address], [place] [address] 16 Jul, 2011 [facility] [address] [id number] [address] [place] [address], [place] [address] May, [facility] [address] [id number] [address] [place] [address], [place] [address] Apr, [facility] [address] [id number] [address] [place] [address], [place] [address] Apr, [facility] [address] [id number] [address] [place] [address], [place] [address] Apr, [facility] [address] [id number] [address] [place] [address], [place] [address] 08 Apr, 2011 [facility] [address] [id number] [address] [place] [address], [place] [address] Mar, [facility] [address] [id number] [address] [place] [address], [place] [address] 16 Mar, 2011 [facility] [address] [id number] [address] [place] [address], [place] [address] 15 Mar, 2011 [facility] [address] [id number] [address] [place] [address], [place] [address] Mar, [facility] [address] [id number] [address] [place] [address], [place] [address] Feb, [facility] [address] [id number] [address] [place] [address], [place] [address] Dec, [facility] [address] [id number] [address] [place] [address], [place] [address] September, [facility] [address] [id number] [address] [place] [address], [place] [address] Aug, [facility] [address] [id number] [address] [place] [address], [place] [address] May, [facility] [address] [id number] [address] [place] [address], [place] [address] May, [facility] [address] [id number] [address] [place] [address], [place] [address] Apr, [facility] [address] [id number] [address] [place] [address], [place] [address] Apr, [facility] [address] [id number] [address] [place] [address], [place] [address] Apr, [facility] [address] [id number] [address] [place] [address], [place] [address] 24 Mar, 2010 [facility] [address] [id number] [address] [place] [address], [place] [address] Mar, [facility] [address] [id number] [address] [place] [address], [place] [address] Mar, [facility] [address] [id number] [address] [place] [address], [place] [address] Nov, [facility] [address] [id number] [address] [place] [address], [place] [address] 15 Oct, 2009 [facility] [address] [id number] [address] [place] [id number] September, [facility] [address] [facility] [id number] [address] [place] [id number] Dec, [facility] [address] [facility] [id number] [address] [place] [id number] Jul, [facility] [address] [facility] [id number] [address] [place] [id number] Jul, IMMUNIZATIONS No Known Immunizations SOCIAL HISTORY Never Assessed REASON FOR VISIT [facility] PLAN OF CARE VITAL SIGNS MEDICATIONS Unknown [...]
--- OUTSIDE RECORDS SUMMARY | 2019-11-14 23:14 | XMS REPORT ---
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 Name Role Phone Migration, Doctor Unavailable Unavailable PROBLEMS Type Condition ICD9-CM Code DVS96-SM Code Onset Dates Condition S tatus SNOMED Code Problem Diabetes type 2, controlled E11.9 Ac tive 35047909 Problem Type 2 diabetes mellitus without complications E11 .9 Active 671121552 Problem halfway 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.4 Active 947325202 Problem Arthritis M19.90 Active 8885992 Problem Neuropathy, diabetic E11.40 Active 224262443 Problem Essential hypertension I10 Active 06282209 Problem Type 2 diabetes mellitus with diabetic neuropathy, uns pecified E11.40 Active 94235230 Problem Erectile dysfunction, unspecified erectile dysfunction typ e N52.9 Active 278795188 Problem Mood disorder F39 Active 553626 05 Problem ASIYA (obstructive sleep apnea) G47.33 Active 41852540 ALLERGIES No Information ENCOUNTERS Encounter Location Date Diagnosis [facility] [address] [facility] [id number] [address] [place] [phone] Aug, [facility] [address] [facility] [id number] [address] [place] [address] Aug, BMI 40.0-44.9, adult Z68.41 [facility] [address] [facility] [id number] [address] [place] [address] Jul, [facility] [address] [facility] [id number] [address] [place] [address] Jul, [facility] [address] [place] [id number] [address] [place] [address] Jul, BMI 40.0-44.9, adult Z68.41 [facility] [address] [facility] [id number] [address] [place] [address] Jul, BMI 40.0-44.9, adult Z68.41 [facility] [address] [id number] [address] [place] [address] May, [facility] [address] [id number] [address] [place] [address] May, [facility] [address] [facility] [id number] [address] [place] [address] Apr, BMI 40.0-44.9, adult Z68.41 ; Type 2 diabetes mellitus without complications E11.9 and Arthritis M19.90 [facility] [address] [id number] [address] [place] [address] Mar, [facility] [address] [id number] [address] [place] [address] Mar, [facility] [address] [facility] [id number] [address] [place] [address] Mar, Type 2 diabetes mellitus wit hout complications E11.9 [facility] [address] [id number] [address] [place] [address] Feb, BMI 40.0-44.9, adult Z68.41 and Diabetes type 2, controlled E11.9 [facility] [address] [facility] [id number] [address] [place] [address] Feb, [facility] [address] [facility] [id number] [address] [place] [phone] Feb, [facility] [address] [facility] [id number] [address] [place] [address] Feb, Diabetes type 2, controlled E11.9 [facility] [address] [id number] [address] [place] [address] Jan, [facility] [address] [facility] [id number] [address] [place] [address] Jan, [facility] [address] [facility] [id number] [address] [place] [address] Jan, Allergic reaction to drug, i nitial encounter T78.40XA ; Uncontrolled type 2 diabetes mellitus with hyperglycemia E11.65 and Essential hypertension I10 [facility] [address] [facility] [id number] [address] [place] [phone] 07 Jan, 2018 Type 2 diabetes mellitus wit hout complications E11.9 ; Diabetes type 2, controlled E11.9 and Arthritis M19.90 [facility] [address] [facility] [id number] [address] [place] [address] Dec, Diabetes type 2, controlled E11.9 [facility] [address] [facility] [id number] [address] [place] [address] Dec, [facility] [address] [facility] [id number] [address] [place] [address] Dec, Diabetes type 2, controlled E11.9 [facility] [address] [facility] [id number] [address] [place] [address] Oct, Diabetes type 2, controlled E11.9 [facility] [id number] [place] [id number] Oct, Dental caries K02.9 and Gray al examination Z01.20 [facility] [address] [facility] [id number] [address] [place] [address] September, [facility] [address] [facility] [id number] [address] [place] [address] Aug, Diabetes type 2, controlled E11.9 ; Mood disorder F39 ; Arthritis M19.90 and Family history of rheumatoid arthritis Z82.61 [facility] [address] [facility] [id number] [address] [place] [address] 15 Jul, 2017 Infection of both inner ears H83.03 and Dizziness R42 [facility] [address] [facility] [id number] [address] [place] [address] Jul, [facility] [address] [facility] [id number] [address] [place] [address] Jul, Diabetes type 2, controlled E11.9 [facility] [address] [place] [id number] [address] [place] [id number] Jul, 2017 Dental examination Z01.20 [facility] [address] [id number] [address] [place] [address] May, Diabetes type 2, controlled E11.9 [facility] [address] [id number] [address] [place] [address] May, [facility] [address] [id number] [address] [place] [id number] May, Dental examination Z01.20 [facility] [address] [id number] [address] [place] [address] May, [facility] [address] [id number] [address] [place] [address] May, [facility] [address] [id number] [address] [place] [address] May, Diabetes type 2, controlled E11.9 [facility] [address] [id number] [address] [place] [address] Apr, [facility] [address] [id number] [address] [place] [address] Apr, Mood disorder F39 [facility] [address] [id number] [address] [place] [address] Mar, [facility] [address] [id number] [address] [place] [address] Mar, Diabetes type 2, controlled E11.9 and Encounter for immunization Z23 [facility] [address] [id number] [address] [place] [address] Jan, Mood disorder F39 [facility] [address] [id number] [address] [place] [address] Jan, Type 2 diabetes mellitus wit hout complications E11.9 [facility] [address] [id number] [address] [place] [address] Nov, [facility] [address] [id number] [address] [place] [address] Nov, Type 2 diabetes mellitus wit hout complications E11.9 ; Mood disorder F39 and ASIYA (obstructive sleep apnea) G47.33 [facility] [address] [facility] [id number] [address] [place] [address] September, Diabetes type 2, controlled E11.9 [facility] [address] [facility] [id number] [address] [place] [address] September, [facility] [address] [id number] [address] [place] [address] Aug, Diabetes type 2, controlled E11.9 [facility] [address] [facility] [id number] [address] [place] [address] Jul, [facility] [address] [facility] [id number] [address] [place] [address] Jul, Type 2 diabetes mellitus wit hout complications E11.9 and halfway 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.4 [facility] [address] [facility] [id number] [address] [place] [address] Jul, Diabetes type 2, controlled E11.9 [facility] [address] [facility] [id number] [address] [place] [address] Jul, [facility] [address] [facility] [id number] [address] [place] [address] May, [facility] [address] [facility] [id number] [address] [place] [address] Apr, Diabetes type 2, controlled E11.9 [facility] [address] [facility] [id number] [address] [place] [address] Feb, 2016 Erectile dysfunction, unspec ified erectile dysfunction type N52.9 ; Type 2 diabetes mellitus with diabetic neuropathy, unspecified E11.40 and 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.4 [facility] [address] [facility] [id number] [address] [place] [address] Jan, Impacted cerumen of both ear s H61.23 [facility] [address] [id number] [address] [place] [address] Oct, Type 2 diabetes mellitus wit hout complications E11.9 [facility] [address] [id number] [address] [place] [address] Oct, [facility] [address] [facility] [id number] [address] [place] [address] September, Type 2 diabetes mellitus wit hout complications E11.9 [facility] [address] [id number] [address] [place] [address] Jul, Type 2 diabetes mellitus wit hout complications E11.9 ; Lumbar pain M54.5 and Tobacco abuse Z72.0 [facility] [address] [facility] [id number] [address] [place] [address] May, [facility] [address] [id number] [address] [place] [address] May, [facility] [address] [facility] [id number] [address] [place] [address] Apr, [facility] [address] [facility] [id number] [address] [place] [address] Mar, [facility] [address] [facility] [id number] [address] [place] [address] Mar, Type 2 diabetes mellitus wit hout complications E11.9 [facility] [address] [id number] [address] [place] [address] Mar, [facility] [address] [facility] [id number] [address] [place] [address] Feb, Type 2 diabetes mellitus wit hout complications E11.9 ; Neuropathy, diabetic E11.40 and Sleep apnea G47.30 [facility] [address] [id number] [address] [place] [address] Feb, [facility] [address] [facility] [id number] [address] [place] [address] Jan, Skin infection, bacterial 68 6.9 [facility] [address] [id number] [address] [place] [address] Jan, [facility] [address] [id number] [address] [place] [address] Dec, Diabetes mellitus type 2, un complicated 250.00 [facility] [address] [id number] [address] [place] [address] Dec, [facility] [address] [id number] [address] [place] [address] Nov, [facility] [address] [id number] [address] [place] [address] Nov, Diabetes mellitus type 2, un complicated 250.00 and Obesity 278.00 [facility] [address] [id number] [address] [place] [address] Oct, [facility] [address] [id number] [address] [place] [address] Oct, [facility] [address] [id number] [address] [place] [address] Aug, [facility] [address] [id number] [address] [place] [address] Aug, [facility] [address] [id number] [address] [place] [address] Jul, [facility] [address] [id number] [address] [place] [address] Jul, [facility] [address] [id number] [address] [place] [address] Jul, [facility] [address] [id number] [address] [place] [address] Jul, [facility] [address] [id number] [address] [place] [address] Jul, [facility] [address] [id number] [address] [place] [address], [place] [address] Jul, [facility] [address] [id number] [address] [place] [address], [place] [address] Feb, [facility] [address] [id number] [address] [place] [address], [place] [address] Feb, [facility] [address] [id number] [address] [place] [address], [place] [address] Dec, [facility] [address] [id number] [address] [place] [address], [place] [address] Nov, [facility] [address] [id number] [address] [place] [address], [place] [address] Nov, [facility] [address] [id number] [address] [place] [address], [place] [address] Nov, [facility] [address] [id number] [address] [place] [address], [place] [address] Nov, [facility] [address] [id number] [address] [place] [address], [place] [address] Nov, [facility] [address] [id number] [address] [place] [address], [place] [address] September, [facility] [address] [id number] [address] [place] [address], [place] [address] September, [facility] [address] [id number] [address] [place] [address], [place] [address] Aug, [facility] [address] [id number] [address] [place] [address], [place] [address] Aug, [facility] [address] [id number] [address] [place] [address], [place] [address] Aug, [facility] [address] [id number] [address] [place] [address], [place] [address] Aug, [facility] [address] [id number] [address] [place] [address], [place] [address] Jul, [facility] [address] [id number] [address] [place] [address], [place] [address] Jul, [facility] [address] [id number] [address] [place] [address], [place] [address] Apr, [facility] [address] [id number] [address] [place] [address], [place] [address] Apr, [facility] [address] [id number] [address] [place] [address], [place] [address] Mar, [facility] [address] [id number] [address] [place] [address], [place] [address] Mar, [facility] [address] [id number] [address] [place] [address], [place] [address] Jan, [facility] [address] [id number] [address] [place] [address], [place] [address] Jan, [facility] [address] [id number] [address] [place] [address], [place] [address] Dec, [facility] [address] [id number] [address] [place] [address], [place] [address] Nov, [facility] [address] [id number] [address] [place] [address], [place] [address] Nov, [facility] [address] [id number] [address] [place] [address], [place] [address] Nov, [facility] [address] [id number] [address] [place] [address], [place] [id number] Oct, [facility] [address] [id number] [address] [place] [address], [place] [address] Oct, [facility] [address] [id number] [address] [place] [address], [place] [address] Oct, [facility] [address] [id number] [address] [place] [address], [place] [address] September, [facility] [address] [id number] [address] [place] [address], [place] [address] September, [facility] [address] [id number] [address] [place] [address], [place] [address] Aug, [facility] [address] [id number] [address] [place] [address], [place] [address] Aug, [facility] [address] [id number] [address] [place] [address], [place] [address] Aug, [facility] [address] [id number] [address] [place] [address], [place] [address] Aug, [facility] [address] [id number] [address] [place] [address], [place] [address] Jul, [facility] [address] [id number] [address] [place] [address], [place] [address] Jul, [facility] [address] [id number] [address] [place] [address], [place] [address] Jul, [facility] [address] [id number] [address] [place] [address], [place] [address] Jul, [facility] [address] [id number] [address] [place] [address], [place] [address] May, [facility] [address] [id number] [address] [place] [address], [place] [address] May, [facility] [address] [id number] [address] [place] [address], [place] [address] May, [facility] [address] [id number] [address] [place] [address], [place] [address] May, [facility] [address] [id number] [address] [place] [address], [place] [address] 14 May, 2012 [facility] [address] [id number] [address] [place] [address], [place] [address] 11 May, 2012 [facility] [address] [id number] [address] [place] [address], [place] [address] May, [facility] [address] [id number] [address] [place] [address], [place] [address] May, [facility] [address] [id number] [address] [place] [address], [place] [address] May, [facility] [address] [id number] [address] [place] [address], [place] [address] May, [facility] [address] [id number] [address] [place] [address], [place] [address] Apr, [facility] [address] [id number] [address] [place] [address], [place] [address] Apr, [facility] [address] [id number] [address] [place] [address], [place] [address] Apr, [facility] [address] [id number] [address] [place] [address], [place] [address] Apr, [facility] [address] [id number] [address] [place] [address], [place] [address] Mar, [facility] [address] [id number] [address] [place] [address], [place] [address] Mar, [facility] [address] [id number] [address] [place] [address] Feb, [facility] [address] [id number] [address] [place] [address] Feb, [facility] [address] [id number] [address] [place] [address] Feb, [facility] [address] [id number] [address] [place] [address], [place] [address] Feb, [facility] [address] [id number] [address] [place] [address], [place] [address] Jan, [facility] [address] [id number] [address] [place] [address] Dec, [facility] [address] [id number] [address] [place] [address] Oct, [facility] [address] [id number] [address] [place] [address], [place] [address] September, [facility] [address] [id number] [address] [place] [address], [place] [address] September, [facility] [address] [id number] [address] [place] [address], [place] [address] Jul, [facility] [address] [id number] [address] [place] [address], [place] [address] Jul, [facility] [address] [id number] [address] [place] [address], [place] [address] Jul, [facility] [address] [id number] [address] [place] [address], [place] [address] Jul, [facility] [address] [id number] [address] [place] [address], [place] [id number] 16 Jul, 2011 [facility] [address] [id number] [address] [place] [address], [place] [id number] May, [facility] [address] [id number] [address] [place] [address], [place] [id number] Apr, [facility] [address] [id number] [address] [place] [address], [place] [id number] Apr, [facility] [address] [id number] [address] [place] [address], [place] [id number] Apr, [facility] [address] [id number] [address] [place] [address], [place] [id number] 08 Apr, 2011 [facility] [address] [id number] [address] [place] [address], [place] [id number] Mar, [facility] [address] [id number] [address] [place] [address], [place] [id number] 16 Mar, 2011 [facility] [address] [id number] [address] [place] [address], [place] [id number] 15 Mar, 2011 [facility] [address] [id number] [address] [place] [address], [place] [id number] Mar, [facility] [address] [id number] [address] [place] [address], [place] [id number] Feb, [facility] [address] [id number] [address] [place] [address], [place] [id number] Dec, [facility] [address] [id number] [address] [place] [address], [place] [id number] September, [facility] [address] [id number] [address] [place] [address], [place] [id number] Aug, [facility] [address] [id number] [address] [place] [address], [place] [id number] May, [facility] [address] [id number] [address] [place] [address], [place] [id number] May, [facility] [address] [id number] [address] [place] [address], [place] [id number] Apr, [facility] [address] [id number] [address] [place] [address], [place] [id number] Apr, [facility] [address] [id number] [address] [place] [address], [place] [id number] Apr, [facility] [address] [id number] [address] [place] [address], [place] [id number] 24 Mar, 2010 [facility] [address] [id number] [address] [place] [address], [place] [id number] Mar, [facility] [address] [id number] [address] [place] [address], [place] [id number] Mar, [facility] [address] [id number] [address] [place] [address], [place] [id number] Nov, [facility] [address] [id number] [address] [place] [address], [place] [id number] 15 Oct, 2009 [facility] [address] [id number] [address] [place] [id number] September, [facility] [address] [facility] [id number] [address] [place] [id number] Dec, [facility] [address] [facility] [id number] [address] [place] [id number] Jul, [facility] [address] [facility] [id number] [address] [place] [id number] Jul, IMMUNIZATIONS No Known Immunizations SOCIAL HISTORY Never Assessed REASON FOR VISIT [facility] [place] VITAL SIGNS MEDICATIONS Unknown [...]
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
--- OUTSIDE RECORDS SUMMARY | 2019-11-14 23:15 | XMS REPORT ---
Author Author Jerman Tarango Doctor Organization [facility] Address Unknown Phone Unavailable Care Team Providers Care Security Officer Name Role Phone Migration, Doctor Unavailable Unavailable PROBLEMS Type Condition ICD9-CM Code [id number] Code Onset Dates Condition S tatus SNOMED Code Problem Diabetes type 2, controlled E11.9 Ac tive 18146580 Problem Type 2 diabetes mellitus without complications E11 .9 Active 773186204 Problem snf 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.4 Active 976439667 Problem Arthritis M19.90 Active 2932685 Problem Neuropathy, diabetic E11.40 Active 280893880 Problem Essential hypertension I10 Active 20665903 Problem Type 2 diabetes mellitus with diabetic neuropathy, uns pecified E11.40 Active 16259053 Problem Erectile dysfunction, unspecified erectile dysfunction typ e N52.9 Active 620330201 Problem Mood disorder F39 Active 054366 05 Problem ASIYA (obstructive sleep apnea) G47.33 Active 86238847 ALLERGIES No Information ENCOUNTERS Encounter Location Date Diagnosis [facility] [address] [facility] [id number] [address] [place] [address] Aug, [facility] [address] [facility] [id number] [address] [place] [address] Aug, BMI 40.0-44.9, adult Z68.41 [facility] [address] [facility] [id number] [address] [place] [address] Jul, [facility] [address] [facility] [id number] [address] [place] [address] Jul, [facility] [address] [place] [id number] [address] [place] [address] Jul, BMI 40.0-44.9, adult Z68.41 [facility] [address] [facility] [id number] [address] [place] [address] Jul, BMI 40.0-44.9, adult Z68.41 [facility] [address] [id number] [address] [place] [address] May, [facility] [address] [id number] [address] [place] [address] May, [facility] [address] [facility] [id number] [address] [place] [address] Apr, BMI 40.0-44.9, adult Z68.41 ; Type 2 diabetes mellitus without complications E11.9 and Arthritis M19.90 [facility] [address] [id number] [address] [place] [address] Mar, [facility] [address] [id number] [address] [place] [address] Mar, [facility] [address] [facility] [id number] [address] [place] [address] Mar, Type 2 diabetes mellitus wit hout complications E11.9 [facility] [address] [id number] [address] [place] [address] Feb, BMI 40.0-44.9, adult Z68.41 and Diabetes type 2, controlled E11.9 [facility] [address] [facility] [id number] [address] [place] [address] Feb, [facility] [address] [facility] [id number] [address] [place] [address] Feb, [facility] [address] [facility] [id number] [address] [place] [address] Feb, Diabetes type 2, controlled E11.9 [facility] [address] [id number] [address] [place] [address] Jan, [facility] [address] [facility] [id number] [address] [place] [address] Jan, [facility] [address] [facility] [id number] [address] [place] [address] Jan, Allergic reaction to drug, i nitial encounter T78.40XA ; Uncontrolled type 2 diabetes mellitus with hyperglycemia E11.65 and Essential hypertension I10 [facility] [address] [facility] [id number] [address] [place] [id number] 07 Jan, 2018 Type 2 diabetes mellitus wit hout complications E11.9 ; Diabetes type 2, controlled E11.9 and Arthritis M19.90 [facility] [address] [facility] [id number] [address] [place] [address] Dec, Diabetes type 2, controlled E11.9 [facility] [address] [facility] [id number] [address] [place] [address] Dec, [facility] [address] [facility] [id number] [address] [place] [address] Dec, Diabetes type 2, controlled E11.9 [facility] [address] [facility] [id number] [address] [place] [address] Oct, Diabetes type 2, controlled E11.9 [facility] [id number] [place] [id number] Oct, Dental caries K02.9 and [place] al examination Z01.20 [facility] [address] [facility] [id number] [address] [place] [address] September, [facility] [address] [facility] [id number] [address] [place] [address] Aug, Diabetes type 2, controlled E11.9 ; Mood disorder F39 ; Arthritis M19.90 and Family history of rheumatoid arthritis Z82.61 [facility] [address] [facility] [id number] [address] [place] [address] 15 Jul, 2017 Infection of both inner ears H83.03 and Dizziness R42 [facility] [address] [facility] [id number] [address] [place] [address] Jul, [facility] [address] [facility] [id number] [address] [place] [address] Jul, Diabetes type 2, controlled E11.9 [facility] [address] [place] [id number] [address] [place] [id number] Jul, 2017 Dental examination Z01.20 [facility] [address] [id number] [address] [place] [address] May, Diabetes type 2, controlled E11.9 [facility] [address] [id number] [address] [place] [address] May, [facility] [address] [id number] [address] [place] [id number] May, Dental examination Z01.20 [facility] [address] [id number] [address] [place] [address] May, [facility] [address] [id number] [address] [place] [address] May, [facility] [address] [id number] [address] [place] [address] May, Diabetes type 2, controlled E11.9 [facility] [address] [id number] [address] [place] [address] Apr, [facility] [address] [id number] [address] [place] [address] Apr, Mood disorder F39 [facility] [address] [id number] [address] [place] [address] Mar, [facility] [address] [id number] [address] [place] [address] Mar, Diabetes type 2, controlled E11.9 and Encounter for immunization Z23 [facility] [address] [id number] [address] [place] [address] Jan, Mood disorder F39 [facility] [address] [id number] [address] [place] [address] Jan, Type 2 diabetes mellitus wit hout complications E11.9 [facility] [address] [id number] [address] [place] [address] Nov, [facility] [address] [id number] [address] [place] [address] Nov, Type 2 diabetes mellitus wit hout complications E11.9 ; Mood disorder F39 and ASIYA (obstructive sleep apnea) G47.33 [facility] [address] [facility] [id number] [address] [place] [address] September, Diabetes type 2, controlled E11.9 [facility] [address] [facility] [id number] [address] [place] [address] September, [facility] [address] [id number] [address] [place] [address] Aug, Diabetes type 2, controlled E11.9 [facility] [address] [facility] [id number] [address] [place] [address] Jul, [facility] [address] [facility] [id number] [address] [place] [address] Jul, Type 2 diabetes mellitus wit hout complications E11.9 and snf 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.4 [facility] [address] [facility] [id number] [address] [place] [address] Jul, Diabetes type 2, controlled E11.9 [facility] [address] [facility] [id number] [address] [place] [phone] Jul, [facility] [address] [facility] [id number] [address] [place] [address] May, [facility] [address] [facility] [id number] [address] [place] [address] Apr, Diabetes type 2, controlled E11.9 [facility] [address] 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 [id number] [address] [place] [address] Jan, Impacted cerumen of both ear s H61.23 [facility] [address] [id number] [address] [place] [address] Oct, Type 2 diabetes mellitus wit hout complications E11.9 [facility] [address] [id number] [address] [place] [phone] Oct, [facility] [address] [facility] [id number] [address] [place] [phone] September, Type 2 diabetes mellitus wit hout complications E11.9 [facility] [address] [id number] [address] [place] [address] Jul, Type 2 diabetes mellitus wit hout complications E11.9 ; Lumbar pain M54.5 and Tobacco abuse Z72.0 [facility] [address] [facility] [id number] [address] [place] [address] May, [facility] [address] [id number] [address] [place] [address] May, [facility] [address] [facility] [id number] [address] [place] [address] Apr, [facility] [address] [facility] [id number] [address] [place] [address] Mar, [facility] [address] [facility] [id number] [address] [place] [address] Mar, Type 2 diabetes mellitus wit hout complications E11.9 [facility] [address] [id number] [address] [place] [address] Mar, [facility] [address] [facility] [id number] [address] [place] [address] Feb, Type 2 diabetes mellitus wit hout complications E11.9 ; Neuropathy, diabetic E11.40 and Sleep apnea G47.30 [facility] [address] [id number] [address] [place] [address] Feb, [facility] [address] [facility] [id number] [address] [place] [address] Jan, Skin infection, bacterial 68 6.9 [facility] [address] [id number] [address] [place] [address] Jan, [facility] [address] [id number] [address] [place] [address] Dec, Diabetes mellitus type 2, un complicated 250.00 [facility] [address] [id number] [address] [place] [address] Dec, [facility] [address] [id number] [address] [place] [address] Nov, [facility] [address] [id number] [address] [place] [address] Nov, Diabetes mellitus type 2, un complicated 250.00 and Obesity 278.00 [facility] [address] [id number] [address] [place] [address] Oct, [facility] [address] [id number] [address] [place] [address] Oct, [facility] [address] [id number] [address] [place] [address] Aug, [facility] [address] [id number] [address] [place] [address] Aug, [facility] [address] [id number] [address] [place] [phone] Jul, [facility] [address] [id number] [address] [place] [phone] Jul, [facility] [address] [id number] [address] [place] [phone] Jul, [facility] [address] [id number] [address] [place] [address] Jul, [facility] [address] [id number] [address] [place] [phone] Jul, [facility] [address] [id number] [address] [place] [address], [place] [address] Jul, [facility] [address] [id number] [address] [place] [address], [place] [address] Feb, [facility] [address] [id number] [address] [place] [address], [place] [address] Feb, [facility] [address] [id number] [address] [place] [address], [place] [address] Dec, [facility] [address] [id number] [address] [place] [address], [place] [address] Nov, [facility] [address] [id number] [address] [place] [address], [place] [address] Nov, [facility] [address] [id number] [address] [place] [address], [place] [address] Nov, [facility] [address] [id number] [address] [place] [address], [place] [address] Nov, [facility] [address] [id number] [address] [place] [address], [place] [address] Nov, [facility] [address] [id number] [address] [place] [address], [place] [address] September, [facility] [address] [id number] [address] [place] [address], [place] [address] September, [facility] [address] [id number] [address] [place] [address], [place] [address] Aug, [facility] [address] [id number] [address] [place] [address], [place] [address] Aug, [facility] [address] [id number] [address] [place] [address], [place] [address] Aug, [facility] [address] [id number] [address] [place] [address], [place] [address] Aug, [facility] [address] [id number] [address] [place] [address], [place] [address] Jul, [facility] [address] [id number] [address] [place] [address], [place] [address] Jul, [facility] [address] [id number] [address] [place] [address], [place] [address] Apr, [facility] [address] [id number] [address] [place] [address], [place] [address] Apr, [facility] [address] [id number] [address] [place] [address], [place] [address] Mar, [facility] [address] [id number] [address] [place] [address], [place] [address] Mar, [facility] [address] [id number] [address] [place] [address], [place] [address] Jan, [facility] [address] [id number] [address] [place] [address], [place] [address] Jan, [facility] [address] [id number] [address] [place] [address], [place] [address] Dec, [facility] [address] [id number] [address] [place] [address], [place] [address] Nov, [facility] [address] [id number] [address] [place] [address], [place] [address] Nov, [facility] [address] [id number] [address] [place] [address], [place] [address] Nov, [facility] [address] [id number] [address] [place] [address], [place] [address] Oct, [facility] [address] [id number] [address] [place] [address], [place] [address] Oct, [facility] [address] [id number] [address] [place] [address], [place] [address] Oct, [facility] [address] [id number] [address] [place] [address], [place] [address] September, [facility] [address] [id number] [address] [place] [address], [place] [address] September, [facility] [address] [id number] [address] [place] [address], [place] [address] Aug, [facility] [address] [id number] [address] [place] [address], [place] [address] Aug, [facility] [address] [id number] [address] [place] [address], [place] [address] Aug, [facility] [address] [id number] [address] [place] [address], [place] [address] Aug, [facility] [address] [id number] [address] [place] [address], [place] [address] Jul, [facility] [address] [id number] [address] [place] [address], [place] [address] Jul, [facility] [address] [id number] [address] [place] [address], [place] [address] Jul, [facility] [address] [id number] [address] [place] [address], [place] [address] Jul, [facility] [address] [id number] [address] [place] [address], [place] [address] May, [facility] [address] [id number] [address] [place] [address], [place] [address] May, [facility] [address] [id number] [address] [place] [address], [place] [address] May, [facility] [address] [id number] [address] [place] [address], [place] [address] May, [facility] [address] [id number] [address] [place] [address], [place] [address] 14 May, 2012 [facility] [address] [id number] [address] [place] [address], [place] [address] 11 May, 2012 [facility] [address] [id number] [address] [place] [address], [place] [address] May, [facility] [address] [id number] [address] [place] [address], [place] [address] May, [facility] [address] [id number] [address] [place] [address], [place] [address] May, [facility] [address] [id number] [address] [place] [address], [place] [address] May, [facility] [address] [id number] [address] [place] [address], [place] [address] Apr, [facility] [address] [id number] [address] [place] [address], [place] [address] Apr, [facility] [address] [id number] [address] [place] [address], [place] [address] Apr, [facility] [address] [id number] [address] [place] [address], [place] [address] Apr, [facility] [address] [id number] [address] [place] [address], [place] [address] Mar, [facility] [address] [id number] [address] [place] [address], [place] [address] Mar, [facility] [address] [id number] [address] [place] [id number] Feb, [facility] [address] [id number] [address] [place] [id number] Feb, [facility] [address] [id number] [address] [place] [id number] Feb, [facility] [address] [id number] [address] [place] [address], [place] [address] Feb, [facility] [address] [id number] [address] [place] [address], [place] [address] Jan, [facility] [address] [id number] [address] [place] [address] Dec, [facility] [address] [id number] [address] [place] [id number] Oct, [facility] [address] [id number] [address] [place] [address], [place] [address] September, [facility] [address] [id number] [address] [place] [address], [place] [address] September, [facility] [address] [id number] [address] [place] [address], [place] [address] Jul, [facility] [address] [id number] [address] [place] [address], [place] [address] Jul, [facility] [address] [id number] [address] [place] [address], [place] [address] Jul, [facility] [address] [id number] [address] [place] [address], [place] [address] Jul, [facility] [address] [id number] [address] [place] [address], [place] [address] 16 Jul, 2011 [facility] [address] [id number] [address] [place] [address], [place] [address] May, [facility] [address] [id number] [address] [place] [address], [place] [address] Apr, [facility] [address] [id number] [address] [place] [address], [place] [address] Apr, [facility] [address] [id number] [address] [place] [address], [place] [address] Apr, [facility] [address] [id number] [address] [place] [address], [place] [address] 08 Apr, 2011 [facility] [address] [id number] [address] [place] [address], [place] [address] Mar, [facility] [address] [id number] [address] [place] [address], [place] [address] 16 Mar, 2011 [facility] [address] [id number] [address] [place] [address], [place] [address] 15 Mar, 2011 [facility] [address] [id number] [address] [place] [address], [place] [address] Mar, [facility] [address] [id number] [address] [place] [address], [place] [address] Feb, [facility] [address] [id number] [address] [place] [address], [place] [address] Dec, [facility] [address] [id number] [place] [address], [place] [address] September, [facility] [address] [id number] [address] [place] [address], [place] [address] Aug, [facility] [address] [id number] [address] [place] [address], [place] [address] May, [facility] [address] [id number] [address] [place] [address], [place] [address] May, [facility] [address] [id number] [address] [place] [address], [place] [address] Apr, [facility] [address] [id number] [address] [place] [address], [place] [address] Apr, [facility] [address] [id number] [address] [place] [address], [place] [address] Apr, [facility] [address] [id number] [address] [place] [address], [place] [address] 24 Mar, 2010 [facility] [address] [id number] [address] [place] [address], [place] [address] Mar, [facility] [address] [id number] [address] [place] [address], [place] [address] Mar, [facility] [address] [id number] [address] [place] [address], [place] [address] Nov, [facility] [address] [id number] [address] [place] [address], [place] [address] 15 Oct, 2009 [facility] [address] [id number] [address] [place] [id number] September, [facility] [address] [facility] [id number] [address] [place] [phone] Dec, [facility] [address] [facility] [id number] [address] [place] [id number] Jul, [facility] [address] [facility] [id number] [address] [place] [phone] Jul, IMMUNIZATIONS No Known Immunizations SOCIAL HISTORY Never Assessed REASON FOR VISIT [facility] VITAL SIGNS MEDICATIONS Unknown [...]
--- OUTSIDE RECORDS SUMMARY | 2019-11-14 23:15 | XMS REPORT ---
Author Author Jerman Tarango Doctor Organization [facility] Address Unknown Phone Unavailable Care Team Providers Care Space Controller Name Role Phone Migration, Doctor Unavailable Unavailable PROBLEMS Type Condition ICD9-CM Code PLH17-FN Code Onset Dates Condition S tatus SNOMED Code Problem Diabetes type 2, controlled E11.9 Ac tive 04144257 Problem Type 2 diabetes mellitus without complications E11 .9 Active 316281016 Problem custodial 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.4 Active 905089272 Problem Arthritis M19.90 Active 5740092 Problem Neuropathy, diabetic E11.40 Active 052731539 Problem Essential hypertension I10 Active 47176412 Problem Type 2 diabetes mellitus with diabetic neuropathy, uns pecified E11.40 Active 65430335 Problem Erectile dysfunction, unspecified erectile dysfunction typ e N52.9 Active 063004543 Problem Mood disorder F39 Active 659979 05 Problem ASIYA (obstructive sleep apnea) G47.33 Active 89570285 ALLERGIES No Information ENCOUNTERS Encounter Location Date Diagnosis [facility] [address] [facility] [id number] [address] [place] [phone] Aug, [facility] [address] [place] [id number] [address] [place] [address] Jul, [facility] [address] [facility] [id number] [address] [place] [address] Jul, BMI 40.0-44.9, adult Z68.41 [facility] [address] [facility] [id number] [address] [place] [address] Jul, BMI 40.0-44.9, adult Z68.41 [facility] [address] [facility] [id number] [address] [place] [address] May, [facility] [address] [id number] [address] [place] [address] May, [facility] [id number] [place] [address] Apr, BMI 40.0-44.9, adult Z68.41 ; Type 2 diabetes mellitus without complications E11.9 and Arthritis M19.90 [facility] [address] [facility] [id number] [address] [place] [address] Mar, [facility] [address] [facility] [id number] [address] [place] [phone] Mar, [facility] [address] [facility] [id number] [address] [place] [address] Mar, Type 2 diabetes mellitus wit hout complications E11.9 [place] [address] [id number] [place] [address] Feb, BMI 40.0-44.9, adult Z68.41 and Diabetes type 2, controlled E11.9 [place] [address] [id number] [address] [place] [address] Feb, [facility] [address] [facility] [id number] [address] [place] [address] Feb, [place] [address] [place] [id number] [address] [place] [address] Feb, Diabetes type 2, controlled E11.9 [facility] [address] [facility] [id number] [address] [place] [address] Jan, [place] [address] [place] [id number] [address] [place] [address] Jan, [facility] [address] [address] [id number] [address] [place] [phone] 17 Jan, 2018 Allergic reaction to drug, i nitial encounter T78.40XA ; Uncontrolled type 2 diabetes mellitus with hyperglycemia E11.65 and Essential hypertension I10 [facility] [address] [facility] [id number] [address] [place] [phone] 07 Jan, 2018 Type 2 diabetes mellitus wit hout complications E11.9 ; Diabetes type 2, controlled E11.9 and Arthritis M19.90 [facility] [address] [facility] [id number] [address] [place] [address] Dec, Diabetes type 2, controlled E11.9 [facility] [address] [facility] [id number] [address] [place] [address] Dec, [facility] [address] [facility] [id number] [address] [place] [address] Dec, Diabetes type 2, controlled E11.9 [facility] [address] [facility] [id number] [address] [place] [address] Oct, Diabetes type 2, controlled E11.9 [facility] [id number] [place] [id number] Oct, Dental caries K02.9 and [place] al examination Z01.20 [facility] [address] [facility] [id number] [address] [place] [address] September, [facility] [address] [id number] [address] [place] [address] Aug, Diabetes type 2, controlled E11.9 ; Mood disorder F39 ; Arthritis M19.90 and Family history of rheumatoid arthritis Z82.61 [facility] [address] [id number] [address] [place] [phone] 15 Jul, 2017 Infection of both inner ears H83.03 and Dizziness R42 [facility] [address] [facility] [id number] [address] [place] [address] Jul, [facility] [address] [facility] [id number] [address] [place] [address] Jul, Diabetes type 2, controlled E11.9 [facility] [address] [id number] [address] [place] [id number] 09 Jul, 2017 Dental examination Z01.20 [facility] [address] [facility] [id number] [address] [place] [address] May, Diabetes type 2, controlled E11.9 [facility] [id number] [place] [address] May, [facility] [address] [id number] [address] [place] [id number] May, Dental examination Z01.20 [facility] [address] [id number] [address] [place] [address] May, [facility] [address] [id number] [address] [place] [address] May, [facility] [address] [id number] [address] [place] [id number] May, Diabetes type 2, controlled E11.9 [facility] [address] [id number] [address] [place] [address] Apr, [facility] [address] [facility] [id number] [address] [place] [phone] Apr, Mood disorder F39 [facility] [address] [id number] [address] [place] [phone] Mar, [facility] [address] [id number] [address] [place] [address] Mar, Diabetes type 2, controlled E11.9 and Encounter for immunization Z23 [facility] [address] [id number] [address] [place] [address] Jan, Mood disorder F39 [facility] [address] [id number] [address] [place] [address] Jan, Type 2 diabetes mellitus wit hout complications E11.9 [facility] [address] [id number] [address] [place] [address] Nov, [facility] [address] [facility] [id number] [address] [place] [phone] Nov, Type 2 diabetes mellitus wit hout complications E11.9 ; Mood disorder F39 and ASIYA (obstructive sleep apnea) G47.33 [facility] [address] [id number] [address] [place] [address] September, Diabetes type 2, controlled E11.9 [facility] [address] [id number] [address] [place] [address] September, [facility] [address] [facility] [id number] [address] [place] [address] Aug, Diabetes type 2, controlled E11.9 [facility] [address] [facility] [id number] [address] [place] [address] Jul, [facility] [address] [facility] [id number] [address] [place] [address] Jul, Type 2 diabetes mellitus wit hout complications E11.9 and custodial 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.4 [place] [address] [facility] [id number] [address] [place] [address] Jul, Diabetes type 2, controlled E11.9 [facility] [address] [facility] [id number] [address] [place] [address] Jul, [facility] [address] [facility] [id number] [address] [place] [address] May, [facility] [address] [facility] [id number] [address] [place] [address] Apr, Diabetes type 2, controlled E11.9 [facility] [address] [facility] [id number] [address] [place] [phone] Feb, Erectile dysfunction, unspec ified erectile dysfunction type N52.9 ; Type 2 diabetes mellitus with diabetic neuropathy, unspecified E11.40 and 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9 [facility] [address] [id number] [address] [place] [phone] Jul, Type 2 diabetes mellitus wit hout complications E11.9 ; Lumbar pain M54.5 and Tobacco abuse Z72.0 [facility] [address] [id number] [address] [place] [phone] May, [facility] [address] [id number] [address] [place] [phone] May, [facility] [address] [id number] [address] [place] [phone] Apr, [facility] [address] [facility] [id number] [address] [place] [phone] Mar, [facility] [address] [id number] [address] [place] [phone] Mar, Type 2 diabetes mellitus wit hout complications E11.9 [facility] [address] [id number] [address] [place] [phone] Mar, [facility] [address] [facility] [id number] [address] [place] [phone] 28 Feb, 2015 Type 2 diabetes mellitus wit hout complications E11.9 ; Neuropathy, diabetic E11.40 and Sleep apnea G47.30 [facility] [address] [id number] [address] [place] [phone] Feb, [facility] [address] [facility] [id number] [address] [place] [phone] 22 Jan, 2015 Skin infection, bacterial 68 6.9 [facility] [address] [id number] [address] [place] [id number] 15 Jan, 2015 [facility] [address] [facility] [id number] [address] [place] [address] Dec, Diabetes mellitus type 2, un complicated 250.00 [facility] [place] [address] [id number] [address] [place] [phone] Dec, [facility] [place] [address] [id number] [address] [place] [address] Nov, [facility] [place] [address] [id number] [address] [place] [address] Nov, Diabetes mellitus type 2, un complicated 250.00 and Obesity 278.00 [facility] [place] [address] [id number] [address] [place] [phone] Oct, [facility] [place] [address] [id number] [address] [place] [address] Oct, [facility] [place] [address] [id number] [address] [place] [phone] Aug, [facility] [place] [address] [id number] [address] [place] [phone] Aug, [facility] [place] [address] [id number] [address] [place] [address] Jul, [facility] [place] [address] [id number] [address] [place] [phone] Jul, [facility] [place] [address] [id number] [address] [place] [phone] Jul, [facility] [place] [address] [id number] [address] [place] [phone] Jul, [facility] [place] [address] [id number] [address] [place] [phone] Jul, [facility] [place] [address] [id number] [address] [place] [phone] Jul, [facility] [place] [address] [id number] [address] [place] [phone] Feb, [facility] [place] [address] [id number] [address] [place] [phone] Feb, [facility] [address] [id number] [address] [place] [address], [place] [address] Dec, [facility] [address] [id number] [address] [place] [address], [place] [address] Nov, [facility] [address] [id number] [address] [place] [address], [place] [address] Nov, [facility] [address] [id number] [address] [place] [address], [place] [address] Nov, [facility] [address] [id number] [address] [place] [address], [place] [address] Nov, [facility] [address] [id number] [address] [place] [address], [place] [address] Nov, [facility] [address] [id number] [address] [place] [address], [place] [address] September, [facility] [address] [id number] [address] [place] [address], [place] [address] September, [facility] [address] [id number] [address] [place] [address], [place] [address] Aug, [facility] [address] [id number] [address] [place] [address], [place] [address] Aug, [facility] [address] [id number] [address] [place] [address], [place] [address] Aug, [facility] [address] [id number] [address] [place] [address], [place] [address] Aug, [facility] [address] [id number] [address] [place] [address], [place] [address] Jul, [facility] [address] [id number] [address] [place] [address], [place] [address] Jul, [facility] [address] [id number] [address] [place] [address], [place] [address] Apr, [facility] [address] [id number] [address] [place] [address], [place] [address] Apr, [facility] [address] [id number] [address] [place] [address], [place] [address] Mar, [facility] [address] [id number] [address] [place] [address], [place] [address] Mar, [facility] [address] [id number] [address] [place] [address], [place] [address] Jan, [facility] [address] [id number] [address] [place] [address], [place] [address] Jan, [facility] [address] [id number] [address] [place] [address], [place] [address] Dec, [facility] [address] [id number] [address] [place] [address], [place] [address] Nov, [facility] [address] [id number] [address] [place] [address], [place] [address] Nov, [facility] [address] [id number] [address] [place] [address], [place] [address] Nov, [facility] [address] [id number] [address] [place] [address], [place] [address] Oct, [facility] [address] [id number] [address] [place] [address], [place] [address] Oct, [facility] [address] [id number] [address] [place] [address], [place] [address] Oct, [facility] [address] [id number] [address] [place] [address], [place] [address] September, [facility] [address] [id number] [address] [place] [address], [place] [address] September, [facility] [address] [id number] [address] [place] [address], [place] [address] Aug, [facility] [address] [id number] [address] [place] [address], [place] [address] Aug, [facility] [address] [id number] [address] [place] [address], [place] [address] Aug, [facility] [address] [id number] [address] [place] [address], [place] [address] Aug, [facility] [address] [id number] [address] [place] [address], [place] [address] Jul, [facility] [address] [id number] [address] [place] [address], [place] [address] Jul, [facility] [address] [id number] [address] [place] [address], [place] [address] Jul, [facility] [address] [id number] [address] [place] [address], [place] [address] Jul, [facility] [address] [id number] [address] [place] [address], [place] [address] May, [facility] [address] [id number] [address] [place] [address], [place] [address] May, [facility] [address] [id number] [address] [place] [address], [place] [address] May, [facility] [address] [id number] [address] [place] [address], [place] [address] May, [facility] [address] [id number] [address] [place] [address], [place] [address] May, [facility] [address] [id number] [address] [place] [address], [place] [address] May, [facility] [address] [id number] [address] [place] [address], [place] [address] May, [facility] [address] [id number] [address] [place] [address], [place] [address] May, [facility] [address] [id number] [address] [place] [address], [place] [address] May, [facility] [address] [id number] [address] [place] [address], [place] [address] May, [facility] [address] [id number] [address] [place] [address], [place] [address] Apr, [facility] [address] [id number] [address] [place] [address], [place] [address] Apr, [facility] [address] [id number] [address] [place] [address], [place] [address] Apr, [facility] [address] [id number] [address] [place] [address], [place] [address] Apr, [facility] [address] [id number] [address] [place] [address], [place] [address] Mar, [facility] [address] [id number] [address] [place] [address], [place] [address] Mar, [facility] [address] [id number] [address] [place] [address], [place] [address] Feb, [facility] [address] [id number] [address] [place] [address], [place] [address] Feb, [facility] [address] [id number] [address] [place] [address], [place] [address] Feb, [facility] [address] [id number] [address] [place] [address], [place] [address] Feb, [facility] [address] [id number] [address] [place] [address], [place] [address] Jan, [facility] [address] [id number] [address] [place] [address], [place] [address] Dec, [facility] [address] [id number] [address] [place] [address], [place] [address] Oct, [facility] [address] [id number] [address] [place] [address], [place] [address] September, [facility] [address] [id number] [address] [place] [address], [place] [address] September, [facility] [address] [id number] [address] [place] [address], [place] [address] Jul, [facility] [address] [id number] [address] [place] [address], [place] [address] Jul, [facility] [address] [id number] [address] [place] [address], [place] [address] Jul, [facility] [address] [id number] [address] [place] [address], [place] [address] Jul, [facility] [address] [id number] [address] [place] [address], [place] [address] Jul, [facility] [address] [id number] [address] [place] [address], [place] [address] May, [facility] [address] [id number] [address] [place] [address], [place] [address] Apr, [facility] [address] [id number] [address] [place] [address], [place] [address] Apr, [facility] [address] [id number] [address] [place] [address], [place] [address] Apr, [facility] [address] [id number] [address] [place] [address], [place] [address] 08 Apr, 2011 [facility] [address] [id number] [address] [place] [address], [place] [address] Mar, [facility] [address] [id number] [address] [place] [address] 16 Mar, 2011 [facility] [address] [id number] [address] [place] [address], [place] [address] 15 Mar, 2011 [facility] [address] [id number] [address] [place] [address], [place] [address] Mar, [facility] [address] [id number] [address] [place] [address], [place] [address] Feb, [facility] [address] [id number] [address] [place] [address], [place] [address] 19 Dec, 2010 [facility] [address] [id number] [address] [place] [address], [place] [address] September, [facility] [address] [id number] [address] [place] [address], [place] [address] Aug, [facility] [address] [id number] [address] [place] [address], [place] [address] 17 May, 2010 [facility] [address] [id number] [address] [place] [address], [place] [address] 10 May, 2010 [facility] [address] [id number] [address] [place] [address], [place] [address] Apr, [facility] [address] [id number] [address] [place] [address], [place] [address] Apr, [facility] [address] [id number] [address] [place] [address], [place] [address] Apr, [facility] [address] [id number] [address] [place] [address], [place] [address] Mar, [facility] [address] [id number] [address] [place] [address], [place] [address] Mar, [facility] [address] [id number] [address] [place] [address], [place] [address] Mar, [facility] [address] [id number] [address] [place] [address], [place] [address] Nov, [facility] [address] [id number] [address] [place] [address], [place] [address] 15 Oct, 2009 [facility] [address] [id number] [address] [place] [address], [place] [address] September, [facility] [address] [id number] [address] [place] [address], [place] [address] 14 Dec, 2008 [facility] [address] [id number] [address] [place] [address], [place] [id number] Jul, [facility] [address] [facility] [id number] [address] [place] [address] Jul, IMMUNIZATIONS No Known Immunizations SOCIAL HISTORY Never Assessed REASON FOR VISIT EMR-[facility] [place] PLAN OF CARE VITAL SIGNS MEDICATIONS Unknown [...]
--- OUTSIDE RECORDS SUMMARY | 2019-11-14 23:15 | XMS REPORT ---
Author Author Jerman Tarango Doctor Organization [facility] Address Unknown Phone Unavailable Care Team Providers Care Dba Manager Name Role Phone Migration, Doctor Unavailable Unavailable PROBLEMS Type Condition ICD9-CM Code RBO02-OS Code Onset Dates Condition S tatus SNOMED Code Problem Diabetes type 2, controlled E11.9 Ac tive 39093555 Problem Type 2 diabetes mellitus without complications E11 .9 Active 288398356 Problem [facility] 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.4 Active 561740035 Problem Arthritis M19.90 Active 7096760 Problem Neuropathy, diabetic E11.40 Active 511590182 Problem Essential hypertension I10 Active 08276640 Problem Type 2 diabetes mellitus with diabetic neuropathy, uns pecified E11.40 Active 72747605 Problem Erectile dysfunction, unspecified erectile dysfunction typ e N52.9 Active 098916286 Problem Mood disorder F39 Active 424979 05 Problem ASIYA (obstructive sleep apnea) G47.33 Active [id number] ALLERGIES No Information ENCOUNTERS Encounter Location Date Diagnosis [facility] [address] [facility] [id number] [address] [place] [phone] Aug, [facility] [address] [place] [id number] [address] [place] [phone] Jul, [facility] [address] [facility] [id number] [address] [place] [phone] Jul, BMI 40.0-44.9, adult Z68.41 [facility] [address] [facility] [id number] [address] [place] [address] Jul, BMI 40.0-44.9, adult Z68.41 [facility] [address] [facility] [id number] [address] [place] [phone] May, [facility] [address] [place] [id number] [address] [place] [id number] May, [facility] [id number] [place] [address] Apr, BMI 40.0-44.9, adult Z68.41 ; Type 2 diabetes mellitus without complications E11.9 and Arthritis M19.90 [facility] [address] [facility] [id number] [address] [place] [address] Mar, [facility] [address] [facility] [id number] [address] [place] [phone] Mar, [facility] [address] [facility] [id number] [address] [place] [phone] Mar, Type 2 diabetes mellitus wit hout complications E11.9 [place] [address] [place] [id number] [place] [phone] Feb, BMI 40.0-44.9, adult Z68.41 and Diabetes type 2, controlled E11.9 [place] [address] [place] [id number] [address] [place] [phone] Feb, [facility] [address] [facility] [id number] [address] [place] [phone] Feb, [place] [address] [place] [id number] [address] [place] [id number] Feb, Diabetes type 2, controlled E11.9 [facility] [address] [facility] [id number] [address] [place] [phone] Jan, [place] [address] [place] [id number] [address] [place] [phone] Jan, [facility] [address] [place] [id number] [address] [place] [id number] 17 Jan, 2018 Allergic reaction to drug, i nitial encounter T78.40XA ; Uncontrolled type 2 diabetes mellitus with hyperglycemia E11.65 and Essential hypertension I10 [facility] [address] [facility] [id number] [address] [place] [phone] 07 Jan, 2018 Type 2 diabetes mellitus wit hout complications E11.9 ; Diabetes type 2, controlled E11.9 and Arthritis M19.90 [facility] [address] [facility] [id number] [address] [place] [phone] Dec, Diabetes type 2, controlled E11.9 [facility] [address] [facility] [id number] [address] [place] [id number] Dec, [facility] [address] [facility] [id number] [address] [place] [phone] Dec, Diabetes type 2, controlled E11.9 [facility] [address] [facility] [id number] [address] [place] [phone] Oct, Diabetes type 2, controlled E11.9 [facility] [id number] [place] [id number] Oct, Dental caries K02.9 and [place] al examination Z01.20 [facility] [address] [facility] [id number] [address] [place] [phone] September, [facility] [address] [place] [id number] [address] [place] [phone] Aug, Diabetes type 2, controlled E11.9 ; Mood disorder F39 ; Arthritis M19.90 and Family history of rheumatoid arthritis Z82.61 [facility] [address] [place] [id number] [address] [place] [phone] 15 Jul, 2017 Infection of both inner ears H83.03 and Dizziness R42 [facility] [address] [facility] [id number] [address] [place] [phone] Jul, [facility] [address] [facility] [id number] [address] [place] [phone] Jul, Diabetes type 2, controlled E11.9 [facility] [address] [id number] [address] [place] [id number] Jul, 2017 Dental examination Z01.20 [facility] [address] [facility] [id number] [address] [place] [phone] May, Diabetes type 2, controlled E11.9 [facility] [id number] [place] [phone] May, [facility] [address] [id number] [address] [place] [id number] May, Dental examination Z01.20 [facility] [address] [id number] [address] [place] [phone] May, [facility] [address] [id number] [address] [place] [phone] May, [facility] [address] [id number] [address] [place] [phone] May, Diabetes type 2, controlled E11.9 [facility] [address] [id number] [address] [place] [phone] Apr, [facility] [address] [facility] [id number] [address] [place] [phone] Apr, Mood disorder F39 [facility] [address] [id number] [address] [place] [phone] Mar, [facility] [address] [id number] [address] [place] [phone] Mar, Diabetes type 2, controlled E11.9 and Encounter for immunization Z23 [facility] [address] [id number] [address] [place] [phone] Jan, Mood disorder F39 [facility] [address] [id number] [address] [place] [phone] Jan, Type 2 diabetes mellitus wit hout complications E11.9 [facility] [address] [id number] [address] [place] [phone] Nov, [facility] [address] [facility] [id number] [address] [place] [phone] Nov, Type 2 diabetes mellitus wit hout complications E11.9 ; Mood disorder F39 and ASIYA (obstructive sleep apnea) G47.33 [facility] [address] [id number] [address] [place] [phone] September, Diabetes type 2, controlled E11.9 [facility] [address] [id number] [address] [place] [phone] September, [facility] [address] [facility] [id number] [address] [place] [phone] Aug, Diabetes type 2, controlled E11.9 [facility] [address] [facility] [id number] [address] [place] [phone] Jul, [facility] [address] [facility] [id number] [address] [place] [phone] Jul, Type 2 diabetes mellitus wit hout complications E11.9 and [facility] 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.4 [place] [address] [facility] [id number] [address] [place] [phone] Jul, Diabetes type 2, controlled E11.9 [facility] [address] [facility] [id number] [address] [place] [phone] Jul, [facility] [address] [facility] [id number] [address] [place] [phone] May, [facility] [address] [facility] [id number] [address] [place] [phone] Apr, Diabetes type 2, controlled E11.9 [facility] [address] 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 [id number] [address] [place] [phone] 08 Jan, 2016 Impacted cerumen of both ear s H61.23 [facility] [address] [facility] [id number] [address] [place] [phone] Oct, Type 2 diabetes mellitus wit hout complications E11.9 [facility] [address] [facility] [id number] [address] [place] [phone] Oct, [facility] [address] [id number] [address] [place] [phone] September, Type 2 diabetes mellitus wit hout complications E11.9 [facility] [address] [id number] [address] [place] [phone] Jul, Type 2 diabetes mellitus wit hout complications E11.9 ; Lumbar pain M54.5 and Tobacco abuse Z72.0 [facility] [address] [id number] [address] [place] [phone] May, [facility] [address] [id number] [address] [place] [phone] May, [facility] [address] [id number] [address] [place] [phone] Apr, [facility] [address] [facility] [id number] [address] [place] [phone] Mar, [facility] [address] [id number] [address] [place] [id number] Mar, Type 2 diabetes mellitus wit hout complications E11.9 [facility] [address] [id number] [address] [place] [phone] Mar, [facility] [address] [facility] [id number] [address] [place] [phone] 28 Feb, 2015 Type 2 diabetes mellitus wit hout complications E11.9 ; Neuropathy, diabetic E11.40 and Sleep apnea G47.30 [facility] [address] [id number] [address] [place] [phone] Feb, [facility] [address] [facility] [id number] [address] [place] [phone] 22 Jan, 2015 Skin infection, bacterial 68 6.9 [facility] [address] [id number] [address] [place] [id number] 15 Jan, 2015 [facility] [address] [facility] [id number] [address] [place] [phone] Dec, Diabetes mellitus type 2, un complicated 250.00 [facility] [address] [id number] [address] [place] [phone] Dec, [facility] [address] [id number] [address] [place] [phone] Nov, [facility] [address] [id number] [address] [place] [id number] Nov, Diabetes mellitus type 2, un complicated 250.00 and Obesity 278.00 [facility] [address] [id number] [address] [place] [id number] Oct, [facility] [address] [id number] [address] [place] [phone] Oct, [facility] [address] [id number] [address] [place] [phone] Aug, [facility] [address] [id number] [address] [place] [id number] Aug, [facility] [address] [id number] [address] [place] [phone] Jul, [facility] [address] [id number] [address] [place] [phone] Jul, [facility] [address] [id number] [address] [place] [phone] Jul, [facility] [address] [id number] [address] [place] [phone] Jul, [facility] [address] [id number] [address] [place] [phone] Jul, [facility] [address] [id number] [address] [place] [id number] Jul, [facility] [address] [id number] [address] [place] [phone] Feb, [facility] [address] [id number] [address] [place] [phone] Feb, [facility] [address] [id number] [address] [place] [address], [place] [address] Dec, [facility] [address] [id number] [address] [place] [address], [place] [address] Nov, [facility] [address] [id number] [address] [place] [address], [place] [address] Nov, [facility] [address] [id number] [address] [place] [address], [place] [address] Nov, [facility] [address] [id number] [address] [place] [address], [place] [address] Nov, [facility] [address] [id number] [address] [place] [address], [place] [address] Nov, [facility] [address] [id number] [address] [place] [address], [place] [address] September, [facility] [address] [id number] [address] [place] [address], [place] [address] September, [facility] [address] [id number] [address] [place] [address], [place] [address] Aug, [facility] [address] [id number] [address] [place] [address], [place] [address] Aug, [facility] [address] [id number] [address] [place] [address], [place] [address] Aug, [facility] [address] [id number] [address] [place] [address], [place] [address] Aug, [facility] [address] [id number] [address] [place] [address], [place] [address] Jul, [facility] [address] [id number] [address] [place] [address], [place] [address] Jul, [facility] [address] [id number] [address] [place] [address], [place] [address] Apr, [facility] [address] [id number] [address] [place] [address], [place] [address] Apr, [facility] [address] [id number] [address] [place] [address], [place] [address] Mar, [facility] [address] [id number] [address] [place] [address], [place] [address] Mar, [facility] [address] [id number] [address] [place] [address], [place] [address] Jan, [facility] [address] [id number] [address] [place] [address], [place] [address] Jan, [facility] [address] [id number] [address] [place] [address], [place] [address] Dec, [facility] [address] [id number] [address] [place] [address], [place] [address] Nov, [facility] [address] [id number] [address] [place] [address], [place] [address] Nov, [facility] [address] [id number] [address] [place] [address], [place] [address] Nov, [facility] [address] [id number] [address] [place] [address], [place] [address] Oct, [facility] [address] [id number] [address] [place] [address], [place] [address] Oct, [facility] [address] [id number] [address] [place] [address], [place] [address] Oct, [facility] [address] [id number] [address] [place] [address], [place] [address] September, [facility] [address] [id number] [address] [place] [address], [place] [address] September, [facility] [address] [id number] [address] [place] [address], [place] [address] Aug, [facility] [address] [id number] [address] [place] [address], [place] [address] Aug, [facility] [address] [id number] [address] [place] [address], [place] [address] Aug, [facility] [address] [id number] [address] [place] [address], [place] [address] Aug, [facility] [address] [id number] [address] [place] [address], [place] [address] Jul, [facility] [address] [id number] [address] [place] [address], [place] [address] Jul, [facility] [address] [id number] [address] [place] [address], [place] [address] Jul, [facility] [address] [id number] [address] [place] [address], [place] [address] Jul, [facility] [address] [id number] [address] [place] [address], [place] [address] May, [facility] [address] [id number] [address] [place] [address], [place] [address] May, [facility] [address] [id number] [address] [place] [address], [place] [address] May, [facility] [address] [id number] [address] [place] [address], [place] [address] May, [facility] [address] [id number] [address] [place] [address], [place] [address] May, [facility] [address] [id number] [address] [place] [address], [place] [address] May, [facility] [address] [id number] [address] [place] [address], [place] [address] May, [facility] [address] [id number] [address] [place] [address], [place] [address] May, [facility] [address] [id number] [address] [place] [address], [place] [address] May, [facility] [address] [id number] [address] [place] [address], [place] [address] May, [facility] [address] [id number] [address] [place] [address], [place] [address] Apr, [facility] [address] [id number] [address] [place] [address], [place] [address] Apr, [facility] [address] [id number] [address] [place] [address], [place] [address] Apr, [facility] [address] [id number] [address] [place] [address], [place] [address] Apr, [facility] [address] [id number] [address] [place] [address], [place] [address] Mar, [facility] [address] [id number] [address] [place] [address], [place] [address] Mar, [facility] [address] [id number] [address] [place] [address], [place] [address] Feb, [facility] [address] [id number] [address] [place] [address], [place] [address] Feb, [facility] [address] [id number] [address] [place] [address], [place] [address] Feb, [facility] [address] [id number] [address] [place] [address], [place] [address] Feb, [facility] [address] [id number] [address] [place] [address], [place] [address] Jan, [facility] [address] [id number] [address] [place] [address], [place] [address] Dec, [facility] [address] [id number] [address] [place] [address], [place] [address] Oct, [facility] [address] [id number] [address] [place] [address], [place] [address] September, [facility] [address] [id number] [address] [place] [address], [place] [address] September, [facility] [address] [id number] [address] [place] [address], [place] [address] Jul, [facility] [address] [id number] [address] [place] [address], [place] [address] Jul, [facility] [address] [id number] [address] [place] [address], [place] [address] Jul, [facility] [address] [id number] [address] [place] [address], [place] [address] Jul, [facility] [address] [id number] [address] [place] [address], [place] [address] Jul, [facility] [address] [id number] [address] [place] [address], [place] [address] May, [facility] [address] [id number] [address] [place] [address], [place] [address] Apr, [facility] [address] [id number] [address] [place] [address], [place] [address] Apr, [facility] [address] [id number] [address] [place] [address], [place] [address] Apr, [facility] [address] [id number] [address] [place] [address], [place] [address] 08 Apr, 2011 [facility] [address] [id number] [address] [place] [address], [place] [address] Mar, [facility] [address] [id number] [address] [place] [id number] 16 Mar, 2011 [facility] [address] [id number] [address] [place] [address], [place] [address] 15 Mar, 2011 [facility] [address] [id number] [address] [place] [address], [place] [address] Mar, [facility] [facility] [address] [id number] [address] [place] [address], [place] [address] Feb, [facility] [address] [id number] [address] [place] [address], [place] [address] 19 Dec, 2010 [facility] [address] [id number] [address] [place] [address], [place] [address] September, [facility] [address] [id number] [address] [place] [address], [place] [address] Aug, [facility] [address] [id number] [address] [place] [address], [place] [address] 17 May, 2010 [facility] [address] [id number] [address] [place] [address], [place] [address] 10 May, 2010 [facility] [address] [id number] [address] [place] [address], [place] [address] Apr, [facility] [address] [id number] [address] [place] [address], [place] [address] Apr, [facility] [address] [id number] [address] [place] [address], [place] [address] Apr, [facility] [address] [id number] [address] [place] [address], [place] [address] Mar, [facility] [address] [id number] [address] [place] [address], [place] [address] Mar, [facility] [address] [id number] [address] [place] [address], [place] [address] Mar, [facility] [address] [id number] [address] [place] [address], [place] [address] Nov, [facility] [address] [id number] [address] [place] [address], [place] [address] 15 Oct, 2009 [facility] [address] [id number] [address] [place] [address], [place] [address] September, [facility] [address] [id number] [address] [place] [address], [place] [address] 14 Dec, 2008 [facility] [address] [id number] [address] [place] [address], [place] [address] Jul, [facility] [address] [facility] [id number] [address] [place] [address] Jul, IMMUNIZATIONS No Known Immunizations SOCIAL HISTORY Never Assessed REASON FOR VISIT EMR-[facility] [place] [facility] PLAN OF CARE VITAL [...]
--- OUTSIDE RECORDS SUMMARY | 2019-11-14 23:15 | XMS REPORT ---
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 Name Role Phone Migration, Doctor Unavailable Unavailable PROBLEMS Type Condition ICD9-CM Code [id number] Code Onset Dates Condition S tatus SNOMED Code Problem Diabetes type 2, controlled E11.9 Ac tive 38856316 Problem Type 2 diabetes mellitus without complications E11 .9 Active 536907301 Problem nursing home 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.4 Active 843120367 Problem Arthritis M19.90 Active 9127553 Problem Neuropathy, diabetic E11.40 Active 232198281 Problem Essential hypertension I10 Active 44153573 Problem Type 2 diabetes mellitus with diabetic neuropathy, uns pecified E11.40 Active 82865967 Problem Erectile dysfunction, unspecified erectile dysfunction typ e N52.9 Active 163438861 Problem Mood disorder F39 Active 520397 05 Problem ASIYA (obstructive sleep apnea) G47.33 Active 01659741 ALLERGIES No Information ENCOUNTERS Encounter Location Date Diagnosis [facility], [place] [address] [facility] [id number] [address] [place] [id number] Jul, [facility] [place] [address] [place] [id number] [address] [place] [phone] Jul, BMI 40.0-44.9, adult Z68.41 [facility] [place] [address] [facility] [id number] [address] [place] [phone] Jul, BMI 40.0-44.9, adult Z68.41 [facility], [place] [address] [facility] [id number] [address] [place] [phone] May, [facility], [place] [address] [place] [id number] [address] [place] [id number] May, [facility] [place] [address] [facility] [id number] [address] [place] [id number] Apr, BMI 40.0-44.9, adult Z68.41 ; Type 2 diabetes mellitus without complications E11.9 and Arthritis M19.90 [facility], [place] [address] [facility] [id number] [address] [place] [phone] Mar, [facility], [place] [address] [facility] [id number] [address] [place] [id number] Mar, [facility] [place] [address] [facility] [id number] [address] [place] [phone] Mar, Type 2 diabetes mellitus wit hout complications E11.9 [facility], [place] [address] [facility] [id number] [address] [place] [phone] Feb, BMI 40.0-44.9, adult Z68.41 and Diabetes type 2, controlled E11.9 [facility], [place] [address] [facility] [id number] [address] [place] [phone] Feb, [facility], [place] [address] [place] [id number] [address] [place] [phone] Feb, [facility], [place] [address] [facility] [id number] [address] [place] [phone] Feb, Diabetes type 2, controlled E11.9 [facility], [place] [address] [facility] [id number] [address] [place] [phone] Jan, [facility], [place] [address] [place] [id number] [address] [place] [phone] Jan, [facility] [place] [address] [facility] [id number] [address] [place] [phone] Jan, Allergic reaction to drug, i nitial encounter T78.40XA ; Uncontrolled type 2 diabetes mellitus with hyperglycemia E11.65 and Essential hypertension I10 [facility], [place] [address] [facility] [id number] [address] [place] [phone] Jan, Type 2 diabetes mellitus wit hout complications E11.9 ; Diabetes type 2, controlled E11.9 and Arthritis M19.90 [facility], [place] [address] [place] [id number] [address] [place] [phone] Dec, Diabetes type 2, controlled E11.9 [facility], [place] [address] [id number] [address] [place] [phone] Dec, [facility], [place] [address] [facility] [id number] [address] [place] [phone] Dec, Diabetes type 2, controlled E11.9 [facility], [place] [address] [facility] [id number] [address] [place] [id number] Oct, Diabetes type 2, controlled E11.9 [facility] [address] [id number] [address] [place] [address] [id number] 14 Oct, 2017 Dental caries K02.9 and Trimble al examination Z01.20 [facility], [place] [address] [facility] [id number] [address] [place] [phone] September, [facility], [place] [address] [facility] [id number] [address] [place] [phone] 05 Aug, 2017 Diabetes type 2, controlled E11.9 ; Mood disorder F39 ; Arthritis M19.90 and Family history of rheumatoid arthritis Z82.61 [facility] [address] [facility] [id number] [address] [place] [phone] 15 Jul, 2017 Infection of both inner ears H83.03 and Dizziness R42 [facility], [place] [address] [id number] [address] [place] [id number] Jul, [facility], [place] [address] [facility] [id number] [address] [place] [id number] 24 Jul, 2017 Diabetes type 2, controlled E11.9 [facility] [address] [id number] [address] [place] [address] [id number] 09 Jul, 2017 Dental examination Z01.20 [facility], [place] [address] [id number] [address] [place] [phone] May, Diabetes type 2, controlled E11.9 [facility] [place] [address] [id number] [address] [place] [phone] May, [facility] [address] [id number] [address] [place] [address] [id number] 10 May, 2017 Dental examination Z01.20 [facility] [place] [address] [id number] [address] [place] [phone] May, [facility], [place] [address] [id number] [address] [place] [phone] May, [facility] [place] [address] [id number] [address] [place] [id number] May, Diabetes type 2, controlled E11.9 [facility], [place] [address] [id number] [address] [place] [phone] Apr, [facility], [place] [address] [id number] [address] [place] [phone] Apr, Mood disorder F39 [facility], [place] [address] [facility] [id number] [address] [place] [phone] Mar, [facility] [place] [address] [facility] [id number] [address] [place] [phone] Mar, Diabetes type 2, controlled E11.9 and Encounter for immunization Z23 [facility], [place] [address] [facility] [id number] [address] [place] [id number] Jan, Mood disorder F39 [facility], [place] [address] [facility] [id number] [address] [place] [phone] Jan, Type 2 diabetes mellitus wit hout complications E11.9 [facility], [place] [address] [id number] [address] [place] [id number] Nov, [facility], [place] [address] [facility] [id number] [address] [place] [phone] Nov, Type 2 diabetes mellitus wit hout complications E11.9 ; Mood disorder F39 and ASIYA (obstructive sleep apnea) G47.33 [facility], [place] [address] [id number] [address] [place] [phone] September, Diabetes type 2, controlled E11.9 [facility], [place] [address] [facility] [id number] [address] [place] [phone] September, [facility], [place] [address] [id number] [address] [place] [phone] Aug, Diabetes type 2, controlled E11.9 [facility], [place] [address] [id number] [address] [place] [phone] Jul, [facility], [place] [address] [facility] [id number] [address] [place] [phone] Jul, Type 2 diabetes mellitus wit hout complications E11.9 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 [facility], [place] [address] [id number] [address] [place] [phone] Jul, Diabetes type 2, controlled E11.9 [facility], [place] [address] [facility] [id number] [address] [place] [id number] Jul, [facility] [place] [address] [facility] [id number] [address] [place] [phone] May, [facility] [place] [address] [facility] [id number] [address] [place] [phone] Apr, Diabetes type 2, controlled E11.9 [facility] [place] [address] [facility] [id number] [address] [place] [phone] Feb, Erectile dysfunction, unspec ified erectile dysfunction type N52.9 ; Type 2 diabetes mellitus with diabetic neuropathy, unspecified E11.40 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 [place] [address] [facility] [id number] [address] [place] [id number] 08 Jan, 2016 Impacted cerumen of both ear s H61.23 [facility], [place] [address] [facility] [id number] [address] [place] [phone] Oct, Type 2 diabetes mellitus wit hout complications E11.9 [facility] [place] [address] [facility] [id number] [address] [place] [phone] Oct, [facility] [place] [address] [facility] [id number] [address] [place] [phone] September, Type 2 diabetes mellitus wit hout complications E11.9 [facility] [place] [address] [id number] [address] [place] [phone] Jul, Type 2 diabetes mellitus wit hout complications E11.9 ; Lumbar pain M54.5 and Tobacco abuse Z72.0 [facility] [place] [address] [id number] [address] [place] [phone] May, [facility] [place] [address] [facility] [id number] [address] [place] [phone] May, [facility], [place] [address] [id number] [address] [place] [phone] Apr, [facility] [place] [address] [facility] [id number] [address] [place] [phone] Mar, [facility] [place] [address] [facility] [id number] [address] [place] [phone] Mar, Type 2 diabetes mellitus wit hout complications E11.9 [facility] [place] [address] [facility] [id number] [address] [place] [phone] Mar, [facility] [place] [address] [facility] [id number] [address] [place] [phone] Feb, Type 2 diabetes mellitus wit hout complications E11.9 ; Neuropathy, diabetic E11.40 and Sleep apnea G47.30 [facility] [place] [address] [facility] [id number] [address] [place] [id number] Feb, [facility] [place] [address] [facility] [id number] [address] [place] [id number] 22 Jan, 2015 Skin infection, bacterial 68 6.9 [facility] [place] [address] [facility] [id number] [address] [place] [phone] 15 Jan, 2015 [facility] [place] [address] [facility] [id number] [address] [place] [id number] Dec, Diabetes mellitus type 2, un complicated 250.00 [facility] [place] [address] [id number] [address] [place] [phone] Dec, [facility] [address] [id number] [address] [place] [phone] Nov, [facility] [address] [id number] [address] [place] [phone] Nov, Diabetes mellitus type 2, un complicated 250.00 and Obesity 278.00 [facility] [address] [id number] [address] [place] [id number] Oct, [facility] [address] [id number] [address] [place] [id number] Oct, [facility] [address] [id number] [address] [place] [phone] Aug, [facility] [address] [id number] [address] [place] [phone] Aug, [facility] [address] [id number] [address] [place] [phone] Jul, [facility] [address] [id number] [address] [place] [phone] Jul, [facility] [address] [id number] [address] [place] [id number] Jul, [facility] [address] [id number] [address] [place] [phone] Jul, [facility] [address] [id number] [address] [place] [phone] Jul, [facility] [address] [id number] [address] [place] [phone] Jul, [facility] [address] [id number] [address] [place] [phone] Feb, [facility] [address] [id number] [address] [place] [phone] Feb, [facility] [address] [id number] [address] [place] [phone] Dec, [facility] [address] [id number] [address] [place] [address], [place] [address] Nov, [facility] [address] [id number] [address] [place] [address], [place] [address] Nov, [facility] [address] [id number] [address] [place] [address], [place] [address] Nov, [facility] [address] [id number] [address] [place] [address], [place] [address] Nov, [facility] [address] [id number] [address] [place] [address], [place] [address] Nov, [facility] [address] [id number] [address] [place] [address], [place] [address] September, [facility] [address] [id number] [address] [place] [address], [place] [address] September, [facility] [address] [id number] [address] [place] [address], [place] [address] Aug, [facility] [address] [id number] [address] [place] [address], [place] [address] Aug, [facility] [address] [id number] [address] [place] [address], [place] [address] Aug, [facility] [address] [id number] [address] [place] [address], [place] [address] Aug, [facility] [address] [id number] [address] [place] [address], [place] [address] Jul, [facility] [address] [id number] [address] [place] [address], [place] [address] Jul, [facility] [address] [id number] [address] [place] [address], [place] [address] Apr, [facility] [address] [id number] [address] [place] [address], [place] [address] Apr, [facility] [address] [id number] [address] [place] [address], [place] [address] Mar, [facility] [address] [id number] [address] [place] [address], [place] [address] Mar, [facility] [address] [id number] [address] [place] [address], [place] [address] Jan, [facility] [address] [id number] [address] [place] [address], [place] [address] Jan, [facility] [address] [id number] [address] [place] [address], [place] [address] Dec, [facility] [address] [id number] [address] [place] [address], [place] [address] Nov, [facility] [address] [id number] [address] [place] [address], [place] [address] Nov, [facility] [address] [id number] [address] [place] [address], [place] [address] Nov, [facility] [address] [id number] [address] [place] [address], [place] [address] Oct, [facility] [address] [id number] [address] [place] [address], [place] [address] Oct, [facility] [address] [id number] [address] [place] [address], [place] [address] Oct, [facility] [address] [id number] [address] [place] [address], [place] [address] September, [facility] [address] [id number] [address] [place] [address], [place] [address] September, [facility] [address] [id number] [address] [place] [address], [place] [address] Aug, [facility] [address] [id number] [address] [place] [address], [place] [address] Aug, [facility] [address] [id number] [address] [place] [address], [place] [address] Aug, [facility] [address] [id number] [address] [place] [address], [place] [address] Aug, [facility] [address] [id number] [address] [place] [address], [place] [address] Jul, [facility] [address] [id number] [address] [place] [address], [place] [address] Jul, [facility] [address] [id number] [address] [place] [address], [place] [address] Jul, [facility] [address] [id number] [address] [place] [address], [place] [address] Jul, [facility] [address] [id number] [address] [place] [address], [place] [address] May, [facility] [address] [id number] [address] [place] [address], [place] [address] May, [facility] [address] [id number] [address] [place] [address], [place] [address] May, [facility] [address] [id number] [address] [place] [address], [place] [address] May, [facility] [address] [id number] [address] [place] [address], [place] [address] May, [facility] [address] [id number] [address] [place] [address], [place] [address] May, [facility] [address] [id number] [address] [place] [address], [place] [address] May, [facility] [address] [id number] [address] [place] [address], [place] [address] May, [facility] [address] [id number] [address] [place] [address], [place] [address] May, [facility] [address] [id number] [address] [place] [address], [place] [address] May, [facility] [address] [id number] [address] [place] [address], [place] [address] Apr, [facility] [address] [id number] [address] [place] [address], [place] [address] Apr, [facility] [address] [id number] [address] [place] [address], [place] [address] Apr, [facility] [address] [id number] [address] [place] [address], [place] [address] Apr, [facility] [address] [id number] [address] [place] [address], [place] [address] Mar, [facility] [address] [id number] [address] [place] [address], [place] [address] Mar, [facility] [address] [id number] [address] [place] [address], [place] [address] Feb, [facility] [address] [id number] [address] [place] [address], [place] [address] Feb, [facility] [address] [id number] [address] [place] [address], [place] [address] Feb, [facility] [address] [id number] [address] [place] [address], [place] [address] Feb, [facility] [address] [id number] [address] [place] [address], [place] [address] Jan, [facility] [address] [id number] [address] [place] [address], [place] [address] Dec, [facility] [address] [id number] [address] [place] [address], [place] [address] Oct, [facility] [address] [id number] [address] [place] [address], [place] [address] September, [facility] [address] [id number] [address] [place] [address], [place] [address] September, [facility] [address] [id number] [address] [place] [address], [place] [address] Jul, [facility] [address] [id number] [address] [place] [address], [place] [address] Jul, [facility] [address] [id number] [address] [place] [address], [place] [address] Jul, [facility] [address] [id number] [address] [place] [address], [place] [address] Jul, [facility] [address] [id number] [address] [place] [address], [place] [address] Jul, [facility] [address] [id number] [address] [place] [address], [place] [address] May, [facility] [address] [id number] [address] [place] [address], [place] [address] Apr, [facility] [address] [id number] [address] [place] [address], [place] [address] Apr, [facility] [address] [id number] [address] [place] [address], [place] [address] Apr, [facility] [address] [id number] [address] [place] [address], [place] [address] Apr, [facility] [address] [id number] [address] [place] [address], [place] [address] 16 Mar, 2011 [facility] [address] [id number] [address] [place] [address], [place] [address] 16 Mar, 2011 [facility] [address] [id number] [address] [place] [address] 15 Mar, 2011 [facility] [address] [id number] [address] [place] [address], [place] [address] Mar, [facility] [address] [id number] [address] [place] [address], [place] [address] Feb, [facility] [address] [id number] [address] [place] [address], [place] [address] Dec, [facility] [address] [id number] [address] [place] [address], [place] [address] 11 Sep, 2010 [facility] [address] [id number] [address] [place] [address], [place] [address] 11 Aug, 2010 [facility] [address] [id number] [address] [place] [address], [place] [address] 17 May, 2010 [facility] [address] [id number] [address] [place] [address], [place] [address] May, [facility] [address] [id number] [address] [place] [address], [place] [address] 24 Apr, 2010 [facility] [address] [id number] [address] [place] [address], [place] [address] Apr, [facility] [address] [id number] [address] [place] [address], [place] [address] Apr, [facility] [address] [id number] [address] [place] [address], [place] [address] Mar, [facility] [address] [id number] [address] [place] [address], [place] [address] Mar, [facility] [address] [id number] [address] [place] [address], [place] [address] Mar, [facility] [address] [id number] [address] [place] [address], [place] [address] Nov, [facility] [address] [id number] [address] [place] [address], [place] [id number] 15 Oct, 2009 [facility] [address] [id number] [address] [place] [address], [place] [address] September, [facility] [address] [id number] [address] [place] [address], [place] [address] 14 Dec, 2008 [facility] [address] [id number] [address] [place] [address], [place] [address] Jul, [facility] [address] [id number] [address] [place] [id number] Jul, IMMUNIZATIONS No Known Immunizations SOCIAL HISTORY Never Assessed [place] [place]
--- OUTSIDE RECORDS SUMMARY | 2019-11-14 23:15 | XMS REPORT ---
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 Name Role Phone Migration, Doctor Unavailable Unavailable PROBLEMS Type Condition ICD9-CM Code HSM76-RF Code Onset Dates Condition S tatus SNOMED Code Problem Diabetes type 2, controlled E11.9 Ac tive 09516525 Problem Type 2 diabetes mellitus without complications E11 .9 Active 814010054 Problem MCC 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.4 Active 576387865 Problem Arthritis M19.90 Active 3602341 Problem Neuropathy, diabetic E11.40 Active 780877903 Problem Essential hypertension I10 Active 36699766 Problem Type 2 diabetes mellitus with diabetic neuropathy, uns pecified E11.40 Active 96260323 Problem Erectile dysfunction, unspecified erectile dysfunction typ e N52.9 Active 119270576 Problem Mood disorder F39 Active 417406 05 Problem ASIYA (obstructive sleep apnea) G47.33 Active 08844826 ALLERGIES No Information ENCOUNTERS Encounter Location Date Diagnosis [facility] [address] [facility] [id number] [address] [place] [id number] Aug, [facility] [address] [place] [id number] [address] [place] [id number] Jul, [facility] [address] [facility] [id number] [address] [place] [id number] Jul, BMI 40.0-44.9, adult Z68.41 [facility] [address] [facility] [id number] [address] [place] [id number] Jul, BMI 40.0-44.9, adult Z68.41 [facility] [address] [facility] [id number] [address] [place] [id number] May, [facility] [address] [id number] [address] [place] [id number] May, [facility] [address] [place] [address] Apr, BMI 40.0-44.9, adult Z68.41 ; Type 2 diabetes mellitus without complications E11.9 and Arthritis M19.90 [facility] [address] [facility] [id number] [address] [place] [id number] Mar, [facility] [address] [facility] [id number] [address] [place] [id number] Mar, [facility] [address] [facility] [id number] [address] [place] [phone] Mar, Type 2 diabetes mellitus wit hout complications E11.9 [place] [address] [place] [id number] [place] [address] Feb, BMI 40.0-44.9, adult Z68.41 and Diabetes type 2, controlled E11.9 [place] [address] [place] [id number] [address] [place] [phone] Feb, [facility] [address] [facility] [id number] [address] [place] [phone] Feb, [place] [address] [place] [id number] [address] [place] [id number] Feb, Diabetes type 2, controlled E11.9 [facility] [address] [facility] [id number] [address] [place] [id number] Jan, [place] [address] [place] [id number] [address] [place] [id number] Jan, [facility] [address] [place] [id number] [address] [place] [id number] 17 Jan, 2018 Allergic reaction to drug, i nitial encounter T78.40XA ; Uncontrolled type 2 diabetes mellitus with hyperglycemia E11.65 and Essential hypertension I10 [facility] [address] [facility] [id number] [address] [place] [id number] 07 Jan, 2018 Type 2 diabetes mellitus wit hout complications E11.9 ; Diabetes type 2, controlled E11.9 and Arthritis M19.90 [facility] [address] [facility] [id number] [address] [place] [id number] Dec, Diabetes type 2, controlled E11.9 [facility] [address] [facility] [id number] [address] [place] [id number] Dec, [facility] [address] [facility] [id number] [address] [place] [id number] Dec, Diabetes type 2, controlled E11.9 [facility] [address] [facility] [id number] [address] [place] [id number] Oct, Diabetes type 2, controlled E11.9 [facility] [id number] [place] [id number] Oct, Dental caries K02.9 and [place] al examination Z01.20 [facility] [address] [facility] [id number] [address] [place] [id number] September, [facility] [address] [id number] [address] [place] [id number] Aug, Diabetes type 2, controlled E11.9 ; Mood disorder F39 ; Arthritis M19.90 and Family history of rheumatoid arthritis Z82.61 [facility] [address] [id number] [address] [place] [id number] 15 Jul, 2017 Infection of both inner ears H83.03 and Dizziness R42 [facility] [address] [facility] [id number] [address] [place] [id number] Jul, [facility] [address] [facility] [id number] [address] [place] [id number] Jul, Diabetes type 2, controlled E11.9 [facility] [address] [id number] [address] [place] [address] [id number] Jul, 2017 Dental examination Z01.20 [facility] [address] [facility] [id number] [address] [place] [id number] May, Diabetes type 2, controlled E11.9 [facility] [address] [place] [id number] May, [facility] [address] [id number] [address] [place] [address] [id number] May, Dental examination Z01.20 [facility] [address] [id number] [address] [place] [phone] May, [facility] [address] [id number] [address] [place] [id number] May, [facility] [address] [id number] [address] [place] [id number] May, Diabetes type 2, controlled E11.9 [facility] [address] [id number] [address] [place] [id number] Apr, [facility] [address] [facility] [id number] [address] [place] [id number] Apr, Mood disorder F39 [facility] [address] [id number] [address] [place] [phone] Mar, [facility] [address] [id number] [address] [place] [id number] Mar, Diabetes type 2, controlled E11.9 and Encounter for immunization Z23 [facility] [address] [id number] [address] [place] [id number] Jan, Mood disorder F39 [facility] [address] [id number] [address] [place] [id number] Jan, Type 2 diabetes mellitus wit hout complications E11.9 [facility] [address] [id number] [address] [place] [id number] Nov, [facility] [address] [facility] [id number] [address] [place] [id number] Nov, Type 2 diabetes mellitus wit hout complications E11.9 ; Mood disorder F39 and ASIYA (obstructive sleep apnea) G47.33 [facility] [address] [id number] [address] [place] [id number] September, Diabetes type 2, controlled E11.9 [facility] [address] [id number] [address] [place] [id number] September, [facility] [address] [facility] [id number] [address] [place] [id number] Aug, Diabetes type 2, controlled E11.9 [facility] [address] [facility] [id number] [address] [place] [id number] Jul, [facility] [address] [facility] [id number] [address] [place] [id number] Jul, Type 2 diabetes mellitus wit hout complications E11.9 and MCC 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.4 [place] [address] [facility] [id number] [address] [place] [id number] Jul, Diabetes type 2, controlled E11.9 [facility] [address] [facility] [id number] [address] [place] [id number] Jul, [facility] [address] [facility] [id number] [address] [place] [id number] May, [facility] [address] [facility] [id number] [address] [place] [id number] Apr, Diabetes type 2, controlled E11.9 [facility] [address] [facility] [id number] [address] [place] [id number] Feb, Erectile dysfunction, unspec ified erectile dysfunction type N52.9 ; Type 2 diabetes mellitus with diabetic neuropathy, unspecified E11.40 and emt intermediate 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.4 [place] [address] [facility] [id number] [address] [place] [id number] 08 Jan, 2016 Impacted cerumen of both ear s H61.23 [facility] [address] [facility] [id number] [address] [place] [id number] Oct, Type 2 diabetes mellitus wit hout complications E11.9 [facility] [address] [facility] [id number] [address] [place] [id number] Oct, [facility] [address] [id number] [address] [place] [id number] September, Type 2 diabetes mellitus wit hout complications E11.9 [facility] [address] [id number] [address] [place] [id number] Jul, Type 2 diabetes mellitus wit hout complications E11.9 ; Lumbar pain M54.5 and Tobacco abuse Z72.0 [facility] [address] [id number] [address] [place] [id number] May, [facility] [address] [id number] [address] [place] [id number] May, [facility] [address] [id number] [address] [place] [id number] Apr, [facility] [address] [facility] [id number] [address] [place] [id number] Mar, [facility] [address] [id number] [address] [place] [id number] Mar, Type 2 diabetes mellitus wit hout complications E11.9 [facility] [address] [id number] [address] [place] [id number] Mar, [facility] [address] [facility] [id number] [address] [place] [id number] 28 Feb, 2015 Type 2 diabetes mellitus wit hout complications E11.9 ; Neuropathy, diabetic E11.40 and Sleep apnea G47.30 [facility] [address] [id number] [address] [place] [id number] Feb, [facility] [address] [facility] [id number] [address] [place] [id number] 22 Jan, 2015 Skin infection, bacterial 68 6.9 [facility] [address] [id number] [address] [place] [id number] 15 Jan, 2015 [facility] [address] [facility] [id number] [address] [place] [id number] Dec, Diabetes mellitus type 2, un complicated 250.00 [facility] [address] [id number] [address] [place] [id number] Dec, [facility] [address] [id number] [address] [place] [id number] Nov, [facility] [address] [id number] [address] [place] [id number] Nov, Diabetes mellitus type 2, un complicated 250.00 and Obesity 278.00 [facility] [address] [id number] [address] [place] [id number] Oct, [facility] [address] [id number] [address] [place] [id number] Oct, [facility] [address] [id number] [address] [place] [id number] Aug, [facility] [address] [id number] [address] [place] [id number] Aug, [facility] [address] [id number] [address] [place] [id number] Jul, [facility] [address] [id number] [address] [place] [id number] Jul, [facility] [address] [id number] [address] [place] [id number] Jul, [facility] [address] [id number] [address] [place] [phone] Jul, [facility] [address] [id number] [address] [place] [id number] Jul, [facility] [address] [id number] [address] [place] [id number] Jul, [facility] [address] [id number] [address] [place] [id number] Feb, [facility] [address] [id number] [address] [place] [phone] Feb, [facility] [address] [id number] [address] [place] [address], [place] [address] Dec, [facility] [address] [id number] [address] [place] [address], [place] [address] Nov, [facility] [address] [id number] [address] [place] [address], [place] [address] Nov, [facility] [address] [id number] [address] [place] [address], [place] [address] Nov, [facility] [address] [id number] [address] [place] [address], [place] [address] Nov, [facility] [address] [id number] [address] [place] [address], [place] [address] Nov, [facility] [address] [id number] [address] [place] [address], [place] [address] September, [facility] [address] [id number] [address] [place] [address], [place] [address] September, [facility] [address] [id number] [address] [place] [address], [place] [address] Aug, [facility] [address] [id number] [address] [place] [address], [place] [address] Aug, [facility] [address] [id number] [address] [place] [address], [place] [address] Aug, [facility] [address] [id number] [address] [place] [address], [place] [address] Aug, [facility] [address] [id number] [address] [place] [address], [place] [address] Jul, [facility] [address] [id number] [address] [place] [address], [place] [address] Jul, [facility] [address] [id number] [address] [place] [address], [place] [address] Apr, [facility] [address] [id number] [address] [place] [address], [place] [address] Apr, [facility] [address] [id number] [address] [place] [address], [place] [address] Mar, [facility] [address] [id number] [address] [place] [address], [place] [address] Mar, [facility] [address] [id number] [address] [place] [address], [place] [address] Jan, [facility] [address] [id number] [address] [place] [address], [place] [address] Jan, [facility] [address] [id number] [address] [place] [address], [place] [address] Dec, [facility] [address] [id number] [address] [place] [address], [place] [address] Nov, [facility] [address] [id number] [address] [place] [address], [place] [address] Nov, [facility] [address] [id number] [address] [place] [address], [place] [address] Nov, [facility] [address] [id number] [address] [place] [address], [place] [address] Oct, [facility] [address] [id number] [address] [place] [address], [place] [address] Oct, [facility] [address] [id number] [address] [place] [address], [place] [address] Oct, [facility] [address] [id number] [address] [place] [address], [place] [address] September, [facility] [address] [id number] [address] [place] [address], [place] [address] September, [facility] [address] [id number] [address] [place] [address], [place] [address] Aug, [facility] [address] [id number] [address] [place] [address], [place] [address] Aug, [facility] [address] [id number] [address] [place] [address], [place] [address] Aug, [facility] [address] [id number] [address] [place] [address], [place] [address] Aug, [facility] [address] [id number] [address] [place] [address], [place] [address] Jul, [facility] [address] [id number] [address] [place] [address], [place] [address] Jul, [facility] [address] [id number] [address] [place] [address], [place] [address] Jul, [facility] [address] [id number] [address] [place] [address], [place] [address] Jul, [facility] [address] [id number] [address] [place] [address], [place] [address] May, [facility] [address] [id number] [address] [place] [address], [place] [address] May, [facility] [address] [id number] [address] [place] [address], [place] [address] May, [facility] [address] [id number] [address] [place] [address], [place] [address] May, [facility] [address] [id number] [address] [place] [address], [place] [address] May, [facility] [address] [id number] [address] [place] [address], [place] [address] May, [facility] [address] [id number] [address] [place] [address], [place] [address] May, [facility] [address] [id number] [address] [place] [address], [place] [address] May, [facility] [address] [id number] [address] [place] [address], [place] [address] May, [facility] [address] [id number] [address] [place] [address], [place] [address] May, [facility] [address] [id number] [address] [place] [address], [place] [address] Apr, [facility] [address] [id number] [address] [place] [address], [place] [address] Apr, [facility] [address] [id number] [address] [place] [address], [place] [address] Apr, [facility] [address] [id number] [address] [place] [address], [place] [address] Apr, [facility] [address] [id number] [address] [place] [address], [place] [address] Mar, [facility] [address] [id number] [address] [place] [address], [place] [address] Mar, [facility] [address] [id number] [address] [place] [address], [place] [address] Feb, [facility] [address] [id number] [address] [place] [address], [place] [address] Feb, [facility] [address] [id number] [address] [place] [address], [place] [address] Feb, [facility] [address] [id number] [address] [place] [address], [place] [address] Feb, [facility] [address] [id number] [address] [place] [address], [place] [address] Jan, [facility] [address] [id number] [address] [place] [address], [place] [address] Dec, [facility] [address] [id number] [address] [place] [address], [place] [address] Oct, [facility] [address] [id number] [address] [place] [address], [place] [address] September, [facility] [address] [id number] [address] [place] [address], [place] [address] September, [facility] [address] [id number] [address] [place] [address], [place] [address] Jul, [facility] [address] [id number] [address] [place] [address], [place] [address] Jul, [facility] [address] [id number] [address] [place] [address], [place] [address] Jul, [facility] [address] [id number] [address] [place] [address], [place] [address] Jul, [facility] [address] [id number] [address] [place] [address], [place] [address] Jul, [facility] [address] [id number] [address] [place] [address], [place] [address] May, [facility] [address] [id number] [address] [place] [address], [place] [address] Apr, [facility] [address] [id number] [address] [place] [address], [place] [address] Apr, [facility] [address] [id number] [address] [place] [address], [place] [address] Apr, [facility] [address] [id number] [address] [place] [address], [place] [address] 08 Apr, 2011 [facility] [address] [id number] [address] [place] [address], [place] [address] Mar, [facility] [address] [id number] [address] [place] [id number] 16 Mar, 2011 [facility] [address] [id number] [address] [place] [address], [place] [address] 15 Mar, 2011 [facility] [address] [id number] [address] [place] [address], [place] [address] Mar, [facility] [address] [id number] [address] [place] [address], [place] [address] Feb, [facility] [address] [id number] [address] [place] [address], [place] [address] 19 Dec, 2010 [facility] [address] [id number] [address] [place] [address], [place] [address] September, [facility] [address] [id number] [address] [place] [address], [place] [address] Aug, [facility] [address] [id number] [address] [place] [address], [place] [address] 17 May, 2010 [facility] [address] [id number] [address] [place] [address], [place] [address] 10 May, 2010 [facility] [address] [id number] [address] [place] [address], [place] [address] Apr, [facility] [address] [id number] [address] [place] [address], [place] [address] Apr, [facility] [address] [id number] [address] [place] [address], [place] [address] Apr, [facility] [address] [id number] [address] [place] [address], [place] [address] Mar, [facility] [address] [id number] [address] [place] [address], [place] [address] Mar, [facility] [address] [id number] [address] [place] [address], [place] [address] Mar, [facility] [address] [id number] [address] [place] [address], [place] [address] Nov, [facility] [address] [id number] [address] [place] [address], [place] [address] 15 Oct, 2009 [facility] [address] [id number] [address] [place] [address], [place] [address] September, [facility] [address] [id number] [address] [place] [address], [place] [address] 14 Dec, 2008 [facility] [address] [id number] [address] [place] [address], [place] [address] Jul, [facility] [address] [facility] [id number] [address] [place] [address] Jul, IMMUNIZATIONS No Known Immunizations SOCIAL HISTORY Never Assessed REASON FOR VISIT [facility] [place] PLAN OF CARE VITAL [...]
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
--- OUTSIDE RECORDS SUMMARY | 2019-11-14 23:16 | XMS REPORT ---
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 183265439 Problem Type 2 diabetes mellitus without complications E11 .9 Active 283390002 Problem Neuropathy, diabetic E11.40 Active 592818314 Problem Essential hypertension I10 Active 81873194 Problem Arthritis M19.90 Active 0619043 Problem Erectile dysfunction, unspecified erectile dysfunction typ e N52.9 Active 910628195 Problem Type 2 diabetes mellitus with diabetic neuropathy, uns pecified E11.40 Active 28293940 Problem ASIYA (obstructive sleep apnea) G47.33 Active 30744141 Problem Mood disorder F39 Active 552921 05 ALLERGIES No Information ENCOUNTERS Encounter Location Date Diagnosis [facility] [address] [facility] [id number] [address] [place] [address] Mar, [facility] [address] [facility] [id number] [address] [place] [address] Mar, Type 2 diabetes mellitus wit hout complications E11.9 [facility] [address] [facility] [id number] [address] [place] [address] Feb, BMI 40.0-44.9, adult Z68.41 and Diabetes type 2, controlled E11.9 [facility] [address] [facility] [id number] [address] [place] [address] Feb, [facility] [address] [facility] [id number] [address] [place] [address] Feb, [facility] [address] [place] [id number] [address] [place] [address] Feb, Diabetes type 2, controlled E11.9 [facility] [address] [place] [id number] [address] [place] [address] Jan, [facility] [address] [place] [id number] [address] [place] [address] Jan, [facility] [address] [address] Jan, Allergic reaction to drug, i nitial encounter T78.40XA ; Uncontrolled type 2 diabetes mellitus with hyperglycemia E11.65 and Essential hypertension I10 [facility] [address] [address] Jan, Type 2 diabetes mellitus wit hout complications E11.9 ; Diabetes type 2, controlled E11.9 and Arthritis M19.90 [facility] [address] [place] [id number] [address] [place] [address] Dec, Diabetes type 2, controlled E11.9 [facility] [address] [place] [id number] [address] [place] [address] Dec, [facility] [address] [place] [id number] [address] [place] [address] Dec, Diabetes type 2, controlled E11.9 [facility] [address] [place] [id number] [address] [place] [address] Oct, Diabetes type 2, controlled E11.9 [facility] [address] [place] [id number] [address] [place] [address] [id number] 14 Oct, 2017 Dental caries K02.9 and [place] al examination Z01.20 [facility] [address] [place] [id number] [address] [place] [address] September, [facility] [address] [facility] [id number] [address] [place] [address] Aug, Diabetes type 2, controlled E11.9 ; Mood disorder F39 ; Arthritis M19.90 and Family history of rheumatoid arthritis Z82.61 [facility] [address] [id number] [address] [place] [address] 15 Jul, 2017 Infection of both inner ears H83.03 and Dizziness R42 [facility] [address] [id number] [address] [place] [address] 14 Jul, 2017 [facility] [address] [id number] [address] [place] [address] Jul, Diabetes type 2, controlled E11.9 [facility] [address] [id number] [address] [place] [id number] Jul, Dental examination Z01.20 [facility] [address] [id number] [address] [place] [address] May, Diabetes type 2, controlled E11.9 [facility] [address] [id number] [address] [place] [address] May, [facility] [address] [id number] [place] [id number] May, Dental examination Z01.20 [facility] [address] [id number] [address] [place] [address] May, [facility] [address] [id number] [address] [place] [address] May, [facility] [address] [id number] [address] [place] [address] May, Diabetes type 2, controlled E11.9 [facility] [address] [id number] [address] [place] [address] Apr, [facility] [address] [id number] [address] [place] [address] Apr, Mood disorder F39 [facility] [address] [id number] [address] [place] [address] Mar, [facility] [address] [facility] [id number] [address] [place] [address] Mar, Diabetes type 2, controlled E11.9 and Encounter for immunization Z23 [facility] [address] [id number] [address] [place] [address] Jan, Mood disorder F39 [facility] [address] [id number] [address] [place] [address] 27 Jan, 2017 Type 2 diabetes mellitus wit hout complications E11.9 [facility] [address] [facility] [id number] [address] [place] [address] Nov, [facility] [address] [id number] [address] [place] [address] Nov, Type 2 diabetes mellitus wit hout complications E11.9 ; Mood disorder F39 and ASIYA (obstructive sleep apnea) G47.33 [facility] [address] [facility] [id number] [address] [place] [address] September, Diabetes type 2, controlled E11.9 [facility] [address] [facility] [id number] [address] [place] [address] September, [facility] [address] [facility] [id number] [address] [place] [address] Aug, Diabetes type 2, controlled E11.9 [facility] [address] [facility] [id number] [address] [place] [address] Jul, [facility] [address] [facility] [id number] [address] [place] [address] Jul, Type 2 diabetes mellitus wit hout complications E11.9 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 [facility] [address] [id number] [address] [place] [address] Jul, Diabetes type 2, controlled E11.9 [facility] [address] [facility] [id number] [address] [place] [address] Jul, [facility] [address] [facility] [id number] [address] [place] [address] May, [facility] [address] [facility] [id number] [address] [place] [address] 16 Apr, 2016 Diabetes type 2, controlled E11.9 [facility] [address] [facility] [id number] [address] [place] [address] Feb, Erectile dysfunction, unspec ified erectile dysfunction type N52.9 ; Type 2 diabetes mellitus with diabetic neuropathy, unspecified E11.40 and correction 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.4 [place] [address] [facility] [id number] [address] [place] [address] 08 Jan, 2016 Impacted cerumen of both ear s H61.23 [place] [address] [place] [id number] [address] [place] [address] 23 Oct, 2015 Type 2 diabetes mellitus wit hout complications E11.9 [place] [address] [place] [id number] [address] [place] [address] Oct, [place] [address] [place] [id number] [address] [place] [address] September, Type 2 diabetes mellitus wit hout complications E11.9 [facility] [address] [place] [id number] [address] [place] [address] Jul, Type 2 diabetes mellitus wit hout complications E11.9 ; Lumbar pain M54.5 and Tobacco abuse Z72.0 [place] [address] [place] [id number] [address] [place] [phone] May, [place] [address] [facility] [id number] [address] [place] [address] May, [facility] [address] [place] [id number] [address] [place] [address] Apr, [facility] [address] [place] [id number] [address] [place] [address] Mar, [facility] [address] [place] [id number] [address] [place] [address] Mar, Type 2 diabetes mellitus wit hout complications E11.9 [facility] [address] [place] [id number] [address] [place] [address] Mar, [facility] [address] [id number] [address] [place] [address] Feb, Type 2 diabetes mellitus wit hout complications E11.9 ; Neuropathy, diabetic E11.40 and Sleep apnea G47.30 [facility] [address] [facility] [id number] [address] [place] [address] Feb, [facility] [address] [facility] [id number] [address] [place] [address] Jan, Skin infection, bacterial 68 6.9 [facility] [address] [facility] [id number] [address] [place] [phone] Jan, [facility] [address] [facility] [id number] [address] [place] [address] Dec, Diabetes mellitus type 2, un complicated 250.00 [facility] [address] [facility] [id number] [address] [place] [address] Dec, [facility] [address] [id number] [address] [place] [address] Nov, [facility] [address] [facility] [id number] [address] [place] [address] Nov, Diabetes mellitus type 2, un complicated 250.00 and Obesity 278.00 [facility] [address] [facility] [id number] [address] [place] [address] Oct, [facility] [address] [facility] [id number] [address] [place] [address] Oct, [facility] [address] [facility] [id number] [address] [place] [phone] Aug, [facility] [address] [facility] [id number] [address] [place] [address] Aug, [facility] [address] [facility] [id number] [address] [place] [id number] Jul, [facility] [address] [id number] [address] [place] [address], [place] [address] Jul, 2014 [facility] [address] [id number] [address] [place] [address], [place] [address] Jul, 2014 [facility] [address] [id number] [address] [place] [address], [place] [address] Jul, [facility] [address] [id number] [address] [place] [address], [place] [address] Jul, [facility] [address] [id number] [address] [place] [address], [place] [address] Jul, [facility] [address] [id number] [address] [place] [address], [place] [address] Feb, [facility] [address] [id number] [address] [place] [address], [place] [address] Feb, [facility] [address] [id number] [address] [place] [address], [place] [address] Dec, [facility] [address] [id number] [address] [place] [address], [place] [address] Nov, [facility] [address] [id number] [address] [place] [address], [place] [address] Nov, [facility] [address] [id number] [address] [place] [address], [place] [address] Nov, [facility] [address] [id number] [address] [place] [address], [place] [address] Nov, [facility] [address] [id number] [address] [place] [address], [place] [address] Nov, [facility] [address] [id number] [address] [place] [address], [place] [address] September, [facility] [address] [id number] [address] [place] [address], [place] [address] September, [facility] [address] [id number] [address] [place] [address], [place] [address] Aug, [facility] [address] [id number] [address] [place] [address], [place] [address] Aug, [facility] [address] [id number] [address] [place] [address], [place] [address] Aug, [facility] [address] [id number] [address] [place] [address], [place] [address] Aug, [facility] [address] [id number] [address] [place] [address], [place] [address] Jul, [facility] [address] [id number] [address] [place] [address], [place] [address] Jul, [facility] [address] [id number] [address] [place] [address], [place] [address] Apr, [facility] [address] [id number] [address] [place] [address], [place] [address] Apr, [facility] [address] [id number] [address] [place] [address], [place] [address] Mar, [facility] [address] [id number] [address] [place] [address], [place] [address] Mar, [facility] [address] [id number] [address] [place] [address], [place] [address] Jan, [facility] [address] [id number] [address] [place] [address], [place] [address] Jan, [facility] [address] [id number] [address] [place] [address], [place] [address] Dec, [facility] [address] [id number] [address] [place] [address], [place] [address] Nov, [facility] [address] [id number] [address] [place] [address], [place] [address] Nov, [facility] [address] [id number] [address] [place] [address], [place] [address] Nov, [facility] [address] [id number] [address] [place] [address], [place] [address] Oct, [facility] [address] [id number] [address] [place] [address], [place] [address] Oct, [facility] [address] [id number] [address] [place] [address], [place] [address] Oct, [facility] [address] [id number] [address] [place] [address], [place] [address] September, [facility] [address] [id number] [address] [place] [address], [place] [address] September, [facility] [address] [id number] [address] [place] [address], [place] [address] Aug, [facility] [address] [id number] [address] [place] [address], [place] [address] Aug, [facility] [address] [id number] [address] [place] [address], [place] [address] Aug, [facility] [address] [id number] [address] [place] [address], [place] [address] Aug, [facility] [address] [id number] [address] [place] [address], [place] [address] Jul, [facility] [address] [id number] [address] [place] [address], [place] [address] Jul, [facility] [address] [id number] [address] [place] [address], [place] [address] Jul, [facility] [address] [id number] [address] [place] [address], [place] [address] Jul, [facility] [address] [id number] [address] [place] [address], [place] [address] May, [facility] [address] [id number] [address] [place] [address], [place] [address] May, [facility] [address] [id number] [address] [place] [address], [place] [address] May, [facility] [address] [id number] [address] [place] [address], [place] [address] 18 May, 2012 [facility] [address] [id number] [address] [place] [address], [place] [address] 14 May, 2012 [facility] [address] [id number] [address] [place] [address], [place] [address] May, [facility] [address] [id number] [address] [place] [address], [place] [address] 10 May, 2012 [facility] [address] [id number] [address] [place] [address], [place] [address] May, [facility] [address] [id number] [address] [place] [address], [place] [address] May, [facility] [address] [id number] [address] [place] [address], [place] [address] May, [facility] [address] [id number] [address] [place] [address], [place] [address] Apr, [facility] [address] [id number] [address] [place] [address], [place] [address] Apr, [facility] [address] [id number] [address] [place] [address], [place] [address] Apr, [facility] [address] [id number] [address] [place] [address], [place] [address] Apr, [facility] [address] [id number] [address] [place] [address] Mar, [facility] [address] [id number] [address] [place] [address], [place] [address] Mar, [facility] [address] [id number] [address] [place] [address], [place] [address] Feb, [facility] [address] [id number] [address] [place] [address], [place] [address] Feb, [facility] [address] [id number] [address] [place] [address] Feb, [facility] [address] [id number] [address] [place] [address], [place] [address] Feb, [facility] [address] [id number] [address] [place] [address], [place] [address] Jan, [facility] [address] [id number] [address] [place] [address], [place] [address] Dec, [facility] [address] [id number] [address] [place] [address], [place] [address] Oct, [facility] [address] [id number] [address] [place] [address], [place] [address] September, [facility] [address] [id number] [address] [place] [address], [place] [address] September, [facility] [address] [id number] [address] [place] [address], [place] [address] Jul, [facility] [address] [id number] [address] [place] [address], [place] [address] Jul, [facility] [address] [id number] [address] [place] [address], [place] [address] Jul, [facility] [address] [id number] [address] [place] [address], [place] [address] Jul, [facility] [address] [id number] [address] [place] [address], [place] [address] 16 Jul, 2011 [facility] [address] [id number] [address] [place] [address], [place] [address] May, [facility] [address] [id number] [address] [place] [address], [place] [address] Apr, [facility] [address] [id number] [address] [place] [address], [place] [address] Apr, [facility] [address] [id number] [address] [place] [address], [place] [address] Apr, [facility] [address] [id number] [address] [place] [address], [place] [id number] 08 Apr, 2011 [facility] [address] [id number] [address] [place] [address], [place] [address] 16 Mar, 2011 [facility] [address] [id number] [address] [place] [address], [place] [address] 16 Mar, 2011 [facility] [address] [id number] [address] [place] [address], [place] [address] 15 Mar, 2011 [facility] [address] [id number] [address] [place] [address], [place] [address] Mar, [facility] [address] [id number] [address] [place] [address], [place] [address] Feb, [facility] [address] [id number] [address] [place] [address], [place] [address] Dec, [facility] [address] [id number] [address] [place] [address], [place] [address] September, [facility] [address] [id number] [address] [place] [address], [place] [address] Aug, [facility] [address] [id number] [address] [place] [address], [place] [address] May, [facility] [address] [id number] [address] [place] [address], [place] [address] May, [facility] [address] [id number] [address] [place] [address], [place] [address] Apr, [facility] [address] [id number] [address] [place] [address], [place] [address] Apr, [facility] [address] [id number] [address] [place] [address], [place] [address] Apr, [facility] [address] [id number] [address] [place] [address], [place] [address] 24 Mar, 2010 [facility] [address] [id number] [address] [place] [id number] 10 Mar, 2010 [facility] [address] [id number] [address] [place] [id number] Mar, [facility] [address] [id number] [address] [place] [id number] Nov, [facility] [address] [id number] [address] [place] [id number] Oct, [facility] [address] [facility] [id number] [address] [place] [id number] September, [facility] [address] [facility] [id number] [address] [place] [id number] Dec, [facility] [address] [facility] [id number] [address] [place] [id number] Jul, [facility] [address] [facility] [id number] [address] [place] [id number] Jul, IMMUNIZATIONS No Known Immunizations SOCIAL HISTORY Never Assessed REASON FOR VISIT PALS IN- Insulins PLAN OF CARE VITAL SIGNS MEDICATIONS Unknown [...]
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
--- OUTSIDE RECORDS SUMMARY | 2019-11-14 23:16 | XMS REPORT ---
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 Name Role Phone MIKA JOSE Unavailable PROBLEMS Type Condition ICD9-CM Code [id number] Code Onset Dates Condition S tatus SNOMED Code Problem Diabetes type 2, controlled E11.9 Ac tive 82677862 Problem sliver cutter 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.4 Active 496278803 Problem Type 2 diabetes mellitus without complications E11 .9 Active 544568008 Problem Neuropathy, diabetic E11.40 Active 074485560 Problem Essential hypertension I10 Active 75644535 Problem Arthritis M19.90 Active 7131417 Problem Erectile dysfunction, unspecified erectile dysfunction typ e N52.9 Active 733611387 Problem Type 2 diabetes mellitus with diabetic neuropathy, uns pecified E11.40 Active 57365800 Problem ASIYA (obstructive sleep apnea) G47.33 Active 64838057 Problem Mood disorder F39 Active 923163 05 ALLERGIES No Information ENCOUNTERS Encounter Location Date Diagnosis [facility] [address] [facility] [id number] [address] [place] [phone] Feb, [facility] [address] [facility] [id number] [address] [place] [phone] Feb, [facility] [address] [facility] [id number] [address] [place] [address] Feb, Diabetes type 2, controlled E11.9 [facility] [address] [facility] [id number] [address] [place] [address] Jan, [facility] [address] [place] [id number] [address] [place] [phone] Jan, [facility] [address] [facility] [id number] [address] [place] [address] Jan, Allergic reaction to drug, i nitial encounter T78.40XA ; Uncontrolled type 2 diabetes mellitus with hyperglycemia E11.65 and Essential hypertension I10 [facility] [address] [facility] [id number] [address] [place] [phone] 07 Jan, 2018 Type 2 diabetes mellitus wit hout complications E11.9 ; Diabetes type 2, controlled E11.9 and Arthritis M19.90 [facility] [address] [facility] [id number] [address] [place] [phone] Dec, Diabetes type 2, controlled E11.9 [facility] [address] [facility] [id number] [address] [place] [phone] Dec, [facility] [address] [facility] [id number] [address] [place] [phone] Dec, Diabetes type 2, controlled E11.9 [facility] [address] [facility] [id number] [address] [place] [phone] Oct, Diabetes type 2, controlled E11.9 [facility] [id number] [place] [id number] Oct, Dental caries K02.9 and [place] al examination Z01.20 [facility] [address] [facility] [id number] [address] [place] [phone] September, [facility] [address] [facility] [id number] [address] [place] [address] Aug, Diabetes type 2, controlled E11.9 ; Mood disorder F39 ; Arthritis M19.90 and Family history of rheumatoid arthritis Z82.61 [facility] [address] [facility] [id number] [address] [place] [phone] 15 Jul, 2017 Infection of both inner ears H83.03 and Dizziness R42 [facility] [address] [facility] [id number] [address] [place] [phone] Jul, [facility] [address] [facility] [id number] [address] [place] [id number] Jul, Diabetes type 2, controlled E11.9 [facility] [address] [place] [id number] [address] [place] [address] [id number] Jul, 2017 Dental examination Z01.20 [facility] [address] [id number] [address] [place] [id number] May, Diabetes type 2, controlled E11.9 [facility] [address] [id number] [address] [place] [phone] May, [facility] [address] [id number] [address] [place] [id number] May, Dental examination Z01.20 [facility] [address] [id number] [address] [place] [phone] May, [facility] [address] [id number] [address] [place] [phone] May, [facility] [address] [id number] [address] [place] [phone] May, Diabetes type 2, controlled E11.9 [facility] [address] [id number] [address] [place] [address] Apr, [facility] [address] [id number] [address] [place] [phone] Apr, Mood disorder F39 [facility] [address] [id number] [address] [place] [phone] Mar, [facility] [address] [id number] [address] [place] [phone] Mar, Diabetes type 2, controlled E11.9 and Encounter for immunization Z23 [facility] [address] [id number] [address] [place] [phone] Jan, Mood disorder F39 [facility] [address] [id number] [address] [place] [phone] Jan, Type 2 diabetes mellitus wit hout complications E11.9 [facility] [address] [id number] [address] [place] [address] Nov, [facility] [address] [id number] [address] [place] [phone] Nov, Type 2 diabetes mellitus wit hout complications E11.9 ; Mood disorder F39 and ASIYA (obstructive sleep apnea) G47.33 [facility] [address] [facility] [id number] [address] [place] [phone] September, Diabetes type 2, controlled E11.9 [facility] [address] [facility] [id number] [address] [place] [phone] September, [facility] [address] [id number] [address] [place] [phone] Aug, Diabetes type 2, controlled E11.9 [facility] [address] [facility] [id number] [address] [place] [phone] Jul, [facility] [address] [facility] [id number] [address] [place] [phone] Jul, Type 2 diabetes mellitus wit hout complications E11.9 and sliver cutter 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.4 [facility] [address] [facility] [id number] [address] [place] [phone] Jul, Diabetes type 2, controlled E11.9 [facility] [address] [facility] [id number] [address] [place] [phone] Jul, [facility] [address] [facility] [id number] [address] [place] [phone] May, [facility] [address] [facility] [id number] [address] [place] [phone] Apr, Diabetes type 2, controlled E11.9 [facility] [address] [facility] [id number] [address] [place] [phone] Feb, 2016 Erectile dysfunction, unspec ified erectile dysfunction type N52.9 ; Type 2 diabetes mellitus with diabetic neuropathy, unspecified E11.40 and penitentiary 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.4 [facility] [address] [facility] [id number] [address] [place] [phone] 08 Jan, 2016 Impacted cerumen of both ear s H61.23 [facility] [address] [id number] [address] [place] [phone] Oct, Type 2 diabetes mellitus wit hout complications E11.9 [facility] [address] [id number] [address] [place] [phone] Oct, [facility] [address] [facility] [id number] [address] [place] [phone] September, Type 2 diabetes mellitus wit hout complications E11.9 [facility] [address] [id number] [address] [place] [phone] Jul, Type 2 diabetes mellitus wit hout complications E11.9 ; Lumbar pain M54.5 and Tobacco abuse Z72.0 [facility] [address] [facility] [id number] [address] [place] [phone] May, [facility] [address] [facility] [id number] [address] [place] [phone] May, [facility] [address] [facility] [id number] [address] [place] [phone] Apr, [facility] [address] [facility] [id number] [address] [place] [phone] Mar, [facility] [address] [facility] [id number] [address] [place] [phone] Mar, Type 2 diabetes mellitus wit hout complications E11.9 [facility] [address] [id number] [address] [place] [phone] Mar, [facility] [address] [facility] [id number] [address] [place] [phone] Feb, Type 2 diabetes mellitus wit hout complications E11.9 ; Neuropathy, diabetic E11.40 and Sleep apnea G47.30 [facility] [address] [id number] [address] [place] [phone] Feb, [facility] [address] [facility] [id number] [address] [place] [phone] Jan, Skin infection, bacterial 68 6.9 [facility] [address] [id number] [address] [place] [address] Jan, [facility] [address] [id number] [address] [place] [phone] Dec, Diabetes mellitus type 2, un complicated 250.00 [facility] [address] [id number] [address] [place] [phone] Dec, [facility] [address] [id number] [address] [place] [phone] Nov, [facility] [address] [id number] [address] [place] [phone] Nov, Diabetes mellitus type 2, un complicated 250.00 and Obesity 278.00 [facility] [address] [id number] [address] [place] [address] Oct, [facility] [address] [id number] [address] [place] [phone] Oct, [facility] [address] [id number] [address] [place] [phone] Aug, [facility] [address] [id number] [address] [place] [id number] Aug, [facility] [address] [id number] [address] [place] [phone] Jul, [facility] [address] [id number] [address] [place] [phone] Jul, [facility] [address] [id number] [address] [place] [phone] Jul, [facility] [address] [id number] [address] [place] [phone] Jul, [facility] [address] [id number] [address] [place] [phone] Jul, [facility] [address] [id number] [address] [place] [address], [place] [address] Jul, [facility] [address] [id number] [address] [place] [address], [place] [address] Feb, [facility] [address] [id number] [address] [place] [address], [place] [address] Feb, [facility] [address] [id number] [address] [place] [address], [place] [address] Dec, [facility] [address] [id number] [address] [place] [address], [place] [address] Nov, [facility] [address] [id number] [address] [place] [address], [place] [address] Nov, [facility] [address] [id number] [address] [place] [address], [place] [address] Nov, [facility] [address] [id number] [address] [place] [address], [place] [address] Nov, [facility] [address] [id number] [address] [place] [address], [place] [address] Nov, [facility] [address] [id number] [address] [place] [address], [place] [address] September, [facility] [address] [id number] [address] [place] [address], [place] [address] September, [facility] [address] [id number] [address] [place] [address], [place] [address] Aug, [facility] [address] [id number] [address] [place] [address], [place] [address] Aug, [facility] [address] [id number] [address] [place] [address], [place] [address] Aug, [facility] [address] [id number] [address] [place] [address], [place] [address] Aug, [facility] [address] [id number] [address] [place] [address], [place] [address] Jul, [facility] [address] [id number] [address] [place] [address], [place] [address] Jul, [facility] [address] [id number] [address] [place] [address], [place] [address] Apr, [facility] [address] [id number] [address] [place] [address], [place] [address] Apr, [facility] [address] [id number] [address] [place] [address], [place] [address] Mar, [facility] [address] [id number] [address] [place] [address], [place] [address] Mar, [facility] [address] [id number] [address] [place] [address], [place] [address] Jan, [facility] [address] [id number] [address] [place] [address], [place] [address] Jan, [facility] [address] [id number] [address] [place] [address], [place] [address] Dec, [facility] [address] [id number] [address] [place] [address], [place] [address] Nov, [facility] [address] [id number] [address] [place] [address], [place] [address] Nov, [facility] [address] [id number] [address] [place] [address], [place] [address] Nov, [facility] [address] [id number] [address] [place] [address], [place] [address] Oct, [facility] [address] [id number] [address] [place] [address], [place] [address] Oct, [facility] [address] [id number] [address] [place] [address], [place] [address] Oct, [facility] [address] [id number] [address] [place] [address], [place] [address] September, [facility] [address] [id number] [address] [place] [address], [place] [address] September, [facility] [address] [id number] [address] [place] [address], [place] [address] Aug, [facility] [address] [id number] [address] [place] [address], [place] [address] Aug, [facility] [address] [id number] [address] [place] [address], [place] [address] Aug, [facility] [address] [id number] [address] [place] [address], [place] [address] Aug, [facility] [address] [id number] [address] [place] [address], [place] [address] Jul, [facility] [address] [id number] [address] [place] [address], [place] [address] Jul, [facility] [address] [id number] [address] [place] [address], [place] [address] Jul, [facility] [address] [id number] [address] [place] [address], [place] [address] Jul, [facility] [address] [id number] [address] [place] [address], [place] [address] May, [facility] [address] [id number] [address] [place] [address], [place] [address] May, [facility] [address] [id number] [address] [place] [address], [place] [address] May, [facility] [address] [id number] [address] [place] [address], [place] [address] 18 May, 2012 [facility] [address] [id number] [address] [place] [address], [place] [address] 14 May, 2012 [facility] [address] [id number] [address] [place] [address], [place] [address] 11 May, 2012 [facility] [address] [id number] [address] [place] [address], [place] [address] 10 May, 2012 [facility] [address] [id number] [address] [place] [address], [place] [address] May, [facility] [address] [id number] [address] [place] [address], [place] [address] May, [facility] [address] [id number] [address] [place] [address], [place] [address] May, [facility] [address] [id number] [address] [place] [address], [place] [address] Apr, [facility] [address] [id number] [address] [place] [address], [place] [address] Apr, [facility] [address] [id number] [address] [place] [address], [place] [address] Apr, [facility] [address] [id number] [address] [place] [address], [place] [address] Apr, [facility] [address] [id number] [address] [place] [address], [place] [address] Mar, [facility] [address] [id number] [address] [place] [address], [place] [address] Mar, [facility] [address] [id number] [address] [place] [address], [place] [address] Feb, [facility] [address] [id number] [address] [place] [address], [place] [address] Feb, [facility] [address] [id number] [address] [place] [address], [place] [address] Feb, [facility] [address] [id number] [address] [place] [address], [place] [address] Feb, [facility] [address] [id number] [address] [place] [address], [place] [address] Jan, [facility] [address] [id number] [address] [place] [address], [place] [address] Dec, [facility] [address] [id number] [address] [place] [address] Oct, [facility] [address] [id number] [address] [place] [address], [place] [address] September, [facility] [address] [id number] [address] [place] [address], [place] [address] September, [facility] [address] [id number] [address] [place] [address], [place] [address] Jul, [facility] [address] [id number] [address] [place] [address], [place] [address] Jul, [facility] [address] [id number] [address] [place] [address], [place] [address] Jul, [facility] [address] [id number] [address] [place] [address], [place] [address] Jul, [facility] [address] [id number] [address] [place] [address], [place] [address] 16 Jul, 2011 [facility] [address] [id number] [address] [place] [address], [place] [address] May, [facility] [address] [id number] [address] [place] [address], [place] [address] Apr, [facility] [address] [id number] [address] [place] [address], [place] [address] Apr, [facility] [address] [id number] [address] [place] [address], [place] [address] Apr, [facility] [address] [id number] [address] [place] [address], [place] [address] 08 Apr, 2011 [facility] [address] [id number] [address] [place] [address], [place] [address] Mar, [facility] [address] [id number] [address] [place] [address], [place] [address] 16 Mar, 2011 [facility] [address] [id number] [address] [place] [address], [place] [address] 15 Mar, 2011 [facility] [address] [id number] [address] [place] [address], [place] [address] 11 Mar, 2011 [facility] [address] [id number] [address] [place] [address], [place] [address] Feb, [facility] [address] [id number] [address] [place] [address], [place] [address] Dec, [facility] [address] [id number] [address] [place] [address], [place] [address] September, [facility] [address] [id number] [address] [place] [address], [place] [address] Aug, [facility] [address] [id number] [address] [place] [address], [place] [address] 17 May, 2010 [facility] [address] [id number] [address] [place] [address], [place] [address] May, [facility] [address] [id number] [address] [place] [address], [place] [address] 24 Apr, 2010 [facility] [address] [id number] [address] [place] [address], [place] [address] Apr, [facility] [address] [id number] [address] [place] [address], [place] [address] Apr, [facility] [address] [id number] [address] [place] [address], [place] [address] 24 Mar, 2010 [facility] [address] [id number] [address] [place] [address], [place] [address] Mar, [facility] [address] [id number] [address] [place] [address], [place] [address] 10 Mar, 2010 [facility] [address] [id number] [address] [place] [address], [place] [address] 12 Nov, 2009 [facility] [address] [id number] [address] [place] [address], [place] [address] 15 Oct, 2009 [facility] [address] [id number] [address] [address] September, [facility] [address] [facility] [id number] [address] [place] [address] Dec, [facility] [address] [facility] [id number] [address] [place] [address] Jul, [facility] [address] [facility] [id number] [address] [place] [address] Jul, IMMUNIZATIONS No Known Immunizations SOCIAL HISTORY Never Assessed REASON FOR VISIT [facility] PLAN OF CARE VITAL SIGNS MEDICATIONS Unknown [...]
--- OUTSIDE RECORDS SUMMARY | 2019-11-14 23:16 | XMS REPORT ---
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 787838265 Problem Type 2 diabetes mellitus without complications E11 .9 Active 658450914 Problem Neuropathy, diabetic E11.40 Active 068966069 Problem Essential hypertension I10 Active 98672392 Problem Arthritis M19.90 Active 3264028 Problem Erectile dysfunction, unspecified erectile dysfunction typ e N52.9 Active 741230631 Problem Type 2 diabetes mellitus with diabetic neuropathy, uns pecified E11.40 Active 22902267 Problem ASIYA (obstructive sleep apnea) G47.33 Active 11722853 Problem Mood disorder F39 Active 529818 05 ALLERGIES No Information ENCOUNTERS Encounter Location Date Diagnosis [facility] [address] [facility] [id number] [address] [place] [phone] Mar, [facility] [address] [facility] [id number] [address] [place] [phone] Mar, [facility] [address] [facility] [id number] [address] [place] [phone] Mar, Type 2 diabetes mellitus wit hout complications E11.9 [facility] [address] [facility] [id number] [address] [place] [phone] Feb, BMI 40.0-44.9, adult Z68.41 and Diabetes type 2, controlled E11.9 [facility] [address] [facility] [id number] [address] [place] [phone] Feb, [facility] [address] [facility] [id number] [address] [place] [phone] 10 Feb, 2018 [facility] [address] [facility] [id number] [address] [place] [phone] Feb, Diabetes type 2, controlled E11.9 [facility] [address] [facility] [id number] [address] [place] [id number] 24 Jan, 2018 [facility] [address] [place] [id number] [place] [phone] Jan, [facility] [address] [place] [id number] [place] [phone] 17 Jan, 2018 Allergic reaction to drug, i nitial encounter T78.40XA ; Uncontrolled type 2 diabetes mellitus with hyperglycemia E11.65 and Essential hypertension I10 [facility] [address] [place] [id number] [place] [phone] 07 Jan, 2018 Type 2 diabetes mellitus wit hout complications E11.9 ; Diabetes type 2, controlled E11.9 and Arthritis M19.90 [facility] [address] [id number] Dec, Diabetes type 2, controlled E11.9 [facility] [address] [id number] Dec, [facility] [address] [id number] Dec, Diabetes type 2, controlled E11.9 [facility] [address] [place] [id number] [address] [place] [id number] Oct, Diabetes type 2, controlled E11.9 [facility] [address] [id number] [address] [place] [address] [id number] Oct, Dental caries K02.9 and [place] al examination Z01.20 [facility] [address] [facility] [id number] [address] [place] [phone] September, [facility] [address] [address] Aug, Diabetes type 2, controlled E11.9 ; Mood disorder F39 ; Arthritis M19.90 and Family history of rheumatoid arthritis Z82.61 [facility] [address] [id number] [address] [place] [id number] 15 Jul, 2017 Infection of both inner ears H83.03 and Dizziness R42 [facility] [address] [id number] [address] [place] [id number] Jul, [facility] [address] [id number] [address] [place] [id number] Jul, Diabetes type 2, controlled E11.9 [facility] [address] [id number] [place] [address] [id number] Jul, Dental examination Z01.20 [facility] [address] [id number] [address] [place] [phone] May, Diabetes type 2, controlled E11.9 [facility] [address] [id number] [address] [place] [id number] May, [facility] [id number] [place] [address] [id number] May, Dental examination Z01.20 [facility] [address] [id number] [address] [place] [phone] May, [facility] [address] [id number] [address] [place] [phone] May, [facility] [address] [facility] [id number] [address] [place] [phone] May, Diabetes type 2, controlled E11.9 [facility] [address] [id number] [address] [place] [phone] Apr, [facility] [address] [facility] [id number] [address] [place] [phone] Apr, Mood disorder F39 [facility] [address] [facility] [id number] [address] [place] [phone] Mar, [facility] [address] [facility] [id number] [address] [place] [phone] Mar, Diabetes type 2, controlled E11.9 and Encounter for immunization Z23 [facility] [address] [facility] [id number] [address] [place] [phone] Jan, Mood disorder F39 [facility] [address] [facility] [id number] [address] [place] [phone] Jan, Type 2 diabetes mellitus wit hout complications E11.9 [facility] [address] [facility] [id number] [address] [place] [phone] Nov, [facility] [address] [facility] [id number] [address] [place] [phone] Nov, Type 2 diabetes mellitus wit hout complications E11.9 ; Mood disorder F39 and ASIYA (obstructive sleep apnea) G47.33 [facility] [address] [facility] [id number] [address] [place] [phone] September, Diabetes type 2, controlled E11.9 [facility] [address] [facility] [id number] [address] [place] [phone] September, [facility] [address] [facility] [id number] [address] [place] [phone] Aug, Diabetes type 2, controlled E11.9 [facility] [address] [facility] [id number] [address] [place] [phone] Jul, [facility] [address] 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 [id number] [address] [place] [phone] 23 Jul, 2016 Diabetes type 2, controlled E11.9 [facility] [address] [facility] [id number] [address] [place] [phone] 14 Jul, 2016 [facility] [address] [place] [id number] [address] [place] [phone] May, [facility] [address] [place] [id number] [address] [place] [phone] Apr, Diabetes type 2, controlled E11.9 [facility] [address] 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 [place] [address] [place] [id number] [place] [phone] 08 Jan, 2016 Impacted cerumen of both ear s H61.23 [place] [address] [place] [id number] [address] [place] [phone] Oct, Type 2 diabetes mellitus wit hout complications E11.9 [place] [address] [place] [id number] [place] [phone] Oct, [place] [address] [place] [id number] [place] [phone] September, Type 2 diabetes mellitus wit hout complications E11.9 [place] [address] [place] [id number] [address] [place] [phone] Jul, Type 2 diabetes mellitus wit hout complications E11.9 ; Lumbar pain M54.5 and Tobacco abuse Z72.0 [place] [address] [place] [id number] [place] [phone] May, [place] [id number] [place] [phone] May, [facility] [address] [id number] [address] [place] [phone] Apr, [facility] [address] [place] [id number] [address] [place] [phone] Mar, [facility] [address] [place] [id number] [address] [place] [phone] Mar, Type 2 diabetes mellitus wit hout complications E11.9 [facility] [address] [id number] [address] [place] [phone] 05 Mar, 2015 [facility] [address] [id number] [address] [place] [phone] 28 Feb, 2015 Type 2 diabetes mellitus wit hout complications E11.9 ; Neuropathy, diabetic E11.40 and Sleep apnea G47.30 [facility] [address] [id number] [address] [place] [phone] 19 Feb, 2015 [facility] [address] [id number] [address] [place] [phone] 22 Jan, 2015 Skin infection, bacterial 68 6.9 [facility] [address] [facility] [id number] [address] [place] [phone] 15 Jan, 2015 [facility] [address] [facility] [id number] [address] [place] [phone] Dec, Diabetes mellitus type 2, un complicated 250.00 [facility] [address] [id number] [address] [place] [phone] Dec, [facility] [address] [id number] [address] [place] [phone] Nov, [facility] [address] [id number] [address] [place] [phone] Nov, Diabetes mellitus type 2, un complicated 250.00 and Obesity 278.00 [facility] [address] [id number] [address] [place] [phone] Oct, [facility] [address] [id number] [address] [place] [phone] Oct, [facility] [address] [facility] [id number] [address] [place] [phone] 14 Aug, 2014 [facility] [address] [facility] [id number] [address] [place] [phone] Aug, [facility] [address] [id number] [address] [place] [address], [place] [address] Jul, 2014 [facility] [address] [id number] [address] [place] [address], [place] [phone] Jul, 2014 [facility] [address] [id number] [address] [place] [address], [place] [address] Jul, 2014 [facility] [address] [id number] [address] [place] [address], [place] [address] Jul, 2014 [facility] [address] [id number] [address] [place] [address], [place] [address] Jul, [facility] [address] [id number] [address] [place] [address], [place] [address] Jul, [facility] [address] [id number] [address] [place] [address], [place] [id number] Feb, [facility] [address] [id number] [address] [place] [address], [place] [address] Feb, [facility] [address] [id number] [address] [place] [address], [place] [id number] Dec, [facility] [address] [id number] [address] [place] [address], [place] [address] Nov, [facility] [address] [id number] [address] [place] [address], [place] [address] Nov, [facility] [address] [id number] [address] [place] [address], [place] [address] Nov, [facility] [address] [id number] [address] [place] [address], [place] [phone] Nov, [facility] [address] [id number] [address] [place] [address], [place] [address] Nov, [facility] [address] [id number] [address] [place] [address], [place] [address] September, [facility] [address] [id number] [address] [place] [address], [place] [id number] September, [facility] [address] [id number] [address] [place] [address], [place] [address] Aug, [facility] [address] [id number] [address] [place] [address], [place] [address] Aug, [facility] [address] [id number] [address] [place] [address], [place] [address] Aug, [facility] [address] [id number] [address] [place] [address], [place] [address] Aug, [facility] [address] [id number] [address] [place] [address], [place] [address] Jul, [facility] [address] [id number] [address] [place] [address], [place] [id number] Jul, [facility] [address] [id number] [address] [place] [address], [place] [address] Apr, [facility] [address] [id number] [address] [place] [address], [place] [address] Apr, [facility] [address] [id number] [address] [place] [address], [place] [address] Mar, [facility] [address] [id number] [address] [place] [address], [place] [address] Mar, [facility] [address] [id number] [address] [place] [address], [place] [address] Jan, [facility] [address] [id number] [address] [place] [address], [place] [address] Jan, [facility] [address] [id number] [address] [place] [address], [place] [address] Dec, [facility] [address] [id number] [address] [place] [address], [place] [address] Nov, [facility] [address] [id number] [address] [place] [address], [place] [address] Nov, [facility] [address] [id number] [address] [place] [address], [place] [address] Nov, [facility] [address] [id number] [address] [place] [address], [place] [address] Oct, [facility] [address] [id number] [address] [place] [address], [place] [address] Oct, [facility] [address] [id number] [address] [place] [address], [place] [address] Oct, [facility] [address] [id number] [address] [place] [address], [place] [address] September, [facility] [address] [id number] [address] [place] [address], [place] [address] September, [facility] [address] [id number] [address] [place] [address], [place] [address] Aug, [facility] [address] [id number] [address] [place] [address], [place] [id number] Aug, [facility] [address] [id number] [address] [place] [address], [place] [address] Aug, [facility] [address] [id number] [address] [place] [address], [place] [address] Aug, [facility] [address] [id number] [address] [place] [address], [place] [address] Jul, [facility] [address] [id number] [address] [place] [address], [place] [address] Jul, [facility] [address] [id number] [address] [place] [address], [place] [address] Jul, [facility] [address] [id number] [address] [place] [address], [place] [address] Jul, [facility] [address] [id number] [address] [place] [address], [place] [address] May, [facility] [address] [id number] [address] [place] [address], [place] [address] May, [facility] [address] [id number] [address] [place] [address], [place] [address] May, [facility] [address] [id number] [address] [place] [address], [place] [address] May, [facility] [address] [id number] [address] [place] [address], [place] [address] 14 May, 2012 [facility] [address] [id number] [address] [place] [address], [place] [address] May, [facility] [address] [id number] [address] [place] [address], [place] [address] May, [facility] [address] [id number] [address] [place] [address], [place] [id number] May, [facility] [address] [id number] [address] [place] [address], [place] [id number] May, [facility] [address] [id number] [address] [place] [address], [place] [address] May, [facility] [address] [id number] [address] [place] [address], [place] [id number] Apr, [facility] [address] [id number] [address] [place] [id number] Apr, [facility] [address] [id number] [address] [place] [address], [place] [address] Apr, [facility] [address] [id number] [address] [place] [id number] Apr, [facility] [address] [id number] [address] [place] [address], [place] [id number] Mar, [facility] [address] [id number] [address] [place] [address], [place] [address] Mar, [facility] [address] [id number] [address] [place] [address], [place] [id number] Feb, [facility] [address] [id number] [address] [place] [id number] Feb, [facility] [address] [id number] [address] [place] [address], [place] [id number] Feb, [facility] [address] [id number] [address] [place] [address], [place] [id number] Feb, [facility] [address] [id number] [address] [place] [address], [place] [id number] Jan, [facility] [address] [id number] [address] [place] [address], [place] [address] Dec, [facility] [address] [id number] [address] [place] [address], [place] [address] Oct, [facility] [address] [id number] [address] [place] [address], [place] [id number] September, [facility] [address] [id number] [address] [place] [address], [place] [id number] September, [facility] [address] [id number] [address] [place] [address], [place] [address] Jul, [facility] [address] [id number] [address] [place] [address], [place] [id number] Jul, [facility] [address] [id number] [address] [place] [address], [place] [id number] Jul, [facility] [address] [id number] [address] [place] [address], [place] [id number] Jul, [facility] [address] [id number] [address] [place] [address], [place] [address] Jul, [facility] [address] [id number] [address] [place] [address], [place] [id number] May, [facility] [address] [id number] [address] [place] [address], [place] [id number] Apr, [facility] [address] [id number] [address] [place] [address], [place] [id number] Apr, [facility] [address] [id number] [address] [place] [address], [place] [id number] 12 Apr, 2011 [facility] [address] [id number] [address] [place] [address], [place] [id number] 08 Apr, 2011 [facility] [address] [id number] [address] [place] [address], [place] [id number] 16 Mar, 2011 [facility] [address] [id number] [address] [place] [address], [place] [id number] 16 Mar, 2011 [facility] [address] [id number] [address] [place] [address], [place] [id number] 15 Mar, 2011 [facility] [address] [id number] [address] [place] [address], [place] [id number] Mar, [facility] [address] [id number] [address] [place] [address], [place] [id number] Feb, [facility] [address] [id number] [address] [place] [address], [place] [id number] Dec, [facility] [address] [id number] [address] [place] [address], [place] [id number] September, [facility] [address] [id number] [address] [place] [address], [place] [id number] Aug, [facility] [address] [id number] [address] [place] [address], [place] [id number] 17 May, 2010 [facility] [address] [id number] [address] [place] [address], [place] [id number] May, [facility] [address] [id number] [address] [place] [address], [place] [id number] 24 Apr, 2010 [facility] [address] [id number] [address] [place] [address], [place] [id number] Apr, [facility] [address] [id number] [address] [place] [address], [place] [id number] 10 Apr, 2010 [facility] [address] [id number] [address] [place] [id number] Mar, [facility] [address] [id number] [address] [place] [id number] Mar, [facility] [address] [id number] [address] [place] [id number] Mar, [facility] [address] [id number] [address] [place] [id number] Nov, [facility] [address] [id number] [address] [place] [id number] Oct, [facility] [address] [id number] [address] [place] [phone] September, [facility] [address] [id number] [address] [place] [phone] Dec, [facility] [address] [facility] [id number] [address] [place] [id number] Jul, [facility] [address] [id number] [address] [place] [id number] Jul, IMMUNIZATIONS No Known Immunizations SOCIAL HISTORY Never Assessed REASON FOR VISIT PALS IN-[facility] PLAN OF CARE VITAL SIGNS MEDICATIONS Unknown [...]
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
--- OUTSIDE RECORDS SUMMARY | 2019-11-14 23:17 | XMS REPORT ---
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 Active 284926617 Problem Type 2 diabetes mellitus without complications E11 .9 Active 422958550 Problem Neuropathy, diabetic E11.40 Active 182827639 Problem Essential hypertension I10 Active 73240454 Problem Arthritis M19.90 Active 8646804 Problem Erectile dysfunction, unspecified erectile dysfunction typ e N52.9 Active 070117610 Problem Type 2 diabetes mellitus with diabetic neuropathy, uns pecified E11.40 Active 52430519 Problem ASIYA (obstructive sleep apnea) G47.33 Active 07259158 Problem Mood disorder F39 Active 932195 05 ALLERGIES No Information ENCOUNTERS Encounter Location Date Diagnosis [facility] [address] [facility] [id number] [address] [place] [phone] Feb, [facility] [address] [facility] [id number] [address] [place] [id number] 17 Jan, 2018 Allergic reaction to drug, i nitial encounter T78.40XA ; Uncontrolled type 2 diabetes mellitus with hyperglycemia E11.65 and Essential hypertension I10 [facility] [address] [facility] [id number] [address] [place] [phone] 07 Jan, 2018 Type 2 diabetes mellitus wit hout complications E11.9 ; Diabetes type 2, controlled E11.9 and Arthritis M19.90 [facility] [address] [facility] [id number] [address] [place] [phone] Dec, Diabetes type 2, controlled E11.9 [facility] [address] [facility] [id number] [address] [place] [phone] Dec, [facility] [address] [id number] [address] [place] [phone] Dec, Diabetes type 2, controlled E11.9 [facility] [address] [facility] [id number] [address] [place] [id number] 27 Oct, 2017 Diabetes type 2, controlled E11.9 [facility] [id number] [place] [id number] 14 Oct, 2017 Dental caries K02.9 and [place] al examination Z01.20 [facility] [address] [id number] [address] [place] [phone] September, [facility] [address] [facility] [id number] [address] [place] [id number] 05 Aug, 2017 Diabetes type 2, controlled E11.9 ; Mood disorder F39 ; Arthritis M19.90 and Family history of rheumatoid arthritis Z82.61 [facility] [address] [facility] [id number] [address] [place] [id number] 15 Jul, 2017 Infection of both inner ears H83.03 and Dizziness R42 [facility] [address] [facility] [id number] [address] [place] [id number] 14 Jul, 2017 [facility] [address] [facility] [id number] [address] [place] [id number] 24 Jul, 2017 Diabetes type 2, controlled E11.9 [facility] [address] [id number] [address] [place] [id number] Jul, Dental examination Z01.20 [facility] [address] [id number] [address] [place] [phone] May, Diabetes type 2, controlled E11.9 [facility] [address] [facility] [id number] [address] [place] [phone] May, [facility] [address] [id number] [address] [place] [id number] May, Dental examination Z01.20 [facility] [address] [id number] [address] [place] [phone] May, [facility] [address] [id number] [address] [place] [address] May, [facility] [address] [id number] [address] [place] [id number] May, Diabetes type 2, controlled E11.9 [facility] [address] [id number] [address] [place] [id number] Apr, [facility] [address] [id number] [address] [place] [id number] Apr, Mood disorder F39 [facility] [address] [id number] [address] [place] [phone] Mar, [facility] [address] [facility] [id number] [address] [place] [phone] Mar, Diabetes type 2, controlled E11.9 and Encounter for immunization Z23 [facility] [address] [id number] [address] [place] [address] Jan, Mood disorder F39 [facility] [address] [id number] [address] [place] [address] Jan, Type 2 diabetes mellitus wit hout complications E11.9 [facility] [address] [id number] [address] [place] [phone] Nov, [facility] [address] [facility] [id number] [address] [place] [address] Nov, Type 2 diabetes mellitus wit hout complications E11.9 ; Mood disorder F39 and ASIYA (obstructive sleep apnea) G47.33 [facility] [address] [id number] [address] [place] [id number] September, Diabetes type 2, controlled E11.9 [facility] [address] [id number] [address] [place] [address] September, [facility] [address] [id number] [address] [place] [address] Aug, Diabetes type 2, controlled E11.9 [facility] [address] [id number] [address] [place] [id number] Jul, [facility] [address] [facility] [id number] [address] [place] [phone] Jul, Type 2 diabetes mellitus wit hout complications E11.9 and 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 [facility] [address] [id number] [address] [place] [phone] Jul, Diabetes type 2, controlled E11.9 [facility] [address] [facility] [id number] [address] [place] [phone] Jul, [place] [address] [facility] [id number] [address] [place] [phone] May, [place] [address] [facility] [id number] [address] [place] [phone] Apr, Diabetes type 2, controlled E11.9 [facility] [address] [id number] [address] [place] [phone] Feb, Erectile dysfunction, unspec ified erectile dysfunction type N52.9 ; Type 2 diabetes mellitus with diabetic neuropathy, unspecified E11.40 and penitentiary 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.4 [place] [address] [facility] [id number] [address] [place] [phone] Jan, Impacted cerumen of both ear s H61.23 [facility] [address] [id number] [address] [place] [id number] Oct, Type 2 diabetes mellitus wit hout complications E11.9 [facility] [address] [facility] [id number] [address] [place] [phone] Oct, [place] [address] [facility] [id number] [address] [place] [phone] September, Type 2 diabetes mellitus wit hout complications E11.9 [facility] [address] [id number] [address] [place] [phone] Jul, Type 2 diabetes mellitus wit hout complications E11.9 ; Lumbar pain M54.5 and Tobacco abuse Z72.0 [facility] [address] [id number] [address] [place] [id number] May, [facility] [address] [facility] [id number] [address] [place] [phone] May, [facility] [address] [facility] [id number] [address] [place] [phone] Apr, [facility] [address] [facility] [id number] [address] [place] [phone] Mar, [facility] [address] [facility] [id number] [address] [place] [phone] Mar, Type 2 diabetes mellitus wit hout complications E11.9 [facility] [address] [facility] [id number] [address] [place] [phone] Mar, [facility] [address] [facility] [id number] [address] [place] [address] Feb, Type 2 diabetes mellitus wit hout complications E11.9 ; Neuropathy, diabetic E11.40 and Sleep apnea G47.30 [facility] [address] [facility] [id number] [address] [place] [phone] Feb, [facility] [address] [facility] [id number] [address] [place] [id number] Jan, Skin infection, bacterial 68 6.9 [facility] [address] [facility] [id number] [address] [place] [address] Jan, [facility] [address] [facility] [id number] [address] [place] [address] Dec, Diabetes mellitus type 2, un complicated 250.00 [facility] [address] [facility] [id number] [address] [place] [phone] Dec, [facility] [address] [id number] [address] [place] [address] Nov, [facility] [address] [id number] [address] [place] [address] Nov, Diabetes mellitus type 2, un complicated 250.00 and Obesity 278.00 [facility] [address] [id number] [address] [place] [address], [place] [address] Oct, [facility] [address] [id number] [address] [place] [phone] Oct, [facility] [address] [id number] [address] [place] [address], [place] [address] Aug, [facility] [address] [id number] [address] [place] [phone] Aug, [facility] [address] [id number] [address] [place] [phone] Jul, [facility] [address] [id number] [address] [place] [phone] Jul, [facility] [address] [id number] [address] [place] [address], [place] [address] Jul, [facility] [address] [id number] [address] [place] [address] Jul, [facility] [address] [id number] [address] [place] [id number] Jul, [facility] [address] [id number] [address] [place] [id number] Jul, [facility] [address] [id number] [address] [place] [address], [place] [address] Feb, [facility] [address] [id number] [address] [place] [id number] Feb, [facility] [address] [id number] [address] [place] [phone] Dec, [facility] [address] [id number] [address] [place] [address], [place] [address] Nov, [facility] [address] [id number] [address] [place] [address], [place] [address] Nov, [facility] [address] [id number] [address] [place] [address], [place] [address] Nov, [facility] [address] [id number] [address] [place] [address], [place] [address] Nov, [facility] [address] [id number] [address] [place] [address], [place] [address] Nov, [facility] [address] [id number] [address] [place] [address], [place] [address] September, [facility] [address] [id number] [address] [place] [address], [place] [address] September, [facility] [address] [id number] [address] [place] [address], [place] [address] Aug, [facility] [address] [id number] [address] [place] [address], [place] [address] Aug, [facility] [address] [id number] [address] [place] [address], [place] [address] Aug, [facility] [address] [id number] [address] [place] [address], [place] [address] Aug, [facility] [address] [id number] [address] [place] [address], [place] [address] Jul, [facility] [address] [id number] [address] [place] [address], [place] [address] Jul, [facility] [address] [id number] [address] [place] [address], [place] [address] Apr, [facility] [address] [id number] [address] [place] [address], [place] [address] Apr, [facility] [address] [id number] [address] [place] [address], [place] [address] Mar, [facility] [address] [id number] [address] [place] [address], [place] [address] Mar, [facility] [address] [id number] [address] [place] [address], [place] [address] Jan, [facility] [address] [id number] [address] [place] [address], [place] [address] Jan, [facility] [address] [id number] [address] [place] [address], [place] [address] Dec, [facility] [address] [id number] [address] [place] [address], [place] [address] Nov, [facility] [address] [id number] [address] [place] [address], [place] [address] Nov, [facility] [address] [id number] [address] [place] [address], [place] [address] Nov, [facility] [address] [id number] [address] [place] [address], [place] [address] Oct, [facility] [address] [id number] [address] [place] [address], [place] [address] Oct, [facility] [address] [id number] [address] [place] [address], [place] [address] Oct, [facility] [address] [id number] [address] [place] [address], [place] [address] September, [facility] [address] [id number] [address] [place] [address], [place] [address] September, [facility] [address] [id number] [address] [place] [address], [place] [address] Aug, [facility] [address] [id number] [address] [place] [address], [place] [address] Aug, [facility] [address] [id number] [address] [place] [address], [place] [address] Aug, [facility] [address] [id number] [address] [place] [address], [place] [address] Aug, [facility] [address] [id number] [address] [place] [address], [place] [address] Jul, [facility] [address] [id number] [address] [place] [address], [place] [address] Jul, [facility] [address] [id number] [address] [place] [address], [place] [address] Jul, [facility] [address] [id number] [address] [place] [address], [place] [address] Jul, [facility] [address] [id number] [address] [place] [address], [place] [address] May, [facility] [address] [id number] [address] [place] [address], [place] [address] May, [facility] [address] [id number] [address] [place] [address], [place] [address] May, [facility] [address] [id number] [address] [place] [address], [place] [address] May, [facility] [address] [id number] [address] [place] [address], [place] [address] May, [facility] [address] [id number] [address] [place] [address], [place] [address] May, [facility] [address] [id number] [address] [place] [address], [place] [address] May, [facility] [address] [id number] [address] [place] [address], [place] [address] May, [facility] [address] [id number] [address] [place] [address], [place] [address] May, [facility] [address] [id number] [address] [place] [address], [place] [address] May, [facility] [address] [id number] [address] [place] [address], [place] [address] Apr, [facility] [address] [id number] [address] [place] [address], [place] [address] Apr, [facility] [address] [id number] [address] [place] [address], [place] [address] Apr, [facility] [address] [id number] [address] [place] [address], [place] [address] Apr, [facility] [address] [id number] [address] [place] [address], [place] [address] Mar, [facility] [address] [id number] [address] [place] [address], [place] [address] Mar, [facility] [address] [id number] [address] [place] [address], [place] [address] Feb, [facility] [address] [id number] [address] [place] [address], [place] [address] Feb, [facility] [address] [id number] [address] [place] [address], [place] [address] Feb, [facility] [address] [id number] [address] [place] [address], [place] [address] Feb, [facility] [address] [id number] [address] [place] [address], [place] [address] Jan, [facility] [address] [id number] [address] [place] [address], [place] [address] Dec, [facility] [address] [id number] [address] [place] [address], [place] [address] Oct, [facility] [address] [id number] [address] [place] [address], [place] [address] September, [facility] [address] [id number] [address] [place] [address], [place] [address] September, [facility] [address] [id number] [address] [place] [address], [place] [address] Jul, [facility] [address] [id number] [address] [place] [address], [place] [address] Jul, [facility] [address] [id number] [address] [place] [address], [place] [address] Jul, [facility] [address] [id number] [address] [place] [address], [place] [address] 27 Jul, 2011 [facility] [address] [id number] [address] [place] [address], [place] [address] 16 Jul, 2011 [facility] [address] [id number] [address] [place] [address], [place] [address] May, [facility] [address] [id number] [address] [place] [address], [place] [address] Apr, [facility] [address] [id number] [address] [place] [address], [place] [address] 16 Apr, 2011 [facility] [address] [id number] [address] [place] [address], [place] [address] Apr, [facility] [address] [id number] [address] [place] [address], [place] [address] Apr, [facility] [address] [id number] [address] [place] [address], [place] [address] Mar, [facility] [address] [id number] [address] [place] [address], [place] [address] 16 Mar, 2011 [facility] [address] [id number] [address] [place] [address], [place] [address] 15 Mar, 2011 [facility] [address] [id number] [address] [place] [id number] Mar, [facility] [address] [id number] [address] [place] [address], [place] [address] Feb, [facility] [address] [id number] [address] [place] [address], [place] [address] Dec, [facility] [address] [id number] [address] [place] [address], [place] [address] September, [facility] [address] [id number] [address] [place] [id number] 11 Aug, 2010 [facility] [address] [id number] [address] [place] [id number] May, [facility] [address] [id number] [address] [place] [id number] 10 May, 2010 [facility] [address] [id number] [address] [place] [id number] Apr, [facility] [address] [id number] [address] [place] [id number] Apr, [facility] [address] [id number] [address] [place] [id number] Apr, [facility] [address] [id number] [address] [place] [id number] Mar, [facility] [address] [id number] [address] [place] [id number] Mar, [facility] [address] [id number] [address] [place] [phone] Mar, [facility] [address] [id number] [address] [place] [id number] Nov, [facility] [address] [id number] [address] [place] [id number] Oct, [facility] [address] [id number] [address] [place] [id number] September, [facility] [address] [id number] [address] [place] [id number] Dec, [facility] [address] [id number] [address] [place] [id number] Jul, [facility] [address] [id number] [address] [place] [id number] Jul, IMMUNIZATIONS No Known Immunizations SOCIAL HISTORY Never Assessed REASON FOR VISIT refill of chantix PLAN OF CARE VITAL SIGNS MEDICATIONS Unknown [...]
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
--- OUTSIDE RECORDS SUMMARY | 2019-11-14 23:18 | XMS REPORT ---
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 Name Role Phone JOSE BRENNAN Unavailable PROBLEMS Type Condition ICD9-CM Code IQL08-TG Code Onset Dates Condition S tatus SNOMED Code Problem Neuropathy, diabetic E11.40 Active 639826288 Problem Type 2 diabetes mellitus without complications E11 .9 Active 040192263 Problem Diabetes type 2, controlled E11.9 Ac tive 29172217 Problem Arthritis M19.90 Active 8003116 Problem ASIYA (obstructive sleep apnea) G47.33 Active 20396699 Problem Type 2 diabetes mellitus with diabetic neuropathy, uns pecified E11.40 Active 47351720 Problem [facility] 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.4 Active 045767545 Problem Mood disorder F39 Active 761286 05 Problem Erectile dysfunction, unspecified erectile dysfunction typ e N52.9 Active 460214415 ALLERGIES No Information ENCOUNTERS Encounter Location Date Diagnosis [facility] [address] [id number] [address] [place] [address] Dec, Diabetes type 2, controlled E11.9 [facility] [address] [id number] [address] [place] [address] Oct, Diabetes type 2, controlled E11.9 [facility] [address] [facility] [id number] [address] [place] [id number] Oct, Dental caries K02.9 and [place] al examination Z01.20 [facility] [address] [id number] [address] [place] [address] September, [facility] [address] [id number] [address] [place] [address] Aug, Diabetes type 2, controlled E11.9 ; Mood disorder F39 ; Arthritis M19.90 and Family history of rheumatoid arthritis Z82.61 [facility] [address] [id number] [address] [place] [address] 15 Jul, 2017 Infection of both inner ears H83.03 and Dizziness R42 [facility] [address] [id number] [address] [place] [address] 14 Jul, 2017 [facility] [address] [id number] [address] [place] [id number] 24 Jul, 2017 Diabetes type 2, controlled E11.9 [facility] [address] [id number] [address] [place] [id number] Jul, Dental examination Z01.20 [facility] [address] [id number] [address] [place] [address] 28 May, 2017 Diabetes type 2, controlled E11.9 [facility] [address] [id number] [address] [place] [address] May, [facility] [address] [id number] [address] [place] [id number] May, Dental examination Z01.20 [facility] [address] [id number] [address] [place] [address] May, [facility] [address] [id number] [address] [place] [address] May, [facility] [address] [id number] [address] [place] [address] May, Diabetes type 2, controlled E11.9 [facility] [address] [id number] [address] [place] [address] Apr, [facility] [address] [id number] [address] [place] [address] Apr, Mood disorder F39 [facility] [address] [id number] [address] [place] [address] Mar, [facility] [address] [facility] [id number] [address] [place] [address] Mar, Encounter for immunization Z 23 and Diabetes type 2, controlled E11.9 [facility] [address] [id number] [address] [place] [address] Jan, Mood disorder F39 [facility] [address] [id number] [address] [place] [address] Jan, Type 2 diabetes mellitus wit hout complications E11.9 [facility] [address] [facility] [id number] [address] [place] [address] Nov, [facility] [address] [id number] [address] [place] [address] Nov, Type 2 diabetes mellitus wit hout complications E11.9 ; Mood disorder F39 and ASIYA (obstructive sleep apnea) G47.33 [facility] [address] [facility] [id number] [address] [place] [address] September, Diabetes type 2, controlled E11.9 [facility] [address] [id number] [address] [place] [address] September, [facility] [address] [facility] [id number] [address] [place] [address] Aug, Diabetes type 2, controlled E11.9 [facility] [address] [facility] [id number] [address] [place] [address] Jul, [facility] [address] 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 [id number] [address] [place] [address] Jul, [facility] [address] [facility] [id number] [address] [place] [address] May, [facility] [address] [facility] [id number] [address] [place] [address] 16 Apr, 2016 Diabetes type 2, controlled E11.9 [facility] [address] 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 [id number] [address] [place] [address] 08 Jan, 2016 Impacted cerumen of both ear s H61.23 [place] [address] [facility] [id number] [address] [place] [address] 23 Oct, 2015 Type 2 diabetes mellitus wit hout complications E11.9 [place] [address] [facility] [id number] [address] [place] [address] Oct, [place] [address] [id number] [address] [place] [address] September, Type 2 diabetes mellitus wit hout complications E11.9 [facility] [address] [facility] [id number] [address] [place] [address] Jul, Type 2 diabetes mellitus wit hout complications E11.9 ; Lumbar pain M54.5 and Tobacco abuse Z72.0 [place] [address] [id number] [address] [place] [address] May, [place] [address] [facility] [id number] [address] [place] [address] May, [facility] [address] [facility] [id number] [address] [place] [address] Apr, [facility] [address] [id number] [address] [place] [address] Mar, [facility] [address] [facility] [id number] [address] [place] [address] Mar, Type 2 diabetes mellitus wit hout complications E11.9 [facility] [address] [id number] [address] [place] [address] Mar, [facility] [address] [id number] [address] [place] [address] Feb, Type 2 diabetes mellitus wit hout complications E11.9 ; Neuropathy, diabetic E11.40 and Sleep apnea G47.30 [facility] [address] [facility] [id number] [address] [place] [address] Feb, [facility] [address] [id number] [address] [place] [address] Jan, Skin infection, bacterial 68 6.9 [facility] [address] [facility] [id number] [address] [place] [address] Jan, [facility] [address] [facility] [id number] [address] [place] [address] Dec, Diabetes mellitus type 2, un complicated 250.00 [facility] [address] [facility] [id number] [address] [place] [address] Dec, [facility] [address] [id number] [address] [place] [address] Nov, [facility] [address] [facility] [id number] [address] [place] [address] Nov, Diabetes mellitus type 2, un complicated 250.00 and Obesity 278.00 [facility] [address] [facility] [id number] [address] [place] [address] Oct, [facility] [address] [facility] [id number] [address] [place] [address] Oct, [facility] [address] [facility] [id number] [address] [place] [address] Aug, [facility] [address] [facility] [id number] [address] [place] [address] Aug, [facility] [address] [facility] [id number] [address] [place] [address] Jul, [facility] [address] [id number] [address] [place] [address], [place] [address] Jul, 2014 [facility] [address] [id number] [address] [place] [address], [place] [address] Jul, 2014 [facility] [address] [id number] [address] [place] [address], [place] [address] Jul, 2014 [facility] [address] [id number] [address] [place] [address], [place] [address] Jul, [facility] [address] [id number] [address] [place] [address], [place] [address] Jul, [facility] [address] [id number] [address] [place] [address], [place] [address] Feb, [facility] [address] [id number] [address] [place] [address], [place] [address] Feb, [facility] [address] [id number] [address] [place] [address], [place] [address] Dec, [facility] [address] [id number] [address] [place] [address], [place] [address] Nov, [facility] [address] [id number] [address] [place] [address], [place] [address] Nov, [facility] [address] [id number] [address] [place] [address], [place] [address] Nov, [facility] [address] [id number] [address] [place] [address], [place] [address] Nov, [facility] [address] [id number] [address] [place] [address], [place] [address] Nov, [facility] [address] [id number] [address] [place] [address], [place] [address] September, [facility] [address] [id number] [address] [place] [address], [place] [address] September, [facility] [address] [id number] [address] [place] [address], [place] [address] Aug, [facility] [address] [id number] [address] [place] [address], [place] [address] Aug, [facility] [address] [id number] [address] [place] [address], [place] [address] Aug, [facility] [address] [id number] [address] [place] [address], [place] [address] Aug, [facility] [address] [id number] [address] [place] [address], [place] [address] Jul, [facility] [address] [id number] [address] [place] [address], [place] [address] Jul, [facility] [address] [id number] [address] [place] [address], [place] [address] Apr, [facility] [address] [id number] [address] [place] [address], [place] [address] Apr, [facility] [address] [id number] [address] [place] [address], [place] [address] Mar, [facility] [address] [id number] [address] [place] [address], [place] [address] Mar, [facility] [address] [id number] [address] [place] [address], [place] [address] Jan, [facility] [address] [id number] [address] [place] [address], [place] [address] Jan, [facility] [address] [id number] [address] [place] [address], [place] [address] Dec, [facility] [address] [id number] [address] [place] [address], [place] [address] Nov, [facility] [address] [id number] [address] [place] [address], [place] [address] Nov, [facility] [address] [id number] [address] [place] [address], [place] [address] Nov, [facility] [address] [id number] [address] [place] [address], [place] [address] Oct, [facility] [address] [id number] [address] [place] [address], [place] [address] Oct, [facility] [address] [id number] [address] [place] [address], [place] [address] Oct, [facility] [address] [id number] [address] [place] [address], [place] [address] September, [facility] [address] [id number] [address] [place] [address], [place] [address] September, [facility] [address] [id number] [address] [place] [address], [place] [address] Aug, [facility] [address] [id number] [address] [place] [address], [place] [address] Aug, [facility] [address] [id number] [address] [place] [address], [place] [address] Aug, [facility] [address] [id number] [address] [place] [address], [place] [address] Aug, [facility] [address] [id number] [address] [place] [address], [place] [address] Jul, [facility] [address] [id number] [address] [place] [address], [place] [address] Jul, [facility] [address] [id number] [address] [place] [address], [place] [address] Jul, [facility] [address] [id number] [address] [place] [address], [place] [address] Jul, [facility] [address] [id number] [address] [place] [address], [place] [address] May, [facility] [address] [id number] [address] [place] [address], [place] [address] May, [facility] [address] [id number] [address] [place] [address], [place] [address] May, [facility] [address] [id number] [address] [place] [address], [place] [address] 18 May, 2012 [facility] [address] [id number] [address] [place] [address], [place] [address] 14 May, 2012 [facility] [address] [id number] [address] [place] [address], [place] [address] May, [facility] [address] [id number] [address] [place] [address], [place] [address] 10 May, 2012 [facility] [address] [id number] [address] [place] [address], [place] [address] May, [facility] [address] [id number] [address] [place] [address], [place] [address] May, [facility] [address] [id number] [address] [place] [address], [place] [address] May, [facility] [address] [id number] [address] [place] [address], [place] [address] Apr, [facility] [address] [id number] [address] [place] [address], [place] [address] Apr, [facility] [address] [id number] [address] [place] [address], [place] [address] Apr, [facility] [address] [id number] [address] [place] [address], [place] [address] Apr, [facility] [address] [id number] [address] [place] [address], [place] [address] Mar, [facility] [address] [id number] [address] [place] [address], [place] [address] Mar, [facility] [address] [id number] [address] [place] [address], [place] [address] Feb, [facility] [address] [id number] [address] [place] [address], [place] [address] Feb, [facility] [address] [id number] [address] [place] [address] [place] [address] Feb, [facility] [address] [id number] [address] [place] [address], [place] [address] Feb, [facility] [address] [id number] [address] [place] [address], [place] [address] Jan, [facility] [address] [id number] [address] [place] [address], [place] [address] Dec, [facility] [address] [id number] [address] [place] [address], [place] [address] Oct, [facility] [address] [id number] [address] [place] [address], [place] [address] September, [facility] [address] [id number] [address] [place] [address], [place] [address] September, [facility] [address] [id number] [address] [place] [address], [place] [address] Jul, [facility] [address] [id number] [address] [place] [address], [place] [address] Jul, [facility] [address] [id number] [address] [place] [address], [place] [address] Jul, [facility] [address] [id number] [address] [place] [address], [place] [address] Jul, [facility] [address] [id number] [address] [place] [address], [place] [address] 16 Jul, 2011 [facility] [address] [id number] [address] [place] [address], [place] [address] May, [facility] [address] [id number] [address] [place] [address], [place] [address] Apr, [facility] [address] [id number] [address] [place] [address], [place] [address] Apr, [facility] [address] [id number] [address] [place] [address], [place] [address] Apr, [facility] [address] [id number] [address] [place] [address], [place] [address] 08 Apr, 2011 [facility] [address] [id number] [address] [place] [address], [place] [address] 16 Mar, 2011 [facility] [address] [id number] [address] [place] [address], [place] [address] 16 Mar, 2011 [facility] [address] [id number] [address] [place] [address], [place] [address] 15 Mar, 2011 [facility] [address] [id number] [address] [place] [address], [place] [address] Mar, [facility] [address] [id number] [address] [place] [address], [place] [address] Feb, [facility] [address] [id number] [address] [place] [address], [place] [address] Dec, [facility] [address] [id number] [address] [place] [address], [place] [address] September, [facility] [address] [id number] [address] [place] [address], [place] [address] Aug, [facility] [address] [id number] [address] [place] [address], [place] [address] May, [facility] [address] [id number] [address] [place] [address], [place] [address] May, [facility] [address] [id number] [address] [place] [address], [place] [address] 24 Apr, 2010 [facility] [address] [id number] [address] [place] [address], [place] [id number] Apr, [facility] [address] [id number] [address] [place] [address], [place] [id number] Apr, [facility] [address] [id number] [address] [place] [address], [place] [id number] 24 Mar, 2010 [facility] [address] [id number] [address] [place] [id number] 10 Mar, 2010 [facility] [address] [id number] [address] [place] [id number] Mar, [facility] [address] [id number] [address] [place] [id number] Nov, [facility] [address] [facility] [id number] [address] [place] [phone] Oct, [facility] [address] [facility] [id number] [address] [place] [phone] September, [facility] [address] [facility] [id number] [address] [place] [phone] Dec, [facility] [address] [facility] [id number] [address] [place] [id number] Jul, [facility] [address] [facility] [id number] [address] [place] [phone] Jul, IMMUNIZATIONS No Known Immunizations SOCIAL HISTORY Never Assessed REASON FOR VISIT Lab results PLAN OF CARE VITAL SIGNS MEDICATIONS Unknown [...]
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
--- OUTSIDE RECORDS SUMMARY | 2019-11-14 23:18 | XMS REPORT ---
Author Author Jerman BRENNAN Organization [facility] Address [address] [place] [address] Care Team Providers Care Shirt Sorter Name Role Phone MIKAJOSE Unavailable PROBLEMS Type Condition ICD9-CM Code HSL23-JC Code Onset Dates Condition S tatus SNOMED Code Problem Neuropathy, diabetic E11.40 Active 851060596 Problem Type 2 diabetes mellitus without complications E11 .9 Active 708589753 Problem Diabetes type 2, controlled E11.9 Ac tive 97689662 Problem Arthritis M19.90 Active 2314298 Problem ASIYA (obstructive sleep apnea) G47.33 Active 49709209 Problem Type 2 diabetes mellitus with diabetic neuropathy, uns pecified E11.40 Active 30301608 Problem nursing home 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.4 Active 942305112 Problem Mood disorder F39 Active 687524 05 Problem Erectile dysfunction, unspecified erectile dysfunction typ e N52.9 Active [id number] ALLERGIES No Information ENCOUNTERS Encounter Location Date Diagnosis [facility] [address] [facility] [place] [id number] [address] [place] [address] Jan, [facility] [address] [facility] [place] [id number] [address] [place] [id number] Dec, Diabetes type 2, controlled E11.9 [facility] [address] [facility] [place] [id number] [address] [place] [address] Dec, [facility] [address] [facility] [place] [id number] [address] [place] [address] Dec, Diabetes type 2, controlled E11.9 [facility] [address] [facility] [place] [id number] [address] [place] [address] Oct, Diabetes type 2, controlled E11.9 [facility] [address] [id number] [address] [place] [address] [id number] 14 Germán, 2018 Dental caries K02.9 and [place] al examination Z01.20 [facility] [address] [id number] [address] [place] [address] September, [facility] [address] [id number] [address] [place] [address] Aug, Diabetes type 2, controlled E11.9 ; Mood disorder F39 ; Arthritis M19.90 and Family history of rheumatoid arthritis Z82.61 [facility] [address] [id number] [address] [place] [id number] 15 Jul, 2017 Infection of both inner ears H83.03 and Dizziness R42 [facility] [address] [id number] [address] [place] [address] 14 Jul, 2017 [facility] [address] [id number] [address] [place] [address] Jul, Diabetes type 2, controlled E11.9 [facility] [address] [id number] [address] [place] [address] [id number] Jul, Dental examination Z01.20 [facility] [address] [id number] [address] [place] [address] May, Diabetes type 2, controlled E11.9 [facility] [address] [id number] [address] [place] [address] May, [facility] [address] [id number] [address] [place] [address] [id number] May, Dental examination Z01.20 [facility] [address] [id number] [address] [place] [address] May, [facility] [address] [id number] [address] [place] [address] May, [facility] [address] [id number] [address] [place] [address] May, Diabetes type 2, controlled E11.9 [facility] [address] [id number] [address] [place] [address] Apr, [facility] [address] [facility] [place] [id number] [address] [place] [address] Apr, Mood disorder F39 [facility] [address] [facility] [place] [id number] [address] [place] [address] Mar, [facility] [address] [facility] [place] [id number] [address] [place] [address] Mar, Diabetes type 2, controlled E11.9 and Encounter for immunization Z23 [facility] [address] [facility] [place] [id number] [address] [place] [address] Jan, Mood disorder F39 [facility] [address] [facility] [place] [id number] [address] [place] [address] Jan, Type 2 diabetes mellitus wit hout complications E11.9 [facility] [address] [facility] [place] [id number] [address] [place] [address] Nov, [facility] [address] [facility] [place] [id number] [address] [place] [address] Nov, Type 2 diabetes mellitus wit hout complications E11.9 ; Mood disorder F39 and ASIYA (obstructive sleep apnea) G47.33 [facility] [address] [facility] [place] [id number] [address] [place] [address] September, Diabetes type 2, controlled E11.9 [facility] [address] [facility] [place] [id number] [address] [place] [address] September, [facility] [address] [facility] [place] [id number] [address] [place] [address] Aug, Diabetes type 2, controlled E11.9 [facility] [address] [facility] [place] [id number] [address] [place] [address] Jul, [facility] [address] [facility] [place] [id number] [address] [place] [address] Jul, Type 2 diabetes mellitus wit hout complications E11.9 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 [facility] [address] [facility] [place] [id number] [address] [place] [address] Jul, Diabetes type 2, controlled E11.9 [facility] [address] [facility] [place] [id number] [address] [place] [address] Jul, [facility] [address] [facility] [place] [id number] [address] [place] [address] May, [facility] [address] [facility] [place] [id number] [address] [place] [address] Apr, Diabetes type 2, controlled E11.9 [facility] [address] [facility] [place] [id number] [address] [place] [address] Feb, Erectile dysfunction, unspec ified erectile dysfunction type N52.9 ; Type 2 diabetes mellitus with diabetic neuropathy, unspecified E11.40 and nursing home 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.4 [place] [address] [place] [id number] [address] [place] [address] Jan, Impacted cerumen of both ear s H61.23 [facility] [address] [facility] [place] [id number] [address] [place] [address] Oct, Type 2 diabetes mellitus wit hout complications E11.9 [facility] [address] [facility] [place] [id number] [address] [place] [address] Oct, [facility] [address] [facility] [place] [id number] [address] [place] [address] September, Type 2 diabetes mellitus wit hout complications E11.9 [facility] [address] [facility] [place] [id number] [address] [place] [address] Jul, Type 2 diabetes mellitus wit hout complications E11.9 ; Lumbar pain M54.5 and Tobacco abuse Z72.0 [facility] [address] [facility] [place] [id number] [address] [place] [address] May, [facility] [address] [facility] [place] [id number] [address] [place] [address] May, [facility] [address] [place] [id number] [address] [place] [address] Apr, [facility] [address] [id number] [address] [place] [address] Mar, [facility] [address] [id number] [address] [place] [address] Mar, Type 2 diabetes mellitus wit hout complications E11.9 [facility] [address] [facility] [place] [id number] [address] [place] [address] Mar, [facility] [address] [facility] [place] [id number] [address] [place] [address] 28 Feb, 2015 Type 2 diabetes mellitus wit hout complications E11.9 ; Neuropathy, diabetic E11.40 and Sleep apnea G47.30 [facility] [address] [facility] [place] [id number] [address] [place] [address] Feb, [facility] [address] [facility] [place] [id number] [address] [place] [address] Jan, Skin infection, bacterial 68 6.9 [facility] [address] [facility] [place] [id number] [address] [place] [address] Jan, [facility] [address] [facility] [place] [id number] [address] [place] [address] Dec, Diabetes mellitus type 2, un complicated 250.00 [facility] [address] [facility] [place] [id number] [address] [place] [address] Dec, [facility] [address] [facility] [place] [id number] [address] [place] [address] Nov, [facility] [address] [facility] [place] [id number] [address] [place] [address] Nov, Diabetes mellitus type 2, un complicated 250.00 and Obesity 278.00 [facility] [address] [facility] [place] [id number] [address] [place] [address] Oct, [facility] [address] [facility] [place] [id number] [address] [place] [address] Oct, [facility] [address] [id number] [address] [place] [address], [place] [address] Aug, [facility] [address] [id number] [address] [place] [address], [place] [address] Aug, [facility] [address] [id number] [address] [place] [address], [place] [address] Jul, [facility] [address] [id number] [address] [place] [address], [place] [address] Jul, [facility] [address] [id number] [address] [place] [address], [place] [address] Jul, [facility] [address] [id number] [address] [place] [address], [place] [address] Jul, [facility] [address] [id number] [address] [place] [address], [place] [address] Jul, [facility] [address] [id number] [address] [place] [address], [place] [address] Jul, [facility] [address] [id number] [address] [place] [address], [place] [address] Feb, [facility] [address] [id number] [address] [place] [address], [place] [address] Feb, [facility] [address] [id number] [address] [place] [address], [place] [address] Dec, [facility] [address] [id number] [address] [place] [address], [place] [address] Nov, [facility] [address] [id number] [address] [place] [address], [place] [address] Nov, [facility] [address] [id number] [address] [place] [address], [place] [address] Nov, [facility] [address] [id number] [address] [place] [address], [place] [address] Nov, [facility] [address] [id number] [address] [place] [address], [place] [address] Nov, [facility] [address] [id number] [address] [place] [address], [place] [address] September, [facility] [address] [id number] [address] [place] [address], [place] [address] September, [facility] [address] [id number] [address] [place] [address], [place] [address] Aug, [facility] [address] [id number] [address] [place] [address], [place] [address] Aug, [facility] [address] [id number] [address] [place] [address], [place] [address] Aug, [facility] [address] [id number] [address] [place] [address], [place] [address] Aug, [facility] [address] [id number] [address] [place] [address], [place] [address] Jul, [facility] [address] [id number] [address] [place] [address], [place] [address] Jul, [facility] [address] [id number] [address] [place] [address], [place] [address] Apr, [facility] [address] [id number] [address] [place] [address], [place] [address] Apr, [facility] [address] [id number] [address] [place] [address], [place] [address] Mar, [facility] [address] [id number] [address] [place] [address], [place] [address] Mar, [facility] [address] [id number] [address] [place] [address], [place] [address] Jan, [facility] [address] [id number] [address] [place] [address], [place] [address] Jan, [facility] [address] [id number] [address] [place] [address], [place] [address] Dec, [facility] [address] [id number] [address] [place] [address], [place] [address] Nov, [facility] [address] [id number] [address] [place] [address], [place] [address] Nov, [facility] [address] [id number] [address] [place] [address], [place] [address] Nov, [facility] [address] [id number] [address] [place] [address], [place] [address] Oct, [facility] [address] [id number] [address] [place] [address], [place] [address] Oct, [facility] [address] [id number] [address] [place] [address], [place] [address] Oct, [facility] [address] [id number] [address] [place] [address], [place] [address] September, [facility] [address] [id number] [address] [place] [address], [place] [address] September, [facility] [address] [id number] [address] [place] [address], [place] [address] Aug, [facility] [address] [id number] [address] [place] [address], [place] [address] Aug, [facility] [address] [id number] [address] [place] [address], [place] [address] Aug, [facility] [address] [id number] [address] [place] [address], [place] [address] Aug, [facility] [address] [id number] [address] [place] [address], [place] [address] Jul, [facility] [address] [id number] [address] [place] [address], [place] [address] Jul, [facility] [address] [id number] [address] [place] [address], [place] [address] Jul, [facility] [address] [id number] [address] [place] [address], [place] [address] Jul, [facility] [address] [id number] [address] [place] [address], [place] [address] May, [facility] [address] [id number] [address] [place] [address], [place] [address] May, [facility] [address] [id number] [address] [place] [address], [place] [address] May, [facility] [address] [id number] [address] [place] [address], [place] [address] May, [facility] [address] [id number] [address] [place] [address], [place] [address] May, [facility] [address] [id number] [address] [place] [address], [place] [address] May, [facility] [address] [id number] [address] [place] [address], [place] [address] May, [facility] [address] [id number] [address] [place] [address], [place] [address] May, [facility] [address] [id number] [address] [place] [address], [place] [address] May, [facility] [address] [id number] [address] [place] [address], [place] [address] May, [facility] [address] [id number] [address] [place] [address], [place] [address] Apr, [facility] [address] [id number] [address] [place] [address], [place] [address] Apr, [facility] [address] [id number] [address] [place] [address], [place] [address] Apr, [facility] [address] [id number] [address] [place] [address], [place] [address] Apr, [facility] [address] [id number] [address] [place] [address], [place] [address] Mar, [facility] [address] [id number] [address] [place] [address], [place] [address] Mar, [facility] [address] [id number] [address] [place] [address], [place] [address] Feb, [facility] [address] [id number] [address] [place] [address], [place] [address] Feb, [facility] [address] [id number] [address] [place] [address], [place] [address] Feb, [facility] [address] [id number] [address] [place] [address], [place] [address] Feb, [facility] [address] [id number] [address] [place] [address], [place] [address] Jan, [facility] [address] [id number] [address] [place] [address], [place] [address] Dec, [facility] [address] [id number] [address] [place] [address], [place] [address] Oct, [facility] [address] [id number] [address] [place] [address], [place] [address] September, [facility] [address] [id number] [address] [place] [address], [place] [address] September, [facility] [address] [id number] [address] [place] [address], [place] [address] Jul, [facility] [address] [id number] [address] [place] [address], [place] [address] Jul, [facility] [address] [id number] [address] [place] [address], [place] [address] Jul, [facility] [address] [id number] [address] [place] [address], [place] [address] Jul, [facility] [address] [id number] [address] [place] [address], [place] [address] 16 Jul, 2011 [facility] [address] [id number] [address] [place] [address], [place] [address] 06 May, 2011 [facility] [address] [id number] [address] [place] [address], [place] [address] 16 Apr, 2011 [facility] [address] [id number] [address] [place] [address], [place] [address] 16 Apr, 2011 [facility] [address] [id number] [address] [place] [address], [place] [address] Apr, [facility] [address] [id number] [address] [place] [address], [place] [address] 08 Apr, 2011 [facility] [address] [id number] [address] [place] [address], [place] [address] 16 Mar, 2011 [facility] [address] [id number] [address] [place] [address], [place] [address] 16 Mar, 2011 [facility] [address] [id number] [address] [place] [address], [place] [address] 15 Mar, 2011 [facility] [address] [id number] [address] [place] [address], [place] [address] Mar, [facility] [address] [id number] [address] [place] [address], [place] [address] Feb, [facility] [address] [id number] [address] [place] [address], [place] [address] Dec, [facility] [address] [id number] [address] [place] [address] September, [facility] [address] [id number] [address] [place] [address] Aug, [facility] [address] [id number] [address] [place] [address], [place] [address] May, [facility] [address] [id number] [address] [place] [address] May, [facility] [address] [id number] [address] [place] [address], [place] [address] 24 Apr, 2010 [facility] [address] [id number] [address] [place] [address] Apr, [facility] [address] [id number] [address] [place] [address] Apr, [facility] [address] [id number] [address] [place] [address] Mar, [facility] [address] [id number] [address] [place] [address] Mar, [facility] [address] [id number] [address] [place] [address] Mar, [facility] [address] [id number] [address] [place] [address] Nov, [facility] [address] [id number] [address] [place] [address] Oct, [facility] [address] [id number] [address] [place] [address] September, [facility] [address] [id number] [address] [place] [address] Dec, [facility] [address] [id number] [address] [place] [address] Jul, [facility] [address] [id number] [address] [place] [address] Jul, IMMUNIZATIONS No Known Immunizations SOCIAL HISTORY Never Assessed REASON FOR VISIT Controlled Med Refill PLAN OF CARE VITAL SIGNS MEDICATIONS Medication Instructions Dosage Frequency Start Date End Date Duration S tatus Lyrica 50 mg Orally 3 times a day 2 capsules 8h Feb, 28 days Active Tramadol HCl 50 mg Orally every 6 [...]
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
--- OUTSIDE RECORDS SUMMARY | 2019-11-14 23:19 | XMS REPORT ---
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 673084956 Problem Type 2 diabetes mellitus without complications E11 .9 Active 116224370 Problem Erectile dysfunction, unspecified erectile dysfunction typ e N52.9 Active 614467593 Problem Type 2 diabetes mellitus with diabetic neuropathy, uns pecified E11.40 Active 03518906 ALLERGIES Unknown Allergies SOCIAL HISTORY No smoking Hx information available PLAN OF CARE VITAL SIGNS MEDICATIONS Medication Instructions Dosage Frequency Start Date End Date Duration S tatus Victoza 18MG/3ML Subcutaneous Once a day INJECT 1.8 MG 24h 30 days Active [place] 3/16" 31G X 5 MM subcutaneously 6 times per day as dire cted Oct, 30 days Active Levemir FlexTouch 100 UNIT/ML Subcutaneous 2 times a day 26 units 12h May, 30 days Active NovoLog Flexpen 100 UNIT/ML Subcutaneous 3 times a day take 40 Unit s 8h Jul, 30 days Active RESULTS No Results PROCEDURES No Known procedures IMMUNIZATIONS No Known Immunizations
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
--- OUTSIDE RECORDS SUMMARY | 2019-11-14 23:19 | XMS REPORT ---
Author Jerman Medina [facility] [place] eClinicalWorks Address Unknown Phone Unavailable Care Team Providers Care Adolescent Psychiatrist Name Role Phone JOSE BRENNAN CP Unavailable Allergies, Adverse Reactions, Alerts Substance Reaction Event Type N.K.D.A. Info Not Available Non Drug Allergy Problems Problem Type Condition Code Onset Dates Condition Statu s Problem Diabetes type 2, controlled E11.9 Active Assessment Type 2 diabetes mellitus without complications E11.9 Active Problem Neuropathy, diabetic E11.40 Active Assessment Neuropathy, diabetic E11.40 Active Assessment Sleep apnea G47.30 Active Medications Medication Code System Code Instructions Start Date End Date Status Dosage tramadol ND 0 50 mg Jul 20, 2014 take 1 tab let (50 mg) by oral route every 6 hours as needed PRN pain NovoLog Flexpen [facility] [address]-60 100 unit/mL August 23, 2013 take 40 Unit by Subcutaneous route 3 times per day Levemir [facility] [address]-15 100 unit/mL August 23, 2013 take 42 Unit by Subcutaneous route 2 times per day Lisinopril [facility] [address]-51 5 MG Orally Once a day 1 tablet Omeprazole [facility] [address]-02 20 MG 2 times a day 1 tablet Neurontin [facility] [address]-84 600 mg 1 CAP orally 3 times a day Jul 022014 take 1 tablet (600 mg) by oral route 3 times per day Metformin HCl [facility] [id number] 1000 MG TAKE ONE TABLET BY MOUTH TWICE DAILY WITH MORNING AND EVENING MEALS Pen [place] 08/13" [facility] [address] 31G X 5 MM Once a day October 31 15 as directed Victoza [facility] 84305124910 18MG/3ML subcutaneous INJECT 1.8 MG SUBCUTANEOUS ONCE A DAY Procedures Procedure Coding System Code Date Office Visit, Est Pt., Level 3 CPT-4 34422 O 2014 GLYCATED HEMOGLOBIN TEST CPT-4 96599 Mar 27, 2015 Vital Signs Date/Time: Mar 27, 2015 Temperature 98.2 F Weight 272 lbs Height 70 in BMI 39.02 Index Blood Pressure Diastolic 70 mmHg Blood Pressure Systolic 130 mmHg Cardiac Monitoring Heart Rate 80 bpm Results Name Result Date Reference Range Unit Abnormali ty Flag A1C (IN HOUSE) Summary Purpose eClinicalWorks Submission
--- OUTSIDE RECORDS SUMMARY | 2019-11-14 23:19 | XMS REPORT ---
Author Author Jerman BRENNAN Organization [facility] [place] Address [address] [place] [address] Care Team Providers Care Computerized Table Cutter Name Role Phone MIKA JOSE Unavailable PROBLEMS Type Condition ICD9-CM Code SQT06-OF Code Onset Dates Condition S tatus SNOMED Code Problem Neuropathy, diabetic E11.40 Active 158520475 Problem Type 2 diabetes mellitus without complications E11 .9 Active 803165463 Problem Diabetes type 2, controlled E11.9 Ac tive 98161258 Problem Arthritis M19.90 Active 0228762 Problem ASIYA (obstructive sleep apnea) G47.33 Active 72790579 Problem Type 2 diabetes mellitus with diabetic neuropathy, uns pecified E11.40 Active 30839983 Problem USP 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.4 Active 898287092 Problem Mood disorder F39 Active 413216 05 Problem Erectile dysfunction, unspecified erectile dysfunction typ e N52.9 Active 037980057 ALLERGIES No Information ENCOUNTERS Encounter Location Date Diagnosis [facility] [place] [address] [id number] [address] [place] [id number] Oct, Diabetes type 2, controlled E11.9 [facility] [address] [facility] [id number] [address] [place] [id number] 14 Oct, 2017 Dental caries K02.9 and Chambers al examination Z01.20 [facility] [place] [address] [id number] [address] [place] [phone] September, [facility] [place] [address] [id number] [address] [place] [id number] 05 Aug, 2017 Diabetes type 2, controlled E11.9 ; Mood disorder F39 ; Arthritis M19.90 and Family history of rheumatoid arthritis Z82.[address] [facility] [address] [facility] [id number] [address] [place] [phone] 15 Jul, 2017 Infection of both inner ears H83.03 and Dizziness R42 [facility] [place] [address] [id number] [address] [place] [phone] Jul, [facility] [place] [address] [id number] [address] [place] [id number] Jul, Diabetes type 2, controlled E11.9 [facility] [address] [id number] [address] [place] [address] [id number] Jul, Dental examination Z01.20 [facility] [place] [address] [id number] [address] [place] [phone] May, Diabetes type 2, controlled E11.9 [facility] [place] [address] [id number] [address] [place] [phone] May, [facility] [address] [id number] [address] [place] [address] [id number] May, Dental examination Z01.20 [facility] [place] [address] [id number] [address] [place] [phone] May, [facility] [place] [address] [id number] [address] [place] [phone] May, [facility] [place] [address] [id number] [address] [place] [id number] May, Diabetes type 2, controlled E11.9 [facility] [place] [address] [id number] [address] [place] [phone] Apr, [facility] [place] [address] [id number] [address] [place] [phone] Apr, Mood disorder F39 [facility] [place] [address] [id number] [address] [place] [phone] Mar, [facility] [place] [address] [facility] [id number] [address] [place] [id number] Mar, Diabetes type 2, controlled E11.9 and Encounter for immunization Z23 [facility] [place] [address] [id number] [address] [place] [phone] Jan, Mood disorder F39 [facility] [place] [address] [id number] [address] [place] [phone] Jan, Type 2 diabetes mellitus wit hout complications E11.9 [facility] [place] [address] [id number] [address] [place] [id number] Nov, [facility] [place] [address] [id number] [address] [place] [phone] Nov, Type 2 diabetes mellitus wit hout complications E11.9 ; Mood disorder F39 and ASIYA (obstructive sleep apnea) G47.33 [facility] [place] [address] [id number] [address] [place] [phone] September, Diabetes type 2, controlled E11.9 [facility] [place] [address] [id number] [address] [place] [phone] September, [facility] [place] [address] [facility] [id number] [address] [place] [phone] Aug, Diabetes type 2, controlled E11.9 [facility] [place] [address] [id number] [address] [place] [phone] Jul, [facility] [place] [address] [facility] [id number] [address] [place] [phone] Jul, Type 2 diabetes mellitus wit hout complications E11.9 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 [facility] [place] [address] [id number] [address] [place] [phone] Jul, Diabetes type 2, controlled E11.9 [facility] [place] [address] [id number] [address] [place] [phone] Jul, [facility] [place] [address] [id number] [address] [place] [phone] May, [facility] [place] [address] [id number] [address] [place] [id number] Apr, Diabetes type 2, controlled E11.9 [facility] [place] [address] [facility] [id number] [address] [place] [phone] 31 Feb, 2016 Erectile dysfunction, unspec ified erectile dysfunction type N52.9 ; Type 2 diabetes mellitus with diabetic neuropathy, unspecified E11.40 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 [facility] [place] [address] [facility] [id number] [address] [place] [phone] 08 Jan, 2016 Impacted cerumen of both ear s H61.23 [facility] [place] [address] [facility] [id number] [address] [place] [phone] 23 Oct, 2015 Type 2 diabetes mellitus wit hout complications E11.9 [place] [address] [facility] [id number] [address] [place] [phone] Oct, [place] [address] [id number] [address] [place] [phone] September, Type 2 diabetes mellitus wit hout complications E11.9 [place] [address] [id number] [address] [place] [phone] Jul, Type 2 diabetes mellitus wit hout complications E11.9 ; Lumbar pain M54.5 and Tobacco abuse Z72.0 [place] [address] [id number] [address] [place] [address] May, [place] [address] [id number] [address] [place] [phone] May, [place] [address] [id number] [address] [place] [phone] Apr, [facility] [place] [address] [facility] [id number] [address] [place] [phone] Mar, [facility] [place] [address] [id number] [address] [place] [phone] Mar, Type 2 diabetes mellitus wit hout complications E11.9 [facility] [place] [address] [id number] [address] [place] [phone] Mar, [facility] [place] [address] [id number] [address] [place] [address] Feb, Type 2 diabetes mellitus wit hout complications E11.9 ; Neuropathy, diabetic E11.40 and Sleep apnea G47.30 [facility] [place] [address] [id number] [address] [place] [phone] Feb, [facility] [place] [address] [facility] [id number] [address] [place] [phone] Jan, Skin infection, bacterial 68 6.9 [facility] [place] [address] [id number] [address] [place] [phone] Jan, [facility] [place] [address] [id number] [address] [place] [id number] Dec, Diabetes mellitus type 2, un complicated 250.00 [facility] [place] [address] [facility] [id number] [address] [place] [phone] Dec, [facility] [place] [address] [facility] [id number] [address] [place] [phone] Nov, [facility] [place] [address] [id number] [address] [place] [phone] Nov, Diabetes mellitus type 2, un complicated 250.00 and Obesity 278.00 [facility] [place] [address] [id number] [address] [place] [phone] Oct, [facility] [place] [address] [id number] [address] [place] [phone] Oct, [facility] [place] [address] [id number] [address] [place] [phone] Aug, [facility] [place] [address] [id number] [address] [place] [phone] Aug, [facility] [place] [address] [facility] [id number] [address] [place] [phone] Jul, [facility] [place] [address] [facility] [id number] [address] [place] [phone] Jul, [facility] [address] [id number] [address] [place] [address], [place] [id number] Jul, [facility] [address] [id number] [address] [place] [address], [place] [id number] Jul, [facility] [address] [id number] [address] [place] [address], [place] [id number] Jul, [facility] [address] [id number] [address] [place] [address], [place] [address] Jul, [facility] [address] [id number] [address] [place] [address], [place] [address] Feb, [facility] [address] [id number] [address] [place] [address], [place] [id number] Feb, [facility] [address] [id number] [address] [place] [address], [place] [address] Dec, [facility] [address] [id number] [address] [place] [address], [place] [id number] Nov, [facility] [address] [id number] [address] [place] [address], [place] [id number] Nov, [facility] [address] [id number] [address] [place] [address], [place] [address] Nov, [facility] [address] [id number] [address] [place] [address], [place] [address] Nov, [facility] [address] [id number] [address] [place] [address], [place] [address] Nov, [facility] [address] [id number] [address] [place] [address], [place] [address] September, [facility] [address] [id number] [address] [place] [address], [place] [address] September, [facility] [address] [id number] [address] [place] [address], [place] [address] Aug, [facility] [address] [id number] [address] [place] [address], [place] [address] Aug, [facility] [address] [id number] [address] [place] [address], [place] [address] Aug, [facility] [address] [id number] [address] [place] [address], [place] [address] Aug, [facility] [address] [id number] [address] [place] [address], [place] [address] Jul, [facility] [address] [id number] [address] [place] [address], [place] [address] Jul, [facility] [address] [id number] [address] [place] [address], [place] [address] Apr, [facility] [address] [id number] [address] [place] [address], [place] [address] Apr, [facility] [address] [id number] [address] [place] [address], [place] [address] Mar, [facility] [address] [id number] [address] [place] [address], [place] [address] Mar, [facility] [address] [id number] [address] [place] [address], [place] [address] Jan, [facility] [address] [id number] [address] [place] [address], [place] [address] Jan, [facility] [address] [id number] [address] [place] [address], [place] [address] Dec, [facility] [address] [id number] [address] [place] [phone] Nov, [facility] [address] [id number] [address] [place] [address], [place] [address] Nov, [facility] [address] [id number] [address] [place] [address], [place] [address] Nov, [facility] [address] [id number] [address] [place] [address], [place] [address] Oct, [facility] [address] [id number] [address] [place] [phone] 10 Oct, 2012 [facility] [address] [id number] [address] [place] [address], [place] [address] Oct, [facility] [address] [id number] [address] [place] [address], [place] [address] September, [facility] [address] [id number] [address] [place] [address], [place] [address] September, [facility] [address] [id number] [address] [place] [address], [place] [address] Aug, [facility] [address] [id number] [address] [place] [address], [place] [address] Aug, [facility] [address] [id number] [address] [place] [address], [place] [address] Aug, [facility] [address] [id number] [address] [place] [address], [place] [address] Aug, [facility] [address] [id number] [address] [place] [address], [place] [address] Jul, [facility] [address] [id number] [address] [place] [address], [place] [address] Jul, [facility] [address] [id number] [address] [place] [address], [place] [address] Jul, [facility] [address] [id number] [address] [place] [address], [place] [address] Jul, [facility] [address] [id number] [address] [place] [address], [place] [address] May, [facility] [address] [id number] [address] [place] [address], [place] [address] May, [facility] [address] [id number] [address] [place] [address], [place] [address] May, [facility] [address] [id number] [address] [place] [address], [place] [address] May, [facility] [address] [id number] [address] [place] [address], [place] [address] 14 May, 2012 [facility] [address] [id number] [address] [place] [address], [place] [address] 11 May, 2012 [facility] [address] [id number] [address] [place] [address], [place] [address] 10 May, 2012 [facility] [address] [id number] [address] [place] [address], [place] [address] May, [facility] [address] [id number] [address] [place] [address], [place] [address] May, [facility] [address] [id number] [address] [place] [address], [place] [address] May, [facility] [address] [id number] [address] [place] [address], [place] [address] Apr, [facility] [address] [id number] [address] [place] [address], [place] [address] Apr, [facility] [address] [id number] [address] [place] [address], [place] [address] Apr, [facility] [address] [id number] [address] [place] [address], [place] [address] Apr, [facility] [address] [id number] [address] [place] [address], [place] [address] Mar, [facility] [address] [id number] [address] [place] [address], [place] [address] Mar, [facility] [address] [id number] [address] [place] [address], [place] [address] Feb, [facility] [address] [id number] [address] [place] [address], [place] [address] Feb, [facility] [address] [id number] [address] [place] [address], [place] [address] Feb, [facility] [address] [id number] [address] [place] [address], [place] [address] Feb, [facility] [address] [id number] [address] [place] [address], [place] [address] Jan, [facility] [address] [id number] [address] [place] [address], [place] [address] Dec, [facility] [address] [id number] [address] [place] [address], [place] [address] Oct, [facility] [address] [id number] [address] [place] [address], [place] [address] September, [facility] [address] [id number] [address] [place] [address], [place] [address] September, [facility] [address] [id number] [address] [place] [address], [place] [address] Jul, [facility] [address] [id number] [address] [place] [address], [place] [address] Jul, [facility] [address] [id number] [address] [place] [address], [place] [address] Jul, [facility] [address] [id number] [address] [place] [address], [place] [address] Jul, [facility] [address] [id number] [address] [place] [address], [place] [address] Jul, [facility] [address] [id number] [address] [place] [address], [place] [address] May, [facility] [address] [id number] [address] [place] [address], [place] [address] Apr, [facility] [address] [id number] [address] [place] [address], [place] [address] Apr, [facility] [address] [id number] [address] [place] [address], [place] [address] Apr, [facility] [address] [id number] [address] [place] [address], [place] [address] Apr, [facility] [address] [id number] [address] [place] [address], [place] [address] 16 Mar, 2011 [facility] [address] [id number] [address] [place] [address], [place] [address] 16 Mar, 2011 [facility] [address] [id number] [address] [place] [address], [place] [address] 15 Mar, 2011 [facility] [address] [id number] [address] [place] [address], [place] [address] 11 Mar, 2011 [facility] [address] [id number] [address] [place] [address], [place] [id number] Feb, [facility] [address] [id number] [address] [place] [address], [place] [id number] Dec, [facility] [address] [id number] [address] [place] [address], [place] [id number] September, [facility] [address] [id number] [address] [place] [address], [place] [id number] Aug, [facility] [address] [id number] [address] [place] [address], [place] [id number] May, [facility] [address] [id number] [address] [place] [address], [place] [id number] May, [facility] [address] [id number] [address] [place] [address], [place] [id number] 24 Apr, 2010 [facility] [address] [id number] [address] [place] [address], [place] [id number] Apr, [facility] [address] [id number] [address] [place] [address], [place] [id number] Apr, [facility] [address] [id number] [address] [place] [address], [place] [id number] 24 Mar, 2010 [facility] [address] [id number] [address] [place] [address], [place] [id number] Mar, [facility] [address] [id number] [address] [place] [address], [place] [id number] Mar, [facility] [place] [address] [id number] [address] [place] [id number] Nov, [facility] [place] [address] [id number] [address] [place] [id number] Oct, [facility] [place] [address] [id number] [address] [place] [id number] September, [facility] [place] [address] [id number] [address] [place] [id number] Dec, [facility] [place] [address] [id number] [address] [place] [id number] Jul, [facility] [place] [address] [id number] [address] [place] [id number] Jul, IMMUNIZATIONS No Known Immunizations SOCIAL HISTORY Never Assessed REASON FOR VISIT dizziness PLAN OF CARE VITAL SIGNS MEDICATIONS Unknown [...]
--- OUTSIDE RECORDS SUMMARY | 2019-11-14 23:19 | XMS REPORT ---
Author Author Jerman BRENNAN Organization [facility] Address [address] [place] [address] Care Team Providers Care Hl7 Interface Developer Name Role Phone MIKA JOSE Unavailable PROBLEMS Type Condition ICD9-CM Code [id number] Code Onset Dates Condition S tatus SNOMED Code Problem Neuropathy, diabetic E11.40 Active 473157717 Problem Type 2 diabetes mellitus without complications E11 .9 Active 300003467 Problem Diabetes type 2, controlled E11.9 Ac tive 21862120 Problem Arthritis M19.90 Active 5164253 Problem ASIYA (obstructive sleep apnea) G47.33 Active 32404006 Problem Type 2 diabetes mellitus with diabetic neuropathy, uns pecified E11.40 Active 41031982 Problem intermediate current use of insulin Z79.4 Active 001221187 Problem Mood disorder F39 Active 089898 05 Problem Erectile dysfunction, unspecified erectile dysfunction typ e N52.9 Active [id number] ALLERGIES No Information ENCOUNTERS Encounter Location Date Diagnosis [facility] [address] [id number] [address] [place] [address] Oct, Diabetes type 2, controlled E11.9 [facility] [address] [facility] [id number] [address] [place] [id number] 14 Oct, 2017 Dental caries K02.9 and [place] al examination Z01.20 [facility] [address] [id number] [address] [place] [address] September, [facility] [address] [id number] [address] [place] [phone] 05 Aug, 2017 Diabetes type 2, controlled E11.9 ; Mood disorder F39 ; Arthritis M19.90 and Family history of rheumatoid arthritis Z82.61 [facility] [address] [facility] [id number] [address] [place] [phone] 15 Jul, 2017 Infection of both inner ears H83.03 and Dizziness R42 [facility] [address] [id number] [address] [place] [phone] Jul, [facility] [address] [id number] [address] [place] [phone] Jul, Diabetes type 2, controlled E11.9 [facility] [address] [id number] [address] [place] [address] [id number] Jul, Dental examination Z01.20 [facility] [address] [id number] [address] [place] [phone] May, Diabetes type 2, controlled E11.9 [facility] [address] [id number] [address] [place] [phone] May, [facility] [address] [id number] [address] [place] [address] [id number] May, Dental examination Z01.20 [facility] [address] [id number] [address] [place] [phone] May, [facility] [address] [id number] [address] [place] [address] May, [facility] [address] [id number] [address] [place] [phone] May, Diabetes type 2, controlled E11.9 [facility] [address] [id number] [address] [place] [address] Apr, [facility] [address] [id number] [address] [place] [address] Apr, Mood disorder F39 [facility] [address] [id number] [address] [place] [address] Mar, [facility] [address] [facility] [id number] [address] [place] [address] Mar, Diabetes type 2, controlled E11.9 and Encounter for immunization Z23 [facility] [address] [id number] [address] [place] [phone] Jan, Mood disorder F39 [facility] [address] [id number] [address] [place] [phone] Jan, Type 2 diabetes mellitus wit hout complications E11.9 [facility] [address] [id number] [address] [place] [phone] Nov, [facility] [address] [id number] [address] [place] [phone] Nov, Type 2 diabetes mellitus wit hout complications E11.9 ; Mood disorder F39 and ASIYA (obstructive sleep apnea) G47.33 [facility] [address] [id number] [address] [place] [phone] September, Diabetes type 2, controlled E11.9 [facility] [address] [id number] [address] [place] [phone] September, [facility] [address] [facility] [id number] [address] [place] [address] Aug, Diabetes type 2, controlled E11.9 [facility] [address] [id number] [address] [place] [phone] Jul, [facility] [address] [facility] [id number] [address] [place] [address] Jul, Type 2 diabetes mellitus wit hout complications E11.9 and [employer]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 [facility] [address] [id number] [address] [place] [address] Jul, Diabetes type 2, controlled E11.9 [facility] [address] [id number] [address] [place] [phone] Jul, [facility] [address] [id number] [address] [place] [address] May, [facility] [address] [id number] [address] [place] [address] Apr, Diabetes type 2, controlled E11.9 [facility] [address] [facility] [id number] [address] [place] [phone] 31 Feb, 2016 Erectile dysfunction, unspec ified erectile dysfunction type N52.9 ; Type 2 diabetes mellitus with diabetic neuropathy, unspecified E11.40 and [employer]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 [facility] [address] [facility] [id number] [address] [place] [phone] 08 Jan, 2016 Impacted cerumen of both ear s H61.23 [facility] [address] [facility] [id number] [address] [place] [phone] 23 Oct, 2015 Type 2 diabetes mellitus wit hout complications E11.9 [place] [address] [facility] [id number] [address] [place] [phone] Oct, [place] [address] [id number] [address] [place] [phone] September, Type 2 diabetes mellitus wit hout complications E11.9 [place] [address] [id number] [address] [place] [phone] Jul, Type 2 diabetes mellitus wit hout complications E11.9 ; Lumbar pain M54.5 and Tobacco abuse Z72.0 [place] [address] [id number] [address] [place] [phone] May, [place] [address] [id number] [address] [place] [phone] May, [place] [address] [id number] [address] [place] [phone] Apr, [facility] [address] [facility] [id number] [address] [place] [phone] Mar, [facility] [address] [id number] [address] [place] [phone] Mar, Type 2 diabetes mellitus wit hout complications E11.9 [facility] [address] [id number] [address] [place] [phone] Mar, [facility] [address] [id number] [address] [place] [phone] Feb, Type 2 diabetes mellitus wit hout complications E11.9 ; Neuropathy, diabetic E11.40 and Sleep apnea G47.30 [facility] [address] [id number] [address] [place] [phone] Feb, [facility] [address] [facility] [id number] [address] [place] [address] Jan, Skin infection, bacterial 68 6.9 [facility] [address] [id number] [address] [place] [phone] Jan, [facility] [address] [id number] [address] [place] [address] Dec, Diabetes mellitus type 2, un complicated 250.00 [facility] [address] [facility] [id number] [address] [place] [address] Dec, [facility] [address] [facility] [id number] [address] [place] [address] Nov, [facility] [address] [id number] [address] [place] [address] Nov, Diabetes mellitus type 2, un complicated 250.00 and Obesity 278.00 [facility] [address] [id number] [address] [place] [phone] Oct, [facility] [address] [id number] [address] [place] [phone] Oct, [facility] [address] [id number] [address] [place] [phone] Aug, [facility] [address] [id number] [address] [place] [phone] Aug, [facility] [address] [facility] [id number] [address] [place] [phone] Jul, [facility] [address] [facility] [id number] [address] [place] [phone] Jul, [facility] [address] [id number] [address] [place] [address], [place] [address] Jul, [facility] [address] [id number] [address] [place] [address], [place] [address] Jul, [facility] [address] [id number] [address] [place] [address], [place] [address] Jul, [facility] [address] [id number] [address] [place] [address], [place] [address] Jul, [facility] [address] [id number] [address] [place] [address], [place] [address] Feb, [facility] [address] [id number] [address] [place] [address], [place] [address] Feb, [facility] [address] [id number] [address] [place] [address], [place] [address] Dec, [facility] [address] [id number] [address] [place] [address], [place] [address] Nov, [facility] [address] [id number] [address] [place] [address], [place] [address] Nov, [facility] [address] [id number] [address] [place] [address], [place] [address] Nov, [facility] [address] [id number] [address] [place] [address], [place] [address] Nov, [facility] [address] [id number] [address] [place] [address], [place] [address] Nov, [facility] [address] [id number] [address] [place] [address], [place] [address] September, [facility] [address] [id number] [address] [place] [address], [place] [address] September, [facility] [address] [id number] [address] [place] [address], [place] [address] Aug, [facility] [address] [id number] [address] [place] [address], [place] [address] Aug, [facility] [address] [id number] [address] [place] [address], [place] [address] Aug, [facility] [address] [id number] [address] [place] [address], [place] [address] Aug, [facility] [address] [id number] [address] [place] [address], [place] [address] Jul, [facility] [address] [id number] [address] [place] [address], [place] [address] Jul, [facility] [address] [id number] [address] [place] [address], [place] [address] Apr, [facility] [address] [id number] [address] [place] [address], [place] [address] Apr, [facility] [address] [id number] [address] [place] [address], [place] [address] Mar, [facility] [address] [id number] [address] [place] [address], [place] [address] Mar, [facility] [address] [id number] [address] [place] [address], [place] [address] Jan, [facility] [address] [id number] [address] [place] [address], [place] [address] Jan, [facility] [address] [id number] [address] [place] [address], [place] [address] Dec, [facility] [address] [id number] [address] [place] [phone] Nov, [facility] [address] [id number] [address] [place] [address], [place] [address] Nov, [facility] [address] [id number] [address] [place] [address], [place] [address] Nov, [facility] [address] [id number] [address] [place] [address], [place] [address] Oct, [facility] [address] [id number] [address] [place] [phone] 10 Oct, 2012 [facility] [address] [id number] [address] [place] [address], [place] [address] Oct, [facility] [address] [id number] [address] [place] [address], [place] [address] September, [facility] [address] [id number] [address] [place] [address], [place] [address] September, [facility] [address] [id number] [address] [place] [address], [place] [address] Aug, [facility] [address] [id number] [address] [place] [address], [place] [address] Aug, [facility] [address] [id number] [address] [place] [address], [place] [address] Aug, [facility] [address] [id number] [address] [place] [address], [place] [address] Aug, [facility] [address] [id number] [address] [place] [address], [place] [address] Jul, [facility] [address] [id number] [address] [place] [address], [place] [address] Jul, [facility] [address] [id number] [address] [place] [address], [place] [address] Jul, [facility] [address] [id number] [address] [place] [address], [place] [address] Jul, [facility] [address] [id number] [address] [place] [address], [place] [address] May, [facility] [address] [id number] [address] [place] [address], [place] [address] May, [facility] [address] [id number] [address] [place] [address], [place] [address] May, [facility] [address] [id number] [address] [place] [address], [place] [address] May, [facility] [address] [id number] [address] [place] [address], [place] [address] 14 May, 2012 [facility] [address] [id number] [address] [place] [address], [place] [address] 11 May, 2012 [facility] [address] [id number] [address] [place] [address], [place] [address] 10 May, 2012 [facility] [address] [id number] [address] [place] [address], [place] [address] May, [facility] [address] [id number] [address] [place] [address], [place] [address] May, [facility] [address] [id number] [address] [place] [address], [place] [address] May, [facility] [address] [id number] [address] [place] [address], [place] [address] Apr, [facility] [address] [id number] [address] [place] [address], [place] [address] Apr, [facility] [address] [id number] [address] [place] [address], [place] [address] Apr, [facility] [address] [id number] [address] [place] [address], [place] [address] Apr, [facility] [address] [id number] [address] [place] [address], [place] [address] Mar, [facility] [address] [id number] [address] [place] [address], [place] [address] Mar, [facility] [address] [id number] [address] [place] [address], [place] [address] Feb, [facility] [address] [id number] [address] [place] [address], [place] [address] Feb, [facility] [address] [id number] [address] [place] [address], [place] [address] Feb, [facility] [address] [id number] [address] [place] [address], [place] [address] Feb, [facility] [address] [id number] [address] [place] [address], [place] [address] Jan, [facility] [address] [id number] [address] [place] [address], [place] [address] Dec, [facility] [address] [id number] [address] [place] [address], [place] [address] Oct, [facility] [address] [id number] [address] [place] [address], [place] [address] September, [facility] [address] [id number] [address] [place] [address], [place] [address] September, [facility] [address] [id number] [address] [place] [address], [place] [address] Jul, [facility] [address] [id number] [address] [place] [address], [place] [address] Jul, [facility] [address] [id number] [address] [place] [address], [place] [address] Jul, [facility] [address] [id number] [address] [place] [address], [place] [address] Jul, [facility] [address] [id number] [address] [place] [address], [place] [address] Jul, [facility] [address] [id number] [address] [place] [address], [place] [address] May, [facility] [address] [id number] [address] [place] [address], [place] [address] Apr, [facility] [address] [id number] [address] [place] [address], [place] [address] Apr, [facility] [address] [id number] [address] [place] [address], [place] [address] Apr, [facility] [address] [id number] [address] [place] [address], [place] [address] Apr, [facility] [address] [id number] [address] [place] [address], [place] [address] 16 Mar, 2011 [facility] [address] [id number] [address] [place] [address], [place] [address] 16 Mar, 2011 [facility] [address] [id number] [address] [place] [address], [place] [address] 15 Mar, 2011 [facility] [address] [id number] [address] [place] [address], [place] [address] 11 Mar, 2011 [facility] [address] [id number] [address] [place] [address], [place] [address] Feb, [facility] [address] [id number] [address] [place] [address], [place] [address] Dec, [facility] [address] [id number] [address] [place] [address], [place] [address] September, [facility] [address] [id number] [address] [place] [address], [place] [address] Aug, [facility] [address] [id number] [address] [place] [address], [place] [address] May, [facility] [address] [id number] [address] [place] [address], [place] [address] May, [facility] [address] [id number] [address] [place] [address], [place] [address] 24 Apr, 2010 [facility] [address] [id number] [address] [place] [address], [place] [id number] Apr, [facility] [address] [id number] [address] [place] [address], [place] [id number] Apr, [facility] [address] [id number] [address] [place] [address], [place] [id number] 24 Mar, 2010 [facility] [address] [id number] [address] [place] [address], [place] [address] Mar, [facility] [address] [id number] [address] [place] [address], [place] [id number] Mar, [facility] [address] [facility] [id number] [address] [place] [phone] Nov, [facility] [address] [facility] [id number] [address] [place] [phone] Oct, [facility] [address] [facility] [id number] [address] [place] [phone] September, [facility] [address] [facility] [id number] [address] [place] [id number] Dec, [facility] [address] [facility] [id number] [address] [place] [id number] Jul, [facility] [address] [facility] [id number] [address] [place] [phone] Jul, IMMUNIZATIONS No Known Immunizations SOCIAL HISTORY Never Assessed REASON FOR VISIT Controlled Med Refill 07/27/17 PLAN OF CARE VITAL SIGNS MEDICATIONS Medication [...]
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
--- OUTSIDE RECORDS SUMMARY | 2019-11-14 23:19 | XMS REPORT ---
Author Jerman Medina [facility] [place] eClinicalWorks Address Unknown Phone Unavailable Care Team Providers Care Rotary Planer Set Up Operator Name Role Phone JOSE BRENNAN CP Unavailable Allergies, Adverse Reactions, Alerts Substance Reaction Event Type N.K.D.A. 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 Problem Type 2 diabetes mellitus with diabetic neuropathy, uns pecified E11.40 Active Problem longterm current use of insulin Z79.4 Active Problem Erectile dysfunction, unspecified erectile dysfunction type N52.9 Active Problem Diabetes type 2, controlled E11.9 Active Assessment Erectile dysfunction, unspecified erectile dysfunction type N52.9 Active Problem Type 2 diabetes mellitus without complications E11.9 Active Problem Neuropathy, diabetic E11.40 Active Medications Medication Code System Code Instructions Start Date End Date Status Dosage Levemir FlexTouch [facility] [address]-72 100 UNIT/ML Subcutaneo us 2 times a day Jun 03, 2015 26 units PredniSONE [facility] [address]-32 20 mg Orally Once a day Mar 30 6 Apr 04, 2016 2 tablets Metformin HCl [facility] 23868134935 1000 MG TAKE ONE TABLET BY MOUTH TWICE DAILY WITH MORNING AND EVENING MEALS Chantix Continuing Month Gael [facility] [address]-01 1 MG Orally Twice a d ay 1 tablet Victoza [facility] 86654261669 18MG/3ML INJECT 1. 8 MG SUBCUTANEOUS ONCE A DAY Viagra [facility] [address]-18 100 MG Orally Once a day Mar 30, 2016 Apr 09, 2016 1 tablet as needed Doxycycline Hyclate [facility] [address]-01 100 MG Orally every 12 h rs Mar 30, 2016 Apr 09, 2016 1 capsule Omeprazole [facility] [address]-79 20 MG 2 times a day 1 tablet Neurontin [facility] [address]-88 600 MG Three times a day Jul 20, 2014 1 capsule Tramadol HCl [facility] [address]-31 50 mg Orally every 6 hrs Jul 29, 2015 1 tablet as needed Lyrica [facility] [address]-95 50 mg Orally Three times a day Mar 30 6 1 capsule NovoLog Flexpen [facility] [address]-89 100 UNIT/ML August 23, 2013 take 40 Unit by Subcutaneous route 3 times per day Pen [place] 08/13" [facility] 34314-44941 31G X 5 MM 6 times a day October 31, 2014 as directed Lisinopril [facility] [address]-18 5 MG Orally Once a day 1 tablet Procedures Procedure Coding System Code Date GLYCATED HEMOGLOBIN TEST CPT-4 53366 Mar 30, 2016 Office Visit, Est Pt., Level 3 CPT-[address] 2015 Vital Signs Date/Time: Mar 30, 2016 Cardiac Monitoring Heart Rate 88 bpm Weight 266.9 lbs Height 70 in BMI 38.29 Index Blood Pressure Diastolic 96 mmHg Blood Pressure Systolic 130 mmHg Results Name Result Date Reference Range Unit Abnormali ty Flag A1C (IN HOUSE) ----A1C IN HOUSE 7.0 20160330 4.3 - 5.6 % ----Previous A1c 6.0 20160330 ----Lot [id number] ----Exp date [id number] Summary Purpose eClinicalWorks Submission
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
--- OUTSIDE RECORDS SUMMARY | 2019-11-14 23:20 | XMS REPORT ---
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 Name Role Phone JOSE BRENNAN Unavailable PROBLEMS Type Condition ICD9-CM Code RWB11-MR Code Onset Dates Condition S tatus SNOMED Code Problem Neuropathy, diabetic E11.40 Active 141931602 Problem Type 2 diabetes mellitus without complications E11 .9 Active 728794369 Problem Diabetes type 2, controlled E11.9 Ac tive 64592879 Problem Arthritis M19.90 Active 7900861 Problem ASIYA (obstructive sleep apnea) G47.33 Active 72723170 Problem Type 2 diabetes mellitus with diabetic neuropathy, uns pecified E11.40 Active 92810434 Problem retirement current use of insulin Z79.4 Active 583674124 Problem Mood disorder F39 Active 857681 05 Problem Erectile dysfunction, unspecified erectile dysfunction typ e N52.9 Active 978287489 ALLERGIES No Information ENCOUNTERS Encounter Location Date Diagnosis [facility] [address] [id number] [address] [place] [address] [id number] 14 Oct, 2017 Dental caries K02.9 and [place] examination Z01.20 [facility] [address] [id number] [address] [place] [address] September, [facility] [address] [id number] [address] [place] [address] 05 Aug, 2017 Diabetes type 2, controlled E11.9 ; Mood disorder F39 ; Arthritis M19.90 and Family history of rheumatoid arthritis Z82.61 [facility] [address] [id number] [address] [place] [phone] 15 Jul, 2017 Infection of both inner ears H83.03 and Dizziness R42 [facility] [address] [id number] [address] [place] [address] 14 Jul, 2017 [facility] [address] [id number] [address] [place] [address] Jul, Diabetes type 2, controlled E11.9 [facility] [address] [id number] [address] [place] [address] [id number] Jul, Dental examination Z01.20 [facility] [address] [id number] [address] [place] [address] May, Diabetes type 2, controlled E11.9 [facility] [address] [id number] [address] [place] [address] May, [facility] [address] [id number] [address] [place] [address] [id number] May, Dental examination Z01.20 [facility] [address] [id number] [address] [place] [address] May, [facility] [address] [id number] [address] [place] [address] May, [facility] [address] [id number] [address] [place] [address] May, Diabetes type 2, controlled E11.9 [facility] [address] [id number] [address] [place] [address] Apr, [facility] [address] [id number] [address] [place] [address] Apr, Mood disorder F39 [facility] [address] [id number] [address] [place] [address] Mar, [facility] [address] [id number] [address] [place] [address] Mar, Diabetes type 2, controlled E11.9 and Encounter for immunization Z23 [facility] [address] [id number] [address] [place] [address] Jan, Mood disorder F39 [facility] [address] [id number] [address] [place] [address] Jan, Type 2 diabetes mellitus wit hout complications E11.9 [facility] [address] [facility] [id number] [address] [place] [address] Nov, [facility] [address] [facility] [id number] [address] [place] [address] Nov, Type 2 diabetes mellitus wit hout complications E11.9 ; Mood disorder F39 and ASIYA (obstructive sleep apnea) G47.33 [facility] [address] [facility] [id number] [address] [place] [address] September, Diabetes type 2, controlled E11.9 [facility] [address] [facility] [id number] [address] [place] [address] September, [facility] [address] [facility] [id number] [address] [place] [address] Aug, Diabetes type 2, controlled E11.9 [facility] [address] [facility] [id number] [address] [place] [address] Jul, [facility] [address] [facility] [id number] [address] [place] [address] Jul, Type 2 diabetes mellitus wit hout complications E11.9 and retirement current use of insulin Z79.4 [facility] [address] [facility] [id number] [address] [place] [address] Jul, Diabetes type 2, controlled E11.9 [facility] [address] [facility] [id number] [address] [place] [address] Jul, [facility] [address] [facility] [id number] [address] [place] [address] May, [facility] [address] [facility] [id number] [address] [place] [address] Apr, Diabetes type 2, controlled E11.9 [facility] [address] [facility] [id number] [address] [place] [address] 31 Feb, 2016 Erectile dysfunction, unspec ified erectile dysfunction type N52.9 ; Type 2 diabetes mellitus with diabetic neuropathy, unspecified E11.40 and 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.4 [facility] [address] [facility] [id number] [address] [place] [phone] 08 Jan, 2016 Impacted cerumen of both ear s H61.23 [facility] [address] [facility] [id number] [address] [place] [address] 23 Oct, 2015 Type 2 diabetes mellitus wit hout complications E11.9 [address] [place] [facility] [id number] [address] [place] [phone] Oct, [place] [address] [facility] [id number] [address] [place] [address] September, Type 2 diabetes mellitus wit hout complications E11.9 [place] [address] [id number] [address] [place] [address] Jul, Type 2 diabetes mellitus wit hout complications E11.9 ; Lumbar pain M54.5 and Tobacco abuse Z72.0 [place] [address] [facility] [id number] [address] [place] [address] May, [place] [address] [id number] [address] [place] [address] May, [place] [address] [id number] [address] [place] [address] Apr, [place] [address] [id number] [address] [place] [address] Mar, [facility] [address] [facility] [id number] [address] [place] [address] Mar, Type 2 diabetes mellitus wit hout complications E11.9 [place] [address] [facility] [id number] [address] [place] [phone] 05 Mar, 2015 [facility] [address] [facility] [id number] [address] [place] [phone] 28 Feb, 2015 Type 2 diabetes mellitus wit hout complications E11.9 ; Neuropathy, diabetic E11.40 and Sleep apnea G47.30 [facility] [address] [id number] [address] [place] [address] Feb, [facility] [address] [id number] [address] [place] [address] Jan, Skin infection, bacterial 68 6.9 [facility] [address] [id number] [address] [place] [address] Jan, [facility] [address] [id number] [address] [place] [address] Dec, Diabetes mellitus type 2, un complicated 250.00 [facility] [address] [id number] [address] [place] [address] Dec, [facility] [address] [id number] [address] [place] [address] Nov, [facility] [address] [id number] [address] [place] [address] Nov, Diabetes mellitus type 2, un complicated 250.00 and Obesity 278.00 [facility] [address] [id number] [address] [place] [address] Oct, [facility] [address] [id number] [address] [place] [address] Oct, [facility] [address] [id number] [address] [place] [phone] 14 Aug, 2014 [facility] [address] [id number] [address] [place] [address] Aug, [facility] [address] [id number] [address] [place] [address] Jul, [facility] [address] [id number] [address] [place] [address] Jul, [facility] [address] [id number] [address] [place] [id number] Jul, [facility] [address] [id number] [address] [place] [address] Jul, [facility] [address] [id number] [address] [place] [address], [place] [address] Jul, [facility] [address] [id number] [address] [place] [address], [place] [address] Jul, [facility] [address] [id number] [address] [place] [address], [place] [address] Feb, [facility] [address] [id number] [address] [place] [address], [place] [address] Feb, [facility] [address] [id number] [address] [place] [address], [place] [address] Dec, [facility] [address] [id number] [address] [place] [address], [place] [address] Nov, [facility] [address] [id number] [address] [place] [address], [place] [address] Nov, [facility] [address] [id number] [address] [place] [address], [place] [address] Nov, [facility] [address] [id number] [address] [place] [address], [place] [address] Nov, [facility] [address] [id number] [address] [place] [address], [place] [address] Nov, [facility] [address] [id number] [address] [place] [address], [place] [address] September, [facility] [address] [id number] [address] [place] [address], [place] [address] September, [facility] [address] [id number] [address] [place] [address], [place] [address] Aug, [facility] [address] [id number] [address] [place] [address], [place] [address] Aug, [facility] [address] [id number] [address] [place] [address], [place] [address] Aug, [facility] [address] [id number] [address] [place] [address], [place] [address] Aug, [facility] [address] [id number] [address] [place] [address], [place] [address] Jul, [facility] [address] [id number] [address] [place] [address], [place] [address] Jul, [facility] [address] [id number] [address] [place] [address], [place] [address] Apr, [facility] [address] [id number] [address] [place] [address], [place] [address] Apr, [facility] [address] [id number] [address] [place] [address], [place] [address] Mar, [facility] [address] [id number] [address] [place] [address], [place] [address] Mar, [facility] [address] [id number] [address] [place] [address], [place] [address] Jan, [facility] [address] [id number] [address] [place] [address], [place] [address] Jan, [facility] [address] [id number] [address] [place] [address], [place] [address] Dec, [facility] [address] [id number] [address] [place] [address], [place] [address] Nov, [facility] [address] [id number] [address] [place] [address], [place] [address] Nov, [facility] [address] [id number] [address] [place] [address], [place] [address] Nov, [facility] [address] [id number] [address] [place] [address], [place] [address] Oct, [facility] [address] [id number] [address] [place] [address], [place] [address] Oct, [facility] [address] [id number] [address] [place] [address] [address] Oct, [facility] [address] [id number] [address] [place] [address], [place] [address] September, [facility] [address] [id number] [address] [place] [address], [place] [address] September, [facility] [address] [id number] [address] [place] [address], [place] [address] Aug, [facility] [address] [id number] [address] [place] [address], [place] [address] Aug, [facility] [address] [id number] [address] [place] [address], [place] [address] Aug, [facility] [address] [id number] [address] [place] [address], [place] [address] Aug, [facility] [address] [id number] [address] [place] [address], [place] [address] Jul, [facility] [address] [id number] [address] [place] [address], [place] [address] Jul, [facility] [address] [id number] [address] [place] [address], [place] [address] Jul, [facility] [address] [id number] [address] [place] [address], [place] [address] Jul, [facility] [address] [id number] [address] [place] [address], [place] [address] May, [facility] [address] [id number] [address] [place] [address], [place] [address] May, [facility] [address] [id number] [address] [place] [address], [place] [address] May, [facility] [address] [id number] [address] [place] [address], [place] [address] May, [facility] [address] [id number] [address] [place] [address], [place] [address] May, [facility] [address] [id number] [address] [place] [address], [place] [address] May, [facility] [address] [id number] [address] [place] [address], [place] [address] May, [facility] [address] [id number] [address] [place] [address], [place] [address] May, [facility] [address] [id number] [address] [place] [address], [place] [address] May, [facility] [address] [id number] [address] [place] [address], [place] [address] May, [facility] [address] [id number] [address] [place] [address], [place] [address] Apr, [facility] [address] [id number] [address] [place] [address], [place] [address] Apr, [facility] [address] [id number] [address] [place] [address], [place] [address] Apr, [facility] [address] [id number] [address] [place] [address], [place] [address] Apr, [facility] [address] [id number] [address] [place] [address], [place] [address] Mar, [facility] [address] [id number] [address] [place] [address], [place] [address] Mar, [facility] [address] [id number] [address] [place] [address], [place] [address] Feb, [facility] [address] [id number] [address] [place] [address], [place] [address] Feb, [facility] [address] [id number] [address] [place] [address], [place] [address] Feb, [facility] [address] [id number] [address] [place] [address], [place] [address] Feb, [facility] [address] [id number] [address] [place] [address], [place] [address] Jan, [facility] [address] [id number] [address] [place] [address], [place] [address] Dec, [facility] [address] [id number] [address] [place] [address], [place] [address] Oct, [facility] [address] [id number] [address] [place] [address], [place] [address] September, [facility] [address] [id number] [address] [place] [address], [place] [address] September, [facility] [address] [id number] [address] [place] [address], [place] [address] Jul, [facility] [address] [id number] [address] [place] [address], [place] [address] Jul, [facility] [address] [id number] [address] [place] [address], [place] [address] Jul, [facility] [address] [id number] [address] [place] [address], [place] [address] Jul, [facility] [address] [id number] [address] [place] [address], [place] [address] Jul, [facility] [address] [id number] [address] [place] [address], [place] [address] May, [facility] [address] [id number] [address] [place] [address], [place] [address] Apr, [facility] [address] [id number] [address] [place] [address], [place] [address] Apr, [facility] [address] [id number] [address] [place] [address], [place] [address] Apr, [facility] [address] [id number] [address] [place] [address], [place] [address] Apr, [facility] [address] [id number] [address] [place] [address], [place] [address] Mar, [facility] [address] [id number] [address] [place] [address], [place] [address] 16 Mar, 2011 [facility] [address] [id number] [address] [place] [address], [place] [address] 15 Mar, 2011 [facility] [address] [id number] [address] [place] [address], [place] [address] 11 Mar, 2011 [facility] [address] [id number] [address] [place] [address], [place] [address] 19 Feb, 2011 [facility] [address] [id number] [address] [place] [address], [place] [address] Dec, [facility] [address] [id number] [address] [place] [address], [place] [address] September, [facility] [address] [id number] [address] [place] [address], [place] [address] Aug, [facility] [address] [id number] [address] [place] [address], [place] [address] 17 May, 2010 [facility] [address] [id number] [address] [place] [address], [place] [address] 10 May, 2010 [facility] [address] [id number] [address] [place] [address], [place] [address] 24 Apr, 2010 [facility] [address] [id number] [address] [place] [address], [place] [address] Apr, [facility] [address] [id number] [address] [place] [address], [place] [address] 10 Apr, 2010 [facility] [address] [id number] [address] [place] [address], [place] [address] 24 Mar, 2010 [facility] [address] [id number] [address] [place] [address], [place] [address] 10 Mar, 2010 [facility] [address] [id number] [address] [place] [address], [place] [address] 10 Mar, 2010 [facility] [address] [id number] [address] [place] [address], [place] [address] 12 Nov, 2009 [facility] [address] [facility] [id number] [address] [place] [phone] Oct, [facility] [address] [facility] [id number] [address] [place] [id number] September, [facility] [address] [facility] [id number] [address] [place] [phone] Dec, [facility] [address] [facility] [id number] [address] [place] [phone] Jul, [facility] [address] [facility] [id number] [address] [place] [phone] Jul, IMMUNIZATIONS No Known Immunizations SOCIAL HISTORY Never Assessed REASON FOR VISIT Requests return call PLAN OF CARE VITAL SIGNS MEDICATIONS Unknown [...]
--- OUTSIDE RECORDS SUMMARY | 2019-11-14 23:20 | XMS REPORT ---
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 Active 303908911 Problem Type 2 diabetes mellitus without complications E11 .9 Active 319460477 Problem Erectile dysfunction, unspecified erectile dysfunction typ e N52.9 Active 717576398 Problem Type 2 diabetes mellitus with diabetic neuropathy, uns pecified E11.40 Active 64139287 ALLERGIES No Information ENCOUNTERS Encounter Location Date Diagnosis [facility] [place] [address] [id number] [address] [place] [id number] 05 Aug, 2017 [facility] [address] [id number] [address] [place] [id number] 15 Jul, 2017 Infection of both inner ears H83.03 and Dizziness R42 [facility] [place] [address] [id number] [address] [place] [id number] 14 Jul, 2017 [facility] [place] [address] [id number] [address] [place] [id number] 24 Jul, 2017 Diabetes type 2, controlled E11.9 [facility] [address] [facility] [id number] [address] [place] [id number] 09 Jul, 2017 Dental examination Z01.20 [facility] [place] [address] [facility] [id number] [address] [place] [id number] 28 May, 2017 Diabetes type 2, controlled E11.9 [facility] [place] [address] [id number] [address] [place] [id number] May, [facility] [address] [id number] [address] [place] [id number] May, Dental examination Z01.20 [facility] [place] [address] [id number] [address] [place] [phone] May, [facility] [place] [address] [id number] [address] [place] [id number] May, [facility] [place] [address] [id number] [address] [place] [phone] May, Diabetes type 2, controlled E11.9 [facility] [place] [address] [id number] [address] [place] [phone] Apr, [facility] [place] [address] [id number] [address] [place] [id number] Apr, Mood disorder F39 [facility] [place] [address] [id number] [address] [place] [id number] Mar, [facility] [place] [address] [facility] [id number] [address] [place] [phone] Mar, Diabetes type 2, controlled E11.9 and Encounter for immunization Z23 [facility] [place] [address] [facility] [id number] [address] [place] [phone] Jan, Mood disorder F39 [facility] [place] [address] [id number] [address] [place] [phone] Jan, Type 2 diabetes mellitus wit hout complications E11.9 [facility] [place] [address] [id number] [address] [place] [phone] Nov, [facility] [place] [address] [facility] [id number] [address] [place] [phone] Nov, Type 2 diabetes mellitus wit hout complications E11.9 ; Mood disorder F39 and ASIYA (obstructive sleep apnea) G47.33 [facility] [place] [address] [facility] [id number] [address] [place] [phone] September, Diabetes type 2, controlled E11.9 [facility] [place] [address] [facility] [id number] [address] [place] [phone] September, [facility] [place] [address] [facility] [id number] [address] [place] [id number] Aug, Diabetes type 2, controlled E11.9 [facility] [place] [address] [facility] [id number] [address] [place] [phone] Jul, [facility] [place] [address] [facility] [id number] [address] [place] [phone] Jul, Type 2 diabetes mellitus wit hout complications E11.9 and residential current use of insulin Z79.4 [facility] [address] [id number] [address] [place] [phone] Jul, Diabetes type 2, controlled E11.9 [facility] [place] [address] [facility] [id number] [address] [place] [phone] Jul, [facility] [place] [address] [facility] [id number] [address] [place] [phone] May, [facility] [place] [address] [facility] [id number] [address] [place] [phone] Apr, Diabetes type 2, controlled E11.9 [facility] [place] [address] [facility] [id number] [address] [place] [phone] Feb, 2016 Erectile dysfunction, unspec ified erectile dysfunction type N52.9 ; Type 2 diabetes mellitus with diabetic neuropathy, unspecified E11.40 and residential current use of insulin Z79.4 [facility] [place] [address] [facility] [id number] [address] [place] [phone] 08 Jan, 2016 Impacted cerumen of both ear s H61.23 [facility] [place] [address] [facility] [id number] [address] [place] [phone] Oct, Type 2 diabetes mellitus wit hout complications E11.9 [facility] [place] [address] [id number] [address] [place] [phone] Oct, [facility] [place] [address] [id number] [address] [place] [phone] September, Type 2 diabetes mellitus wit hout complications E11.9 [facility] [place] [address] [id number] [address] [place] [phone] Jul, Type 2 diabetes mellitus wit hout complications E11.9 ; Lumbar pain M54.5 and Tobacco abuse Z72.0 [facility] [place] [address] [id number] [address] [place] [phone] May, [facility] [place] [address] [id number] [address] [place] [id number] May, [facility] [place] [address] [facility] [id number] [address] [place] [phone] Apr, [facility] [place] [address] [facility] [id number] [address] [place] [phone] Mar, [facility] [place] [address] [facility] [id number] [address] [place] [phone] Mar, Type 2 diabetes mellitus wit hout complications E11.9 [facility] [place] [address] [facility] [id number] [address] [place] [phone] Mar, [facility] [place] [address] [facility] [id number] [address] [place] [phone] Feb, Type 2 diabetes mellitus wit hout complications E11.9 ; Neuropathy, diabetic E11.40 and Sleep apnea G47.30 [facility] [place] [address] [id number] [address] [place] [phone] Feb, [facility] [place] [address] [facility] [id number] [address] [place] [phone] 22 Jan, 2015 Skin infection, bacterial 68 6.9 [facility] [place] [address] [facility] [id number] [address] [place] [phone] 15 Jan, 2015 [facility] [place] [address] [id number] [address] [place] [phone] Dec, Diabetes mellitus type 2, un complicated 250.00 [facility] [place] [address] [id number] [address] [place] [phone] Dec, [facility] [place] [address] [id number] [address] [place] [phone] Nov, [facility] [place] [address] [id number] [address] [place] [phone] Nov, Diabetes mellitus type 2, un complicated 250.00 and Obesity 278.00 [facility] [place] [address] [id number] [address] [place] [phone] Oct, [facility] [place] [address] [id number] [address] [place] [phone] Oct, [facility] [place] [address] [id number] [address] [place] [phone] Aug, [facility] [place] [address] [id number] [address] [place] [phone] Aug, [facility] [place] [address] [id number] [address] [place] [id number] Jul, [facility] [place] [address] [id number] [address] [place] [id number] Jul, [facility] [place] [address] [id number] [address] [place] [phone] Jul, [facility] [place] [address] [id number] [address] [place] [id number] Jul, [facility] [place] [address] [id number] [address] [place] [phone] Jul, [facility] [place] [address] [id number] [address] [place] [phone] Jul, [facility] [place] [address] [id number] [address] [place] [phone] Feb, [facility] [address] [id number] [address] [place] [address], [place] [address] Feb, [facility] [address] [id number] [address] [place] [address], [place] [address] Dec, [facility] [address] [id number] [address] [place] [address], [place] [address] Nov, [facility] [address] [id number] [address] [place] [address], [place] [address] Nov, [facility] [address] [id number] [address] [place] [address], [place] [address] Nov, [facility] [address] [id number] [address] [place] [address], [place] [address] Nov, [facility] [address] [id number] [address] [place] [address], [place] [address] Nov, [facility] [address] [id number] [address] [place] [address], [place] [address] September, [facility] [address] [id number] [address] [place] [address], [place] [address] September, [facility] [address] [id number] [address] [place] [address], [place] [address] Aug, [facility] [address] [id number] [address] [place] [address], [place] [address] Aug, [facility] [address] [id number] [address] [place] [address], [place] [address] Aug, [facility] [address] [id number] [address] [place] [address], [place] [address] Aug, [facility] [address] [id number] [address] [place] [address], [place] [address] Jul, [facility] [address] [id number] [address] [place] [address], [place] [address] Jul, [facility] [address] [id number] [address] [place] [address] [address] Apr, [facility] [address] [id number] [address] [place] [address], [place] [address] Apr, [facility] [address] [id number] [address] [place] [address], [place] [address] Mar, [facility] [address] [id number] [address] [place] [address], [place] [address] Mar, [facility] [address] [id number] [address] [place] [address], [place] [address] Jan, [facility] [address] [id number] [address] [place] [address], [place] [address] Jan, [facility] [address] [id number] [address] [place] [address], [place] [address] Dec, [facility] [address] [id number] [address] [place] [address], [place] [address] Nov, [facility] [address] [id number] [address] [place] [address], [place] [address] Nov, [facility] [address] [id number] [address] [place] [address], [place] [address] Nov, [facility] [address] [id number] [address] [place] [address], [place] [address] Oct, [facility] [address] [id number] [address] [place] [address], [place] [address] Oct, [facility] [address] [id number] [address] [place] [address], [place] [address] Oct, [facility] [address] [id number] [address] [place] [address], [place] [address] September, [facility] [address] [id number] [address] [place] [address], [place] [address] September, [facility] [address] [id number] [address] [place] [address], [place] [address] Aug, [facility] [address] [id number] [address] [place] [address], [place] [address] 09 Aug, 2012 [facility] [address] [id number] [address] [place] [address], [place] [address] Aug, [facility] [address] [id number] [address] [place] [address], [place] [address] Aug, [facility] [address] [id number] [address] [place] [address], [place] [address] Jul, [facility] [address] [id number] [address] [place] [address], [place] [address] Jul, [facility] [address] [id number] [address] [place] [address], [place] [address] Jul, [facility] [address] [id number] [address] [place] [address], [place] [address] Jul, [facility] [address] [id number] [address] [place] [address], [place] [address] May, [facility] [address] [id number] [address] [place] [address], [place] [address] May, [facility] [address] [id number] [address] [place] [address], [place] [address] May, [facility] [address] [id number] [address] [place] [address], [place] [address] May, [facility] [address] [id number] [address] [place] [address], [place] [address] 14 May, 2012 [facility] [address] [id number] [address] [place] [address], [place] [address] 11 May, 2012 [facility] [address] [id number] [address] [place] [address], [place] [address] 10 May, 2012 [facility] [address] [id number] [address] [place] [address], [place] [address] 07 May, 2012 [facility] [address] [id number] [address] [place] [address], [place] [address] May, [facility] [address] [id number] [address] [place] [address], [place] [address] May, [facility] [address] [id number] [address] [place] [address], [place] [address] Apr, [facility] [address] [id number] [address] [place] [address], [place] [address] Apr, [facility] [address] [id number] [address] [place] [address], [place] [address] Apr, [facility] [address] [id number] [address] [place] [address], [place] [address] Apr, [facility] [address] [id number] [address] [place] [address], [place] [address] Mar, [facility] [address] [id number] [address] [place] [address], [place] [address] Mar, [facility] [address] [id number] [address] [place] [address], [place] [address] Feb, [facility] [address] [id number] [address] [place] [address], [place] [address] Feb, [facility] [address] [id number] [address] [place] [address], [place] [address] Feb, [facility] [address] [id number] [address] [place] [address], [place] [address] Feb, [facility] [address] [id number] [address] [place] [address], [place] [address] Jan, [facility] [address] [id number] [address] [place] [address], [place] [address] Dec, [facility] [address] [id number] [address] [place] [address], [place] [address] Oct, [facility] [address] [id number] [address] [place] [address], [place] [address] September, [facility] [address] [id number] [address] [place] [address], [place] [address] September, [facility] [address] [id number] [address] [place] [address], [place] [address] Jul, [facility] [address] [id number] [address] [place] [address], [place] [address] Jul, [facility] [address] [id number] [address] [place] [address], [place] [address] Jul, [facility] [address] [id number] [address] [place] [address], [place] [address] Jul, [facility] [address] [id number] [address] [place] [address], [place] [address] Jul, [facility] [address] [id number] [address] [place] [address], [place] [address] May, [facility] [address] [id number] [address] [place] [address], [place] [address] 16 Apr, 2011 [facility] [address] [id number] [address] [place] [address], [place] [address] 16 Apr, 2011 [facility] [address] [id number] [address] [place] [address], [place] [address] Apr, [facility] [address] [id number] [address] [place] [address], [place] [address] 08 Apr, 2011 [facility] [address] [id number] [address] [place] [address], [place] [address] 16 Mar, 2011 [facility] [address] [id number] [address] [place] [address], [place] [address] 16 Mar, 2011 [facility] [address] [id number] [address] [place] [address], [place] [address] 15 Mar, 2011 [facility] [address] [id number] [address] [place] [address], [place] [address] 11 Mar, 2011 [facility] [address] [id number] [address] [place] [address], [place] [address] Feb, [facility] [address] [id number] [address] [place] [address], [place] [address] Dec, [facility] [address] [id number] [address] [place] [address], [place] [address] September, [facility] [address] [id number] [address] [place] [address], [place] [address] Aug, [facility] [address] [id number] [address] [place] [address], [place] [address] May, [facility] [address] [id number] [address] [place] [address], [place] [address] May, [facility] [address] [id number] [address] [place] [address], [place] [address] Apr, [facility] [address] [id number] [address] [place] [address], [place] [address] Apr, [facility] [address] [id number] [address] [place] [address], [place] [address] Apr, [facility] [address] [id number] [address] [place] [address], [place] [address] Mar, [facility] [address] [id number] [address] [place] [address], [place] [address] Mar, [facility] [address] [id number] [address] [place] [address], [place] [address] Mar, [facility] [address] [id number] [address] [place] [address], [place] [address] Nov, [facility] [address] [id number] [address] [place] [address], [place] [address] Oct, [facility] [address] [id number] [address] [place] [address], [place] [address] September, [facility] [address] [id number] [address] [place] [address], [place] [address] 14 Dec, 2008 [facility] [address] [id number] [address] [place] [address], [place] [address] Jul, [facility] [place] [address] [id number] [address] [place] [address] Jul, IMMUNIZATIONS No Known Immunizations SOCIAL HISTORY Never Assessed REASON FOR VISIT Request samples PLAN OF CARE VITAL SIGNS MEDICATIONS Unknown [...]
--- OUTSIDE RECORDS SUMMARY | 2019-11-14 23:20 | XMS REPORT ---
Author Author Jerman BRENNAN Organization [facility] Address [address] [place] [address] Care Team Providers Care Residential Substance Abuse Counselor Name Role Phone JOSE BRENNAN Unavailable PROBLEMS Type Condition ICD9-CM Code EOU41-TL Code Onset Dates Condition S tatus SNOMED Code Problem Neuropathy, diabetic E11.40 Active 227069995 Problem Type 2 diabetes mellitus without complications E11 .9 Active 165777306 Problem Diabetes type 2, controlled E11.9 Ac tive 55513571 Problem Arthritis M19.90 Active 6163175 Problem ASIYA (obstructive sleep apnea) G47.33 Active 95273751 Problem Type 2 diabetes mellitus with diabetic neuropathy, uns pecified E11.40 Active 18650924 Problem skilled nursing current use of insulin Z79.4 Active 321709313 Problem Mood disorder F39 Active 946664 05 Problem Erectile dysfunction, unspecified erectile dysfunction typ e N52.9 Active [id number] ALLERGIES No Information ENCOUNTERS Encounter Location Date Diagnosis [facility] [address] [id number] [address] [place] [address] [id number] 14 Oct, 2017 Dental caries K02.9 and [place] al examination Z01.20 [facility] [address] [id number] [address] [place] [address] September, [facility] [address] [id number] [address] [place] [phone] 05 Aug, 2017 Diabetes type 2, controlled E11.9 ; Mood disorder F39 ; Arthritis M19.90 and Family history of rheumatoid arthritis Z82.61 [facility] [address] [id number] [address] [place] [phone] 15 Jul, 2017 Infection of both inner ears H83.03 and Dizziness R42 [facility] [address] [id number] [address] [place] [phone] 14 Jul, 2017 [facility] [address] [id number] [address] [place] [address] Jul, Diabetes type 2, controlled E11.9 [facility] [address] [id number] [address] [place] [address] [id number] Jul, Dental examination Z01.20 [facility] [address] [id number] [address] [place] [phone] May, Diabetes type 2, controlled E11.9 [facility] [address] [id number] [address] [place] [id number] May, [facility] [address] [id number] [address] [place] [id number] May, Dental examination Z01.20 [facility] [address] [id number] [address] [place] [address] May, [facility] [address] [id number] [address] [place] [address] May, [facility] [address] [id number] [address] [place] [phone] May, Diabetes type 2, controlled E11.9 [facility] [address] [id number] [address] [place] [address] Apr, [facility] [address] [id number] [address] [place] [address] Apr, Mood disorder F39 [facility] [address] [id number] [address] [place] [phone] Mar, [facility] [address] [id number] [address] [place] [address] Mar, Encounter for immunization Z 23 and Diabetes type 2, controlled E11.9 [facility] [address] [id number] [address] [place] [phone] Jan, Mood disorder F39 [facility] [address] [id number] [address] [place] [phone] Jan, Type 2 diabetes mellitus wit hout complications E11.9 [facility] [address] [facility] [id number] [address] [place] [phone] Nov, [facility] [address] [facility] [facility] [id number] [address] [place] [phone] Nov, Type 2 diabetes mellitus wit hout complications E11.9 ; Mood disorder F39 and ASIYA (obstructive sleep apnea) G47.33 [facility] [address] [facility] [facility] [id number] [address] [place] [phone] September, Diabetes type 2, controlled E11.9 [facility] [address] [facility] [facility] [id number] [address] [place] [phone] September, [facility] [address] [facility] [facility] [id number] [address] [place] [address] Aug, Diabetes type 2, controlled E11.9 [facility] [address] [facility] [facility] [id number] [address] [place] [phone] Jul, [facility] [address] [facility] [facility] [id number] [address] [place] [phone] Jul, Type 2 diabetes mellitus wit hout complications E11.9 and 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.4 [facility] [address] [facility] [facility] [id number] [address] [place] [phone] Jul, Diabetes type 2, controlled E11.9 [facility] [address] [facility] [facility] [id number] [address] [place] [phone] Jul, [facility] [address] [facility] [facility] [id number] [address] [place] [phone] May, [facility] [address] [facility] [facility] [id number] [address] [place] [phone] Apr, Diabetes type 2, controlled E11.9 [facility] [address] [facility] [facility] [id number] [address] [place] [phone] 31 Feb, 2016 Erectile dysfunction, unspec ified erectile dysfunction type N52.9 ; Type 2 diabetes mellitus with diabetic neuropathy, unspecified E11.40 and skilled nursing current use of insulin Z79.4 [facility] [address] [facility] [facility] [id number] [address] [place] [phone] 08 Jan, 2016 Impacted cerumen of both ear s H61.23 [facility] [address] [facility] [facility] [id number] [address] [place] [phone] 23 Oct, 2015 Type 2 diabetes mellitus wit hout complications E11.9 [address] [place] [facility] [id number] [address] [place] [phone] Oct, [place] [address] [facility] [id number] [address] [place] [phone] September, Type 2 diabetes mellitus wit hout complications E11.9 [place] [address] [id number] [address] [place] [phone] Jul, Type 2 diabetes mellitus wit hout complications E11.9 ; Lumbar pain M54.5 and Tobacco abuse Z72.0 [place] [address] [facility] [id number] [address] [place] [phone] May, [place] [address] [id number] [address] [place] [address] May, [place] [address] [id number] [address] [place] [phone] Apr, [place] [address] [id number] [address] [place] [address] Mar, [facility] [address] [facility] [facility] [id number] [address] [place] [address] Mar, Type 2 diabetes mellitus wit hout complications E11.9 [place] [address] [facility] [id number] [address] [place] [phone] 05 Mar, 2015 [facility] [address] [facility] [facility] [id number] [address] [place] [phone] 28 Feb, 2015 Type 2 diabetes mellitus wit hout complications E11.9 ; Neuropathy, diabetic E11.40 and Sleep apnea G47.30 [facility] [address] [id number] [address] [place] [phone] Feb, [facility] [address] [id number] [address] [place] [phone] Jan, Skin infection, bacterial 68 6.9 [facility] [address] [id number] [address] [place] [address] Jan, [facility] [address] [id number] [address] [place] [address] Dec, Diabetes mellitus type 2, un complicated 250.00 [facility] [address] [id number] [address] [place] [address] Dec, [facility] [address] [id number] [address] [place] [address] Nov, [facility] [address] [id number] [address] [place] [phone] Nov, Diabetes mellitus type 2, un complicated 250.00 and Obesity 278.00 [facility] [address] [id number] [address] [place] [address] Oct, [facility] [address] [id number] [address] [place] [phone] Oct, [facility] [address] [id number] [address] [place] [phone] 14 Aug, 2014 [facility] [address] [id number] [address] [place] [phone] Aug, [facility] [address] [id number] [address] [place] [address] Jul, [facility] [address] [id number] [address] [place] [phone] Jul, [facility] [address] [id number] [address] [place] [phone] Jul, [facility] [address] [id number] [address] [place] [phone] Jul, [facility] [address] [id number] [address] [place] [address], [place] [address] Jul, [facility] [address] [id number] [address] [place] [address], [place] [address] Jul, [facility] [address] [id number] [address] [place] [address], [place] [address] Feb, [facility] [address] [id number] [address] [place] [address], [place] [address] Feb, [facility] [address] [id number] [address] [place] [address], [place] [address] Dec, [facility] [address] [id number] [address] [place] [address], [place] [address] Nov, [facility] [address] [id number] [address] [place] [address], [place] [address] Nov, [facility] [address] [id number] [address] [place] [address], [place] [address] Nov, [facility] [address] [id number] [address] [place] [address], [place] [address] Nov, [facility] [address] [id number] [address] [place] [address], [place] [address] Nov, [facility] [address] [id number] [address] [place] [address], [place] [address] September, [facility] [address] [id number] [address] [place] [address], [place] [address] September, [facility] [address] [id number] [address] [place] [address], [place] [address] Aug, [facility] [address] [id number] [address] [place] [address], [place] [address] Aug, [facility] [address] [id number] [address] [place] [address], [place] [address] Aug, [facility] [address] [id number] [address] [place] [address], [place] [address] Aug, [facility] [address] [id number] [address] [place] [address], [place] [address] Jul, [facility] [address] [id number] [address] [place] [address], [place] [address] Jul, [facility] [address] [id number] [address] [place] [address], [place] [address] Apr, [facility] [address] [id number] [address] [place] [address], [place] [address] Apr, [facility] [address] [id number] [address] [place] [address], [place] [address] Mar, [facility] [address] [id number] [address] [place] [address], [place] [address] Mar, [facility] [address] [id number] [address] [place] [address], [place] [address] Jan, [facility] [address] [id number] [address] [place] [address], [place] [address] Jan, [facility] [address] [id number] [address] [place] [address], [place] [address] Dec, [facility] [address] [id number] [address] [place] [address], [place] [address] Nov, [facility] [address] [id number] [address] [place] [address], [place] [address] Nov, [facility] [address] [id number] [address] [place] [address], [place] [address] Nov, [facility] [address] [id number] [address] [place] [address], [place] [address] Oct, [facility] [address] [id number] [address] [place] [address], [place] [address] Oct, [facility] [address] [id number] [address] [place] [address] [address] Oct, [facility] [address] [id number] [address] [place] [address], [place] [address] September, [facility] [address] [id number] [address] [place] [address], [place] [address] September, [facility] [address] [id number] [address] [place] [address], [place] [address] Aug, [facility] [address] [id number] [address] [place] [address], [place] [address] Aug, [facility] [address] [id number] [address] [place] [address], [place] [address] Aug, [facility] [address] [id number] [address] [place] [address], [place] [address] Aug, [facility] [address] [id number] [address] [place] [address], [place] [address] Jul, [facility] [address] [id number] [address] [place] [address], [place] [address] Jul, [facility] [address] [id number] [address] [place] [address], [place] [address] Jul, [facility] [address] [id number] [address] [place] [address], [place] [address] Jul, [facility] [address] [id number] [address] [place] [address], [place] [address] May, [facility] [address] [id number] [address] [place] [address], [place] [address] May, [facility] [address] [id number] [address] [place] [address], [place] [address] May, [facility] [address] [id number] [address] [place] [address], [place] [address] May, [facility] [address] [id number] [address] [place] [address], [place] [address] May, [facility] [address] [id number] [address] [place] [address], [place] [address] May, [facility] [address] [id number] [address] [place] [address], [place] [address] May, [facility] [address] [id number] [address] [place] [address], [place] [address] May, [facility] [address] [id number] [address] [place] [address], [place] [address] May, [facility] [address] [id number] [address] [place] [address], [place] [address] May, [facility] [address] [id number] [address] [place] [address], [place] [address] Apr, [facility] [address] [id number] [address] [place] [address], [place] [address] Apr, [facility] [address] [id number] [address] [place] [address], [place] [address] Apr, [facility] [address] [id number] [address] [place] [address], [place] [address] Apr, [facility] [address] [id number] [address] [place] [address], [place] [address] Mar, [facility] [address] [id number] [address] [place] [address], [place] [address] Mar, [facility] [address] [id number] [address] [place] [address], [place] [address] Feb, [facility] [address] [id number] [address] [place] [address], [place] [address] Feb, [facility] [address] [id number] [address] [place] [address], [place] [address] Feb, [facility] [address] [id number] [address] [place] [address], [place] [address] Feb, [facility] [address] [id number] [address] [place] [address], [place] [address] Jan, [facility] [address] [id number] [address] [place] [address], [place] [address] Dec, [facility] [address] [id number] [address] [place] [address], [place] [address] Oct, [facility] [address] [id number] [address] [place] [address], [place] [address] September, [facility] [address] [id number] [address] [place] [address], [place] [address] September, [facility] [address] [id number] [address] [place] [address], [place] [address] Jul, [facility] [address] [id number] [address] [place] [address], [place] [address] Jul, [facility] [address] [id number] [address] [place] [address], [place] [address] Jul, [facility] [address] [id number] [address] [place] [address], [place] [address] Jul, [facility] [address] [id number] [address] [place] [address], [place] [address] Jul, [facility] [address] [id number] [address] [place] [address], [place] [address] May, [facility] [address] [id number] [address] [place] [address], [place] [address] Apr, [facility] [address] [id number] [address] [place] [address], [place] [address] Apr, [facility] [address] [id number] [address] [place] [address], [place] [address] Apr, [facility] [address] [id number] [address] [place] [address], [place] [address] Apr, [facility] [address] [id number] [address] [place] [address], [place] [address] Mar, [facility] [address] [id number] [address] [place] [address], [place] [address] 16 Mar, 2011 [facility] [address] [id number] [address] [place] [address], [place] [address] 15 Mar, 2011 [facility] [address] [id number] [address] [place] [address], [place] [address] 11 Mar, 2011 [facility] [address] [id number] [address] [place] [address], [place] [address] 19 Feb, 2011 [facility] [address] [id number] [address] [place] [address], [place] [address] Dec, [facility] [address] [id number] [address] [place] [address], [place] [address] September, [facility] [address] [id number] [address] [place] [address], [place] [address] Aug, [facility] [address] [id number] [address] [place] [address], [place] [address] 17 May, 2010 [facility] [address] [id number] [address] [place] [address], [place] [address] 10 May, 2010 [facility] [address] [id number] [address] [place] [address], [place] [address] 24 Apr, 2010 [facility] [address] [id number] [address] [place] [address], [place] [address] Apr, [facility] [address] [id number] [address] [place] [address], [place] [address] 10 Apr, 2010 [facility] [address] [id number] [address] [place] [address], [place] [address] 24 Mar, 2010 [facility] [address] [id number] [address] [place] [address], [place] [address] 10 Mar, 2010 [facility] [address] [id number] [address] [place] [address], [place] [address] 10 Mar, 2010 [facility] [address] [id number] [address] [place] [address], [place] [address] 12 Nov, 2009 [facility] [address] [facility] [facility] [id number] [address] [place] [phone] Oct, [facility] [address] [facility] [address] [facility] [id number] [address] [place] [id number] September, [facility] [address] [facility] [address] [facility] [id number] [address] [place] [phone] Dec, [facility] [address] [facility] [address] [facility] [id number] [address] [place] [id number] Jul, [facility] [address] [facility] [address] [facility] [id number] [address] [place] [id number] Jul, IMMUNIZATIONS No Known Immunizations SOCIAL HISTORY [...]
--- OUTSIDE RECORDS SUMMARY | 2019-11-14 23:20 | XMS REPORT ---
Author Author Jerman PACK [facility] Address [address] [place] [address] Care Team Providers Care Manager Plant Name Role Phone DANIELLE PACK Unavailable PROBLEMS Type Condition ICD9-CM Code [id number] Code Onset Dates Condition S tatus SNOMED Code Problem Type 2 diabetes mellitus without complications E11 .9 Active 434882048 Problem Neuropathy, diabetic E11.40 Active 333159296 Problem Diabetes type 2, controlled E11.9 Ac tive 14564553 Assessment Impacted cerumen of both ears H61.23 Jan, 016 Active 28504116 ALLERGIES Substance Reaction Event Type Date Status N.K.D.A. Unknown Non Drug Allergy Jan, Unknown SOCIAL HISTORY No smoking Hx information available PLAN OF CARE VITAL SIGNS Height 70 in 2016-02-06 Weight 268.0 lbs 2016-02-06 Heart Rate 78 bpm 2016-02-06 Respiratory Rate 20 2016-02-06 BMI 38.45 kg/m2 2016-02-06 Blood pressure systolic 136 mmHg 2016-02-06 Blood pressure diastolic 88 mmHg 2016-02-06 MEDICATIONS Medication Instructions Dosage Frequency Start Date End Date Duration S tatus Lisinopril 5 MG Orally Once a day 1 tablet 24h Active Omeprazole 20 MG 1 tablet 12h Active Neurontin 600 MG 1 capsule 8h Jul, Active Levemir FlexTouch 100 UNIT/ML Subcutaneous 2 times a day 26 units 12h May, Active Tramadol HCl 50 mg Orally every 6 hrs 1 tablet as needed 6h Jul, Active NovoLog Flexpen 100 UNIT/ML take 40 Unit by Subcutaneous route 3 times per day Jul, Active Pen Loa 316" 31G X 5 MM as directed 4h Oct, Active Victoza 18MG/3ML INJECT 1.8 MG SUBCUTANEOUS ONCE A DAY Active Metformin HCl 1000 MG TAKE ONE TABLET BY MOUTH TWICE DAILY WITH MORNING AND EVENING MEALS 90 Active RESULTS No Results PROCEDURES Procedure Date Ordered Related Diagnosis Body Site Office Visit, Est Pt., Level 4 Feb 06, 2016 IMMUNIZATIONS No Known Immunizations
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
--- OUTSIDE RECORDS SUMMARY | 2019-11-14 23:20 | XMS REPORT ---
Author Jemran Medina Organization [employer] Address Unknown Phone Unavailable Care Team Providers Care Major Donor Coordinator Name Role Phone JOSE BRENNAN CP Unavailable Allergies No Known Allergies Problems Problem Type Condition Code Onset Dates Condition Statu s Problem Diarrhea 787.91 Active Problem Pain in joint, ankle and foot 719.47 Active Problem Diabetes mellitus type 2, uncomplicated 250.00 Active Problem Gastroparesis 536.3 Active Medications Medication Code System Code Instructions Start Date End Date Status Dosage tramadol NDC 0 50 mg Jul 20, 2014 take 1 tab let (50 mg) by oral route every 6 hours as needed PRN pain Results No Known Results Summary Purpose [employer] Submission
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
--- OUTSIDE RECORDS SUMMARY | 2019-11-14 23:20 | XMS REPORT ---
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 Name Role Phone JOSE BRENNAN Unavailable PROBLEMS Type Condition ICD9-CM Code CRV07-UA Code Onset Dates Condition S tatus SNOMED Code Problem Neuropathy, diabetic E11.40 Active 283664367 Problem Type 2 diabetes mellitus without complications E11 .9 Active 055074104 Problem Diabetes type 2, controlled E11.9 Ac tive 82822291 Problem Arthritis M19.90 Active 4710957 Problem ASIYA (obstructive sleep apnea) G47.33 Active 26519228 Problem Type 2 diabetes mellitus with diabetic neuropathy, uns pecified E11.40 Active 15944362 Problem residential current use of insulin Z79.4 Active 141658770 Problem Mood disorder F39 Active 036306 05 Problem Erectile dysfunction, unspecified erectile dysfunction typ e N52.9 Active [id number] ALLERGIES No Information ENCOUNTERS Encounter Location Date Diagnosis [facility] [id number] [place] [id number] September, [facility] [address] [place] [id number] [address] [place] [id number] 05 Aug, 2017 Diabetes type 2, controlled E11.9 ; Mood disorder F39 ; Arthritis M19.90 and Family history of rheumatoid arthritis Z82.61 [facility] [address] [id number] [address] [place] [phone] 15 Jul, 2017 Infection of both inner ears H83.03 and Dizziness R42 [facility] [address] [id number] [address] [place] [id number] 14 Jul, 2017 [facility] [address] [place] [id number] [address] [place] [id number] 24 Jul, 2017 Diabetes type 2, controlled E11.9 [facility] [address] [id number] [address] [place] [address] [id number] 09 Jul, 2017 Dental examination Z01.20 [facility] [address] [id number] [address] [place] [phone] May, Diabetes type 2, controlled E11.9 [facility] [address] [id number] [address] [place] [phone] May, [facility] [address] [id number] [address] [place] [id number] May, Dental examination Z01.20 [facility] [address] [id number] [address] [place] [id number] May, [facility] [address] [id number] [address] [place] [phone] May, [facility] [address] [id number] [address] [place] [phone] May, Diabetes type 2, controlled E11.9 [facility] [address] [id number] [address] [place] [phone] Apr, [facility] [address] [id number] [address] [place] [phone] Apr, Mood disorder F39 [facility] [address] [id number] [address] [place] [id number] Mar, [facility] [address] [id number] [address] [place] [id number] Mar, Diabetes type 2, controlled E11.9 and Encounter for immunization Z23 [facility] [address] [id number] [address] [place] [phone] Jan, Mood disorder F39 [facility] [address] [id number] [address] [place] [phone] Jan, Type 2 diabetes mellitus wit hout complications E11.9 [facility] [address] [id number] [address] [place] [id number] Nov, [facility] [address] [id number] [address] [place] [id number] Nov, Type 2 diabetes mellitus wit hout complications E11.9 ; Mood disorder F39 and ASIYA (obstructive sleep apnea) G47.33 [facility] [address] [id number] [address] [place] [id number] September, Diabetes type 2, controlled E11.9 [facility] [address] [id number] [address] [place] [phone] September, [facility] [address] [id number] [address] [place] [id number] Aug, Diabetes type 2, controlled E11.9 [facility] [address] [id number] [address] [place] [phone] Jul, [facility] [address] [facility] [id number] [address] [place] [phone] Jul, Type 2 diabetes mellitus wit hout complications E11.9 and residential current use of insulin Z79.4 [facility] [address] [id number] [address] [place] [id number] Jul, Diabetes type 2, controlled E11.9 [facility] [address] [facility] [id number] [address] [place] [phone] Jul, [facility] [address] [id number] [address] [place] [phone] May, [facility] [address] [facility] [id number] [address] [place] [phone] Apr, Diabetes type 2, controlled E11.9 [facility] [address] [facility] [id number] [address] [place] [id number] Feb, 2016 Erectile dysfunction, unspec ified erectile dysfunction type N52.9 ; Type 2 diabetes mellitus with diabetic neuropathy, unspecified E11.40 and residential current use of insulin Z79.4 [facility] [address] [id number] [address] [place] [id number] Jan, Impacted cerumen of both ear s H61.23 [facility] [address] [id number] [address] [place] [id number] Oct, Type 2 diabetes mellitus wit hout complications E11.9 [facility] [address] [id number] [address] [place] [id number] Oct, [facility] [address] [id number] [address] [place] [phone] September, Type 2 diabetes mellitus wit hout complications E11.9 [facility] [address] [id number] [address] [place] [phone] Jul, Type 2 diabetes mellitus wit hout complications E11.9 ; Lumbar pain M54.5 and Tobacco abuse Z72.0 [facility] [address] [id number] [address] [place] [phone] May, [facility] [address] [id number] [address] [place] [phone] May, [facility] [address] [id number] [address] [place] [phone] Apr, [facility] [address] [id number] [address] [place] [phone] Mar, [facility] [address] [id number] [address] [place] [phone] Mar, Type 2 diabetes mellitus wit hout complications E11.9 [facility] [address] [id number] [address] [place] [id number] Mar, [facility] [address] [id number] [address] [place] [phone] Feb, Type 2 diabetes mellitus wit hout complications E11.9 ; Neuropathy, diabetic E11.40 and Sleep apnea G47.30 [facility] [address] [id number] [address] [place] [id number] Feb, [facility] [address] [id number] [address] [place] [phone] Jan, Skin infection, bacterial 68 6.9 [facility] [address] [id number] [address] [place] [phone] Jan, [facility] [address] [id number] [address] [place] [address] Dec, Diabetes mellitus type 2, un complicated 250.00 [facility] [address] [id number] [address] [place] [phone] Dec, [facility] [address] [id number] [address] [place] [phone] Nov, [facility] [address] [id number] [address] [place] [phone] Nov, Diabetes mellitus type 2, un complicated 250.00 and Obesity 278.00 [facility] [address] [id number] [address] [place] [phone] Oct, [facility] [address] [id number] [address] [place] [id number] Oct, [facility] [address] [id number] [address] [place] [phone] Aug, [facility] [address] [id number] [address] [place] [phone] Aug, [facility] [address] [id number] [address] [place] [phone] Jul, [facility] [address] [id number] [address] [place] [phone] Jul, [facility] [address] [id number] [address] [place] [phone] Jul, [facility] [address] [id number] [address] [place] [phone] Jul, [facility] [address] [id number] [address] [place] [id number] Jul, [facility] [address] [id number] [address] [place] [address], [place] [address] Jul, [facility] [address] [id number] [address] [place] [address], [place] [address] Feb, [facility] [address] [id number] [address] [place] [address], [place] [address] Feb, [facility] [address] [id number] [address] [place] [address], [place] [address] Dec, [facility] [address] [id number] [address] [place] [address], [place] [address] Nov, [facility] [address] [id number] [address] [place] [address], [place] [address] Nov, [facility] [address] [id number] [address] [place] [address], [place] [address] Nov, [facility] [address] [id number] [address] [place] [address], [place] [address] Nov, [facility] [address] [id number] [address] [place] [address], [place] [address] Nov, [facility] [address] [id number] [address] [place] [address], [place] [address] September, [facility] [address] [id number] [address] [place] [address], [place] [address] September, [facility] [address] [id number] [address] [place] [address], [place] [address] Aug, [facility] [address] [id number] [address] [place] [address], [place] [address] Aug, [facility] [address] [id number] [address] [place] [address], [place] [address] Aug, [facility] [address] [id number] [address] [place] [address], [place] [address] Aug, [facility] [address] [id number] [address] [place] [address], [place] [address] Jul, [facility] [address] [id number] [address] [place] [address], [place] [address] Jul, [facility] [address] [id number] [address] [place] [address], [place] [address] Apr, [facility] [address] [id number] [address] [place] [address], [place] [address] Apr, [facility] [address] [id number] [address] [place] [address], [place] [address] Mar, [facility] [address] [id number] [address] [place] [address], [place] [address] Mar, [facility] [address] [id number] [address] [place] [address], [place] [address] Jan, [facility] [address] [id number] [address] [place] [address], [place] [address] Jan, [facility] [address] [id number] [address] [place] [address], [place] [address] Dec, [facility] [address] [id number] [address] [place] [address], [place] [address] Nov, [facility] [address] [id number] [address] [place] [address], [place] [address] Nov, [facility] [address] [id number] [address] [place] [address], [place] [address] Nov, [facility] [address] [id number] [address] [place] [address], [place] [address] Oct, [facility] [address] [id number] [address] [place] [address], [place] [address] Oct, [facility] [address] [id number] [address] [place] [address], [place] [address] Oct, [facility] [address] [id number] [address] [place] [address], [place] [address] September, [facility] [address] [id number] [address] [place] [address], [place] [address] September, [facility] [address] [id number] [address] [place] [address], [place] [address] Aug, [facility] [address] [id number] [address] [place] [address], [place] [address] Aug, [facility] [address] [id number] [address] [place] [address], [place] [address] Aug, [facility] [address] [id number] [address] [place] [address], [place] [address] Aug, [facility] [address] [id number] [address] [place] [address], [place] [address] Jul, [facility] [address] [id number] [address] [place] [address], [place] [address] Jul, [facility] [address] [id number] [address] [place] [address], [place] [address] Jul, [facility] [address] [id number] [address] [place] [address], [place] [address] Jul, [facility] [address] [id number] [address] [place] [address], [place] [address] May, [facility] [address] [id number] [address] [place] [address], [place] [address] May, [facility] [address] [id number] [address] [place] [address], [place] [address] May, [facility] [address] [id number] [address] [place] [address], [place] [address] May, [facility] [address] [id number] [address] [place] [address], [place] [address] 14 May, 2012 [facility] [address] [id number] [address] [place] [address], [place] [address] May, [facility] [address] [id number] [address] [place] [address] [address] May, [facility] [address] [id number] [address] [place] [address], [place] [address] May, [facility] [address] [id number] [address] [place] [address], [place] [address] May, [facility] [address] [id number] [address] [place] [address], [place] [address] May, [facility] [address] [id number] [address] [place] [address], [place] [address] Apr, [facility] [address] [id number] [address] [place] [address], [place] [address] Apr, [facility] [address] [id number] [address] [place] [address], [place] [address] Apr, [facility] [address] [id number] [address] [place] [address], [place] [address] Apr, [facility] [address] [id number] [address] [place] [address], [place] [address] Mar, [facility] [address] [id number] [address] [place] [address], [place] [id number] Mar, [facility] [address] [id number] [address] [place] [address], [place] [address] Feb, [facility] [address] [id number] [address] [place] [address], [place] [address] Feb, [facility] [address] [id number] [address] [place] [address], [place] [address] Feb, [facility] [address] [id number] [address] [place] [address], [place] [address] Feb, [facility] [address] [id number] [address] [place] [address], [place] [address] Jan, [facility] [address] [id number] [address] [place] [address], [place] [address] Dec, [facility] [address] [id number] [address] [place] [address], [place] [address] Oct, [facility] [address] [id number] [address] [place] [address], [place] [address] September, [facility] [address] [id number] [address] [place] [address], [place] [address] September, [facility] [address] [id number] [address] [place] [address], [place] [address] Jul, [facility] [address] [id number] [address] [place] [address], [place] [address] Jul, [facility] [address] [id number] [address] [place] [address], [place] [address] Jul, [facility] [address] [id number] [address] [place] [address], [place] [address] Jul, [facility] [address] [id number] [address] [place] [address], [place] [id number] 16 Jul, 2011 [facility] [address] [id number] [address] [place] [address], [place] [address] May, [facility] [address] [id number] [address] [place] [address], [place] [address] Apr, [facility] [address] [id number] [address] [place] [address], [place] [address] 16 Apr, 2011 [facility] [address] [id number] [address] [place] [address], [place] [address] Apr, [facility] [address] [id number] [address] [place] [address], [place] [address] 08 Apr, 2011 [facility] [address] [id number] [address] [place] [address], [place] [address] 16 Mar, 2011 [facility] [address] [id number] [address] [place] [address], [place] [address] 16 Mar, 2011 [facility] [address] [id number] [address] [place] [address], [place] [address] 15 Mar, 2011 [facility] [address] [id number] [address] [place] [address], [place] [address] 11 Mar, 2011 [facility] [address] [id number] [address] [place] [address], [place] [address] Feb, [facility] [address] [id number] [address] [place] [address], [place] [address] Dec, [facility] [address] [id number] [address] [place] [address], [place] [address] September, [facility] [address] [id number] [address] [place] [address], [place] [address] Aug, [facility] [address] [id number] [address] [place] [address], [place] [address] 17 May, 2010 [facility] [address] [id number] [address] [place] [address], [place] [address] May, [facility] [address] [id number] [address] [place] [address], [place] [address] 24 Apr, 2010 [facility] [address] [id number] [address] [place] [address], [place] [id number] Apr, [facility] [address] [id number] [address] [place] [address], [place] [id number] Apr, [facility] [address] [id number] [address] [place] [address], [place] [id number] 24 Mar, 2010 [facility] [address] [id number] [address] [place] [address], [place] [id number] 10 Mar, 2010 [facility] [address] [id number] [address] [place] [address], [place] [id number] Mar, [facility] [address] [id number] [address] [place] [address], [place] [id number] 12 Nov, 2009 [facility] [address] [id number] [address] [place] [address], [place] [id number] 15 Oct, 2009 [facility] [address] [id number] [address] [place] [id number] September, [facility] [address] [facility] [id number] [address] [place] [id number] Dec, [facility] [address] [facility] [id number] [address] [place] [id number] Jul, [facility] [address] [facility] [id number] [address] [place] [id number] Jul, IMMUNIZATIONS No Known Immunizations SOCIAL HISTORY Never Assessed REASON FOR VISIT eye exam PLAN OF CARE VITAL SIGNS MEDICATIONS Unknown [...]
--- OUTSIDE RECORDS SUMMARY | 2019-11-14 23:21 | XMS REPORT ---
Author Author Jerman BRENNAN Organization [facility] Address [address] [place] [address] Care Team Providers Care Sustainment Logistics Analyst Name Role Phone JOSE BRENNAN Unavailable PROBLEMS Type Condition ICD9-CM Code OTP99-SA Code Onset Dates Condition S tatus SNOMED Code Problem Neuropathy, diabetic E11.40 Active 570242276 Problem Type 2 diabetes mellitus without complications E11 .9 Active 967247341 Problem Diabetes type 2, controlled E11.9 Ac tive 02450728 Problem Arthritis M19.90 Active 5186413 Problem ASIYA (obstructive sleep apnea) G47.33 Active 78711914 Problem Type 2 diabetes mellitus with diabetic neuropathy, uns pecified E11.40 Active 60887388 Problem skilled nursing current use of insulin Z79.4 Active 086520052 Problem Mood disorder F39 Active 541827 05 Problem Erectile dysfunction, unspecified erectile dysfunction typ e N52.9 Active 507286149 ALLERGIES No Information ENCOUNTERS Encounter Location Date Diagnosis [facility] [address] [id number] [address] [place] [address] [id number] 14 Oct, 2017 Dental caries K02.9 and [place] al examination Z01.20 [facility] [address] [id number] [address] [place] [address] September, [facility] [address] [id number] [address] [place] [id number] 05 Aug, 2017 Diabetes type 2, controlled E11.9 ; Mood disorder F39 ; Arthritis M19.90 and Family history of rheumatoid arthritis Z82.61 [facility] [address] [id number] [address] [place] [id number] 15 Jul, 2017 Infection of both inner ears H83.03 and Dizziness R42 [facility] [address] [id number] [address] [place] [phone] 14 Jul, 2017 [facility] [address] [id number] [address] [place] [address] Jul, Diabetes type 2, controlled E11.9 [facility] [address] [id number] [address] [place] [address] [id number] Jul, Dental examination Z01.20 [facility] [address] [id number] [address] [place] [address] May, Diabetes type 2, controlled E11.9 [facility] [address] [id number] [address] [place] [phone] May, [facility] [address] [id number] [address] [place] [address] [id number] May, Dental examination Z01.20 [facility] [address] [id number] [address] [place] [id number] May, [facility] [address] [id number] [address] [place] [address] May, [facility] [address] [id number] [address] [place] [address] May, Diabetes type 2, controlled E11.9 [facility] [address] [id number] [address] [place] [address] Apr, [facility] [address] [id number] [address] [place] [address] Apr, Mood disorder F39 [facility] [address] [id number] [address] [place] [phone] Mar, [facility] [address] [id number] [address] [place] [phone] Mar, Encounter for immunization Z 23 and Diabetes type 2, controlled E11.9 [facility] [address] [id number] [address] [place] [phone] Jan, Mood disorder F39 [facility] [address] [id number] [address] [place] [id number] Jan, Type 2 diabetes mellitus wit hout complications E11.9 [facility] [address] [facility] [id number] [address] [place] [address] Nov, [facility] [address] [facility] [id number] [address] [place] [address] Nov, Type 2 diabetes mellitus wit hout complications E11.9 ; Mood disorder F39 and ASIYA (obstructive sleep apnea) G47.33 [facility] [address] [facility] [id number] [address] [place] [address] September, Diabetes type 2, controlled E11.9 [facility] [address] [facility] [id number] [address] [place] [id number] September, [facility] [address] [facility] [id number] [address] [place] [phone] Aug, Diabetes type 2, controlled E11.9 [facility] [address] [facility] [id number] [address] [place] [id number] Jul, [facility] [address] [facility] [id number] [address] [place] [id number] Jul, Type 2 diabetes mellitus wit hout complications E11.9 and 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 [facility] [address] [facility] [id number] [address] [place] [address] Jul, Diabetes type 2, controlled E11.9 [facility] [address] [facility] [id number] [address] [place] [phone] Jul, [facility] [address] [facility] [id number] [address] [place] [address] May, [facility] [address] [facility] [id number] [address] [place] [address] Apr, Diabetes type 2, controlled E11.9 [facility] [address] [facility] [id number] [address] [place] [id number] 31 Feb, 2016 Erectile dysfunction, unspec ified erectile dysfunction type N52.9 ; Type 2 diabetes mellitus with diabetic neuropathy, unspecified E11.40 and skilled nursing current use of insulin Z79.4 [facility] [address] [facility] [id number] [address] [place] [phone] 08 Jan, 2016 Impacted cerumen of both ear s H61.23 [facility] [address] [facility] [id number] [address] [place] [id number] 23 Oct, 2015 Type 2 diabetes mellitus wit hout complications E11.9 [place] [address] [facility] [id number] [address] [place] [phone] Oct, [place] [address] [facility] [id number] [address] [place] [address] September, Type 2 diabetes mellitus wit hout complications E11.9 [place] [address] [id number] [address] [place] [id number] Jul, Type 2 diabetes mellitus wit hout complications E11.9 ; Lumbar pain M54.5 and Tobacco abuse Z72.0 [place] [address] [facility] [id number] [address] [place] [phone] May, [place] [address] [id number] [address] [place] [phone] May, [place] [address] [id number] [address] [place] [phone] Apr, [place] [address] [id number] [address] [place] [address] Mar, [facility] [address] [facility] [id number] [address] [place] [address] Mar, Type 2 diabetes mellitus wit hout complications E11.9 [place] [address] [facility] [id number] [address] [place] [phone] 05 Mar, 2015 [facility] [address] [facility] [id number] [address] [place] [id number] 28 Feb, 2015 Type 2 diabetes mellitus wit hout complications E11.9 ; Neuropathy, diabetic E11.40 and Sleep apnea G47.30 [facility] [address] [id number] [address] [place] [id number] Feb, [facility] [address] [id number] [address] [place] [address] Jan, Skin infection, bacterial 68 6.9 [facility] [address] [id number] [address] [place] [id number] Jan, [facility] [address] [id number] [address] [place] [address] Dec, Diabetes mellitus type 2, un complicated 250.00 [facility] [address] [id number] [address] [place] [id number] Dec, [facility] [address] [id number] [address] [place] [address] Nov, [facility] [address] [id number] [address] [place] [address] Nov, Diabetes mellitus type 2, un complicated 250.00 and Obesity 278.00 [facility] [address] [id number] [address] [place] [id number] Oct, [facility] [address] [id number] [address] [place] [id number] Oct, [facility] [address] [id number] [address] [place] [id number] 14 Aug, 2014 [facility] [address] [id number] [address] [place] [id number] Aug, [facility] [address] [id number] [address] [place] [id number] Jul, [facility] [address] [id number] [address] [place] [id number] Jul, [facility] [address] [id number] [address] [place] [id number] Jul, [facility] [address] [id number] [address] [place] [id number] Jul, [facility] [address] [id number] [address] [place] [address], [place] [address] Jul, [facility] [address] [id number] [address] [place] [address], [place] [address] Jul, [facility] [address] [id number] [address] [place] [address], [place] [address] Feb, [facility] [address] [id number] [address] [place] [address], [place] [address] Feb, [facility] [address] [id number] [address] [place] [address], [place] [address] Dec, [facility] [address] [id number] [address] [place] [address], [place] [address] Nov, [facility] [address] [id number] [address] [place] [address], [place] [address] Nov, [facility] [address] [id number] [address] [place] [address], [place] [address] Nov, [facility] [address] [id number] [address] [place] [address], [place] [address] Nov, [facility] [address] [id number] [address] [place] [address], [place] [address] Nov, [facility] [address] [id number] [address] [place] [address], [place] [address] September, [facility] [address] [id number] [address] [place] [address], [place] [address] September, [facility] [address] [id number] [address] [place] [address], [place] [address] Aug, [facility] [address] [id number] [address] [place] [address], [place] [address] Aug, [facility] [address] [id number] [address] [place] [address], [place] [address] Aug, [facility] [address] [id number] [address] [place] [address], [place] [address] Aug, [facility] [address] [id number] [address] [place] [address], [place] [address] Jul, [facility] [address] [id number] [address] [place] [address], [place] [address] Jul, [facility] [address] [id number] [address] [place] [address], [place] [address] Apr, [facility] [address] [id number] [address] [place] [address], [place] [address] Apr, [facility] [address] [id number] [address] [place] [address], [place] [address] Mar, [facility] [address] [id number] [address] [place] [address], [place] [address] Mar, [facility] [address] [id number] [address] [place] [address], [place] [address] Jan, [facility] [address] [id number] [address] [place] [address], [place] [address] Jan, [facility] [address] [id number] [address] [place] [address], [place] [address] Dec, [facility] [address] [id number] [address] [place] [address], [place] [address] Nov, [facility] [address] [id number] [address] [place] [address], [place] [address] Nov, [facility] [address] [id number] [address] [place] [address], [place] [address] Nov, [facility] [address] [id number] [address] [place] [address], [place] [address] Oct, [facility] [address] [id number] [address] [place] [address], [place] [address] Oct, [facility] [address] [id number] [address] [place] [address] [address] Oct, [facility] [address] [id number] [address] [place] [address], [place] [address] September, [facility] [address] [id number] [address] [place] [address], [place] [address] September, [facility] [address] [id number] [address] [place] [address], [place] [address] Aug, [facility] [address] [id number] [address] [place] [address], [place] [address] Aug, [facility] [address] [id number] [address] [place] [address], [place] [address] Aug, [facility] [address] [id number] [address] [place] [address], [place] [address] Aug, [facility] [address] [id number] [address] [place] [address], [place] [address] Jul, [facility] [address] [id number] [address] [place] [address], [place] [address] Jul, [facility] [address] [id number] [address] [place] [address], [place] [address] Jul, [facility] [address] [id number] [address] [place] [address], [place] [address] Jul, [facility] [address] [id number] [address] [place] [address], [place] [address] May, [facility] [address] [id number] [address] [place] [address], [place] [address] May, [facility] [address] [id number] [address] [place] [address], [place] [address] May, [facility] [address] [id number] [address] [place] [address], [place] [address] May, [facility] [address] [id number] [address] [place] [address], [place] [address] May, [facility] [address] [id number] [address] [place] [address], [place] [address] May, [facility] [address] [id number] [address] [place] [address], [place] [address] May, [facility] [address] [id number] [address] [place] [address], [place] [address] May, [facility] [address] [id number] [address] [place] [address], [place] [address] May, [facility] [address] [id number] [address] [place] [address], [place] [address] May, [facility] [address] [id number] [address] [place] [address], [place] [address] Apr, [facility] [address] [id number] [address] [place] [address], [place] [address] Apr, [facility] [address] [id number] [address] [place] [address], [place] [address] Apr, [facility] [address] [id number] [address] [place] [address], [place] [address] Apr, [facility] [address] [id number] [address] [place] [address], [place] [address] Mar, [facility] [address] [id number] [address] [place] [address], [place] [address] Mar, [facility] [address] [id number] [address] [place] [address], [place] [address] Feb, [facility] [address] [id number] [address] [place] [address], [place] [address] Feb, [facility] [address] [id number] [address] [place] [address], [place] [address] Feb, [facility] [address] [id number] [address] [place] [address], [place] [address] Feb, [facility] [address] [id number] [address] [place] [address], [place] [address] Jan, [facility] [address] [id number] [address] [place] [address], [place] [address] Dec, [facility] [address] [id number] [address] [place] [address], [place] [address] Oct, [facility] [address] [id number] [address] [place] [address], [place] [address] September, [facility] [address] [id number] [address] [place] [address], [place] [address] September, [facility] [address] [id number] [address] [place] [address], [place] [address] Jul, [facility] [address] [id number] [address] [place] [address], [place] [address] Jul, [facility] [address] [id number] [address] [place] [address], [place] [address] Jul, [facility] [address] [id number] [address] [place] [address], [place] [address] Jul, [facility] [address] [id number] [address] [place] [address], [place] [address] Jul, [facility] [address] [id number] [address] [place] [address], [place] [address] May, [facility] [address] [id number] [address] [place] [address], [place] [address] Apr, [facility] [address] [id number] [address] [place] [address], [place] [address] Apr, [facility] [address] [id number] [address] [place] [address], [place] [address] Apr, [facility] [address] [id number] [address] [place] [address], [place] [address] Apr, [facility] [address] [id number] [address] [place] [address], [place] [address] Mar, [facility] [address] [id number] [address] [place] [address], [place] [address] 16 Mar, 2011 [facility] [address] [id number] [address] [place] [address], [place] [address] 15 Mar, 2011 [facility] [address] [id number] [address] [place] [address], [place] [address] 11 Mar, 2011 [facility] [address] [id number] [address] [place] [address], [place] [address] 19 Feb, 2011 [facility] [address] [id number] [address] [place] [address], [place] [address] Dec, [facility] [address] [id number] [address] [place] [address], [place] [address] September, [facility] [address] [id number] [address] [place] [address], [place] [address] Aug, [facility] [address] [id number] [address] [place] [address], [place] [address] 17 May, 2010 [facility] [address] [id number] [address] [place] [address], [place] [address] 10 May, 2010 [facility] [address] [id number] [address] [place] [address], [place] [address] 24 Apr, 2010 [facility] [address] [id number] [address] [place] [address], [place] [address] Apr, [facility] [address] [id number] [address] [place] [address], [place] [address] 10 Apr, 2010 [facility] [address] [id number] [address] [place] [address], [place] [address] 24 Mar, 2010 [facility] [address] [id number] [address] [place] [address], [place] [address] 10 Mar, 2010 [facility] [address] [id number] [address] [place] [address], [place] [address] 10 Mar, 2010 [facility] [address] [id number] [address] [place] [address], [place] [phone] 12 Nov, 2009 [facility] [address] [facility] [id number] [address] [place] [id number] Oct, [facility] [address] [facility] [id number] [address] [place] [id number] September, [facility] [address] [facility] [id number] [address] [place] [id number] Dec, [facility] [address] [facility] [id number] [address] [place] [id number] Jul, [facility] [address] [facility] [id number] [address] [place] [id number] Jul, IMMUNIZATIONS No Known Immunizations SOCIAL HISTORY Never Assessed REASON FOR VISIT PALS IN-Insulins PLAN OF CARE VITAL SIGNS MEDICATIONS Unknown [...]
--- OUTSIDE RECORDS SUMMARY | 2019-11-14 23:21 | XMS REPORT ---
Author Jerman Medina Organization [employer] Address Unknown Phone Unavailable Care Team Providers Care Communications Professor Name Role Phone JOSE BRENNAN CP Unavailable Allergies No Known Allergies Problems Problem Type Condition Code Onset Dates Condition Statu s Problem Diabetes type 2, controlled E11.9 Active Assessment Type 2 diabetes mellitus without complications E11.9 Active Problem Neuropathy, diabetic E11.40 Active Medications No Known Medications Procedures Procedure Coding System Code Date LIPID PANEL CPT-4 83059 Apr 10, 2015 COMPREHEN METABOLIC PANEL CPT-4 49399 Mar COMPLETE CBC W/AUTO DIFF WBC CPT-4 69811 Apr 10, 2015 VENIPUNCT, ROUTINE* CPT-4 28573 Apr 10, 2015 Results No Known Results Summary Purpose [employer] Submission
--- OUTSIDE RECORDS SUMMARY | 2019-11-14 23:21 | XMS REPORT ---
Author Author Jerman BRENNAN Organization [facility] Address [address] [place] [address] Care Team Providers Care Can Cleaner Name Role Phone JOSE BRENNAN Unavailable PROBLEMS Type Condition ICD9-CM Code [id number] Code Onset Dates Condition S tatus SNOMED Code Problem Neuropathy, diabetic E11.40 Active 600318253 Problem Type 2 diabetes mellitus without complications E11 .9 Active 515494083 Problem Diabetes type 2, controlled E11.9 Ac tive 25757655 Problem Arthritis M19.90 Active 2885970 Problem ASIYA (obstructive sleep apnea) G47.33 Active 66185866 Problem Type 2 diabetes mellitus with diabetic neuropathy, uns pecified E11.40 Active 75799000 Problem MCFP current use of insulin Z79.4 Active 899989910 Problem Mood disorder F39 Active 287972 05 Problem Erectile dysfunction, unspecified erectile dysfunction typ e N52.9 Active [id number] ALLERGIES No Information ENCOUNTERS Encounter Location Date Diagnosis [facility] [address] [id number] [address] [place] [address] [id number] 14 Oct, 2017 Dental caries K02.9 and [place] al examination Z01.20 [facility] [address] [id number] [address] [place] [address] September, [facility] [address] [id number] [address] [place] [address] 05 Aug, 2017 Diabetes type 2, controlled E11.9 ; Mood disorder F39 ; Arthritis M19.90 and Family history of rheumatoid arthritis Z82.61 [facility] [address] [id number] [address] [place] [address] 15 Jul, 2017 Infection of both inner ears H83.03 and Dizziness R42 [facility] [address] [id number] [address] [place] [id number] 14 Jul, 2017 [facility] [address] [id number] [address] [place] [address] Jul, Diabetes type 2, controlled E11.9 [facility] [address] [id number] [address] [place] [address] [id number] Jul, Dental examination Z01.20 [facility] [address] [id number] [address] [place] [address] May, Diabetes type 2, controlled E11.9 [facility] [address] [id number] [address] [place] [address] May, [facility] [address] [id number] [address] [place] [address] [id number] May, Dental examination Z01.20 [facility] [address] [id number] [address] [place] [address] May, [facility] [address] [id number] [address] [place] [address] May, [facility] [address] [id number] [address] [place] [address] May, Diabetes type 2, controlled E11.9 [facility] [address] [id number] [address] [place] [address] Apr, [facility] [address] [id number] [address] [place] [address] Apr, Mood disorder F39 [facility] [address] [id number] [address] [place] [address] Mar, [facility] [address] [id number] [address] [place] [address] Mar, Diabetes type 2, controlled E11.9 and Encounter for immunization Z23 [facility] [address] [id number] [address] [place] [address] Jan, Mood disorder F39 [facility] [address] [id number] [address] [place] [address] Jan, Type 2 diabetes mellitus wit hout complications E11.9 [facility] [address] [facility] [id number] [address] [place] [address] Nov, [facility] [address] [facility] [id number] [address] [place] [address] Nov, Type 2 diabetes mellitus wit hout complications E11.9 ; Mood disorder F39 and ASIYA (obstructive sleep apnea) G47.33 [facility] [address] [facility] [id number] [address] [place] [address] September, Diabetes type 2, controlled E11.9 [facility] [address] [facility] [id number] [address] [place] [address] September, [facility] [address] [facility] [id number] [address] [place] [address] Aug, Diabetes type 2, controlled E11.9 [facility] [address] [facility] [id number] [address] [place] [address] Jul, [facility] [address] [facility] [id number] [address] [place] [address] Jul, Type 2 diabetes mellitus wit hout complications E11.9 and [facility]FP current use of insulin Z79.4 [facility] [address] [facility] [id number] [address] [place] [address] Jul, Diabetes type 2, controlled E11.9 [facility] [address] [facility] [id number] [address] [place] [address] Jul, [facility] [address] [facility] [id number] [address] [place] [address] May, [facility] [address] [facility] [id number] [address] [place] [address] Apr, Diabetes type 2, controlled E11.9 [facility] [address] 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 [id number] [address] [place] [address] 08 Jan, 2016 Impacted cerumen of both ear s H61.23 [facility] [address] [facility] [id number] [address] [place] [address] 23 Oct, 2015 Type 2 diabetes mellitus wit hout complications E11.9 [address] [facility] [id number] [address] [place] [address] Oct, [place] [address] [facility] [id number] [address] [place] [address] September, Type 2 diabetes mellitus wit hout complications E11.9 [place] [address] [id number] [address] [place] [address] Jul, Type 2 diabetes mellitus wit hout complications E11.9 ; Lumbar pain M54.5 and Tobacco abuse Z72.0 [place] [address] [facility] [id number] [address] [place] [address] May, [place] [address] [id number] [address] [place] [address] May, [place] [address] [id number] [address] [place] [address] Apr, [place] [address] [id number] [address] [place] [address] Mar, [facility] [address] [facility] [id number] [address] [place] [address] Mar, Type 2 diabetes mellitus wit hout complications E11.9 [place] [address] [facility] [id number] [address] [place] [address] 05 Mar, 2015 [facility] [address] [facility] [id number] [address] [place] [address] 28 Feb, 2015 Type 2 diabetes mellitus wit hout complications E11.9 ; Neuropathy, diabetic E11.40 and Sleep apnea G47.30 [facility] [address] [id number] [address] [place] [address] Feb, [facility] [address] [id number] [address] [place] [address] Jan, Skin infection, bacterial 68 6.9 [facility] [address] [id number] [address] [place] [address] Jan, [facility] [address] [id number] [address] [place] [address] Dec, Diabetes mellitus type 2, un complicated 250.00 [facility] [address] [id number] [address] [place] [address] Dec, [facility] [address] [id number] [address] [place] [address] Nov, [facility] [address] [id number] [address] [place] [address] Nov, Diabetes mellitus type 2, un complicated 250.00 and Obesity 278.00 [facility] [address] [id number] [address] [place] [address] Oct, [facility] [address] [id number] [address] [place] [address] Oct, [facility] [address] [id number] [address] [place] [id number] 14 Aug, 2014 [facility] [address] [id number] [address] [place] [address] Aug, [facility] [address] [id number] [address] [place] [address] Jul, [facility] [address] [id number] [address] [place] [address] Jul, [facility] [address] [id number] [address] [place] [address] Jul, [facility] [address] [id number] [address] [place] [address] Jul, [facility] [address] [id number] [address] [place] [address], [place] [address] Jul, [facility] [address] [id number] [address] [place] [address], [place] [address] Jul, [facility] [address] [id number] [address] [place] [address], [place] [address] Feb, [facility] [address] [id number] [address] [place] [address], [place] [address] Feb, [facility] [address] [id number] [address] [place] [address], [place] [address] Dec, [facility] [address] [id number] [address] [place] [address], [place] [address] Nov, [facility] [address] [id number] [address] [place] [address], [place] [address] Nov, [facility] [address] [id number] [address] [place] [address], [place] [address] Nov, [facility] [address] [id number] [address] [place] [address], [place] [address] Nov, [facility] [address] [id number] [address] [place] [address], [place] [address] Nov, [facility] [address] [id number] [address] [place] [address], [place] [address] September, [facility] [address] [id number] [address] [place] [address], [place] [address] September, [facility] [address] [id number] [address] [place] [address], [place] [address] Aug, [facility] [address] [id number] [address] [place] [address], [place] [address] Aug, [facility] [address] [id number] [address] [place] [address], [place] [address] Aug, [facility] [address] [id number] [address] [place] [address], [place] [address] Aug, [facility] [address] [id number] [address] [place] [address], [place] [address] Jul, [facility] [address] [id number] [address] [place] [address], [place] [address] Jul, [facility] [address] [id number] [address] [place] [address], [place] [address] Apr, [facility] [address] [id number] [address] [place] [address], [place] [address] Apr, [facility] [address] [id number] [address] [place] [address], [place] [address] Mar, [facility] [address] [id number] [address] [place] [address], [place] [address] Mar, [facility] [address] [id number] [address] [place] [address], [place] [address] Jan, [facility] [address] [id number] [address] [place] [address], [place] [address] Jan, [facility] [address] [id number] [address] [place] [address], [place] [address] Dec, [facility] [address] [id number] [address] [place] [address], [place] [address] Nov, [facility] [address] [id number] [address] [place] [address], [place] [address] Nov, [facility] [address] [id number] [address] [place] [address], [place] [address] Nov, [facility] [address] [id number] [address] [place] [address], [place] [address] Oct, [facility] [address] [id number] [address] [place] [address], [place] [address] Oct, [facility] [address] [id number] [address] [place] [address] [address] Oct, [facility] [address] [id number] [address] [place] [address], [place] [address] September, [facility] [address] [id number] [address] [place] [address], [place] [address] September, [facility] [address] [id number] [address] [place] [address], [place] [address] Aug, [facility] [address] [id number] [address] [place] [address], [place] [address] Aug, [facility] [address] [id number] [address] [place] [address], [place] [address] Aug, [facility] [address] [id number] [address] [place] [address], [place] [address] Aug, [facility] [address] [id number] [address] [place] [address], [place] [address] Jul, [facility] [address] [id number] [address] [place] [address], [place] [address] Jul, [facility] [address] [id number] [address] [place] [address], [place] [address] Jul, [facility] [address] [id number] [address] [place] [address], [place] [address] Jul, [facility] [address] [id number] [address] [place] [address], [place] [address] May, [facility] [address] [id number] [address] [place] [address], [place] [address] May, [facility] [address] [id number] [address] [place] [address], [place] [address] May, [facility] [address] [id number] [address] [place] [address], [place] [address] May, [facility] [address] [id number] [address] [place] [address], [place] [address] May, [facility] [address] [id number] [address] [place] [address], [place] [address] May, [facility] [address] [id number] [address] [place] [address], [place] [address] May, [facility] [address] [id number] [address] [place] [address], [place] [address] May, [facility] [address] [id number] [address] [place] [address], [place] [address] May, [facility] [address] [id number] [address] [place] [address], [place] [address] May, [facility] [address] [id number] [address] [place] [address], [place] [address] Apr, [facility] [address] [id number] [address] [place] [address], [place] [address] Apr, [facility] [address] [id number] [address] [place] [address], [place] [address] Apr, [facility] [address] [id number] [address] [place] [address], [place] [address] Apr, [facility] [address] [id number] [address] [place] [address], [place] [address] Mar, [facility] [address] [id number] [address] [place] [address], [place] [address] Mar, [facility] [address] [id number] [address] [place] [address], [place] [address] Feb, [facility] [address] [id number] [address] [place] [address], [place] [address] Feb, [facility] [address] [id number] [address] [place] [address], [place] [address] Feb, [facility] [address] [id number] [address] [place] [address], [place] [address] Feb, [facility] [address] [id number] [address] [place] [address], [place] [address] Jan, [facility] [address] [id number] [address] [place] [address], [place] [address] Dec, [facility] [address] [id number] [address] [place] [address], [place] [address] Oct, [facility] [address] [id number] [address] [place] [address], [place] [address] September, [facility] [address] [id number] [address] [place] [address], [place] [address] September, [facility] [address] [id number] [address] [place] [address], [place] [address] Jul, [facility] [address] [id number] [address] [place] [address], [place] [address] Jul, [facility] [address] [id number] [address] [place] [address], [place] [address] Jul, [facility] [address] [id number] [address] [place] [address], [place] [address] Jul, [facility] [address] [id number] [address] [place] [address], [place] [address] Jul, [facility] [address] [id number] [address] [place] [address], [place] [address] May, [facility] [address] [id number] [address] [place] [address], [place] [address] Apr, [facility] [address] [id number] [address] [place] [address], [place] [address] Apr, [facility] [address] [id number] [address] [place] [address], [place] [address] Apr, [facility] [address] [id number] [address] [place] [address], [place] [address] Apr, [facility] [address] [id number] [address] [place] [address], [place] [address] Mar, [facility] [address] [id number] [address] [place] [address], [place] [address] 16 Mar, 2011 [facility] [address] [id number] [address] [place] [address], [place] [address] 15 Mar, 2011 [facility] [address] [id number] [address] [place] [address], [place] [address] 11 Mar, 2011 [facility] [address] [id number] [address] [place] [address], [place] [address] 19 Feb, 2011 [facility] [address] [id number] [address] [place] [address], [place] [address] Dec, [facility] [address] [id number] [address] [place] [address], [place] [address] September, [facility] [address] [id number] [address] [place] [address], [place] [address] Aug, [facility] [address] [id number] [address] [place] [address], [place] [address] 17 May, 2010 [facility] [address] [id number] [address] [place] [address], [place] [address] 10 May, 2010 [facility] [address] [id number] [address] [place] [address], [place] [address] 24 Apr, 2010 [facility] [address] [id number] [address] [place] [address], [place] [address] Apr, [facility] [address] [id number] [address] [place] [address], [place] [address] 10 Apr, 2010 [facility] [address] [id number] [address] [place] [address], [place] [address] 24 Mar, 2010 [facility] [address] [id number] [address] [place] [address], [place] [address] 10 Mar, 2010 [facility] [address] [id number] [address] [place] [address], [place] [address] 10 Mar, 2010 [facility] [address] [id number] [address] [place] [address], [place] [address] 12 Nov, 2009 [facility] [address] [facility] [id number] [address] [place] [id number] Oct, [facility] [address] [facility] [id number] [address] [place] [address] September, [facility] [address] [facility] [id number] [address] [place] [address] Dec, [facility] [address] [facility] [id number] [address] [place] [address] Jul, [facility] [address] [facility] [id number] [address] [place] [address] Jul, IMMUNIZATIONS No Known Immunizations SOCIAL HISTORY Never Assessed REASON FOR VISIT Controlled Med Refill 06/29/17 PLAN OF CARE VITAL SIGNS MEDICATIONS Medication [...]
--- OUTSIDE RECORDS SUMMARY | 2019-11-14 23:21 | XMS REPORT ---
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
--- OUTSIDE RECORDS SUMMARY | 2019-11-14 23:21 | XMS REPORT ---
Author Author Jerman BRENNAN Organization [facility] Address [address] [place] [address] Care Team Providers Care Interpretive Program Coordinator Name Role Phone JOSE BRENNAN Unavailable PROBLEMS Type Condition ICD9-CM Code [id number] Code Onset Dates Condition S tatus SNOMED Code Problem Neuropathy, diabetic E11.40 Active 764035570 Problem Diabetes type 2, controlled E11.9 Ac tive 84731818 Problem Mood disorder F39 Active 056231 05 Problem ASIYA (obstructive sleep apnea) G47.33 Active 46092316 Problem half-way current use of insulin Z79.4 Active 712925355 Problem Type 2 diabetes mellitus without complications E11 .9 Active 301947371 Problem Erectile dysfunction, unspecified erectile dysfunction typ e N52.9 Active 136195844 Problem Type 2 diabetes mellitus with diabetic neuropathy, uns pecified E11.40 Active 29735554 ALLERGIES Substance Reaction Event Type Date Status N.K.D.A. Unknown Non Drug Allergy Apr, Unknown SOCIAL HISTORY No smoking Hx information available PLAN OF CARE VITAL SIGNS Height 70 in 2016-05-15 Weight 270.5 lbs 2016-05-15 Temperature 97.7 degrees Fahrenheit 2016-05-15 Heart Rate 80 bpm 2016-05-15 Respiratory Rate 20 2016-05-15 BMI 38.81 kg/m2 2016-05-15 Blood pressure systolic 118 mmHg 2016-05-15 Blood pressure diastolic 86 mmHg 2016-05-15 MEDICATIONS Medication Instructions Dosage Frequency Start Date End Date Duration S tatus Victoza 18MG/3ML INJECT 1.8 MG SUBCUTANEOUS ONCE A DAY Active Lyrica 50 mg Orally 3 times a day 2 capsules 8h Feb, Active Chantix Continuing Month Gael 1 MG Orally Twice a day 1 tablet 12h Active Pen Mantador 08/13" 31G X 5 MM as directed 4h Oct, Active Levemir FlexTouch 100 UNIT/ML Subcutaneous 2 times a day 26 units 12h May, Active Omeprazole 20 mg 1 tablet 12h Active Lisinopril 5 mg Orally Once a day 1 tablet 24h Active Metformin HCl 1000 MG 1 tablet with meals 12h Active Tramadol HCl 50 mg Orally every 6 hrs 1 tablet as needed 6h Jul, Active NovoLog Flexpen 100 UNIT/ML take 40 Unit by Subcutaneous route 3 times per day Jul, Active RESULTS Name Result Date Reference Range MICROALBUMIN, URINE (IN HOUSE) 2016-05-15 MICROALBUMIN normal Lot # [id number] Exp date 03/2017 Clarity clear Color yellow ALB 30 CRE 300 A:C (IN HOUSE) <30 Control + Control Lot # Exp date PROCEDURES Procedure Date Ordered Related Diagnosis Body Site MICROALBUMIN, SEMIQUANT May 15, 2016 Office Visit, Est Pt., Level 3 May 15, 2016 IMMUNIZATIONS No Known Immunizations
--- OUTSIDE RECORDS SUMMARY | 2019-11-14 23:21 | XMS REPORT ---
Author Jerman Vences [facility] eClinicalWorks Address Unknown Phone Unavailable Care Team Providers Care Supervisor [employer] Name Role Phone CHENG HILARIO CP Unavailable Allergies No Known Allergies Problems Problem Type Condition Code Onset Dates Condition Statu s Problem Diabetes type 2, controlled E11.9 Active Problem Neuropathy, diabetic E11.40 Active Medications No Known Medications Results No Known Results Summary Purpose eClinicalWorks Submission
--- OUTSIDE RECORDS SUMMARY | 2019-11-14 23:21 | XMS REPORT ---
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 [facility] Name Role Phone JOSE BRENNAN Unavailable PROBLEMS Type Condition ICD9-CM Code [id number] Code Onset Dates Condition S tatus SNOMED Code Problem Neuropathy, diabetic E11.40 Active 091548345 Problem Type 2 diabetes mellitus without complications E11 .9 Active 795877163 Problem Diabetes type 2, controlled E11.9 Ac tive 94896498 Problem Arthritis M19.90 Active 5628205 Problem ASIYA (obstructive sleep apnea) G47.33 Active 49670882 Problem Type 2 diabetes mellitus with diabetic neuropathy, uns pecified E11.40 Active 14000657 Problem senior care current use of insulin Z79.4 Active 008044992 Problem Mood disorder F39 Active 521363 05 Problem Erectile dysfunction, unspecified erectile dysfunction typ e N52.9 Active [id number] ALLERGIES No Information ENCOUNTERS Encounter Location Date Diagnosis [facility] [address] [id number] [address] [place] [address] [id number] 14 Oct, 2017 Dental caries K02.9 and Anderson al examination Z01.20 [facility] [address] [id number] [address] [place] [address] September, [facility] [address] [id number] [address] [place] [id number] 05 Aug, 2017 Diabetes type 2, controlled E11.9 ; Mood disorder F39 ; Arthritis M19.90 and Family history of rheumatoid arthritis Z82.61 [facility] [address] [id number] [address] [place] [address] 15 Jul, 2017 Infection of both inner ears H83.03 and Dizziness R42 [facility] [address] [id number] [address] [place] [id number] 14 Jul, 2017 [facility] [address] [id number] [address] [place] [address] Jul, Diabetes type 2, controlled E11.9 [facility] [address] [id number] [address] [place] [address] [id number] Jul, Dental examination Z01.20 [facility] [address] [id number] [address] [place] [address] May, Diabetes type 2, controlled E11.9 [facility] [address] [id number] [address] [place] [address] May, [facility] [address] [id number] [address] [place] [address] [id number] May, Dental examination Z01.20 [facility] [address] [id number] [address] [place] [phone] May, [facility] [address] [id number] [address] [place] [id number] May, [facility] [address] [id number] [address] [place] [address] May, Diabetes type 2, controlled E11.9 [facility] [address] [id number] [address] [place] [address] Apr, [facility] [address] [id number] [address] [place] [address] Apr, Mood disorder F39 [facility] [address] [id number] [address] [place] [address] Mar, [facility] [address] [id number] [address] [place] [address] Mar, Encounter for immunization Z 23 and Diabetes type 2, controlled E11.9 [facility] [address] [id number] [address] [place] [address] Jan, Mood disorder F39 [facility] [address] [id number] [address] [place] [id number] Jan, Type 2 diabetes mellitus wit hout complications E11.9 [facility] [address] [facility] [id number] [address] [place] [address] Nov, [facility] [address] [facility] [id number] [address] [place] [address] Nov, Type 2 diabetes mellitus wit hout complications E11.9 ; Mood disorder F39 and ASIYA (obstructive sleep apnea) G47.33 [facility] [address] [facility] [place] [id number] [address] [place] [address] September, Diabetes type 2, controlled E11.9 [facility] [address] [facility] [id number] [address] [place] [address] September, [facility] [address] [facility] [id number] [address] [place] [address] Aug, Diabetes type 2, controlled E11.9 [facility] [address] [facility] [id number] [address] [place] [address] Jul, [facility] [address] [facility] [id number] [address] [place] [address] Jul, Type 2 diabetes mellitus wit hout complications E11.9 and 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.4 [facility] [address] [facility] [id number] [address] [place] [address] Jul, Diabetes type 2, controlled E11.9 [facility] [address] [facility] [id number] [address] [place] [address] Jul, [facility] [address] [facility] [id number] [address] [place] [address] May, [facility] [address] [facility] [id number] [address] [place] [address] Apr, Diabetes type 2, controlled E11.9 [facility] [address] [facility] [id number] [address] [place] [address] 31 Feb, 2016 Erectile dysfunction, unspec ified erectile dysfunction type N52.9 ; Type 2 diabetes mellitus with diabetic neuropathy, unspecified E11.40 and senior care current use of insulin Z79.4 [facility] [address] [facility] [id number] [address] [place] [id number] 08 Jan, 2016 Impacted cerumen of both ear s H61.23 [facility] [address] [facility] [id number] [address] [place] [id number] 23 Oct, 2015 Type 2 diabetes mellitus wit hout complications E11.9 [address] [address] [facility] [id number] [address] [place] [address] Oct, [place] [address] [facility] [id number] [address] [place] [address] September, Type 2 diabetes mellitus wit hout complications E11.9 [place] [address] [id number] [address] [place] [address] Jul, Type 2 diabetes mellitus wit hout complications E11.9 ; Lumbar pain M54.5 and Tobacco abuse Z72.0 [place] [address] [facility] [id number] [address] [place] [id number] May, [place] [address] [id number] [address] [place] [address] May, [place] [address] [id number] [address] [place] [address] Apr, [place] [address] [id number] [address] [place] [address] Mar, [facility] [address] [facility] [id number] [address] [place] [address] Mar, Type 2 diabetes mellitus wit hout complications E11.9 [place] [address] [facility] [id number] [address] [place] [id number] 05 Mar, 2015 [facility] [address] [facility] [facility] [id number] [address] [place] [id number] 28 Feb, 2015 Type 2 diabetes mellitus wit hout complications E11.9 ; Neuropathy, diabetic E11.40 and Sleep apnea G47.30 [facility] [address] [id number] [address] [place] [id number] Feb, [facility] [address] [id number] [address] [place] [address] Jan, Skin infection, bacterial 68 6.9 [facility] [address] [id number] [address] [place] [address] Jan, [facility] [address] [id number] [address] [place] [address] Dec, Diabetes mellitus type 2, un complicated 250.00 [facility] [address] [id number] [address] [place] [address] Dec, [facility] [address] [id number] [address] [place] [address] Nov, [facility] [address] [id number] [address] [place] [address] Nov, Diabetes mellitus type 2, un complicated 250.00 and Obesity 278.00 [facility] [address] [id number] [address] [place] [address] Oct, [facility] [address] [id number] [address] [place] [address] Oct, [facility] [address] [id number] [address] [place] [id number] 14 Aug, 2014 [facility] [address] [id number] [address] [place] [address] Aug, [facility] [address] [id number] [address] [place] [address] Jul, [facility] [address] [id number] [address] [place] [address] Jul, [facility] [address] [id number] [address] [place] [address] Jul, [facility] [address] [id number] [address] [place] [address] Jul, [facility] [address] [id number] [address] [place] [address], [place] [address] Jul, [facility] [address] [id number] [address] [place] [address], [place] [address] Jul, [facility] [address] [id number] [address] [place] [address], [place] [address] Feb, [facility] [address] [id number] [address] [place] [address], [place] [address] Feb, [facility] [address] [id number] [address] [place] [address], [place] [address] Dec, [facility] [address] [id number] [address] [place] [address], [place] [address] Nov, [facility] [address] [id number] [address] [place] [address], [place] [address] Nov, [facility] [address] [id number] [address] [place] [address], [place] [address] Nov, [facility] [address] [id number] [address] [place] [address], [place] [address] Nov, [facility] [address] [id number] [address] [place] [address], [place] [address] Nov, [facility] [address] [id number] [address] [place] [address], [place] [address] September, [facility] [address] [id number] [address] [place] [address], [place] [address] September, [facility] [address] [id number] [address] [place] [address], [place] [address] Aug, [facility] [address] [id number] [address] [place] [address], [place] [address] Aug, [facility] [address] [id number] [address] [place] [address], [place] [address] Aug, [facility] [address] [id number] [address] [place] [address], [place] [address] Aug, [facility] [address] [id number] [address] [place] [address], [place] [address] Jul, [facility] [address] [id number] [address] [place] [address], [place] [address] Jul, [facility] [address] [id number] [address] [place] [address], [place] [address] Apr, [facility] [address] [id number] [address] [place] [address], [place] [address] Apr, [facility] [address] [id number] [address] [place] [address], [place] [address] Mar, [facility] [address] [id number] [address] [place] [address], [place] [address] Mar, [facility] [address] [id number] [address] [place] [address], [place] [address] Jan, [facility] [address] [id number] [address] [place] [address], [place] [address] Jan, [facility] [address] [id number] [address] [place] [address], [place] [address] Dec, [facility] [address] [id number] [address] [place] [address], [place] [address] Nov, [facility] [address] [id number] [address] [place] [address], [place] [address] Nov, [facility] [address] [id number] [address] [place] [address], [place] [address] Nov, [facility] [address] [id number] [address] [place] [address], [place] [address] Oct, [facility] [address] [id number] [address] [place] [address], [place] [address] Oct, [facility] [address] [id number] [address] [place] [address] [address] Oct, [facility] [address] [id number] [address] [place] [address], [place] [address] September, [facility] [address] [id number] [address] [place] [address], [place] [address] September, [facility] [address] [id number] [address] [place] [address], [place] [address] Aug, [facility] [address] [id number] [address] [place] [address], [place] [address] Aug, [facility] [address] [id number] [address] [place] [address], [place] [address] Aug, [facility] [address] [id number] [address] [place] [address], [place] [address] Aug, [facility] [address] [id number] [address] [place] [address], [place] [address] Jul, [facility] [address] [id number] [address] [place] [address], [place] [address] Jul, [facility] [address] [id number] [address] [place] [address], [place] [address] Jul, [facility] [address] [id number] [address] [place] [address], [place] [address] Jul, [facility] [address] [id number] [address] [place] [address], [place] [address] May, [facility] [address] [id number] [address] [place] [address], [place] [address] May, [facility] [address] [id number] [address] [place] [address], [place] [address] May, [facility] [address] [id number] [address] [place] [address], [place] [address] May, [facility] [address] [id number] [address] [place] [address], [place] [address] May, [facility] [address] [id number] [address] [place] [address], [place] [address] May, [facility] [address] [id number] [address] [place] [address], [place] [address] May, [facility] [address] [id number] [address] [place] [address], [place] [address] May, [facility] [address] [id number] [address] [place] [address], [place] [address] May, [facility] [address] [id number] [address] [place] [address], [place] [address] May, [facility] [address] [id number] [address] [place] [address], [place] [address] Apr, [facility] [address] [id number] [address] [place] [address], [place] [address] Apr, [facility] [address] [id number] [address] [place] [address], [place] [address] Apr, [facility] [address] [id number] [address] [place] [address], [place] [address] Apr, [facility] [address] [id number] [address] [place] [address], [place] [address] Mar, [facility] [address] [id number] [address] [place] [address], [place] [address] Mar, [facility] [address] [id number] [address] [place] [address], [place] [address] Feb, [facility] [address] [id number] [address] [place] [address], [place] [address] Feb, [facility] [address] [id number] [address] [place] [address], [place] [address] Feb, [facility] [address] [id number] [address] [place] [address], [place] [address] Feb, [facility] [address] [id number] [address] [place] [address], [place] [address] Jan, [facility] [address] [id number] [address] [place] [address], [place] [address] Dec, [facility] [address] [id number] [address] [place] [address], [place] [address] Oct, [facility] [address] [id number] [address] [place] [address], [place] [address] September, [facility] [address] [id number] [address] [place] [address], [place] [address] September, [facility] [address] [id number] [address] [place] [address], [place] [address] Jul, [facility] [address] [id number] [address] [place] [address], [place] [address] Jul, [facility] [address] [id number] [address] [place] [address], [place] [address] Jul, [facility] [address] [id number] [address] [place] [address], [place] [address] Jul, [facility] [address] [id number] [address] [place] [address], [place] [address] Jul, [facility] [address] [id number] [address] [place] [address], [place] [address] May, [facility] [address] [id number] [address] [place] [address], [place] [address] Apr, [facility] [address] [id number] [address] [place] [address], [place] [address] Apr, [facility] [address] [id number] [address] [place] [address], [place] [address] Apr, [facility] [address] [id number] [address] [place] [address], [place] [address] Apr, [facility] [address] [id number] [address] [place] [address], [place] [address] Mar, [facility] [address] [id number] [address] [place] [address], [place] [address] 16 Mar, 2011 [facility] [address] [id number] [address] [place] [address], [place] [address] 15 Mar, 2011 [facility] [address] [id number] [address] [place] [address], [place] [address] 11 Mar, 2011 [facility] [address] [id number] [address] [place] [address], [place] [address] 19 Feb, 2011 [facility] [address] [id number] [address] [place] [address], [place] [address] Dec, [facility] [address] [id number] [address] [place] [address], [place] [address] September, [facility] [address] [id number] [address] [place] [address], [place] [address] Aug, [facility] [address] [id number] [address] [place] [address], [place] [address] 17 May, 2010 [facility] [address] [id number] [address] [place] [address], [place] [address] 10 May, 2010 [facility] [address] [id number] [address] [place] [address], [place] [address] 24 Apr, 2010 [facility] [address] [id number] [address] [place] [address], [place] [address] Apr, [facility] [address] [id number] [address] [place] [address], [place] [address] 10 Apr, 2010 [facility] [address] [id number] [address] [place] [address], [place] [address] 24 Mar, 2010 [facility] [address] [id number] [address] [place] [address], [place] [address] 10 Mar, 2010 [facility] [address] [id number] [address] [place] [address], [place] [address] 10 Mar, 2010 [facility] [address] [id number] [address] [place] [address], [place] [address] 12 Nov, 2009 [facility] [address] [facility] [place] [id number] [address] [place] [phone] Oct, [facility] [address] [facility] [place] [id number] [address] [place] [id number] September, [facility] [address] [facility] [place] [id number] [address] [place] [phone] Dec, [facility] [address] [facility] [place] [id number] [address] [place] [id number] Jul, [facility] [address] [facility] [place] [id number] [address] [place] [id number] Jul, IMMUNIZATIONS No Known Immunizations SOCIAL HISTORY Never Assessed REASON FOR VISIT Controlled Med Refill PLAN OF CARE VITAL SIGNS MEDICATIONS Medication Instructions Dosage Frequency Start Date End Date Duration S tat Lyrica 50 mg Orally 3 times a [...]
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
--- OUTSIDE RECORDS SUMMARY | 2019-11-14 23:21 | XMS REPORT ---
Author Author Jerman BRENNAN Organization [employer] Address Unknown Phone Unavailable Care Team Providers Care Adobe Maker Name Role Phone JOSE BRENNAN CP Unavailable Allergies No Known Allergies Problems Problem Type Condition Code Onset Dates Condition Statu s Problem Diabetes type 2, controlled E11.9 Active Problem Neuropathy, diabetic E11.40 Active Medications Medication Code System Code Instructions Start Date End Date Status Dosage Metronidazole [facility] [address]-72 500 MG Orally Twice a day Jun 04, 2015 Jun 18, 2015 1 tablet Amoxicillin [facility] [address]-14 500 MG Orally Twice a day MayJun 18, 2015 2 tablets Results No Known Results Summary Purpose eClinicalWorks Submission
--- OUTSIDE RECORDS SUMMARY | 2019-11-14 23:21 | XMS REPORT ---
Author Author Jerman BRENNAN Organization [employer] Address Unknown Phone Unavailable Care Team Providers Care Levelman Name Role Phone JOSE BRENNAN CP Unavailable Allergies No Known Allergies Problems Problem Type Condition Code Onset Dates Condition Statu s Problem Diabetes type 2, controlled E11.9 Active Problem Neuropathy, diabetic E11.40 Active Medications Medication Code System Code Instructions Start Date End Date Status Dosage Levemir FlexTouch [facility] [address]-42 100 UNIT/ML Subcutaneo us 2 times a day Jun 03, 2015 42 units NovoLog Flexpen [facility] [address]-57 100 UNIT/ML August 23, 2013 take 40 Unit by Subcutaneous route 3 times per day Pen [place] 08/13" [facility] [address]266-[address]48 31G X 5 MM 6 times a day October 31, 2014 as directed Victoza [facility] [id number] 18MG/3ML INJECT 1. 8 MG SUBCUTANEOUS ONCE A DAY Results No Known Results Summary Purpose eClinicalWorks Submission
--- OUTSIDE RECORDS SUMMARY | 2019-11-14 23:21 | XMS REPORT ---
Author Jerman Medina Organization [employer] Address Unknown Phone Unavailable Care Team Providers Care [place] Extension Agent Name Role Phone JOSE BRENNAN CP Unavailable Allergies No Known Allergies Problems Problem Type Condition Code Onset Dates Condition Statu s Problem Diabetes type 2, controlled E11.9 Active Problem Neuropathy, diabetic E11.40 Active Medications No Known Medications Results No Known Results Summary Purpose eClinicalWorks Submission
[2019-11-14 23:22] LABS: POTASSIUM 3.9 MMOL/L (3.6-5.0); SODIUM 141 MMOL/L (135-145)
--- OUTSIDE RECORDS SUMMARY | 2019-11-14 23:22 | XMS REPORT ---
Author Jerman Hooker [facility] eClinicalWorks Address Unknown Phone Unavailable Care Team Providers Care [employer] Name Role Phone DANIELLE PACK CP Unavailable Allergies, Adverse Reactions, Alerts Substance Reaction Event Type N.K.D.A. Info Not Available Non Drug Allergy Problems Problem Type Condition ICD-9 Code Onset Dates Condition Statu s Problem Diarrhea 787.91 Active Problem Pain in joint, ankle and foot 719.47 Active Problem Diabetes mellitus type 2, uncomplicated 250.00 Active Problem Gastroparesis 536.3 Active Assessment Skin infection, bacterial 686.9 Ac tive Medications Medication Code System Code Instructions Start Date End Date Status Dosage Levemir [facility] [address]-90 100 unit/mL August 23, 2013 take 42 Unit by Subcutaneous route 2 times per day NovoLog Flexpen [facility] [address]-84 100 unit/mL August 23, 2013 take 40 Unit by Subcutaneous route 3 times per day tramadol [place] 0 50 mg Jul 20, 2014 take 1 tab let (50 mg) by oral route every 6 hours as needed PRN pain Neurontin [facility] [address]-99 600 mg 1 CAP orally 3 times a day Jul 022014 take 1 tablet (600 mg) by oral route 3 times per day Victoza [facility] [id number] 18MG/3ML INJECT 1. 8 MG SUBCUTANEOUS ONCE A DAY Lisinopril [facility] [address]-15 5 MG Orally Once a day 1 tablet Metformin HCl [facility] 27136921140 1000 MG TAKE ONE TABLET BY MOUTH TWICE DAILY WITH MORNING AND EVENING MEALS Clindamycin HCl [facility] [address]-41 150 MG Orally every 8 hrs 2014Mar 01, 2015 1 capsule Align [facility] 59784-67770 1 Orally Once a day Feb 19, 2015 Mar 12 15 as directed Pen [place] 08/13" [facility] [address]114 31G X 5 MM Once a day Lilliana 03, 20 15 as directed Omeprazole [facility] 37659352118 20 MG TAKE ONE CAPSULE BY MOUTH TWICE DAILY Procedures Procedure Coding System Code Date Office Visit, Est Pt., Level 3 CPT-4 53652 S ept 2014 Vital Signs Date/Time: Feb 19, 2015 Temperature 97.8 F Weight 271.7 lbs Height 70 in BMI 38.98 Index Blood Pressure Diastolic 78 mmHg Blood Pressure Systolic 122 mmHg Cardiac Monitoring Heart Rate 84 bpm Results No Known Results Summary Purpose eClinicalWorks Submission
--- OUTSIDE RECORDS SUMMARY | 2019-11-14 23:22 | XMS REPORT | Continuity of Care Document ---
Demographics Preferred Language Unknown Marital Status Unknown Presybeterian Affiliation Unknown Race Unknown Ethnic Group Unknown Author Organization Unknown Address Unknown Phone Unavailable Allergies There is no data. Medications There is no data. Problems Date Dx Coded Attending Type Code Diagnosis Diagnosed By 08/09/2008 703.0 NAIL INGROWN 08/09/2008 703.0 NAIL INGROWN 08/09/2008 703.0 NAIL INGROWN 08/09/2008 CHENG HILARIO DO K 703.0 NAIL INGROWN 08/09/2008 ABBY HILARIO DOA K 703.0 NAIL INGROWN 08/09/2008 JOSE BRENNAN APRN 70 3.0 NAIL INGROWN 08/09/2008 703.0 NAIL INGROWN 08/09/2008 JOSE BRENNAN APRN 70 3.0 NAIL INGROWN 08/09/2008 JOSE BRENNAN APRN 70 3.0 NAIL INGROWN 08/09/2008 DORA VILLALOBOS MD 703.0 NAIL INGROWN 08/09/2008 JOSE BRENNAN APRN 70 3.0 NAIL INGROWN 08/09/2008 JOSE BRENNAN APRN 70 3.0 NAIL INGROWN 08/09/2008 JOSE BRENNAN APRN 70 3.0 NAIL INGROWN 08/09/2008 703.0 NAIL INGROWN 08/09/2008 JOSE BRENNAN APRN 70 3.0 NAIL INGROWN 08/09/2008 CHENG HILARIO DO K 703.0 NAIL INGROWN 09/06/2008 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 09/06/2008 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 09/06/2008 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 09/06/2008 CHENG HILARIO DO K 250.00 DIABETES MELLITUS TYPE II 09/06/2008 CHENG HILARIO DO K 250.00 DIABETES MELLITUS TYPE II 09/06/2008 JOSE BRENNAN APRN 250.00 DIABETES MELLITUS TYPE II 09/06/2008 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 09/06/2008 JOSE BRENNAN APRN 250.00 DIABETES MELLITUS TYPE II 09/06/2008 JOSE BRENNAN APRN 250.00 DIABETES MELLITUS TYPE II 09/06/2008 DORA VILLALOBOS MD 250.0 0 DIABETES MELLITUS TYPE II 09/06/2008 JOSE BRENNAN APRN 250.00 DIABETES MELLITUS TYPE II 09/06/2008 JOSE BRENNAN APRN 250.00 DIABETES MELLITUS TYPE II 09/06/2008 JOSE BRENNAN APRN 250.00 DIABETES MELLITUS TYPE II 09/06/2008 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 09/06/2008 JOSE BRENNAN APRN 250.00 DIABETES MELLITUS TYPE II 09/06/2008 HILARIO DO, CHENG K 250.00 DIABETES MELLITUS TYPE II 10/05/2008 250.02 ЕЛЕНА BETES MELLITUS POORLY CONTROLLED 10/05/2008 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 10/05/2008 250.02 ЕЛЕНА BETES MELLITUS POORLY CONTROLLED 10/05/2008 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 10/05/2008 250.02 ЕЛЕНА BETES MELLITUS POORLY CONTROLLED 10/05/2008 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 10/05/2008 HILARIO DO, CHENG K 250.02 DIABETES MELLITUS POORLY CONTROLLED 10/05/2008 HILARIO DO, CHENG K 305.1 NICOTINE DEPENDENCE 10/05/2008 HILARIO DO, CHENG K 250.02 DIABETES MELLITUS POORLY CONTROLLED 10/05/2008 HILARIO DO, CHENG K 305.1 NICOTINE DEPENDENCE 10/05/2008 JOSE BRENNAN APRN 250.02 DIABETES MELLITUS POORLY CONTROLLED 10/05/2008 JOSE BRENNAN APRN 30 5.1 NICOTINE DEPENDENCE 10/05/2008 250.02 ЕЛЕНА BETES MELLITUS POORLY CONTROLLED 10/05/2008 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 10/05/2008 JOSE BRENNAN APRN 250.02 DIABETES MELLITUS POORLY CONTROLLED 10/05/2008 JOSE BRENNAN APRN 30 5.1 NICOTINE DEPENDENCE 10/05/2008 JOSE BRENNAN APRN 250.02 DIABETES MELLITUS POORLY CONTROLLED 10/05/2008 JOSE BRENNAN APRN 30 5.1 NICOTINE DEPENDENCE 10/05/2008 DORA VILLALOBOS MD 250.0 2 DIABETES MELLITUS POORLY CONTROLLED 10/05/2008 DORA VILLALOBOS MD 305.1 NICOTINE DEPENDENCE 10/05/2008 JOSE BRENNAN APRN 250.02 DIABETES MELLITUS POORLY CONTROLLED 10/05/2008 JOSE BRENNAN APRN 30 5.1 NICOTINE DEPENDENCE 10/05/2008 JOSE BRENNAN APRN 250.02 DIABETES MELLITUS POORLY CONTROLLED 10/05/2008 JOSE BRENNAN APRN 30 5.1 NICOTINE DEPENDENCE 10/05/2008 JOSE BRENNAN APRN 250.02 DIABETES MELLITUS POORLY CONTROLLED 10/05/2008 JOSE BRENNAN APRN 30 5.1 NICOTINE DEPENDENCE 10/05/2008 250.02 ЕЛЕНА BETES MELLITUS POORLY CONTROLLED 10/05/2008 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 10/05/2008 JOSE BRENNAN APRN 250.02 DIABETES MELLITUS POORLY CONTROLLED 10/05/2008 JOSE BRENNAN APRN 30 5.1 NICOTINE DEPENDENCE 10/05/2008 CHENG HILARIO DO K 250.02 DIABETES MELLITUS POORLY CONTROLLED 10/05/2008 ABBY HILARIO DOA K 305.1 NICOTINE DEPENDENCE 12/04/2008 465.9 UPPE R RESPIRATORY INFECTION 12/04/2008 465.9 UPPE R RESPIRATORY INFECTION 12/04/2008 465.9 UPPE R RESPIRATORY INFECTION 12/04/2008 ABBY HILARIO DOA K 465.9 UPPER RESPIRATORY INFECTION 12/04/2008 ABBY HILARIO DOA K 465.9 UPPER RESPIRATORY INFECTION 12/04/2008 JOSE BRENNAN APRN 46 5.9 UPPER RESPIRATORY INFECTION 12/04/2008 465.9 UPPE R RESPIRATORY INFECTION 12/04/2008 JOSE BRENNAN APRN 46 5.9 UPPER RESPIRATORY INFECTION 12/04/2008 JOSE BRENNAN APRN 46 5.9 UPPER RESPIRATORY INFECTION 12/04/2008 DORA VILLALOBOS MD 465.9 UPPER RESPIRATORY INFECTION 12/04/2008 JOSE BRENNAN APRN 46 5.9 UPPER RESPIRATORY INFECTION 12/04/2008 JOSE BRENNAN APRN 46 5.9 UPPER RESPIRATORY INFECTION 12/04/2008 JOSE BRENNAN APRN 46 5.9 UPPER RESPIRATORY INFECTION 12/04/2008 465.9 UPPE R RESPIRATORY INFECTION 12/04/2008 JOSE BRENNAN APRN 46 5.9 UPPER RESPIRATORY INFECTION 12/04/2008 CHENG HILARIO DO K 465.9 UPPER RESPIRATORY INFECTION 01/11/2009 NODX NO DI AGNOSIS 01/11/2009 NODX NO DI AGNOSIS 01/11/2009 NODX NO DI AGNOSIS 01/11/2009 CHENG HILARIO DO K NODX NO DIAGNOSIS 01/11/2009 CHENG HILARIO DO K NODX NO DIAGNOSIS 01/11/2009 JOSE BRENNAN APRN NO DX NO DIAGNOSIS 01/11/2009 NODX NO DI AGNOSIS 01/11/2009 JOSE BRENNAN APRN NO DX NO DIAGNOSIS 01/11/2009 JOSE BRENNAN APRN NO DX NO DIAGNOSIS 01/11/2009 DORA VILLALOBOS MD NODX NO DIAGNOSIS 01/11/2009 JOSE BRENNAN APRN NO DX NO DIAGNOSIS 01/11/2009 JOSE BRENNAN APRN NO DX NO DIAGNOSIS 01/11/2009 JOSE BRENNAN APRN NO DX NO DIAGNOSIS 01/11/2009 NODX NO DI AGNOSIS 01/11/2009 JOSE BRENNAN APRN NO DX NO DIAGNOSIS 01/11/2009 CHENG HILARIO DO NODX NO DIAGNOSIS 02/17/2010 372.30 CON JUNCTIVITIS UNSPECIFIED 02/17/2010 372.30 CON JUNCTIVITIS UNSPECIFIED 02/17/2010 372.30 CON JUNCTIVITIS UNSPECIFIED 02/17/2010 CHENG HILARIO DO 372.30 CONJUNCTIVITIS UNSPECIFIED 02/17/2010 CHENG HILARIO DO 372.30 CONJUNCTIVITIS UNSPECIFIED 02/17/2010 JOSE BRENNAN APRN 372.30 CONJUNCTIVITIS UNSPECIFIED 02/17/2010 372.30 CON JUNCTIVITIS UNSPECIFIED 02/17/2010 JOSE BRENNAN APRN 372.30 CONJUNCTIVITIS UNSPECIFIED 02/17/2010 JOSE BRENNAN APRN 372.30 CONJUNCTIVITIS UNSPECIFIED 02/17/2010 DORA VILLALOBOS MD 372.3 0 CONJUNCTIVITIS UNSPECIFIED 02/17/2010 JOSE BRENNAN APRN 372.30 CONJUNCTIVITIS UNSPECIFIED 02/17/2010 JOSE BRENNAN APRN 372.30 CONJUNCTIVITIS UNSPECIFIED 02/17/2010 JOSE BRENNAN APRN 372.30 CONJUNCTIVITIS UNSPECIFIED 02/17/2010 372.30 CON JUNCTIVITIS UNSPECIFIED 02/17/2010 JOES BRENNAN APRN 372.30 CONJUNCTIVITIS UNSPECIFIED 02/17/2010 CHENG HILARIO DO 372.30 CONJUNCTIVITIS UNSPECIFIED 04/09/2010 681.11 PAR ONYCHIA 04/09/2010 681.11 PAR ONYCHIA 04/09/2010 681.11 PAR ONYCHIA 04/09/2010 CHENG HILARIO DO 681.11 PARONYCHIA 04/09/2010 CHENG HILARIO DO 681.11 PARONYCHIA 04/09/2010 JOSE BRENNAN APRN 681.11 PARONYCHIA 04/09/2010 681.11 PAR ONYCHIA 04/09/2010 JOSE BRENNAN APRN 681.11 PARONYCHIA 04/09/2010 JOSE BRENNAN APRN 681.11 PARONYCHIA 04/09/2010 DORA VILLALOBOS MD 681.1 1 PARONYCHIA 04/09/2010 JOSE BRENNAN APRN 681.11 PARONYCHIA 04/09/2010 JOSE BRENNAN APRN 681.11 PARONYCHIA 04/09/2010 JOSE BRENNAN APRN 681.11 PARONYCHIA 04/09/2010 681.11 PAR ONYCHIA 04/09/2010 JOSE BRENNAN APRN 681.11 PARONYCHIA 04/09/2010 CHENG HILARIO DO 681.11 PARONYCHIA 06/09/2010 535.50 GAS TRITIS UNSPEC 06/09/2010 535.50 GAS TRITIS UNSPEC 06/09/2010 535.50 GAS TRITIS UNSPEC 06/09/2010 CHENG HILARIO DO 535.50 GASTRITIS UNSPEC 06/09/2010 CHENG HILARIO DO 535.50 GASTRITIS UNSPEC 06/09/2010 JOSE BRENNAN APRN 535.50 GASTRITIS UNSPEC 06/09/2010 535.50 GAS TRITIS UNSPEC 06/09/2010 JOSE BRENNAN APRN 535.50 GASTRITIS UNSPEC 06/09/2010 JOSE BRENNAN APRN 535.50 GASTRITIS UNSPEC 06/09/2010 DORA VILLALOBOS MD 535.5 0 GASTRITIS UNSPEC 06/09/2010 JOSE BRENNAN APRN 535.50 GASTRITIS UNSPEC 06/09/2010 JOSE BRENNAN APRN 535.50 GASTRITIS UNSPEC 06/09/2010 JOSE BRENNAN APRN 535.50 GASTRITIS UNSPEC 06/09/2010 535.50 GAS TRITIS UNSPEC 06/09/2010 JOSE BRENNAN APRN 535.50 GASTRITIS UNSPEC 06/09/2010 CHENG HILARIO DO 535.50 GASTRITIS UNSPEC 07/09/2010 V03.82 PCV 7 PCV13 PCV23, STREPTOCOCCUS PNEUMONIAE [PNEUMOCOCCUS] 07/09/2010 V03.82 PCV 7 PCV13 PCV23, STREPTOCOCCUS PNEUMONIAE [PNEUMOCOCCUS] 07/09/2010 V03.82 PCV 7 PCV13 PCV23, STREPTOCOCCUS PNEUMONIAE [PNEUMOCOCCUS] 07/09/2010 CHENG HILARIO DO V03.82 PCV7 PCV13 PCV23, STREPTOCOCCUS PNEUMONIAE [PNEUMOCOCCUS] 07/09/2010 CHENG HILARIO DO V03.82 PCV7 PCV13 PCV23, STREPTOCOCCUS PNEUMONIAE [PNEUMOCOCCUS] 07/09/2010 JOSE BRENNAN APRN V03.82 PCV7 PCV13 PCV23, STREPTOCOCCUS PNEUMONIAE [PNEUMOCOC CUS] 07/09/2010 V03.82 PCV 7 PCV13 PCV23, STREPTOCOCCUS PNEUMONIAE [PNEUMOCOCCUS] 07/09/2010 JOSE BRENNAN APRN V03.82 PCV7 PCV13 PCV23, STREPTOCOCCUS PNEUMONIAE [PNEUMOCOC CUS] 07/09/2010 JOSE BRENNAN APRN V03.82 PCV7 PCV13 PCV23, STREPTOCOCCUS PNEUMONIAE [PNEUMOCOC CUS] 07/09/2010 DORA VILLALOBOS MD V03.8 2 PCV7 PCV13 PCV23, STREPTOCOCCUS PNEUMONIAE [PNEUMOCOCCUS] 07/09/2010 JOSE BRENNAN APRN V03.82 PCV7 PCV13 PCV23, STREPTOCOCCUS PNEUMONIAE [PNEUMOCOC CUS] 07/09/2010 JOSE BRENNAN APRN V03.82 PCV7 PCV13 PCV23, STREPTOCOCCUS PNEUMONIAE [PNEUMOCOC CUS] 07/09/2010 JOSE BRENNAN APRN V03.82 PCV7 PCV13 PCV23, STREPTOCOCCUS PNEUMONIAE [PNEUMOCOC CUS] 07/09/2010 V03.82 PCV 7 PCV13 PCV23, STREPTOCOCCUS PNEUMONIAE [PNEUMOCOCCUS] 07/09/2010 JOSE BRENNAN APRN V03.82 PCV7 PCV13 PCV23, STREPTOCOCCUS PNEUMONIAE [PNEUMOCOC CUS] 07/09/2010 CHENG HILARIO DO V03.82 PCV7 PCV13 PCV23, STREPTOCOCCUS PNEUMONIAE [PNEUMOCOCCUS] 04/15/2011 V04.81 FLU DX (3 YRS AND ABOVE, IM) 04/15/2011 V04.81 FLU DX (3 YRS AND ABOVE, IM) 04/15/2011 V04.81 FLU DX (3 YRS AND ABOVE, IM) 04/15/2011 CHENG HILARIO DO V04.81 FLU DX (3 YRS AND ABOVE, IM) 04/15/2011 CHENG HILARIO DO V04.81 FLU DX (3 YRS AND ABOVE, IM) 04/15/2011 JOSE BRENNAN APRN V04.81 FLU DX (3 YRS AND ABOVE, IM) 04/15/2011 V04.81 FLU DX (3 YRS AND ABOVE, IM) 04/15/2011 JOSE BRENNAN APRN V04.81 FLU DX (3 YRS AND ABOVE, IM) 04/15/2011 JOSE BRENNAN APRN V04.81 FLU DX (3 YRS AND ABOVE, IM) 04/15/2011 DORA VILLALOBOS MD V04.8 1 FLU DX (3 YRS AND ABOVE, IM) 04/15/2011 JOSE BRENNAN APRN T V04.81 FLU DX (3 YRS AND ABOVE, IM) 04/15/2011 JOSE BRENNAN APRN T V04.81 FLU DX (3 YRS AND ABOVE, IM) 04/15/2011 JOSE BRENNAN APRN T V04.81 FLU DX (3 YRS AND ABOVE, IM) 04/15/2011 V04.81 FLU DX (3 YRS AND ABOVE, IM) 04/15/2011 JOSE BRENNAN APRN T V04.81 FLU DX (3 YRS AND ABOVE, IM) 04/15/2011 HILARIO DO, CHENG K V04.81 FLU DX (3 YRS AND ABOVE, IM) 2012 787.91 ЕЛЕНА RRHEA 2012 HILARIO DO, CHENG K 787.91 DIARRHEA 2012 HILARIO DO, CHENG K 787.91 DIARRHEA 2012 JOSE BRENNAN APRN T 787.91 DIARRHEA 2012 787.91 ЕЛЕНА RRHEA 2012 JOSE BRENNAN APRN T 787.91 DIARRHEA 2012 JOSE BRENNAN APRN T 787.91 DIARRHEA 2012 DORA VILLALOBOS MD 787.9 1 DIARRHEA 2012 JOSE BRENNAN APRN T 787.91 DIARRHEA 2012 JOSE BRENNAN APRN T 787.91 DIARRHEA 2012 JOSE BRENNAN APRN T 787.91 DIARRHEA 2012 787.91 ЕЛЕНА RRHEA 2012 JOSE BRENNAN APRN T 787.91 DIARRHEA 2012 HILARIO DO, CHENG K 787.91 DIARRHEA 08/17/2012 JOSE BRENNAN APRN T 53 6.3 GASTROPARESIS 08/17/2012 536.3 NAY ROPARESIS 08/17/2012 JOSE BRENNAN APRN T 53 6.3 GASTROPARESIS 08/17/2012 JOSE BRENNAN APRN 53 6.3 GASTROPARESIS 08/17/2012 DORA VILLALOBOS MD 536.3 GASTROPARESIS 08/17/2012 JOSE BRENNAN APRN 53 6.3 GASTROPARESIS 08/17/2012 JOSE BRENNAN APRN 53 6.3 GASTROPARESIS 08/17/2012 JOSE BRENNAN APRN 53 6.3 GASTROPARESIS 08/17/2012 536.3 NAY ROPARESIS 08/17/2012 JOSE BRENNAN APRN 53 6.3 GASTROPARESIS 08/17/2012 CHENG HILARIO DO 536.3 GASTROPARESIS 11/16/2012 719.47 J CARLOS N IN JOINT INVOLVING ANKLE AND FOOT 11/16/2012 JOSE BRENNAN APRN 719.47 PAIN IN JOINT INVOLVING ANKLE AND FOOT 11/16/2012 JOSE BRENNAN APRN 719.47 PAIN IN JOINT INVOLVING ANKLE AND FOOT 11/16/2012 DORA VILLALOBOS MD 719.4 7 PAIN IN JOINT INVOLVING ANKLE AND FOOT 11/16/2012 JOSE BRENNAN APRN 719.47 PAIN IN JOINT INVOLVING ANKLE AND FOOT 11/16/2012 JOSE BRENNAN APRN 719.47 PAIN IN JOINT INVOLVING ANKLE AND FOOT 11/16/2012 JOSE BRENNAN APRN 719.47 PAIN IN JOINT INVOLVING ANKLE AND FOOT 11/16/2012 719.47 J CARLOS N IN JOINT INVOLVING ANKLE AND FOOT 11/16/2012 JOSE BRENNAN APRN 719.47 PAIN IN JOINT INVOLVING ANKLE AND FOOT 11/16/2012 CHENG HILARIO DO 719.47 PAIN IN JOINT INVOLVING ANKLE AND FOOT Procedures Code Description [place] [address] A1C (IN-HOUSE) 05/18/2012 27703 MICR O ALBUMIN-IN HOUSE 05/18/2012 05006 MICR OALBUMIN 05/20/2012 84100 ROUT INE VENIPUNCTURE 2012 85262 H PY JENNY (IN-HOUSE) 2012 61423 CMP 2012 94896 CBC 2012 23307 HEMOCCULT 06/09/2012 86395 FATS /LIPIDS FECES, QUAL 06/09/2012 56134 CULT URE STOOL 06/09/2012 17790 STOO L FOR O & P 06/09/2012 63757 CLOS TRIDIUM (C-DIFF) 06/09/2012 00977 STOO L FOR POLYS & LEUKOCYTES 06/09/2012 S Abner Abel 06/17/2012 02731 A1C (IN-HOUSE) 08/17/2012 45249 NAY BRADY EMPTYING STUDY 08/19/2012 87778 A1C (IN-HOUSE) 11/16/2012 54487 A1C (IN-HOUSE) 02/22/2013 70491 A1C (IN-HOUSE) 05/22/2013 83739 A1C (IN-HOUSE) 08/30/2013 91536 ROUT INE VENIPUNCTURE 09/04/2013 27875 CMP 09/04/2013 39109 LIPI D PANEL 09/04/2013 19021 CBC 09/04/2013 Carlito OtfAce rivas 12/06/2013 78075 A1C (IN-HOUSE) 12/06/2013 14425 A1C (IN-HOUSE) 03/21/2014 Results Test Result Range CBC With Differential/Platelet - 7 09:00 WBC 8.4 x10E3/uL 3.4-10.8 RBC 5.24 x10E6/uL 4.14-5.80 Hemoglobin 15.8 g/dL 12.6-17.7 Hematocrit 47.6 % 37.5-51.0 MCV 91 fL 79-97 MCH 30.2 pg 26.6-33.0 MCHC 33.2 g/dL 31.5-35.7 RDW 13.9 % 12.3-15.4 Platelets 217 x10E3/uL 150-379 Neutrophils 63 % Lymphs 25 % Monocytes 9 % Eos 2 % Basos 1 % Neutrophils (Absolute) 5.3 x10E3/uL 1.4- 7.0 Lymphs (Absolute) 2.1 x10E3/uL 0.7-3.1 Monocytes(Absolute) 0.8 x10E3/uL 0.1-0.9 Eos (Absolute) 0.2 x10E3/uL 0.0-0.4 Baso (Absolute) 0.0 x10E3/uL 0.0-0.2 Immature Granulocytes 0 % Immature Grans (Abs) 0.0 x10E3/uL 0.0-0. 1 Comp. Metabolic Panel (14) - 08/14/16 09 :00 Glucose, Serum 189 mg/dL 65-99 BUN 15 mg/dL 6-20 Creatinine, Serum 0.99 mg/dL 0.76-1.27 eGFR If NonAfricn Am 96 mL/min/1.73 >59 eGFR If Africn Am 110 mL/min/1.73 >5 9 BUN/Creatinine Ratio 15 8-19 Sodium, Serum 137 mmol/L 134-144 Potassium, Serum 5.0 mmol/L 3.5-5.2 Chloride, Serum 97 mmol/L 96-106 Carbon Dioxide, Total 21 mmol/L 18-29 Calcium, Serum 9.4 mg/dL 8.7-10.2 Protein, Total, Serum 6.9 g/dL 6.0-8.5 Albumin, Serum 4.4 g/dL 3.5-5.5 Globulin, Total 2.5 g/dL 1.5-4.5 A/G Ratio 1.8 1.2-2.2 Bilirubin, Total 0.3 mg/dL 0.0-1.2 Alkaline Phosphatase, S 65 IU/L 39-117 AST (SGOT) 14 IU/L 0-40 ALT (SGPT) 17 IU/L 0-44 Lipid Panel - 08/14/16 09:00 Cholesterol, Total 209 mg/dL 100-199 Triglycerides 253 mg/dL 0-149 HDL Cholesterol 35 mg/dL >39 VLDL Cholesterol [place] 51 mg/dL 5-40 LDL Cholesterol Calc 123 mg/dL 0-99 TSH - 08/14/16 09:00 TSH 2.050 uIU/mL 0.450-4.500 TSH - 09/02/17 09:18 TSH 1.50 mIU/L 0.40-4.50 PDM - TRAMADOL - 02/04/18 11:54 Prescribed Drug 1 Tramadol NRG COMMENT NRG Desmethyltramadol NEGATIVE ng/mL <100 medMATCH Desmethyltram INCONSISTENT NRG Tramadol NEGATIVE ng/mL <100 medMATCH Tramadol INCONSISTENT NRG PDM - 09 PANEL (PROFILE 1) - 05/19/19 15 :54 Prescribed Drug 1 [place](TM) NRG Creatinine 93.9 mg/dL > or = 20.0 pH 5.1 4.5-9.0 Oxidant NEGATIVE mcg/mL <200 Amphetamines NEGATIVE ng/mL <500 medMATCH Amphetamines CONSISTENT NRG Benzodiazepines NEGATIVE ng/mL <100 medMATCH Benzodiazepines CONSISTENT NRG Marijuana Metabolite NEGATIVE ng/mL <20 medMATCH Marijuana Metab CONSISTENT NRG Cocaine Metabolite NEGATIVE ng/mL <150 medMATCH Cocaine Metab CONSISTENT NRG Opiates POSITIVE ng/mL <100 Oxycodone NEGATIVE ng/mL <100 [facility]MATCH Oxycodone CONSISTENT NRG COMMENT NRG Codeine NEGATIVE ng/mL <50 medMATCH Codeine CONSISTENT NRG Hydrocodone 715 ng/mL <50 medMATCH Hydrocodone CONSISTENT NRG Hydromorphone 108 ng/mL <50 [facility]MATCH Hydromorphone CONSISTENT NRG Morphine NEGATIVE ng/mL <50 [facility]MATCH Morphine CONSISTENT NRG Norhydrocodone 403 ng/mL <50 medMATCH Norhydrocodone CONSISTENT NRG Barbiturates NEGATIVE ng/mL <300 medMATCH Barbiturates CONSISTENT NRG Methadone Metabolite NEGATIVE ng/mL <100 medMATCH Methadone Metab CONSISTENT NRG Phencyclidine NEGATIVE ng/mL <25 [facility]MATCH Phencyclidine CONSISTENT NRG A1C - 05/19/19 15:54 HEMOGLOBIN A1c 12.0 % of total Hgb <5.7 Complete blood count (CBC) with automate d white blood cell (WBC) differential - 11/14/19 22:55 Blood leukocytes automated count (number/volume) 11.7 10*3/uL 4.3-11.0 Blood erythrocytes automated count (number/volume) 5.43 10*6/uL 4.35-5.85 Venous blood hemoglobin measurement (mass/volume) 16.5 g/dL 13.3-17.7 Blood hematocrit (volume fraction) 49 % 40-54 Automated erythrocyte mean corpuscular volume 90 [ foz_us] 80-99 Automated erythrocyte mean corpuscular h emoglobin (mass per erythrocyte) 30 pg 25-34 Automated erythrocyte mean corpuscular h emoglobin concentration measurement (mass/volume) 34 g/dL 32-36 Automated erythrocyte distribution width ratio 13. 8 % 10.0- 14.5 Automated blood platelet count (count/volume) 238 10*3/uL 130-400 Automated blood platelet mean volume measurement 9.9 [foz_us] 7.4-10.4 Automated blood neutrophils/100 leukocytes 44 % 42-75 Automated blood lymphocytes/100 leukocytes 44 % 12-44 Blood monocytes/100 leukocytes 9 % 0-12 Automated blood eosinophils/100 leukocytes 2 % 0-10 Automated blood basophils/100 leukocytes 1 % 0-10 Blood neutrophils automated count (number/volume) 5.2 10*3 1.8-7.8 Blood lymphocytes automated count (number/volume) 5.1 10*3 1.0-4.0 Blood monocytes automated count (number/volume) 1. 1 10*3 0.0-1.0 Automated eosinophil count 0.2 10*3/uL 0 .0-0.3 Automated blood basophil count (count/volume) 0.1 10*3/uL 0.0-0.1 Capillary blood glucose measurement by g lucometer (mass/volume) - 11/14/19 22:59 Capillary blood glucose measurement by glucometer (mas s/volume) 234 mg/dL 70-110 Encounters ACCT No. Visit Date/Time Discharge Status Pt. Type Provider Facility Loc./Unit Complaint [id number] 08/15/2016 08:06:00 Document Registration [id number] 07/30/2014 07:59:00 07/30/2014 23:59: 59 CLS Outpatient CHENG HILARIO DO [id number] 03/21/2014 15:36:00 03/21/2014 23:59: 59 CLS Outpatient JOSE BRENNAN APRN [id number] 12/13/2013 14:18:00 12/13/2013 23:59: 59 CLS Outpatient [id number] 12/06/2013 10:52:00 12/06/2013 23:59: 59 CLS Outpatient JOSE BRENNAN APRN [id number] 09/04/2013 08:01:00 09/04/2013 23:59: 59 CLS Outpatient JOSE BRENNAN APRN [id number] 08/30/2013 16:47:00 08/30/2013 23:59: 59 CLS Outpatient JOSE BRENNAN APRN [id number] 05/22/2013 14:48:00 05/22/2013 23:59: 59 CLS Outpatient DORA VILLALOBOS MD [id number] 02/22/2013 17:33:00 02/22/2013 23:59: 59 CLS Outpatient JOSE BRENNAN APRN [id number] 12/20/2012 13:50:00 12/20/2012 23:59: 59 CLS Outpatient JOSE BRENNAN APRN [id number] 08/17/2012 09:56:00 08/17/2012 23:59: 59 CLS Outpatient JOSE BRENNAN APRN [id number] 06/27/2012 17:24:00 06/27/2012 23:59: 59 CLS Outpatient CHENG HILARIO DO [id number] 06/09/2012 12:24:00 06/09/2012 23:59: 59 CLS Outpatient CHENG HILARIO DO [id number] 2012 15:37:00 2012 23:59: 59 CLS Outpatient [id number] 05/18/2012 17:00:00 05/18/2012 23:59: 59 CLS Outpatient [id number] 02/10/2012 15:21:00 02/10/2012 23:59:5 9 CLS Outpatient [id number] 11/16/2012 14:52:00 Document Registration [id number] 11/14/2019 23:01:00 Document Registration [id number] 08/23/2019 16:20:00 08/23/2019 23:59:5 9 CLS Outpatient [facility] [id number] 05/19/2019 14:00:00 Document Registration [id number] 02/04/2018 10:40:00 Document Registration [id number] 09/02/2017 08:40:00 Document Registration
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
--- OUTSIDE RECORDS SUMMARY | 2019-11-14 23:22 | XMS REPORT ---
Author Jerman Medina Organization [employer] Address Unknown Phone Unavailable Care Team Providers Care Hand Ii Blocker Name Role Phone JOSE BRENNAN CP Unavailable [...]
[2019-11-14 23:23] LABS: ALANINE AMINOTRANSFERASE 23 U/L (0-55); ALBUMIN 4.2 GM/DL (3.2-4.5); ALKALINE PHOSPHATASE 91 U/L (40-136); BILIRUBIN,TOTAL 0.2 MG/DL (0.1-1.0); BUN/CREATININE RATIO 13; CALCIUM 9.4 MG/DL (8.5-10.1); CARBON DIOXIDE 23 MMOL/L (21-32); CHLORIDE 101 MMOL/L (98-107); CREATININE SERUM 1.08 MG/DL (0.60-1.30); GFR ESTIMATED > 60; GLUCOSE 240 MG/DL (70-105); TOTAL PROTEIN 7.6 GM/DL (6.4-8.2)
[2019-11-14] MEDS ORDERED: HEParin (CATH LAB) 2,000 ML IV ONE (23:28)
[2019-11-14] MEDS ORDERED: NS IV 1000 ML 1,000 ML ONE (23:28)
[2019-11-14] MEDS ORDERED: LIDOCAINE 1% INJ 20 ML 20 ML VIAL ONE (23:28)
[2019-11-14] MEDS ORDERED: NITRO DRIP 25000 MCG/D5W 250 ML IV ONE (23:29)
[2019-11-14] MEDS ORDERED: HEParin 1000 UNIT/ML (10ML VIAL) FOR BOLUS ONE (23:29)
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
[2019-11-14] MEDS ORDERED: MIDAZOLAM 5 MG/5 ML (VERSED) VIAL ONE (23:37)
[2019-11-14] MEDS ORDERED: EPTIFIBATIDE BOLUS 20 ML IV ONE (23:37)
[2019-11-14] MEDS ORDERED: fentaNYL INJECTION 100 MCG/2 ML AMP ONE (23:37)
--- NOTE | 2019-11-14 23:53 | History & Physicial-Cardiolgy ---
HPI-Cardiology Cardiology Consultation: Date of Consultation 11/14/19 Date of Admission Attending Physician Sherif Chávez MD Admitting Physician Consulting Physician Sherif CHÁVEZ MD HPI: Time Seen by a Provider: 23:52 Chief Complaint: Chest pain This is a 44-year-old gentleman with history of diabetes, hypertension, hyperlipidemia and active smoking. He presents with chest pain of one hour duration to the ER. Moderate to severe intensity. 10. No radiation. No exacerbating or relieving factors. EKG showed acute inferior STEMI. Positive family history. Review of Systems-Cardiology Review of Systems Constitutional: As described under HPI; No As described under HPI, No no symptoms reported, No chills, No fever, No lightheadedness Eyes: No As described under HPI, No no symptoms reported, No blindness, No blurred vision, No contact lenses, No drainage, No decreased acuity, No foreign body sensation, No pain, No vision change Ears/Nose/Throat: No As described under HPI, No no symptoms reported, No chronic hearing loss, No ear discharge, No ear pain, No nasal drainage, No ulcerations Respiratory: No no symptoms reported; As described under HPI; No As described under HPI, No cough, No orthopnea, No shortness of breath, No SOB with excertion Cardiovascular: No no symptoms reported; As described under HPI; No As described under HPI; chest pain; No edema, No irregular heart rate, No lightheadedness, No palpitations Gastrointestinal: No no symptoms reported, No As described under HPI, No abdomen distended, No abdominal pain, No blood streaked bowels, No constipation, No diarrhea, No nausea, No vomiting, No stool coloration changes Genitourinary: No As described under HPI, No burning, No dysuria, No discharge, No frequency, No flank pain, No hematuria, No urgency Skin: No rash, No skin related problems, No ulcerations Psychiatric/Neurological: No anxiety, No depression, No seizure, No focal weakness, No syncope Hematologic: No bleeding abnormalities RBS-Cwqgby-Spxgwd Hx Patient Social History Alcohol Use: Denies Use Recreational Drug Use: No Smoking Status: Current Everyday Smoker Type Used: Cigarettes Recent Foreign Travel: No Recent Infectious Disease Expo: No Past Medical History PMH As described under Assessment. Allergies and Home Medications Allergies Coded Allergies: No Known Drug Allergies (Unverified , 11/14/19) Patient Home Medication List Home Medication List Reviewed: Yes Physical Exam-Cardiology Physical Exam Vital Signs/I&O 11/15/19 11/15/19 11/15/19 11/15/19 01:30 01:45 02:00 02:15 Pulse 99 80 103 104 Resp 19 14 9 22 B/P (MAP) 114/79 (91) 115/82 (93) 136/89 (105) 123/76 (92) Pulse Ox 99 96 96 97 O2 Delivery Nasal Cannula Nasal Cannula Nasal Cannula Nasal Cannula O2 Flow Rate 2.00 2.00 2.00 2.00 11/15/19 11/15/19 11/15/19 11/15/19 02:30 03:00 03:20 04:00 Pulse 102 98 69 Resp 16 11 14 B/P (MAP) 129/86 (100) 109/79 (89) 112/74 (87) Pulse Ox 98 94 98 97 O2 Delivery Nasal Cannula Nasal Cannula Nasal Cannula Nasal Cannula O2 Flow Rate 2.00 2.00 2.00 2.00 11/15/19 11/15/19 11/15/19 11/15/19 05:00 05:45 06:00 07:00 Pulse 72 83 79 Resp 21 17 9 B/P (MAP) 109/72 (84) 113/79 (90) 118/75 (89) Pulse Ox 93 93 93 O2 Delivery Nasal Cannula Room Air Nasal Cannula Nasal Cannula O2 Flow Rate 2.00 2.00 2.00 11/15/19 11/15/19 11/15/19 11/15/19 08:00 09:00 10:00 11:00 Pulse 91 92 63 56 Resp 10 17 9 14 B/P (MAP) 122/69 (86) 125/93 (104) 118/66 (83) 106/56 (73) Pulse Ox 96 93 94 95 O2 Delivery Nasal Cannula Nasal Cannula Nasal Cannula Nasal Cannula O2 Flow Rate 2.00 2.00 2.00 2.00 11/15/19 12:00 Pulse 67 Resp 11 B/P (MAP) 103/84 (90) Pulse Ox 93 O2 Delivery Nasal Cannula O2 Flow Rate 2.00 Capillary Refill : Less Than 3 Seconds Constitutional: appears stated age, AAO x 3; No apparent distress; well- developed, well-nourished HEENT: PERRL; No discharge; hearing is well preserved, oral hygience is good; No ulceration, No xanthelasmas are seen Neck: No carotid bruit; carotid pulses are 2 + bilaterally Respiratory: chest is bilaterally symmetric, lungs clear to auscultation Cardiovascular: regular rate-rhythm, S1 and S2; No diastolic murmur, No systolic murmur Gastrointestinal: soft, audible bowel sounds; No spleenomegaly Rectal: deferred Extremities: normal range of motion, non-tender, normal inspection; No clubbing, No cyanosis; no lower extremity edema bilateral; No significant edema Neurologic/Psychiatric: no motor/sensory deficits, alert, oriented x 3, power is 5/5 both on sides Skin: normal color, warm/dry; No rash, No ulcerations Data Review Labs Laboratory Tests 11/14/19 22:55: White Blood Count 11.7H, Red Blood Count 5.43, Hemoglobin 16.5, Hematocrit 49, Mean Corpuscular Volume 90, Mean Corpuscular Hemoglobin 30, Mean Corpuscular Hemoglobin Concent 34, Red Cell Distribution Width 13.8, Platelet Count 238, Mean Platelet Volume 9.9, Neutrophils (%) (Auto) 44, Lymphocytes (%) (Auto) 44, Monocytes (%) (Auto) 9, Eosinophils (%) (Auto) 2, Basophils (%) (Auto) 1, Neutrophils # (Auto) 5.2, Lymphocytes # (Auto) 5.1H, Monocytes # (Auto) 1.1H, Eosinophils # (Auto) 0.2, Basophils # (Auto) 0.1, Prothrombin Time 12.1L, INR Comment 0.9, Activated Partial Thromboplast Time 24, Sodium Level 141, Potassium Level 3.9, Chloride Level 101, Carbon Dioxide Level 23, Anion Gap 17H, Blood Urea Nitrogen 14, Creatinine 1.08, Estimat Glomerular Filtration Rate > 60, BUN/Creatinine Ratio 13, Glucose Level 240H, Calcium Level 9.4, Corrected Calcium 9.2, Magnesium Level 2.0, Total Bilirubin 0.2, Aspartate Amino Transf (AST/SGOT) 19, Alanine Aminotransferase (ALT/SGPT) 23, Alkaline Phosphatase 91, Troponin I < 0.30, Pro-B-Type Natriuretic Peptide 47.8, Total Protein 7.6, Albumin 4.2 11/14/19 22:59: Glucometer 234H 11/14/19 23:00: 11/15/19 02:15: White Blood Count 13.1H, Red Blood Count 5.20, Hemoglobin 15.9, Hematocrit 47, Mean Corpuscular Volume 90, Mean Corpuscular Hemoglobin 31, Mean Corpuscular Hemoglobin Concent 34, Red Cell Distribution Width 14.2, Platelet Count 198, Mean Platelet Volume 10.4, Neutrophils (%) (Auto) 80H, Lymphocytes (%) (Auto) 14, Monocytes (%) (Auto) 6, Eosinophils (%) (Auto) 1, Basophils (%) (Auto) 0, Neutrophils # (Auto) 10.5H, Lymphocytes # (Auto) 1.8, Monocytes # (Auto) 0.7, Eosinophils # (Auto) 0.1, Basophils # (Auto) 0.0, Sodium Level 136, Potassium Level 4.7, Chloride Level 103, Carbon Dioxide Level 19L, Anion Gap 14, Blood Urea Nitrogen 15, Creatinine 1.25, Estimat Glomerular Filtration Rate > 60, BUN/Creatinine Ratio 12, Glucose Level 315H, Calcium Level 8.8, Magnesium Level 1.9, Troponin I 7.560*H, Phosphorus Level 3.4, Triglycerides Level 315H, Cholesterol Level 214H, LDL Cholesterol Direct 166H, VLDL Cholesterol 63H, HDL Cholesterol 39L 11/15/19 05:31: Glucometer 230H 11/15/19 12:08: Glucometer 223H ECG Impression ECG Initial ECG Impression: Acute TX A/P-Cardiology Assessment/Admission Diagnosis Acute inferior STEMI, Leukocytosis, Admission Status: Inpatient Order (span 2 midnights) Reason for Inpatient Admission: Acute STEMI Plan Emergent Cath for primary PCI. Echocardiogram in the morning. Aspirin, Brilinta, Heparin IV, Smoking cessation was strongly recommended. Defer treatment of diabetes to the primary team. Critically ill patient. Sherif CHÁVEZ MD Nov 14, 2019 23:53
--- NOTE | 2019-11-14 23:53 | Cardiac Procedure Note-CS/ASA ---
Pre-Procedure Note Pre-Op Procedure Note H&P Reviewed The H&P was reviewed, patient examined and no changes noted. Date H&P Reviewed: Nov 14, 2019 Time H&P Reviewed: 23:53 Conscious Sedation Pre-Proced Time 23:53 ASA Score 3 For ASA 3 and 4: Consider anesthesia and medical clearance. Also, for patients with a history of failed moderate sedation consider anesthesia. Airway Lungs Heart ASA score ASA 1: a normal healthy patient ASA 2: a patient with a mild systemic disease (mid diabetes, controlled hypertension, obesity ASA 3: a patient with a severe systemic disease that limits activity (angina, COPD, prior Myocardial infarction) ASA 4: a patient with an incapacitating disease that is a constant threat to life (CHF, renal failure) ASA 5: a moribund patient not expected to survive 24 hrs. (ruptured aneurysm) ASA 6: a declared brain- patient whose organs are being harvested. For emergent operations, add the letter E after the classification Mallampati Classification Grade 1 Sedation Plan Analgesia, Amnesia, Plan communicated to team members, Discussed options with patient/fam, Discussed risks with patient/fam The patient is an appropriate candidate to undergo the planned procedure, sedation, and anesthesia. The patient immediately re-assessed prior to indication. Sherif HICKS MD Nov 14, 2019 23:53
[2019-11-15] VITALS (24 sets, daily range): BP systolic 98–136; BP diastolic 47–93
[2019-11-15] MEDS ORDERED: EPTIFIBATIDE BOLUS 10 ML IV ONE (00:22)
[2019-11-15] MEDS ORDERED: NS IV 1000 ML 1,000 ML ONE (00:39)
--- NOTE | 2019-11-15 01:03 | Coronary Angiography & PCI ---
Coronary Angiography & PCI DATE OF PROCEDURE: 11/15/19 INDICATION: Acute inferior STEMI. PREOPERATIVE DIAGNOSIS: Acute inferior STEMI. POSTOPERATIVE DIAGNOSIS: Occluded RCA treated with 2 drug-eluting stents. HISTORY: This is a 44-year-old gentleman with history of diabetes and active smoking. He presents with acute inferior STEMI. Emergent coronary angiography. PROCEDURES PERFORMED: 1.Coronary angiography. 2.Left heart catheterization. 3.PCI to the mid/distal RCA with 2 drug-eluting stents COMPLICATIONS: None. SPECIMENS: None. ESTIMATED BLOOD LOSS: 10 mL ANESTHESIA: Conscious sedation ANTICOAGULATION: IV heparin CONTRAST: 154 mL. FLUOROSCOPY: 12.4 minutes. FLOUROSCOPY DOSE: 2573 mgy. PROCEDURE DETAILS: The patient is a 44 male and was brought to the lab analyst after emergent informed consent was taken. All the risks and complications were explained in detail; this included the risk of bleeding, vascular damage, stroke, CA and even . The patient was draped and prepped in the usual sterile fashion. Access was gained in the right femoral artery with a 6 Slovak sheath. Cor angiography and left heart catheterization was performed with a JR4 guide catheter, JL4 diagnostic catheter and pigtail catheter. FINDINGS: 1.Left main: Patent. 2.LAD: Severe mid LAD stenosis. HIEU 2 flow. 3.Left circumflex artery: Patent with mild diffuse disease. 4.RCA: Occluded distal RCA. Moderate to severe tandem lesions in the mid RCA. 5.Left heart catheterization: LV pressure 120/6 mmHg. LVEDP 19 mmHg. Aortic pressure 117/74 mmHg. Normal LV function with inferior hypokinesis. No gradient across the aortic valve. RECOMMENDATIONS: Primary PCI to the RCA is recommended. INTERVENTION DETAILS: JR4 guide catheter, whisper extra-support guidewire, IV heparin for anticoagulation. ACT was done twice. ACT was 211 seconds. Patient already received aspirin and Brilinta bolus in the ER. Door to balloon time was 20 minutes. The lesion was crossed with the whisper extra-support wire and the tip of the wire was placed in the PL branch. We went in with a emerge 2.0 x 12 mm balloon and numerous balloon angioplasties was done from the distal to the mid segment. Recanalization was achieved. Significant thrombus burden. Therefore double bolus of Integrilin was given. We then deployed a Xience Susan 3 x 38 mm drug-eluting stent in the distal part of the RCA. This was deployed at 18 volodymyr for 13 seconds. We overlapped it with a resolute integrity 3.5 x 38 mm drug-eluting stent at 16 volodymyr for 15 seconds. The same stent balloon was used for postdilatation at 16 and 18 volodymyr. We then used an NC Quantum 3.5 x 20 mm noncompliant balloon and performed balloon dilatations from the distal to the proximal aspect of the stented segment at 16, 16, 18, 18, 18 volodymyr respectively. Excellent results with no residue stenosis and HIEU-3 flow. PDA had pinched ostium, however with HIEU 3 flow and no further chest pain. Therefore left alone. Minx was done to the right femoral artery. Patient tolerated procedure well and did not have any complication. He left the catheter lab with stable vital signs. CONCLUSIONS: 1. Acute inferior STEMI with occluded RCA, primary PCI with 2 drug-eluting stents. Door to balloon time of 20 minutes. 2. Staged PCI to severe mid LAD stenosis on 11/16/2019. 3. Dual antiplatelet therapy for at least 1 year. 4. Aggressive secondary prevention measures including high-dose statin therapy. 5. Smoking cessation was strongly recommended. Candice Chávez MD, FACP, FACC, [facility] Interventional Cardiology Sherif CHÁVEZ MD Nov 15, 2019 01:03
[2019-11-15] MEDS ORDERED: PATIENT MAY USE OWN MEDS, ALL PO SCH (01:15)
--- NOTE | 2019-11-15 01:19 | NUR ---
JASWINDERDIVYA REMY admitted to room CU4-1, with an admitting diagnosis of Chest pain, post heart cath, on 11/15/19 from [place] to [facility] via EMS to facility then bed to room, accompanied by staff. DIVYA SAN introduced to surroundings, call light, bed controls, phone, TV, temperature control, lights, meal times, smoking policy, visitor policy, side rail policy, bathrooms and showers. Patient Rights given to patient in the handbook. DIVYA SAN verbalizes understanding that [facility] is not responsible for the loss or damage to any personal effects or valuables that are kept in the patients possession during their hospitalization. The following Patient Care Plans were discussed with the patient: Discharge Planning, activity,disease process, and heart health. DIVYA SAN verbalizes understanding of Interdisciplinary Patient Education. Patient and/or family were informed about the Rapid Response Team and its purpose.
--- OUTSIDE RECORDS SUMMARY | 2019-11-15 01:28 | XMS REPORT | Continuity of Care Document ---
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 DEPENDENCE 10/05/2008 250.02 ЕЛЕНА BETES MELLITUS [...] APRN 250.02 DIABETES MELLITUS POORLY CONTROLLED 10/05/2008 JOES BRENNAN APRN 30 5.1 NICOTINE DEPENDENCE 10/05/2008 [...] Code Description [place] [address] A1C (IN-HOUSE) 05/18/2012 70809 MICR O ALBUMIN-IN HOUSE 05/18/2012 46526 MICR OALBUMIN 05/20/2012 21432 ROUT INE VENIPUNCTURE 2012 20651 H PY JENNY (IN-HOUSE) 2012 19754 CMP 2012 35678 CBC 2012 68031 HEMOCCULT 06/09/2012 38952 FATS /LIPIDS FECES, QUAL 06/09/2012 09437 CULT URE STOOL 06/09/2012 61022 STOO L FOR O & P 06/09/2012 51339 CLOS TRIDIUM (C-DIFF) 06/09/2012 51192 STOO L FOR POLYS & LEUKOCYTES 06/09/2012 S Abner Abel 06/17/2012 48063 A1C (IN-HOUSE) 08/17/2012 68661 NAY BRADY EMPTYING STUDY 08/19/2012 42553 A1C (IN-HOUSE) 11/16/2012 81105 A1C (IN-HOUSE) 02/22/2013 62865 A1C (IN-HOUSE) 05/22/2013 45797 A1C (IN-HOUSE) 08/30/2013 27415 ROUT INE VENIPUNCTURE 09/04/2013 34924 CMP 09/04/2013 92604 LIPI D PANEL 09/04/2013 91548 CBC 09/04/2013 Carlito OtfAce rivas 12/06/2013 04100 A1C (IN-HOUSE) 12/06/2013 41621 A1C (IN-HOUSE) 03/21/2014 Results Test Result Range [...] - 05/19/19 15 :54 Prescribed Drug 1 [place](TM) NRG Creatinine 93.9 mg/dL > or = [...] - 11/14/19 22:55 Magnesium 2.0 mg/dL 1.6-2.4 TROPONIN I FS - 11/14/19 22:55 TROPONIN I FS < 0.30 <0.30 PROBNP FS - 11/14/19 22:55 PROBNP FS 47.8 pg/mL <75.0 Capillary blood glucose measurement by g lucometer (mass/volume) - 11/14/19 22:59 Capillary blood glucose measurement by glucometer (mas s/volume) 234 mg/dL 70-110 Encounters ACCT No. Visit Date/Time Discharge Status Pt. Type Provider Facility Loc./Unit Complaint [id number] 08/15/2016 08:06:00 Document Registration [id number] 07/30/2014 07:59:00 07/30/2014 23:59: 59 CLS Outpatient CHENG HILARIO DO [id number] 03/21/2014 15:36:00 03/21/2014 23:59: 59 CLS Outpatient JOSE BRENNAN APRN [id number] 12/13/2013 14:18:00 12/13/2013 23:59: 59 CLS Outpatient [id number] 12/06/2013 10:52:00 12/06/2013 23:59: 59 CLS Outpatient JOSE BRENNAN APRN [id number] 09/04/2013 08:01:00 09/04/2013 23:59: 59 CLS Outpatient JOSE BRENNAN APRN [id number] 08/30/2013 16:47:00 08/30/2013 23:59: 59 CLS Outpatient JOSE BRENNAN APRN [id number] 05/22/2013 14:48:00 05/22/2013 23:59: 59 CLS Outpatient DORA VILLALOBOS MD [id number] 02/22/2013 17:33:00 02/22/2013 23:59: 59 CLS Outpatient JOSE BRENNAN APRN [id number] 12/20/2012 13:50:00 12/20/2012 23:59: 59 CLS Outpatient JOSE BRENNAN APRN [id number] 08/17/2012 09:56:00 08/17/2012 23:59: 59 CLS Outpatient JOSE BRENNAN APRN [id number] 06/27/2012 17:24:00 06/27/2012 23:59: 59 CLS Outpatient CHENG HILARIO DO Venessa [id number] 06/09/2012 12:24:00 06/09/2012 23:59: 59 CLS Outpatient CHENG HILARIO DO Venessa [id number] 2012 15:37:00 2012 23:59: 59 CLS Outpatient [id number] 05/18/2012 17:00:00 05/18/2012 23:59: 59 CLS Outpatient [id number] 02/10/2012 15:21:00 02/10/2012 23:59:5 9 CLS Outpatient [id number] 11/16/2012 14:52:00 Document Registration [id number] 11/14/2019 23:01:00 Document Registration [id number] 08/23/2019 16:20:00 08/23/2019 23:59:5 9 CLS Outpatient NISHANT NEFF [facility] [id number] 05/19/2019 14:00:00 Document Registration [id number] 02/04/2018 10:40:00 Document Registration [id number] 09/02/2017 08:40:00 Document Registration
[2019-11-15] MEDS: NS IV 1000 ML 1,000 ML IV SCH ×6 (01:38→20:28)
[2019-11-15 02:55] LABS: PHOSPHORUS 3.4 MG/DL (2.3-4.7)
[2019-11-15 02:57] LABS: MAGNESIUM 1.9 MG/DL (1.6-2.4)
[2019-11-15 03:13] LABS: BASOPHILS % (AUTO) 0 % (0-10); EOSINOPHILS # (AUTO) 0.1 10^3/uL (0.0-0.3); EOSINOPHILS % (AUTO) 1 % (0-10); HEMATOCRIT 47 % (40-54); HEMOGLOBIN 15.9 G/DL (13.3-17.7); LYMPHOCYTES # (AUTO) 1.8 X 10^3 (1.0-4.0); LYMPHOCYTES % (AUTO) 14 % (12-44); MEAN CORPUSCULAR HEMOGLOBIN 31 PG (25-34); MEAN CORPUSCULAR HGB CONC 34 G/DL (32-36); MEAN CORPUSCULAR VOLUME 90 FL (80-99); MEAN PLATELET VOLUME 10.4 FL (7.4-10.4); MONOCYTES # (AUTO) 0.7 X 10^3 (0.0-1.0); MONOCYTES % (AUTO) 6 % (0-12); NEUTROPHILS # (AUTO) 10.5 X 10^3 (1.8-7.8); NEUTROPHILS % (AUTO) 80 % (42-75); PLATELET COUNT 198 10^3/uL (130-400); RED CELL DISTRIBUTION WIDTH 14.2 % (10.0-14.5); WHITE BLOOD COUNT 13.1 10^3/uL (4.3-11.0)
[2019-11-15 03:17] LABS: CHLORIDE 103 MMOL/L (98-107); POTASSIUM 4.7 MMOL/L (3.6-5.0); SODIUM 136 MMOL/L (135-145)
[2019-11-15 03:18] LABS: CALCIUM 8.8 MG/DL (8.5-10.1); GLUCOSE 315 MG/DL (70-105)
[2019-11-15 03:20] LABS: CARBON DIOXIDE 19 MMOL/L (21-32)
[2019-11-15 03:22] LABS: CREATININE SERUM 1.25 MG/DL (0.60-1.30); GFR ESTIMATED > 60
[2019-11-15 03:23] LABS: BUN/CREATININE RATIO 12
[2019-11-15] MEDS: inSUlin ASPART (NovoLOG) 1 UNIT/0.01 ML (CHARGE PER UNIT) SC SCH ×4 (05:34→20:05)
--- NOTE | 2019-11-15 07:27 | Diagnostic Imaging Report ---
EXAMINATION: Chest 1 view HISTORY: Medial chest pain with left shoulder radiculopathy. COMPARISON: None available. FINDINGS: The lung volumes are normal. No focal consolidation is seen. No large pleural effusion or pneumothorax is seen. The cardiomediastinal silhouette is normal in size and contour. No acute osseous abnormality is seen. IMPRESSION: 1. No acute pleuroparenchymal process. Dictated by: Dictated on workstation # [id number]
[2019-11-15] MEDS: ASPIRIN E.C. 81 MG (ECOTRIN) TAB PO SCH (08:35)
[2019-11-15] MEDS: TICAGRELOR 90 MG TABLET (BRILINTA) PO SCH ×2 (08:35→20:04)
[2019-11-15 09:47] LABS: TRIGLYCERIDES 315 MG/DL (<150); VLDL CHOLESTEROL 63 MG/DL (5-40)
[2019-11-15 09:51] LABS: CHOLESTEROL 214 MG/DL (< 200)
[2019-11-15 09:52] LABS: HDL CHOLESTEROL 39 MG/DL (40-60)
--- NOTE | 2019-11-15 13:33 | Cardiology Progress Note ---
Cardiology SOAP Progress Note Subjective: No further chest pain. Objective: I&O/Vital Signs 11/15/19 11/15/19 11/15/19 11/15/19 01:45 02:00 02:15 02:30 Pulse 80 103 104 102 Resp 14 9 22 16 B/P (MAP) 115/82 (93) 136/89 (105) 123/76 (92) 129/86 (100) Pulse Ox 96 96 97 98 O2 Delivery Nasal Cannula Nasal Cannula Nasal Cannula Nasal Cannula O2 Flow Rate 2.00 2.00 2.00 2.00 11/15/19 11/15/19 11/15/19 11/15/19 03:00 03:20 04:00 05:00 Pulse 98 69 72 Resp 11 14 21 B/P (MAP) 109/79 (89) 112/74 (87) 109/72 (84) Pulse Ox 94 98 97 93 O2 Delivery Nasal Cannula Nasal Cannula Nasal Cannula Nasal Cannula O2 Flow Rate 2.00 2.00 2.00 2.00 11/15/19 11/15/19 11/15/19 11/15/19 05:45 06:00 07:00 08:00 Pulse 83 79 91 Resp 17 9 10 B/P (MAP) 113/79 (90) 118/75 (89) 122/69 (86) Pulse Ox 93 93 96 O2 Delivery Room Air Nasal Cannula Nasal Cannula Nasal Cannula O2 Flow Rate 2.00 2.00 2.00 11/15/19 11/15/19 11/15/19 11/15/19 09:00 10:00 11:00 12:00 Pulse 92 63 56 67 Resp 17 9 14 11 B/P (MAP) 125/93 (104) 118/66 (83) 106/56 (73) 103/84 (90) Pulse Ox 93 94 95 93 O2 Delivery Nasal Cannula Nasal Cannula Nasal Cannula Nasal Cannula O2 Flow Rate 2.00 2.00 2.00 2.00 Constitutional: appears stated age, AAO x 3; No apparent distress; well- developed, well-nourished Cardiovascular: regular rate-rhythm; No diastolic murmur, No systolic murmur Gastrointestional: No spleenomegaly Extremities: normal range of motion, non-tender, normal inspection; No clubbing, No cyanosis; no lower extremity edema bilateral; No significant edema Neurologic/Psychiatric: alert, normal mood/affect, oriented x 3, power is 5/5 both on sides Skin: normal color, warm/dry; No rash, No ulcerations Results/Procedures: Labs Laboratory Tests 11/14/19 22:55: White Blood Count 11.7H, Red Blood Count 5.43, Hemoglobin 16.5, Hematocrit 49, Mean Corpuscular Volume 90, Mean Corpuscular Hemoglobin 30, Mean Corpuscular Hemoglobin Concent 34, Red Cell Distribution Width 13.8, Platelet Count 238, Mean Platelet Volume 9.9, Neutrophils (%) (Auto) 44, Lymphocytes (%) (Auto) 44, Monocytes (%) (Auto) 9, Eosinophils (%) (Auto) 2, Basophils (%) (Auto) 1, Neutrophils # (Auto) 5.2, Lymphocytes # (Auto) 5.1H, Monocytes # (Auto) 1.1H, Eosinophils # (Auto) 0.2, Basophils # (Auto) 0.1, Prothrombin Time 12.1L, INR Comment 0.9, Activated Partial Thromboplast Time 24, Sodium Level 141, Potassium Level 3.9, Chloride Level 101, Carbon Dioxide Level 23, Anion Gap 17H, Blood Urea Nitrogen 14, Creatinine 1.08, Estimat Glomerular Filtration Rate > 60, BUN/Creatinine Ratio 13, Glucose Level 240H, Calcium Level 9.4, Corrected Calcium 9.2, Magnesium Level 2.0, Total Bilirubin 0.2, Aspartate Amino Transf (AST/SGOT) 19, Alanine Aminotransferase (ALT/SGPT) 23, Alkaline Phosphatase 91, Troponin I < 0.30, Pro-B-Type Natriuretic Peptide 47.8, Total Protein 7.6, Albumin 4.2 11/14/19 22:59: Glucometer 234H 11/14/19 23:00: 11/15/19 02:15: White Blood Count 13.1H, Red Blood Count 5.20, Hemoglobin 15.9, Hematocrit 47, Mean Corpuscular Volume 90, Mean Corpuscular Hemoglobin 31, Mean Corpuscular Hemoglobin Concent 34, Red Cell Distribution Width 14.2, Platelet Count 198, Mean Platelet Volume 10.4, Neutrophils (%) (Auto) 80H, Lymphocytes (%) (Auto) 14, Monocytes (%) (Auto) 6, Eosinophils (%) (Auto) 1, Basophils (%) (Auto) 0, Neutrophils # (Auto) 10.5H, Lymphocytes # (Auto) 1.8, Monocytes # (Auto) 0.7, Eosinophils # (Auto) 0.1, Basophils # (Auto) 0.0, Sodium Level 136, Potassium Level 4.7, Chloride Level 103, Carbon Dioxide Level 19L, Anion Gap 14, Blood Urea Nitrogen 15, Creatinine 1.25, Estimat Glomerular Filtration Rate > 60, BUN/Creatinine Ratio 12, Glucose Level 315H, Calcium Level 8.8, Magnesium Level 1.9, Troponin I 7.560*H, Phosphorus Level 3.4, Triglycerides Level 315H, Cholesterol Level 214H, LDL Cholesterol Direct 166H, VLDL Cholesterol 63H, HDL Cholesterol 39L 11/15/19 05:31: Glucometer 230H 11/15/19 12:08: Glucometer 223H A/P: Assessment/Dx: Acute inferior STEMI, Leukocytosis, Plan: Emergent Cath for primary PCI. Occluded mid/distal RCA treated with 2 drug- eluting stents. HIEU-3 flow with no residual stenosis. Excellent results. Severe mid LAD stenosis noted. Staged PCI on . Continue dual antiplatelet therapy. Hyperlipidemia: High-dose statin therapy. Smoking cessation was strongly recommended. Defer treatment of diabetes to the primary team. Echocardiogram when COVID-19 result is negative. Thank you for your consultation. Please call me if you have any questions. Candice Chávez MD, FACP, FACC, FSCAI, FHRS, CCDS Interventional Cardiology Cardiac Electrophysiology Vascular Medicine and Endovascular Interventions Sherif CHÁVEZ MD Nov 15, 2019 13:33
--- NOTE | 2019-11-15 20:00 | NUR ---
Patient COVID-19 swab results Negative, Dr Chávez notified. Dr Chávez okay to take patient out of airborne isolation at this time.
[2019-11-16] VITALS (28 sets, daily range): BP systolic 86–124; BP diastolic 56–81
[2019-11-16 03:19] LABS: BASOPHILS % (AUTO) 0 % (0-10); EOSINOPHILS # (AUTO) 0.1 10^3/uL (0.0-0.3); EOSINOPHILS % (AUTO) 1 % (0-10); HEMATOCRIT 45 % (40-54); HEMOGLOBIN 15.2 G/DL (13.3-17.7); LYMPHOCYTES # (AUTO) 2.7 X 10^3 (1.0-4.0); LYMPHOCYTES % (AUTO) 27 % (12-44); MEAN CORPUSCULAR HEMOGLOBIN 31 PG (25-34); MEAN CORPUSCULAR HGB CONC 34 G/DL (32-36); MEAN CORPUSCULAR VOLUME 90 FL (80-99); MONOCYTES # (AUTO) 1.1 X 10^3 (0.0-1.0); MONOCYTES % (AUTO) 11 % (0-12); NEUTROPHILS # (AUTO) 6.2 X 10^3 (1.8-7.8); NEUTROPHILS % (AUTO) 60 % (42-75); PLATELET COUNT 199 10^3/uL (130-400); RED CELL DISTRIBUTION WIDTH 14.3 % (10.0-14.5); WHITE BLOOD COUNT 10.2 10^3/uL (4.3-11.0)
[2019-11-16 03:41] LABS: BUN/CREATININE RATIO 17; CARBON DIOXIDE 20 MMOL/L (21-32); CHLORIDE 106 MMOL/L (98-107); CREATININE SERUM 0.98 MG/DL (0.60-1.30); GFR ESTIMATED > 60; GLUCOSE 168 MG/DL (70-105); MAGNESIUM 2.1 MG/DL (1.6-2.4); PHOSPHORUS 3.6 MG/DL (2.3-4.7); POTASSIUM 4.4 MMOL/L (3.6-5.0); SODIUM 139 MMOL/L (135-145)
[2019-11-16] MEDS: NS IV 1000 ML 1,000 ML IV SCH ×5 (05:21→23:55)
[2019-11-16] MEDS: inSUlin ASPART (NovoLOG) 1 UNIT/0.01 ML (CHARGE PER UNIT) SC SCH ×4 (05:21→20:54)
[2019-11-16] MEDS ORDERED: LIDOCAINE 1% INJ 20 ML 20 ML VIAL ONE (06:59)
[2019-11-16] MEDS ORDERED: HEParin (CATH LAB) 2,000 ML IV ONE (06:59)
--- NOTE | 2019-11-16 07:53 | Diagnostic Imaging Report ---
INDICATION: Postop. Comparison with 11/14/2019. FINDINGS: Portable chest shows lungs to be well-aerated and clear. Heart is not enlarged. No pulmonary edema or hilar adenopathy. No pneumothorax or pleural effusion. No bony abnormalities. IMPRESSION: Normal portable chest. Dictated by: Dictated on workstation # [id number]
[2019-11-16] MEDS: TICAGRELOR 90 MG TABLET (BRILINTA) PO SCH ×2 (08:12→20:54)
[2019-11-16] MEDS: ASPIRIN E.C. 81 MG (ECOTRIN) TAB PO SCH (08:12)
--- NOTE | 2019-11-16 09:26 | NUR ---
2ML OF DEFINITY SOLUTION GIVEN. PT TOLERATED EXAM WELL.
--- NOTE | 2019-11-16 09:58 | Cardiology Progress Note ---
Cardiology SOAP Progress Note Subjective: No chest pain. Objective: I&O/Vital Signs 11/15/19 11/15/19 11/15/19 11/15/19 22:00 23:00 23:25 23:30 Temp 37.0 Pulse 64 63 Resp 12 20 B/P (MAP) 112/80 (91) 100/64 (76) Pulse Ox 95 95 96 O2 Delivery Room Air Room Air Room Air Room Air 11/16/19 11/16/19 11/16/19 11/16/19 00:00 01:00 01:00 02:00 Pulse 61 67 67 108 Resp 15 20 21 B/P (MAP) 108/61 (77) 106/73 (84) 94/62 (73) Pulse Ox 96 95 92 O2 Delivery Room Air Room Air Room Air 11/16/19 11/16/19 11/16/19 11/16/19 03:00 03:00 03:15 04:00 Temp 36.8 Pulse 105 58 Resp 20 17 B/P (MAP) 124/81 (95) 109/71 (84) Pulse Ox 95 95 95 O2 Delivery Room Air Room Air Room Air 11/16/19 11/16/19 11/16/19 11/16/19 05:00 06:00 07:05 08:00 Temp 37.4 Pulse 68 71 108 Resp 14 12 18 B/P (MAP) 98/57 (71) 90/62 (71) 86/56 (66) Pulse Ox 94 95 98 95 O2 Delivery Room Air Room Air Room Air Room Air 11/16/19 00:00 Intake Total 820 ml Output Total 2600 ml Balance -1780 ml Constitutional: appears stated age, AAO x 3; No apparent distress; well- developed, well-nourished Cardiovascular: regular rate-rhythm; No diastolic murmur, No systolic murmur Gastrointestional: No spleenomegaly Extremities: normal range of motion, non-tender, normal inspection; No clubbing, No cyanosis; no lower extremity edema bilateral; No significant edema Neurologic/Psychiatric: alert, normal mood/affect, oriented x 3, power is 5/5 both on sides Skin: normal color, warm/dry; No rash, No ulcerations Results/Procedures: Labs Laboratory Tests 11/15/19 12:08: Glucometer 223H 6/17/20 16:15: Glucometer 188H 11/15/19 20:02: Glucometer 225H 11/16/19 03:00: White Blood Count 10.2, Red Blood Count 4.97, Hemoglobin 15.2, Hematocrit 45, Mean Corpuscular Volume 90, Mean Corpuscular Hemoglobin 31, Mean Corpuscular Hemoglobin Concent 34, Red Cell Distribution Width 14.3, Platelet Count 199, Mean Platelet Volume 10.0, Neutrophils (%) (Auto) 60, Lymphocytes (%) (Auto) 27, Monocytes (%) (Auto) 11, Eosinophils (%) (Auto) 1, Basophils (%) (Auto) 0, Neutrophils # (Auto) 6.2, Lymphocytes # (Auto) 2.7, Monocytes # (Auto) 1.1H, Eosinophils # (Auto) 0.1, Basophils # (Auto) 0.0, Sodium Level 139, Potassium Level 4.4, Chloride Level 106, Carbon Dioxide Level 20L, Anion Gap 13, Blood Urea Nitrogen 17, Creatinine 0.98, Estimat Glomerular Filtration Rate > 60, BUN/Creatinine Ratio 17, Glucose Level 168H, Calcium Level 9.0, Phosphorus Level 3.6, Magnesium Level 2.1 Microbiology 11/15/19 MRSA Screen - Final, Complete MRSA not isolated A/P: Assessment/Dx: Acute inferior STEMI, Leukocytosis, Plan: Primary PCI done on around midnight of 11/13-11/15/2019. Occluded mid/distal RCA treated with 2 drug-eluting stents. HIEU-3 flow with no residual stenosis. Excellent results. Severe mid LAD stenosis noted. Staged PCI today. Continue dual antiplatelet therapy. Hyperlipidemia: High-dose statin therapy. Smoking cessation was strongly recommended. Defer treatment of diabetes to the primary team. COVID-19 negative. Echocardiogram done. Thank you for your consultation. Please call me if you have any questions. Candice Chávez MD, FACP, FACC, FSCAI, FHRS, CCDS Interventional Cardiology Cardiac Electrophysiology Vascular Medicine and Endovascular Interventions Sherif CHÁVEZ MD Nov 16, 2019 09:58
--- NOTE | 2019-11-16 09:59 | Cardiac Procedure Note-CS/ASA ---
Pre-Procedure Note Pre-Op Procedure Note H&P Reviewed The H&P was reviewed, patient examined and no changes noted. Date H&P Reviewed: Nov 16, 2019 Time H&P Reviewed: 09:58 Conscious Sedation Pre-Proced Time 09:58 ASA Score 3 For ASA 3 and 4: Consider anesthesia and medical clearance. Also, for patients with a history of failed moderate sedation consider anesthesia. Airway Lungs Heart ASA score ASA 1: a normal healthy patient ASA 2: a patient with a mild systemic disease (mid diabetes, controlled hypertension, obesity ASA 3: a patient with a severe systemic disease that limits activity (angina, COPD, prior Myocardial infarction) ASA 4: a patient with an incapacitating disease that is a constant threat to life (CHF, renal failure) ASA 5: a moribund patient not expected to survive 24 hrs. (ruptured aneurysm) ASA 6: a declared brain- patient whose organs are being harvested. For emergent operations, add the letter E after the classification Mallampati Classification Grade 1 Sedation Plan Analgesia, Amnesia, Plan communicated to team members, Discussed options with patient/fam, Discussed risks with patient/fam The patient is an appropriate candidate to undergo the planned procedure, sedation, and anesthesia. The patient immediately re-assessed prior to indication. Sherif HICKS MD Nov 16, 2019 09:59
[2019-11-16] MEDS ORDERED: HEParin 1000 UNIT/ML (10ML VIAL) FOR BOLUS ONE (12:11)
[2019-11-16] MEDS ORDERED: MIDAZOLAM 5 MG/5 ML (VERSED) VIAL ONE (12:11)
[2019-11-16] MEDS ORDERED: fentaNYL INJECTION 100 MCG/2 ML AMP ONE (12:11)
[2019-11-16] MEDS ORDERED: NS IV 1000 ML 1,000 ML ONE (12:40)
[2019-11-16] MEDS ORDERED: NITRO DRIP 25000 MCG/D5W 250 ML IV ONE (12:57)
--- NOTE | 2019-11-16 13:54 | Coronary Angiography & PCI ---
Coronary Angiography & PCI DATE OF PROCEDURE: 11/16/19 INDICATION: Severe LAD disease. Staged PCI. PREOPERATIVE DIAGNOSIS: Severe LAD disease. Staged PCI. POSTOPERATIVE DIAGNOSIS: 1 drug-eluting stent to the mid LAD. HISTORY: This is a 44-year-old gentleman with history of active smoking and diabetes who presented with acute inferior STEMI and primary PCI was done to the RCA with 2 drug-eluting stents. Patient had severe mid LAD stenosis. Staged PCI was recommended. PROCEDURES PERFORMED: 1. Staged PCI to the mid LAD with one drug-eluting stent. COMPLICATIONS: None. SPECIMENS: None. ESTIMATED BLOOD LOSS: 10 mL ANESTHESIA: Conscious sedation ANTICOAGULATION: IV heparin CONTRAST: 115 ml. FLUOROSCOPY: FLOUROSCOPY DOSE: [id number] mgy. PROCEDURE DETAILS: The patient is a 44 male and was brought to the manager lab after informed consent was taken. All the risks and complications were explained in detail; this included the risk of bleeding, vascular damage, stroke, [place] and even . The patient was draped and prepped in the usual sterile fashion. Access was gained in the right femoral artery with a 6 [place]bourg[place] sheath. EBU 3.5 guide catheter. INTERVENTION DETAILS: Mid LAD has a 70-80 percent stenosis with HIEU 2 flow distally. EBU 3.5 guide catheter, BMW/whisper extra-support guidewire, IV heparin for anticoagulation. The BMW wire was placed in the first diagonal artery. The lesion was crossed with the whisper extra-support wire. Direct stenting with Xience Susan 2.75 x 15 mm stent at 16 volodymyr for 31 seconds. Postdilatation with an NC Quantum 3.0 x 8 mm balloon, 3 inflations from distal to proximal on 12 volodymyr, 16 volodymyr, 16 volodymyr. Excellent results with no residual stenosis and HIEU-3 flow distally. We did an RCA angiography with a JR4 catheter which showed patent stents. Patient tolerated procedure well and did not have any complication. Minx closure to the RFA. CONCLUSIONS: 1. Staged PCI to the mid LAD with a drug-eluting stent. Excellent results. Recent primary PCI to the mid/distal RCA with 2 drug-eluting stents. 2. Long-term dual antiplatelet therapy. Aggressive secondary prevention measu res. 3. Smoking cessation was strongly recommended. Candice Chávez MD, FACP, FACC, [facility] Interventional Cardiology Sherif CHÁVEZ MD Nov 16, 2019 13:54
[2019-11-16] MEDS ORDERED: PATIENT MAY USE OWN MEDS, ALL PO SCH (14:00)
[2019-11-16] MEDS ORDERED: TICAGRELOR 90 MG TABLET (BRILINTA) PO SCH (21:00)
[2019-11-17] VITALS: BP 102/66
[2019-11-17 03:24] LABS: HEMOGLOBIN 14.9 G/DL (13.3-17.7); MEAN PLATELET VOLUME 10.1 FL (7.4-10.4); RED CELL DISTRIBUTION WIDTH 14.2 % (10.0-14.5); WHITE BLOOD COUNT 9.6 10^3/uL (4.3-11.0)
[2019-11-17 03:33] LABS: CHLORIDE 106 MMOL/L (98-107); SODIUM 137 MMOL/L (135-145)
[2019-11-17 03:34] LABS: CALCIUM 8.9 MG/DL (8.5-10.1); GLUCOSE 149 MG/DL (70-105)
[2019-11-17 03:36] LABS: CARBON DIOXIDE 18 MMOL/L (21-32)
[2019-11-17 03:38] LABS: CREATININE SERUM 0.93 MG/DL (0.60-1.30); GFR ESTIMATED > 60
[2019-11-17 03:39] LABS: BUN/CREATININE RATIO 22
[2019-11-17 03:56] LABS: PHOSPHORUS 3.6 MG/DL (2.3-4.7)
[2019-11-17 04:00] VITALS: BP 109/77
[2019-11-17] MEDS: NS IV 1000 ML 1,000 ML IV SCH ×3 (05:20→12:45)
[2019-11-17] MEDS: inSUlin ASPART (NovoLOG) 1 UNIT/0.01 ML (CHARGE PER UNIT) SC SCH ×2 (06:07→11:35)
--- NOTE | 2019-11-17 07:41 | Diagnostic Imaging Report ---
EXAMINATION: Chest radiograph, portable AP view. DATE: 11/17/2019 4:34 AM hours. INDICATION: 44-year-old male, history of myocardial infarction. Chest pain. FINDINGS:: Grossly unchanged overall appearance of the cardiomediastinal silhouette. There is no identified pneumothorax. There is no large pleural effusion. There is no identified focal airspace consolidation. IMPRESSION: No identified acute cardiopulmonary abnormality. Dictated by: Dictated on workstation # [id number]
[2019-11-17 08:05] VITALS: BP 109/74
[2019-11-17] MEDS: ASPIRIN E.C. 81 MG (ECOTRIN) TAB PO SCH (08:08)
[2019-11-17] MEDS: TICAGRELOR 90 MG TABLET (BRILINTA) PO SCH (08:08)
[2019-11-17] MEDS ORDERED: ASPIRIN E.C. 81 MG (ECOTRIN) TAB PO SCH (09:00)
[2019-11-17] MEDS ORDERED: ATOR40TA70 PO (09:40)
[2019-11-17] MEDS ORDERED: METF-399 PO ×2 (09:40→12:49)
[2019-11-17] MEDS ORDERED: CANA300T PO (09:40)
[2019-11-17] MEDS ORDERED: OMEP-401 PO (09:40)
[2019-11-17] MEDS ORDERED: LISI10TA2 PO (09:40)
[2019-11-17] MEDS ORDERED: INSU100I32 SQ (09:51)
[2019-11-17] MEDS ORDERED: INSU100V16 SQ (09:51)
[2019-11-17] MEDS ORDERED: DULA1.5P2 SQ (09:51)
--- NOTE | 2019-11-17 09:52 | NUR ---
SPOKE WITH THE PT, CALLED [facility] OSBALDO CONNELLY, AND ALSO SPOKE WITH [facility] IN [place] TO COMPLETE THE MED REC THE FOLLOWING ARE FILL DATES- THEY ARE ALL PAST DUE FOR REFILLS AND HAVE DOCUMENTED THIS ON THE MED REC. WHEN I SPOKE WITH THE PT HE INDICATED HE WAS UP TO DATE ON HIS MEDS AND WAS NOT OUT. 06-26-2019 METFORMIN 1000MG #180/90DS 06-26-2019 OMEPRAZOLE 20MG #180/90DS 08-21-2019 LISINOPRIL 10MG #30/30DS 08-21-2019 ATORVASTATIN 40MG #30/30DS PT ALSO SAYS HE USES 3 DIFFERENT INSULINS- [facility] HAD NO RECORD OF THEM BEING DISPENSED THRU THE PHARMACY. I SPOKE WITH THE NURSE AND SHE DID SHOW HE USES TRESIBA PENS, TRULICITY PENS, AND NOVOLOG. THERE WAS NOT A DATE DOCUMENTED ON WHEN HE LAST PICKED THEM UP BUT IT DOES SHOW HE RECEIVED A 90 DAY SUPPLY PT DENIES TAKING ANY OTC PRODUCTS
[2019-11-17] MEDS ORDERED: LISI2.5T PO (10:59)
[2019-11-17] MEDS ORDERED: METO-333 PO (10:59)
--- NOTE | 2019-11-17 11:48 | Cardiology Discharge Summary ---
Diagnosis/Chief Complaint Date of Admission 11/14/2019 Date of Discharge 11/17/2019 Admission Diagnosis Acute inferior STEMI Final/Discharge Diagnosis Acute inferior STEMI, status post primary PCI. Chief Complaint/HPI Chief Complaint/HPI This is a 44-year-old gentleman with history of diabetes, hypertension, hyperlipidemia and active smoking. He presents with chest pain of one hour duration to the ER. Moderate to severe intensity. 7/10. No radiation. No exacerbating or relieving factors. EKG showed acute inferior STEMI. Positive family history. Discharge Summary Procedures Primary PCI to the RCA 2 drug-eluting stents over the midnight of 11/13 and 11/15/2019. Staged PCI to the LAD with one drug-eluting stent on 11/16/2019. Discharge Physical Examination Normal cardiovascular examination. Hospital Course Was the Problem List Reviewed?: Yes Unremarkable. COVID-19 negative. Discussion & Recommendations Discussion Discharge took over 30 minutes to complete. Discussed at length with the patient. Compliance with medication was strongly recommended. This included compliance with aspirin and Brilinta. Smoking cessation was strongly recomme nded. Healthy living was emphasized. Follow up appt.: Dr. Chávez in 3-4 weeks. Dicharge Diet: Cardiac Diet Activity as Tolerated: Yes Home Medications Reviewed patient Home Medication Reconciliation performed by pharmacy medication reconciliations television production technician and/or nursing. Patients Allergies have been reviewed. Discharge Home Medications: Reviewed and agree with Discharge Medication list on patient's Discharge Instruction sheet Condition at discharge Stable. Instructions to patient/family Discussed with the patient. Clinical Quality Measures DVT/VTE Risk/Contraindication: Risk Factor Score Per Nursin RFS Level Per Nursing on Admit: 3=High Sherif CHÁVEZ MD Nov 17, 2019 11:48
[2019-11-17] MEDS ORDERED: TICA90TA PO (11:53)
[2019-11-17] MEDS ORDERED: ASPI-983 PO (11:53)
[2019-11-17] MEDS ORDERED: ATOR80TA76 PO (11:53)
--- NOTE | 2019-11-17 11:54 | Discharge Inst-Post CATH ---
Discharge Inst-CATH/EP Problems Reviewed?: Yes Final Diagnosis Acute inferior STEMI. Post Cardiac Cath/EP D/C Inst Follow Up/Plan Follow-up with Dr. Chávez in 3-4 weeks. <b>CARDIAC CATH/EP PROCEDURE DISCHARGE INSTRUCTIONS</b> ACTIVITY * Go Home directly and rest. * Limit activity of the leg (or wrist if it was used) for 7 days including aerobics, swimming, jogging, bicycling, etc. * Restrict stair-climbing for 7 days if possible, if not, climb up with your non-cath leg, then bring together on the same step. * Avoid lifting, pushing, pulling or excessive movement of the affected extremity for 7 days. * Customary sexual activity may be resumed after 2 days-use caution not to use a position that strains or causes pain to the affected extremity. * No driving for 24 hours. * NO SMOKING. * Avoid straining for bowel movements for 7 days. * Gentle walking on level ground is allowed. * Returning to work will depend on the type of procedure and the results. Your doctor will discuss this with you. CALL YOUR DOCTOR FOR ANY OF THE FOLLOWING: *If bleeding from the puncture site occurs- Apply gentle pressure to site with clean cloth and call your doctor or EMS. * If a knot or lump forms under the skin, increases in size, or causes pain. * If bruising appears to be worsening or moving further down your leg instead of disappearing. * Temperature above 101 F. CARE OF YOUR GROIN INCISION; * Bruising or purple discoloration of the skin near the puncture site is common. * You may shower only, no bathtub bathing for 5 days. Be careful to avoid sli pping as your leg may feel stiff. * If a closure device was used on your femoral artery, please see the attached guide regarding care of the device and your leg. * Leave dressing on FOR 24 hours. CARE OF YOUR WRIST INCISION; * Bruising or purple discoloration of the skin near the puncture site is common. * You may shower. * DO NOT submerge wrist. * Leave dressing on FOR 24 hours. Sherif CHÁVEZ MD Nov 17, 2019 11:54
--- NOTE | 2019-11-17 12:24 | Consultation - Hospitalist ---
HPI History of Present Illness: HPI/Chief Complaint Pt is a 44yoCM with with a PMH of IDDMII, HTN, HLD, and tobacco abuse who presented to the ER due to chest pain. EKG revealed acute inferior STEMI. He underwent emergent cath of the RCA on admission. He went back [facility] yesterday for stenting of the LAD. He has otherwise had an unremarkable hospital stay. His metformin was held and Source: patient Date Seen 11/17/19 Attending Physician Sherif Chávez MD PCP Referring Physician Date of Admission Nov 15, 2019 at 01:06 Home Medications & Allergies Home Medications Reviewed patient Home Medication Reconciliation performed by pharmacy medication reconciliations emergency spill response technician and/or nursing. Patients Allergies have been reviewed. Allergies Allergies Coded Allergies No Known Drug Allergies (Unverified11/14/19) Past Nusaslu-Poczpw-Zwitzy Hx Past Med/Social Hx: Reviewed Nursing Past Med/Soc Hx Patient Social History Alcohol Use: Denies Use Recreational Drug Use: No Smoking Status: Current Everyday Smoker Type Used: Cigarettes Recent Foreign Travel: No Contact w/other who traveled: No Recent Hopitalizations: No Recent Infectious Disease Expo: No Seasonal Allergies Seasonal Allergies: No Past Medical History Surgeries: Orthopedic Cardiac: High Cholesterol, Hypertension Gastrointestinal: Gastroesophageal Reflux Endocrine: Diabetes, Insulin dep History of Blood Disorders: No Adverse Reaction to Blood Russo: No Review of Systems Constitutional: No chills, No fever EENTM: no symptoms reported Respiratory: no symptoms reported Cardiovascular: see HPI, chest pain; No edema Gastrointestinal: No abdominal pain, No nausea, No vomiting Genitourinary: no symptoms reported Musculoskeletal: no symptoms reported Skin: no symptoms reported Psychiatric/Neurological: No Symptoms Reported Physical Exam Physical Exam Vital Signs Vital Signs - First Documented 11/14/19 22:46 Pulse Ox 94 O2 Delivery Nasal Cannula O2 Flow Rate 2.00 Capillary Refill : Less Than 3 Seconds Height, Weight, BMI Height: '" Weight: lbs. oz. kg; 41.14 BMI Method: General Appearance: No Apparent Distress, WD/WN, Obese HEENT: Normal ENT Inspection, Moist Mucous Membranes; No Scleral Icterus (L), No Scleral Icterus (R) Neck: Normal Inspection, Supple Respiratory: Lungs Clear, No Accessory Muscle Use, No Respiratory Distress Cardiovascular: Regular Rate, Rhythm, Normal Peripheral Pulses Gastrointestinal: Normal Bowel Sounds, Non Tender, Soft Extremity: Normal Inspection, Non Tender, No Pedal Edema Neurologic/Psychiatric: Alert, Oriented x3, Normal Mood/Affect Skin: Normal Color, Warm/Dry Results Results/Procedures Labs Laboratory Tests 11/16/19 03:00 11/17/19 03:10 Patient resulted labs reviewed. Imaging: Reviewed Imaging Report Assessment/Plan Assessment and Plan Assess & Plan/Chief Complaint STEMI HTN HLD Management per primary s/p stenting in staged procedures Discussed the importance of compliance with DAPT IDDMII Fasting BS 149 this AM Reports diet similar here as to home Will do half dose of Tresiba tonight to avoid bottoming out and check in AM If high plans to correct with sliding scale and resume normal dose tomorrow Hold metformin for 48 hours given cath Clinical Quality Measures DVT/VTE Risk/Contraindication: Risk Factor Score Per Nursin RFS Level Per Nursing on Admit: 3=High HILARIA HANSON MD Nov 17, 2019 12:24
[2019-11-17 12:28] VITALS: BP 119/78
--- NOTE | 2019-11-17 13:46 | NUR ---
RD ASSESSMENT PMHx: hypercholesterolemia; HTN; GERD; DM PT INTERACTION: Pt was awake and pleasant during nutrition assessment. Pt states current appetite is good. Note avg PO intake 100% of meals, per chart review. Pt states trying to follow low-CHO diet at home, and has no issues with chewing/swallowing food. Pt states no recent issues with nausea, vomiting or constipation. Pt states some recent issues with diarrhea. Note last BM was 11/15, and pt not currently on bowel regimen per chart review. Pt states no recent wt changes. Note unable to determine recent wt hx, per chart review. Pt states current DM management is "pretty good." Note recent HbA1c of 9.4 taken on 11/15/19, per chart review. ABNORMAL NUTRITION-RELATED LAB VALUES LOW: HIGH: BUN 20; glu 149 Est. kcal needs: 9086-7808 kcal | 15-18 kcal/kg Est. Pro needs: 101-126 g Pro | 0.8-1.0 g Pro/kg PES STATEMENT: Given current PO intake, no nutrition diagnosis at this time (NO-1.1) INTERVENTION: Continue with current diet order of CHO 60g/m 1snack diet. Discussed and provided information on CHO counting. Discussed CHO amounts and portion sizes in common foods of pt's diet. Also discussed smartphone applications to assist in meal planning. Pt verbalized understanding of information provided. Will continue to follow and reassess as pt needs, intake, and status change. MONITOR/EVALUATE: PO Intake; Plan of Care; Hydration Status; Weight Status; Lab Values Jovon Alonso, MS, RD, LD
[2019-11-17 16:14] VITALS: BP 119/78
== END 2019-11-17 16:22 | disposition home or self-care (01) | DRG 247 ==
LOC: EDUNIT# 22:44 → ER FS 22:46 → CATH 23:18 → ICU 11-15 01:06 → CSD 11-16 14:26
PROVIDERS: ADMIT Internal Medicine Interventional Cardiology; ATTEND Internal Medicine Interventional Cardiology
PROC: 027035Z Dilation of Coronary Artery, One Artery with Two Drug-eluting Intraluminal Devices, Percutaneous Approach (ICD-10-PCS; principal; 2019-11-15)
PROC: 4A023N7 Measurement of Cardiac Sampling and Pressure, Left Heart, Percutaneous Approach (ICD-10-PCS; 2019-11-15)
PROC: B2111ZZ Fluoroscopy of Multiple Coronary Arteries using Low Osmolar Contrast (ICD-10-PCS; 2019-11-15)
PROC: B2151ZZ Fluoroscopy of Left Heart using Low Osmolar Contrast (ICD-10-PCS; 2019-11-15)
PROC: 027034Z Dilation of Coronary Artery, One Artery with Drug-eluting Intraluminal Device, Percutaneous Approach (ICD-10-PCS; 2019-11-17)
DX: I21.19 ST elevation (STEMI) myocardial infarction involving other coronary artery of inferior wall (principal); E11.9 Type 2 diabetes mellitus without complications; I10 Essential (primary) hypertension; E78.5 Hyperlipidemia, unspecified; F17.210 Nicotine dependence, cigarettes, uncomplicated; D72.829 Elevated white blood cell count, unspecified; Z20.828 Contact with and (suspected) exposure to other viral communicable diseases; I25.10 Atherosclerotic heart disease of native coronary artery without angina pectoris
CPT/HCPCS: 36415; 71045; 80048; 80053; 80061; 82962; 83036; 83735; 83880; 84100; 84484; 85025; 85027; 85347; 85610; 85730; 87081; 87635; 93005; 93041; 93458

== ENCOUNTER → 2020-04-15 | Outpatient (CLI) | payer OTHER ==
[~2020-04-15] MED LIST: ASPI-1238 PO; ATOR40TA70 PO; ATOR80TA76 PO; CANA300T PO; DULA1.5P2 SQ; INSU100I32 SQ; INSU100V16 SQ; LISI10TA2 PO; LISI2.5T PO; METF-399 PO; METO-333 PO; OMEP-401 PO; TICA90TA PO
== END ==
LOC: WOUNDCARE 13:12
PROVIDERS: ATTEND Surgery
DX: E11.621 Type 2 diabetes mellitus with foot ulcer (principal); E11.42 Type 2 diabetes mellitus with diabetic polyneuropathy; E11.65 Type 2 diabetes mellitus with hyperglycemia; L97.411 Non-pressure chronic ulcer of right heel and midfoot limited to breakdown of skin
CPT/HCPCS: 97597; 99213

== ENCOUNTER → 2020-04-22 | Outpatient (CLI) | payer OTHER | LOC: WOUNDCARE 09:18 | PROVIDERS: ATTEND Surgery | DX: E11.621 Type 2 diabetes mellitus with foot ulcer (principal); E11.42 Type 2 diabetes mellitus with diabetic polyneuropathy; E11.65 Type 2 diabetes mellitus with hyperglycemia; L97.411 Non-pressure chronic ulcer of right heel and midfoot limited to breakdown of skin | CPT/HCPCS: 99212 ==

== ENCOUNTER → 2022-12-08 | Outpatient (CLI) | payer SELFPAY ==
[~2022-12-08] MED LIST changes: -LISI10TA2 PO; +LISI10TA25 PO; -LISI2.5T PO; +LISI2.5T13 PO
== END ==
LOC: CARD 13:46
PROVIDERS: ATTEND Physician Assistant
DX: I21.3 ST elevation (STEMI) myocardial infarction of unspecified site (principal); I25.10 Atherosclerotic heart disease of native coronary artery without angina pectoris; E78.5 Hyperlipidemia, unspecified; I10 Essential (primary) hypertension; E11.9 Type 2 diabetes mellitus without complications
CPT/HCPCS: 93306

== ENCOUNTER → 2023-02-08 | Outpatient (CLI) | payer OTHER ==
[~2023-02-08] MED LIST changes: +CATHETER FLUSH 10 ML SYR IVP PRN
[2023-02-08 09:21] VITALS: BP 128/78
--- NOTE | 2023-02-08 11:52 | Cardiology Stress Test Report ---
Stress Test Report Date of Procedure/Referring: Date of Procedure: Feb 08, 2023 PCP Tiffanie Rogers Aprn Admitting Physician Admitting Physician: Attending Physician: Hafsa Beth Indications: CAD Baseline Heart Rate: 59 Baseline Blood Pressure: Blood Pressure Systolic: 128 Blood Pressure Diastolic: 78 Vital Signs Date Time Temp Pulse Resp B/P (MAP) Pulse Ox O2 Delivery O2 Flow Rate FiO2 02/08/23 09:21 59 16 128/78 (95) 98 Room Air Baseline Vital Signs Vital Signs Date Time Temp Pulse Resp B/P (MAP) Pulse Ox O2 Delivery O2 Flow Rate FiO2 02/08/23 09:21 59 16 128/78 (95) 98 Room Air Baseline EKG: Baseline EKG: NSR Summary: After explaining the procedure and details to the patient, he signed the consent and was brought to the stress nuclear laboratory. Patient exercised on standard Sly protocol, EKG, heart rate and blood pressure were monitored continuously, resting and stress doses of radio tracer were injected, imaging was acquired and reviewed in the short axis, horizontal long axis and vertical long axis views Patient was able to exercise for a total of 9 minutes on Sly protocol, METs 10.5 Maximum heart rate 145 Maximum blood pressure 200/96 Stress EKG, Minimal nondiagnostic changes Recovery EKG, Return to baseline TID: 0.92 SSS: 6 SDS: 6 EF: 59 Conclusion: Good exercise tolerance for 9 minutes on standard Sly protocol, 10.5 METS achieving 85% of maximal expected heart rate Appropriate heart rate response to exercise with hypertensive response to exercise with peak blood pressure 200/96 return to baseline during recovery Nondiagnostic EKG changes with exercise return to baseline during recovery Significant reversible ischemia involving the inferior wall and inferolateral wall Normal left ventricular size, ejection fraction 59% Copy Copies To 1: [facility]/WINSOME MCNAMARA MD Feb 08, 2023 11:52
== END ==
LOC: CARD 07:30
PROVIDERS: ATTEND Physician Assistant
DX: I25.10 Atherosclerotic heart disease of native coronary artery without angina pectoris (principal); I21.3 ST elevation (STEMI) myocardial infarction of unspecified site; E78.5 Hyperlipidemia, unspecified; I10 Essential (primary) hypertension; E11.9 Type 2 diabetes mellitus without complications
CPT/HCPCS: 78452; 93017; A9502

== ENCOUNTER 2023-02-15 06:48 | Day surgery (SDC) | payer OTHER ==
[2023-02-15] VITALS (8 sets, daily range): BP systolic 115–138; BP diastolic 76–94
[~2023-02-15] VITALS: Ht 175.3 cm; Wt 118.0 kg
[~2023-02-15 06:48] MED LIST changes: -CATHETER FLUSH 10 ML SYR IVP PRN
[2023-02-15] MEDS ORDERED: NS IV 1000 ML 1,000 ML ONE (07:11)
[2023-02-15] MEDS ORDERED: LIDOCAINE 1% INJ 20 ML VIAL ONE (07:11)
[2023-02-15] MEDS ORDERED: HEParin (CATH LAB) 2,000 ML IV ONE (07:11)
[2023-02-15] MEDS ORDERED: NS IV 1000 ML 1,000 ML IV SCH ×2 (07:15→11:00)
[2023-02-15 07:36] LABS: HEMATOCRIT 50 % (40-54); HEMOGLOBIN 16.5 g/dL (13.3-17.7); MEAN CORPUSCULAR HEMOGLOBIN 31 pg (25-34); MEAN CORPUSCULAR HGB CONC 33 g/dL (32-36); MEAN CORPUSCULAR VOLUME 94 fL (80-99); MEAN PLATELET VOLUME 9.8 fL (9.0-12.2); PLATELET COUNT 193 10^3/uL (130-400); WHITE BLOOD COUNT 9.1 10^3/uL (4.3-11.0)
--- NOTE | 2023-02-15 07:42 | Diagnostic Imaging Report ---
INDICATION: Heart disease. Comparison is made with prior exam of 11/17/2019. FINDINGS: The heart size, mediastinal configuration, and pulmonary vascularity are within normal limits. There is no pleural effusion, pneumothorax, or pneumonia. The osseous structures are unremarkable. IMPRESSION: No acute cardiopulmonary abnormality. Dictated by: Dictated on workstation # [id number]
[2023-02-15 07:52] LABS: INR 0.9 (0.8-1.4); PROTHROMBIN TIME PATIENT 12.5 SEC (12.2-14.7)
[2023-02-15 08:00] LABS: ALBUMIN 4.3 GM/DL (3.2-4.5); BILIRUBIN,TOTAL 0.5 MG/DL (0.1-1.0); CALCIUM 8.9 MG/DL (8.5-10.1); CREATININE SERUM 0.96 MG/DL (0.60-1.30); POTASSIUM 4.4 MMOL/L (3.6-5.0); TOTAL PROTEIN 7.4 GM/DL (6.4-8.2)
[2023-02-15] MEDS ORDERED: CYCL10TA25 PO (08:24)
[2023-02-15] MEDS ORDERED: SILD100T67 PO (08:24)
[2023-02-15] MEDS ORDERED: CANA1TAB2 PO (08:24)
[2023-02-15] MEDS ORDERED: GABA800T10 PO (08:24)
[2023-02-15] MEDS ORDERED: DULA4.5P SQ (08:24)
[2023-02-15] MEDS ORDERED: DULO60CA59 PO (08:24)
[2023-02-15] MEDS ORDERED: OMEP20CA18 PO (08:24)
[2023-02-15] MEDS ORDERED: MIDAZOLAM INJ 5 MG/5 ML VIAL ONE (09:47)
[2023-02-15] MEDS ORDERED: VERAPAMIL 5 MG/2 ML (CALAN) VIAL IV ONE (09:47)
[2023-02-15] MEDS ORDERED: fentaNYL INJECTION 100 MCG/2 ML VIAL ONE (09:47)
[2023-02-15] MEDS ORDERED: NITRO DRIP 25000 MCG/D5W 250 ML IV ONE (09:48)
[2023-02-15] MEDS ORDERED: HEParin 1000 UNIT/ML (10ML VIAL) FOR BOLUS ONE (09:48)
--- NOTE | 2023-02-15 09:53 | Cardiac Procedure Note-CS/ASA ---
Pre-Procedure Note Pre-Op Procedure Note Date of Available H&P: Feb 09, 2023 Date H&P Reviewed: Feb 15, 2023 Time H&P Reviewed: 09:52 History & Physical: H&P Reviewed, Patient Examed, No changes noted Pre-Operative Diagnosis: CAD Moderate Sedation PreProcedure Time 09:53 ASA Score 3 Airway Lungs Heart ASA score ASA 1: a normal healthy patient ASA 2: a patient with a mild systemic disease (mid diabetes, controlled hypertension, obesity ASA 3: a patient with a severe systemic disease that limits activity (angina, COPD, prior Myocardial infarction) ASA 4: a patient with an incapacitating disease that is a constant threat to life (CHF, renal failure) ASA 5: a moribund patient not expected to survive 24 hrs. (ruptured aneurysm) ASA 6: a declared brain- patient whose organs are being harvested. For emergent operations, add the letter E after the classification Mallampati Classification Grade 3 Sedation Plan Analgesia, Amnesia, Plan communicated to team members, Discussed options with patient/fam, Discussed risks with patient/fam The patient is an appropriate candidate to undergo the planned procedure, sedation, and anesthesia. The patient immediately re-assessed prior to indication. WINSOME HUGO MD Feb 15, 2023 09:53
--- NOTE | 2023-02-15 10:51 | Discharge Inst-Post CATH ---
Discharge Inst-CATH/EP Problems Reviewed?: Yes Post Cardiac Cath/EP D/C Inst Follow Up/Plan Appointment with Dr. Kovacs's office in 2 to 4 weeks <b>CARDIAC CATH/EP PROCEDURE DISCHARGE INSTRUCTIONS</b> ACTIVITY * Go Home directly and rest. * Limit activity of the leg (or wrist if it was used) for 7 days including aer obics, swimming, jogging, bicycling, etc. * Restrict stair-climbing for 7 days if possible, if not, climb up with your non-cath leg, then bring together on the same step. * Avoid lifting, pushing, pulling or excessive movement of the affected extremi ty for 7 days. * Customary sexual activity may be resumed after 2 days-use caution not to use a position that strains or causes pain to the affected extremity. * No driving for 24 hours. * NO SMOKING. * Avoid straining for bowel movements for 7 days. * Gentle walking on level ground is allowed. * Returning to work will depend on the type of procedure and the results. Your doctor will discuss this with you. CALL YOUR DOCTOR FOR ANY OF THE FOLLOWING: *If bleeding from the puncture site occurs- Apply gentle pressure to site with clean cloth and call your doctor or EMS. * If a knot or lump forms under the skin, increases in size, or causes pain. * If bruising appears to be worsening or moving further down your leg instead of disappearing. * Temperature above 101 F. CARE OF YOUR GROIN INCISION; * Bruising or purple discoloration of the skin near the puncture site is common. * You may shower only, no bathtub bathing for 5 days. Be careful to avoid slipping as your leg may feel stiff. * If a closure device was used on your femoral artery, please see the attached guide regarding care of the device and your leg. * Leave dressing on FOR 24 hours. CARE OF YOUR WRIST INCISION; * Bruising or purple discoloration of the skin near the puncture site is common. * You may shower. * DO NOT submerge wrist. * Leave dressing on FOR 24 hours. WINSOME KOVACS MD Feb 15, 2023 10:51
--- NOTE | 2023-02-15 10:55 | Cardiac Cath Report ---
Cardiac Cath Report Physician (s)/[employer] Fireman (s) Physician WINSOME HUGO MD Pre-Procedure Diagnosis Pre-Procedure Diagnosis: CAD Post-Procedure Note Procedure Start Date: Feb 15, 2023 Procedure Start Time: 10:51 Name of Procedure: Left heart catheterization Findings/Procedure Note PROCEDURE NOTE: 47-year-old gentleman with history of coronary artery disease, had an acute myocardial infarction and stenting to the LAD and right coronary artery in the past. Had an abnormal stress test with inferior wall ischemia, scheduled for cardiac catheterization possible PTCA. After explaining the procedure to the patient, all pros and cons were explained, all questions were answered. The patient signed the consent and then he was placed in the cardiac catheterization laboratory. Groin was prepped in SL fashion local anesthesia was used. Sheath placed in the right radial artery, Allgood catheter was advanced to the left ventricular cavity, pressure was measured pullback LV to aorta was done, I was unable to engage the left system well. I was able to have engagement in the right system and angiogram was done. I tried multiple catheters to engage the left system and I was successful with AL-1. Angiogram was done then I turned AL-1 and I engaged again the right coronary artery and did angiogram to the right coronary artery again. At the end of the procedure the sheath was removed. Vascular band was used FINDINGS: Hemodynamics LV 109/13, end-diastolic pressure of 13 Aorta 102/75 mean of 89 ANATOMY: Left Main has 40 to 50% ostial stenosis. Nonobstructive disease Left Anterior Descending is moderate in size with patent stent in the mid LAD. No obstructive disease Left Circumflex is moderate in size with no obstructive disease Right Coronary Artery is large dominant artery with 30% in-stent restenosis in the mid right coronary artery, the distal right PDA is occluded and getting collaterals from the LAD LV Gram was not done, pressure was measured CONCLUSION: 40 to 50% ostial left main coronary artery stenosis, nonobstructive disease Patent stent in the mid LAD 30% in-stent restenosis in the mid right coronary artery, nonobstructive lesion, the far distal portion of the right PDA is occluded and getting filled by collaterals from the left system Nonobstructive disease in the circumflex artery Normal left ventricular end-diastolic pressure DISCUSSION AND RECOMMENDATION: Maximizing medical therapy, no intervention is warranted Anesthesia Type: Conscious Sedation Estimated blood loss (mL): 20 ml Contrast Amount: 50 ml Total Radiation Dose: 1196 mGy Post-Procedure Diagnosis Post-operative diagnosis: Chest pain Coronary artery disease Hypertension Hyperlipidemia WINSOME HUGO MD Feb 15, 2023 10:55
== END 2023-02-15 13:56 ==
LOC: CATH 06:48 → SDC 11:21 → CATH 13:56
PROVIDERS: ATTEND Internal Medicine Cardiovascular Disease
DX: I25.10 Atherosclerotic heart disease of native coronary artery without angina pectoris (principal); I10 Essential (primary) hypertension; E11.9 Type 2 diabetes mellitus without complications; F17.210 Nicotine dependence, cigarettes, uncomplicated; E78.2 Mixed hyperlipidemia; Z95.5 Presence of coronary angioplasty implant and graft; Z79.82 Long term (current) use of aspirin; Z79.4 Long term (current) use of insulin; Z79.899 Other long term (current) drug therapy
CPT/HCPCS: 36430; 71045; 80053; 80061; 85027; 85610; 85730; 87081; 93005; 93458; C1769; C1894; 36415